=== PATIENT | male | born 1960 | race Caucasian/White ===

== ENCOUNTER 2023-01-20 08:29 | Outpatient (OUT) | payer OTHER, SELFPAY ==
--- NOTE | 2023-01-20 12:07 | XR_ITS ---
The [address] [address] Patient Name: JACOB SYED MRN: [id number] date: 1960 Sex: M Assigned Patient Location: RAD Current Patient Location: [facility] Accession/Order Number: [id number] Exam Date: 01/20/2023 12:18 Report Date: 01/20/2023 20:28 At the request of: ASMITA ALEJO Procedure: XR knee MAXIMUS 3V EXAMINATION: XR knee MAXIMUS 3V HISTORY: Knee osteoarthritis M17.9 COMPARISON: No relevant comparison available. FINDINGS: RIGHT FINDINGS: BONES: No acute fracture or dislocation. Mild to moderate tricompartmental osteoarthropathy with joint space narrowing marginal osteophyte formation SOFT TISSUES: Negative. No visible soft tissue swelling. OTHER: Small moderate suprapatellar joint effusion LEFT FINDINGS: BONES: No acute fracture or dislocation. Mild to moderate tricompartmental osteoarthropathy SOFT TISSUES: Negative. No visible soft tissue swelling. OTHER: Large suprapatellar joint effusion XR/XR knee MAXIMUS 3V IMPRESSION: RIGHT CONCLUSION: Osteoarthritis with joint effusion LEFT CONCLUSION: Osteoarthritis with joint effusion Electronically authenticated by: NIKOLE PEREZ Date: 01/20/2023 20:28
== END 2023-01-20 08:30 ==
LOC: RAD 01-24 08:29
PROVIDERS: PCP Family Medicine; Visit Provider Family Medicine
DX: M17.0 Bilateral primary osteoarthritis of knee (principal)
CPT/HCPCS: 73562

== ENCOUNTER 2023-04-28 08:51 | Outpatient (OUT) | payer OTHER, SELFPAY ==
--- NOTE | 2023-04-28 09:02 | XR_ITS ---
[place] [id number] Patient Name: JACOB SYED MRN: [id number] date: 1960 Sex: M Assigned Patient Location: [facility] Current Patient Location: [facility] Accession/Order Number: [id number] Exam Date: 04/28/2023 09:10 Report Date: 04/28/2023 13:04 At the request of: ADRI SANDOVAL Procedure: XR knee MAXIMUS 4V EXAMINATION: XR knee MAXIMUS 4V HISTORY: Pain In Bilateral Knees , chronic COMPARISON: XR knee bilateral 01/20/2023 FINDINGS: RIGHT FINDINGS: BONES: Marked narrowing of the lateral joint space. Prominent osteophyte projecting from lateral articular surface of the femoral condyle appears to have eroded into the articular surface of the tibial plateau. Degenerative osteophytes along the articular margins of the anterior and lateral compartments. No fracture or dislocation. SOFT TISSUES: No visible soft tissue swelling. OTHER: Moderate size joint effusion. LEFT FINDINGS: BONES: Marked narrowing of the lateral joint space with [id number] articulation; moderate narrowing of the medial compartment. Partial lateral subluxation of the patella running relation to the femoral intercondylar notch. SOFT TISSUES: No visible soft tissue swelling. OTHER: Moderate-large joint effusion. XR/XR knee MAXIMUS 4V IMPRESSION: RIGHT CONCLUSION: Marked degenerative changes; significantly progressed since 3 months ago. LEFT CONCLUSION: Marked degenerative changes; significantly progressed since 3 months ago. Electronically authenticated by: ADRI ALMAZAN Date: 04/28/2023 13:04
== END 2023-04-28 08:52 | disposition home or self-care (01) ==
LOC: RAD 08:51
PROVIDERS: PCP Family Medicine; Visit Provider Orthopaedic Surgery
DX: M25.561 Pain in right knee (principal); M25.562 Pain in left knee
CPT/HCPCS: 73564

== ENCOUNTER 2023-05-18 09:39 | Emergency (ER) | payer OTHER, SELFPAY ==
[2023-05-18 09:43] VITALS: BP 130/101; PULSE 98; RESP 18; O2SAT 96; BMI 34.4
--- NOTE | 2023-05-18 09:50 | XR_ITS ---
The [address] [address] Patient Name: JACOB SYED MRN: [id number] date: 1960 Sex: M Assigned Patient Location: ER Current Patient Location: Accession/Order Number: [id number] Exam Date: 05/18/2023 10:00 Report Date: 05/18/2023 10:55 At the request of: ARNAV STOUT Procedure: XR humerus LT HISTORY: Pain in the mid upper arm of the left arm after a fall yesterday. XR humerus LT: 05/18/2023 10:00 AM EST COMPARISON: None. FINDINGS: 2 views of the left humerus were obtained. No fracture is seen. There is no significant soft tissue swelling. XR/XR humerus LT IMPRESSION: No fracture of the humerus is seen. Electronically authenticated by: ASMITA LAW Date: 05/18/2023 10:55
--- NOTE | 2023-05-18 09:51 | ED.UPPEXIN1 ---
HPI - Extremity Injury (Upper) General Chief Complaint: Extremity Injury, Upper Stated Complaint: UPPER EXTREMITY INJURY LEFT SHOULDER Time Seen by Provider: 05/18/23 09:47 Source: patient Mode of arrival: walk-in Limitations: no limitations History of Present Illness HPI narrative: last night the patient tripped and fell to the left, landing onto the left side with the left arm adducted against his body. He said that a lot of his weight landed onto the upper arm as it struck the ground. This morning the pain is markedly increased and he has difficulty flexing and abducting the left arm due to the pain, which is localized to the left upper arm/humerus. He took tylenol this morning for pain. no injury to the head, neck, back. He denies any shoulder pain. No loss consciousness. No other extremity or torso injuries. Related Data Allergies Allergy/AdvReac Type Severity Reaction Status Date / Time cephalexin [From Keflex] Allergy Intermediate Verified 05/18/23 09:46 Penicillins Allergy Intermediate Verified 05/18/23 09:46 [facility] Social History Smoking status: Never smoker Exam Narrative Exam Narrative: Nurses note and vital signs reviewed and patient is not hypoxic. afebrile General: The patient appears well and in no apparent distress. Patient is resting comfortably on cart. GCS = 15. Skin: Warm, dry, no pallor noted. Head: Normocephalic, atraumatic Neck: Supple, trachea mid-line. Full ROM and no cervical spinal tenderness. Eyes: PERRLA, EOMI Cardiovascular: normal peripheral perfusion Respiratory: Patient is in no distress, no accessory muscle use Back: No thoracic or left scapular tenderness to palpation. Negative straight leg raise bilaterally. Musculoskeletal: Left humerus tenderness, no left UE swelling - normal left shoulder exam and normal exam distal to the shaft of the left humerus - moves left elbow, wrist, forearm and fingers without difficulty or pain. Pulses at femoral, DP, PT, and popliteal were 2+ bilaterally. Moves all four extremities in all modalities with 5/5 strength. 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 Psychiatric: Cooperative Constitutional Vital Signs, click to edit/add: Last Vital Signs Pulse 98 H 05/18/23 09:43 Resp 18 05/18/23 09:43 BP 130/101 H 05/18/23 09:43 Pulse Ox 96 05/18/23 09:43 O2 Del Method Room Air 05/18/23 09:43 Course Vital Signs Vital signs: Vital Signs Pulse Rate 98 H 05/18/23 09:43 Respiratory Rate 18 05/18/23 09:43 Blood Pressure 130/101 H 05/18/23 09:43 Pulse Oximetry 96 05/18/23 09:43 Oxygen Delivery Method Room Air 05/18/23 09:43 Pulse Rate 98 H 05/18/23 09:43 Respiratory Rate 18 05/18/23 09:43 Blood Pressure 130/101 H 05/18/23 09:43 Pulse Oximetry 96 05/18/23 09:43 Oxygen Delivery Method Room Air 05/18/23 09:43 MDM - Extremity Injury (Upper) MDM Narrative Medical decision making narrative: the patient was sent for x-rays of the left humerus - I do not identify any fracture of the humerus, abnormality of the left shoulder or dislocation of the shoulder or elbow. ED nurse placed a sling on the patient's left UE - he was neurovascularly intact distally. patient discharged home with recommendation to take tylenol and motrin for pain. PCP follow up as needed. Imaging Data xr humerus: My impression: no acute fracture or dislocation. Discharge Plan Discharge Chief Complaint: Extremity Injury, Upper Clinical Impression: Contusion of arm, left Patient Disposition: Home, Self-Care Time of Disposition Decision: 10:35 Instructions: Contusion in Adults (ED) Stand Alone Forms: Portal Instructions Referrals: Kain Casillas MD [Primary Care Provider] - 1 week
[2023-05-18 10:44] VITALS: BP 158/98; PULSE 102; RESP 20; O2SAT 97
== END 2023-05-18 10:48 | disposition home or self-care (01) ==
PROVIDERS: Emergency Provider Emergency Medicine; PCP Family Medicine
DX: S40.022A Contusion of left upper arm, initial encounter (principal); W01.10XA Fall on same level from slipping, tripping and stumbling with subsequent striking against unspecified object, initial encounter
CPT/HCPCS: 73060; 99283

== ENCOUNTER 2023-10-29 08:46 | Outpatient (OUT) | payer OTHER, SELFPAY ==
--- NOTE | 2023-10-29 08:54 | ECG_ITS ---
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
--- NOTE | 2023-10-29 09:05 | XR_ITS ---
The [address] [address] Patient Name: JACOB SYED MRN: [id number] date: 1960 Sex: M Assigned Patient Location: [facility] Current Patient Location: [facility] Accession/Order Number: [id number] Exam Date: 10/29/2023 09:42 Report Date: 10/29/2023 10:09 At the request of: ELVER ASHTON Procedure: XR chest 2V EXAM: XR chest 2V HISTORY: Preop exam COMPARISON: None. TECHNIQUE: PA and lateral views of the chest. FINDINGS: The cardiomediastinal silhouette is normal. No focal consolidation is identified. There is no pneumothorax. No pleural effusion is noted. The osseous structures are intact. XR/XR chest 2V IMPRESSION: No acute cardiopulmonary process. Electronically authenticated by: UDAY COVARRUBIAS Date: 10/29/2023 10:09
--- OUTSIDE RECORDS SUMMARY | 2023-10-29 09:08 | XMS_ITS | CCD ---
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 Care Anesthesiology Faculty Name Role Phone NO FAMILY, PHYSICIAN Primary Care Provider Unava MD Ankush Lynn II Attending Provider [phone] Ankush Chacko II Attending UnavailAnkush Hernandez II Admitting Unavailjet gutierrez NO FAMILY, PHYSICIAN Primary Care Unavailable Ankush Chacko II Unavailable ANKUSH CHACKO Admitting Unavailable ANKUSH CHACKO Attending Unavailable YOMI VALDEZ Primary Care Unavailable RUDDY HECTOR Admitting Unavailable RUDDY HECTOR Attending Unavailable YOMI VALDEZ Primary Care Unavailable LA MARTINEZ Consulting Unavailable RUDDY HECTOR Consulting Unavailable Allergies Allergy Classification Reported Allergen(s) Allergy Type Date of Onset Reaction(s) Facility (2 sources) Cephalexin; Translations: [Keflex] Drug Allergy 06-07-20 13 rash [facility] Repository (1 source) Penicillin V Drug Allergy rash [employer] Other (1 source) Dextroamphetamine Drug Allergy 08-21-19 17 [facility] Repository (1 source) Penicillins Drug allergy (disorder) 06-07-20 13 [facility] Medications Current Medications Medication Drug Class(es) Dates Sig (Normalized) Sig (Original) acetaminophen 325 mg / HYDROcodone bitartrate 5 mg oral tablet (1 source) Opioid Agonist HYDROcodone-Acet aminophen 5-325 MG Oral for 3 Days Active atenolol 50 mg oral tablet (1 source) beta-Adrenergic Nita take 1 tablet by mouth once daily Atenolol 50 MG TAKE 1 TABLET BY MOUTH ONCE DAILY AT NIGHT Oral for 90 Days Active ezetimibe 10 mg oral tablet (1 source) Dietary Cholesterol Absorption Inhibitor take 1 tablet by mouth every twenty-four hours Ezetimibe 10 MG 1 tablet Orally Once a day Active lisinopril 20 mg oral tablet (1 source) Angiotensin Converting Enzyme Inhibitor take 1 tablet by mouth once daily in the morning Lisinopril 20 MG TAKE 1 TABLET BY MOUTH ONCE DAILY IN THE MORNING Oral for 90 Days Active meloxicam 15 mg oral tablet (2 sources) Nonsteroidal Anti-inflammatory Drug Start: 03-27-2022 take 1 tablet by mouth every twenty-four hours Meloxicam 15 MG 1 tablet Orally Once a day for 30 day(s) Mar, Active traZODone hydrochloride 100 mg oral tablet (1 source) Serotonin Reuptake Inhibitor take 1 tablet by mouth once daily traZODone HCl 100 MG TAKE 1 TABLET BY MOUTH ONCE DAILY AT NIGHT Oral for 90 Days Active Problems Problem Classification Problem Date Documented Date Episodic/Chronic E Codes: Fall (1 source) Fall on and from ladder, initial encounter; Translations: [FALL ON AND FROM LADDER INITIAL ENC] Onset: 03-25-2022 Episodic Joint disorders and dislocations; trauma-related (1 source) Unspecified dislocation of left patella, initial encounter; Translations: [UNS DISLOCATION LT PATELLA INITIAL] Onset: 03-25-2022 Episodic Malaise and fatigue (1 source) Weakness; Translations: [WEAKNESS] Onset: 04-17-2022 Episodic Other aftercare (1 source) Other skilled nursing (current) drug therapy; Translations: [OTH USP CURRENT DRUG THERAPY] Onset: 03-25-2022 Episodic Other nervous system disorders (1 source) Other abnormalities of gait and mobility; Translations: [OTHER ABNORMALITIES GAIT AND MOBILITY] Onset: 04-17-2022 Episodic Other non-traumatic joint disorders (5 sources) Other instability, left knee; Translations: [OTHER INSTABILITY LEFT KNEE] Onset: 03-29-2022 Episodic Other non-traumatic joint disorders (4 sources) Pain in left knee; Translations: [PAIN IN LEFT KNEE] Onset: 03-23-2022 Episodic Other non-traumatic joint disorders (1 source) Effusion, left knee; Translations: [EFFUSION LEFT KNEE] Onset: 04-17-2022 Episodic Other non-traumatic joint disorders (1 source) Stiffness of left knee, not elsewhere classified; Translations: [STIFFNESS LEFT KNEE NEC] Onset: 04-17-2022 Episodic Sprains and strains (1 source) Sprain of unspecified site of left knee, initial encounter; Translations: [SPRAIN UNS SITE LT KNEE INITIAL] Onset: 03-25-2022 Episodic Unclassified (1 source) Pain in left knee; Translations: [Pain in left knee] Onset: 03-27-2022 Results Test Name Value Interpretation Reference Range Facil ity XR pelvis 1-2Von 03-27-2022 XR pelvis 1-2V [facility] Main [place] [address] [place] [id number] XRay Report Signed Patient: Jacob Syed MR#: [id number] : 1960 Acct:[id number] Age/Sex: 62 / M ADM Date: 03/27/22 Loc: [facility] Room: Type: [facility] Attending Dr: Ankush Chacko II, MD Copies to: Ankush Chacko MD Ordering Provider: Ankush Chacko MD Date of Service: 03/27/22 XR/XR knee LT 4V*: Acute pain of left knee ([id number]) XR/XR pelvis 1-2V: PAIN LEFT KNEE - 4 views, one view pelvis CLINICAL HISTORY: Fell off ladder twisting while following. Swelling with generalized pain. COMPARISON: None FINDINGS: Knee: Prepatellar soft tissue swelling is noted. There is cortical irregularity noted along the lateral aspect of the lateral condyle. Mild degenerative changes. Small knee joint effusion. Pelvis: No acute bony process or significant degenerative change. XR/XR knee LT 4V* IMPRESSION: SOFT TISSUE SWELLING IS NOTED WITH CORTICAL IRREGULARITY ALONG THE LATERAL ASPECT OF THE LATERAL CONDYLE. IF INTERNAL DERANGEMENT OR ACUTE BONY PROCESS IS OF CLINICAL CONCERN, FURTHER EVALUATION WITH MRI SUGGESTED. Impression dictated by: Fransico Cordova Jr., D.OMirtha03/27/2022 4:07 PM Dictation Location: [place] [address] Transcribed By: [facility] 03/27/22 1604 Dictated By: Fransico Cordova Jr, DO 03/27/22 1605 Signed By: 03/27/22 [address] [facility] XR KNEE LT 4V or >on 022 XR KNEE LT 4V or > IMAGES REVIEWED: XR KNEE LT 4V or > COMPARISON: None available. CLINICAL INDICATION: Pain FINDINGS/IMPRESSION: 1. No definite evidence of acute osseous abnormality of the left knee. Only well seen on one of the oblique views, the third image of the series, there are some indeterminant small densities adjacent to the lateral femoral condyle-patella. 2. Apparent moderate anterior knee soft tissue swelling. 3. No lipohemarthrosis to suggest occult intra-articular fracture. 4. If there is concern for transient lateral patellar dislocation or chronic patellar maltracking, consider further evaluation with nonemergent MRI. Electronically authenticated by: LA MARTINEZ Date: 2022-03-23 19:23 Normal [facility] Vital Signs Date Time Vital Sign Value Performing Clinician Gabby whitley 04-24-2022 09:45-0400 Body height 177.8 cm Ankush Chacko II Other [employer] Other 04-24-2022 09:45-0400 Body mass index (BMI) [Ratio] 34.15 kg/m2 Ankush Patelle II Other [employer] [facility] [employer] Other 04-24-2022 09:45-0400 Body weight 107.96 kg Ankush Chacko II Other [employer] [facility] [employer] Other Encounters Encounter Date Encounter Type Care Provider Facility Start: 04-24-2022 End: 04-24-2022 ambulatory Ankush Chacko II Other [employer] [facility] [employer] Other Start: 04-24-2022 Office outpatient visit 15 minutes Ankush Chacko II [facility] Start: 03-29-2022 End: 04-23-2022 ambulatory ANKUSH CHACKO Facility:[facility] Start: 03-27-2022 End: 03-27-2022 ambulatory Ankush Chacko II Facility:[facility] Start: 03-27-2022 End: 03-27-2022 Patient encounter procedure PHYSICIAN NO FAMILY [facility] Start: 03-23-2022 End: 03-23-2022 ambulatory RUDDY HECTOR Facility:[facility] Procedures Date Procedure Procedure Detail Performing Clinician Start: 03-27-2022 Radiologic examinati on of knee PHYSICIAN NO FAMILY Start: 03-27-2022 Pelvis X-ray PHYSICIAN NO FAMILY Payers Date Payer Category Payer Self-pay [id number] 1960 Unknown [id number] 1960 Unknown [id number] 1958 Private Health Insurance [id number] Unknown [id number] Worker'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 [employer] [facility] [id number] Social History Date Type Detail Facility Tobacco smoking status NHIS Unknown if ever smoked [facility] Work Phone: Start: 1960 Sex Assigned At Male F [facility] Sex Assigned At Sex Assigned At Bir th [employer] Other Evaluation note 04-24-2022 Note Date & Type Note Facility 04-24-2022 Evaluation note Encounter Date Diagnosis Assessment Notes Apr, Patellar instability of left knee (ICD-10 - M25.362) Apr, Other At this point patient is doing very well with therapy and not having any pain. I think that he can get back to doing all activities he would like to including getting back to work full-time. If he has any issues in the future he can certainly see us in follow-up. I think he can continue working with therapy as an outpatient and eventually begin doing his own therapy at home. [facility] [employer] Other Evaluation note Note Date & Type Note Facility Evaluation note No assessment information availa ble [facility] Work Phone: History general Narrative - Reported Note Date & Type Note Facility History general Narrative - Reported Type Medical History hypertension Surgical History vasectomy [employer] Other Advance Directives No Advanced Directives Records Found Advance Directive Response Recorded Date/ Time Advance Directives No [place] 7th, 2 019 1:39pm Summary Purpose Family History No Family History Records FoundNo Family History Records Found Additional Source Comments Care Teams (unrecognized sec tion and content) Team Status: Inactive Member Role Status Dates PHYSICIAN NO FAMILY Primary Care Provider Active Ankush Chacko II, MD Attending Provider Active Team Status: Active Member Role Status Dates PHYSICIAN NO FAMILY Primary Care Provider Active Goals (unrecognized section and content) Goals may be documented in a n alternate sectionNo Information (unrecognized sect ion and content) No Status Records FoundNo Status Records Found INFORMATION SOURCE (unrecogn ized section and content) DATE CREATED AUTHOR 04/07/2022 [facility] DATE CREATED AUTHOR AUTHOR'S ORGANIZ ATION 05/11/2022 [facility] REASON FOR VISIT (unrecogniz ed section and content) 4 WEEK RECHECK FOR RECORDS PERTAINING TO PATIENTS WHO ARE OR HAVE BEEN ENROLLED IN A CHEMICAL DEPENDENCY/SUBSTANCEABUSE PROGRAM, SOME INFORMATION MAY BE OMITTED. This clinical summary was aggregated from multiple sources. Caution should be exercised in using it in the provision of clinical care. This summary normalizes information from multiple sources, and as a consequence, information in this document may materially change the coding, format and clinical context of patient data. In addition, data may be omitted in some cases. CLINICAL DECISIONS SHOULD BE BASED ON THE PRIMARY CLINICAL RECORDS. [facility] [employer] provides no warranty or guarantee of the accuracy or completeness of information in this document.
--- NOTE | 2023-10-29 09:37 | P.GSHP_ITS ---
History of Present Illness History of Present Illness Chief complaint: Primary OA Right Knee Narrative: Patient presents for preadmission testing. The patient reports a long history of bilateral knee pain, right worse than left. He states he's had cortisone injections and physical therapy he is currently taking meloxicam and tramadol to help with his discomfort. He states he's frustrated because he cannot do his normal activities. The patient denies numbness, tingling, weakness, or any other complaints. Review of Systems ROS Narrative REVIEW OF SYSTEMS: Negative except as stated in HPI, ten or more systems reviewed. Constitutional: No fever , chills, weakness ENT: No sore throat or epistaxis Cardiovascular: No edema, chest pain, palpitations, or activity intolerance Respiratory: No shortness of breath, cough, or wheezing Gastrointestinal: No abdominal pain, constipation, diarrhea, or vomiting Genitourinary: No dysuria or hematuria Neurological: No numbness, tingling, weakness, or headache Psychiatric: No mood changes PFSH PFSH Medical History (Updated 10/29/23 @ 09:18 by Linda Yoder NP) Osteoarthritis of right knee ?M17.11 - Unilateral primary osteoarthritis, right knee (ICD-10) Patellar dislocation ?S83.006A - Unspecified dislocation of unspecified patella, initial encounter (ICD-10) Knee pain ?M25.569 - Pain in unspecified knee (ICD-10) Arthritis ?M19.90 - Unspecified osteoarthritis, unspecified site (ICD-10) Osteoarthritis ?M19.90 - Unspecified osteoarthritis, unspecified site (ICD-10) COVID-19 ?U07.1 - COVID-19 (ICD-10) High cholesterol ?E78.00 - Pure hypercholesterolemia, unspecified (ICD-10) Hypertension ?I10 - Essential (primary) hypertension (ICD-10) Surgical History (Updated 10/29/23 @ 09:18 by Linda Yoder NP) History of colonoscopy ?Z98.890 - Other specified postprocedural states (ICD-10) History of vasectomy ?Z98.52 - Vasectomy status (ICD-10) Family History (Updated 10/29/23 @ 09:18 by Linda Yoder NP) Other Family history of hypertension Social History (Updated 10/29/23 @ 09:13 by Linda Yoder, [employer]) Within the past year, how often did you have a drink containing alcohol: 4 or more times a week Within the past year, how many standard drinks containing alcohol did you have on a typical day: 1 or 2 Total score: 0 Score interpretation: A score less than 4 is consistent with normal alcohol consumption. Smoking status: Never smoker Non-prescribed substance use: denies use Previous occupational history: Retired Highest level of school completed/degree received: high school graduate Meds Home Medications and Allergies Home Medications ?Medication ?Instructions ?Recorded ?Confirmed ?Type atenolol 50 mg tablet 50 mg PO Q24H 10/29/23 10/29/23 History ezetimibe 10 mg tablet 10 mg PO DAILY 10/29/23 10/29/23 History lisinopril 20 mg tablet 20 mg PO DAILY 10/29/23 10/29/23 History meloxicam 15 mg tablet 15 mg PO DAILY 10/29/23 10/29/23 History multivitamin (Daily Multi-Vitamin 1 tab PO DAILY 10/29/23 10/29/23 History tablet) tramadol 50 mg tablet 50 mg PO Q8H PRN pain 10/29/23 10/29/23 History trazodone 100 mg tablet 100 mg PO DAILY 10/29/23 10/29/23 History Allergies Allergy/AdvReac Type Severity Reaction Status Date / Time cephalexin [From Keflex] Allergy Intermediate itching Verified 10/29/23 09:09 Penicillins Allergy Intermediate unkown Verified 10/29/23 09:09 Exam Narrative Exam Narrative: Constitutional: Awake, alert, comfortable, well-appearing, nontoxic, interactive, vital signs as charted Head: Normocephalic, atraumatic Neck: Supple, normal appearance, normal range of motion, no meningeal signs, no lymphadenopathy Respiratory: No respiratory distress, breath sounds clear Cardiovascular: Regular rate and rhythm, strong and regular heart tones Musculoskeletal: Ambulates with an antalgic gait, right knee range of motion limited due to pain, diffuse tenderness with palpation of right knee joint Skin: No rashes or induration, no lesions, only visible skin inspected Neuro: No neurological deficits, normal sensation Psychiatric: Oriented ?3, normal affect Assessment and Plan Assessment and Plan (1) Osteoarthritis of right knee: (2) Knee pain: Plan Right total knee replacement scheduled with Dr. Canela 11/17/2023.
[2023-10-29 09:52] LABS: Basophils Absolute Auto 0.1 10^3/uL (0.0-0.1); Basophils Percent Auto 0.7 % (0.2-2.0); Eosinophils Absolute Auto 0.1 10^3/uL (0.0-0.7); Eosinophils Percent Auto 1.5 % (0.9-7.0); Hematocrit 45.8 % (42.0-54.0); Hemoglobin 15.5 g/dL (14.0-18.0); Immature Granulocytes Abs Auto 0.06 10^3/uL (0.00-0.03); Immature Granulocytes Pct Auto 0.8 % (0.0-0.5); Lymphocytes Absolute Auto 1.4 10^3/uL (1.2-3.8); Lymphocytes Percent Auto 18.9 % (20.5-60.0); Mean Corpuscular HGB Conc 33.8 g/dL (29.9-35.2); Mean Corpuscular Hemoglobin 29.5 pg (25.9-34.0); Mean Corpuscular Volume 87.1 fL (80.0-94.0); Mean Platelet Volume 8.5 fL (9.5-13.5); Monocytes Absolute Auto 0.8 10^3/uL (0.3-0.8); Monocytes Percent Auto 10.6 % (1.7-12.0); Neutrophils Percent Auto 67.5 % (43.0-75.0); Platelet Count 254 10^3/uL (150-450); Red Blood Count 5.26 10^6/uL (4.70-6.10); White Blood Count 7.4 10^3/uL (4.0-11.0)
[2023-10-29 10:05] LABS: Alanine Aminotransferase 35 U/L (16-63); Albumin Globulin Ratio 1.2; Albumin Level 3.7 g/dL (3.4-5.0); Alkaline Phosphatase 58 U/L (46-116); Aspartate Amino Transferase 18 U/L (15-37); BUN Creatinine Ratio 18.2; Bilirubin Direct 0.2 mg/dL (0.0-0.2); Bilirubin Total 0.9 mg/dL (0.2-1.0); Calcium 9.6 mg/dL (8.5-10.1); Carbon Dioxide 24.4 mmol/L (21.0-32.0); Chloride 104 mmol/L (98-107); Estimated GFR (African America >60 (>=60); Estimated GFR (Non-African Ame 55 (>=60); Globulin 3.1 g/dL; Glucose 106 mg/dL (74-106); Potassium 4.4 mmol/L (3.5-5.1); Sodium 140 mmol/L (136-145); Total Protein 6.8 g/dL (6.4-8.2)
[2023-10-29 11:34] LABS: INR 0.98; Partial Thromboplastin Time 28.1 sec (22.3-36.2); Prothrombin Time 10.4 sec (9.0-11.6)
== END 2023-10-29 08:47 | disposition home or self-care (01) ==
LOC: PST 08:46
PROVIDERS: PCP Family Medicine; Visit Provider Student in an Organized Health Care Education/Training Program
DX: Z01.810 Encounter for preprocedural cardiovascular examination (principal); Z01.812 Encounter for preprocedural laboratory examination; Z01.818 Encounter for other preprocedural examination; M17.11 Unilateral primary osteoarthritis, right knee
CPT/HCPCS: 71046; 80048; 80076; 85025; 85610; 85730; 87081; 93005; G0463

== ENCOUNTER 2023-11-14 12:15 | Outpatient (OUT) | payer OTHER, SELFPAY ==
--- OUTSIDE RECORDS SUMMARY | 2023-11-14 12:19 | XMS_ITS | CCD ---
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 Name Role Phone NO FAMILY, PHYSICIAN Primary Care Provider Unava MD Ankush Lynn II Attending Provider [phone] Ankush Chacko II Attending UnavailAnkush Hernandez II [...] [Keflex] Drug Allergy 06-07-20 13 rash [facility] (1 source) Penicillin V Drug Allergy rash [facility] Other (1 source) Dextroamphetamine Drug Allergy 08-21-19 17 [facility] (1 source) Penicillins Drug allergy (disorder) 06-07-20 13 [facility] Medications Current Medications Medication Drug [...] 04-17-2022 Episodic Other aftercare (1 source) 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; Translations: [OTH SIGN FABRICATOR CURRENT DRUG THERAPY] Onset: 03-25-2022 Episodic Other [...] XR pelvis 1-2Von 03-27-2022 XR pelvis 1-2V [facility] Main [place] [address] [place] [id number] XRay Report Signed Patient: Jacob Syed MR#: [id number] : 1960 Acct:[id number] Age/Sex: 62 / M ADM Date: 03/27/22 Loc: [facility] [place] Room: Type: [facility] Attending Dr: Ankush Chacko II, MD Copies to: Ankush Chacko MD Ordering Provider: Ankush Chacko MD Date of Service: 03/27/22 XR/XR knee LT 4V*: Acute pain of left knee ([id number]) XR/XR pelvis 1-2V: PAIN LEFT KNEE - [...] Cordova Jr., D.OMirtha03/27/2022 4:07 PM Dictation Location: [place] [address] Transcribed By: [facility] 03/27/22 160 Dictated By: Fransico Cordova Jr, DO 03/27/22 1606 Signed By: 03/27/22 1601 Normal [facility] XR KNEE LT 4V or >on 022 [...] by: LA MARTINEZ Date: 2022-03-23 19:23 Normal [facility] Vital Signs Date Time Vital Sign Value Performing Clinician Gabby whitley 04-24-2022 09:45-0400 Body height 177.8 cm Ankush Chacko II Other [facility] Other 04-24-2022 09:45-0400 Body mass index (BMI) [Ratio] 34.15 kg/m2 Ankush Patelle II Other [facility] Other 04-24-2022 09:45-0400 Body weight 107.96 kg Ankush Chacko II Other [facility] Other Encounters Encounter Date Encounter Type Care Provider Facility Start: 04-24-2022 End: 04-24-2022 ambulatory Ankush Chacko II Other [facility] Other Start: 04-24-2022 Office outpatient visit 15 minutes Ankush Chacko II [facility] Start: 03-29-2022 End: 04-23-2022 ambulatory ANKUSH CHACKO Facility:[facility] Start: 03-27-2022 End: 03-27-2022 ambulatory Ankush Chacko II Facility:[facility] Start: 03-27-2022 End: 03-27-2022 Patient encounter procedure PHYSICIAN NO FAMILY [facility] Start: 03-23-2022 End: 03-23-2022 ambulatory RUDDY HECTOR Facility:[facility] Procedures Date Procedure Procedure Detail Performing Clinician Start: 03-27-2022 Radiologic examinati on of knee PHYSICIAN NO FAMILY Start: 03-27-2022 Pelvis X-ray PHYSICIAN NO FAMILY Payers Date Payer Category Payer Self-pay [id number] 1960 Unknown [id number] 1960 Unknown [id number] 1958 Private Health Insurance [id number] Unknown [id number] Worker'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 [employer] [facility] [id number] Social History Date Type Detail Facility Tobacco smoking status NHIS Unknown if ever smoked [facility] Work Phone: Start: 1960 Sex Assigned At Male F [facility] Sex Assigned At Sex Assigned At Bir th [facility]Info Other Evaluation note 04-24-2022 Note Date & [...] begin doing his own therapy at home. [facility] Other Evaluation note Note Date & Type Note Facility Evaluation note No assessment information availa ble [facility] Work Phone: History general Narrative - Reported Note Date & Type Note Facility History general Narrative - Reported Type Medical History hypertension Surgical History vasectomy [facility] Other Advance Directives No Advanced Directives Records Found Advance Directive Response Recorded Date/ Time Advance Directives No [place] [address], 2 019 1:39pm Summary Purpose Family [...] section and content) DATE CREATED AUTHOR 04/07/2022 [facility] DATE CREATED AUTHOR AUTHOR'S ORGANIZ ATION [...] BE BASED ON THE PRIMARY CLINICAL RECORDS. [facility] [employer] provides no warranty or guarantee of the accuracy or completeness of information in this document.
== END 2023-11-14 12:16 | disposition home or self-care (01) ==
LOC: LAB 12:15
PROVIDERS: PCP Family Medicine; Visit Provider Student in an Organized Health Care Education/Training Program
DX: Z01.812 Encounter for preprocedural laboratory examination (principal); M17.11 Unilateral primary osteoarthritis, right knee
CPT/HCPCS: 36415; 86850; 86900; 86901

== ENCOUNTER 2023-11-17 08:18 | Day surgery (SDC) | payer OTHER, SELFPAY ==
[2023-10-29 09:35] VITALS: BP 125/84; PULSE 79; TEMP 36.2; O2SAT 95; BMI 35.5
[2023-11-17] VITALS (21 sets, daily range): BP systolic 103–160; BP diastolic 63–99; PULSE 78–102; TEMP 36.2–36.8; O2SAT 79–98; BMI 34.4; BMI 36.4
[2023-11-17 08:26] LABS: Basophils Absolute Auto 0.1 10^3/uL (0.0-0.1); Basophils Percent Auto 0.7 % (0.2-2.0); Eosinophils Absolute Auto 0.1 10^3/uL (0.0-0.7); Eosinophils Percent Auto 1.3 % (0.9-7.0); Hematocrit 46.1 % (42.0-54.0); Hemoglobin 15.9 g/dL (14.0-18.0); Immature Granulocytes Abs Auto 0.06 10^3/uL (0.00-0.03); Immature Granulocytes Pct Auto 0.8 % (0.0-0.5); Lymphocytes Absolute Auto 1.7 10^3/uL (1.2-3.8); Lymphocytes Percent Auto 22.4 % (20.5-60.0); Mean Corpuscular HGB Conc 34.5 g/dL (29.9-35.2); Mean Corpuscular Hemoglobin 29.9 pg (25.9-34.0); Mean Corpuscular Volume 86.7 fL (80.0-94.0); Mean Platelet Volume 8.1 fL (9.5-13.5); Monocytes Absolute Auto 0.9 10^3/uL (0.3-0.8); Monocytes Percent Auto 11.7 % (1.7-12.0); Neutrophils Absolute Auto 4.8 10^3/uL (1.4-6.5); Neutrophils Percent Auto 63.1 % (43.0-75.0); Platelet Count 281 10^3/uL (150-450); Red Blood Count 5.32 10^6/uL (4.70-6.10); Red Cell Distribution Width 13.2 % (11.0-15.0); White Blood Count 7.6 10^3/uL (4.0-11.0)
--- NOTE | 2023-11-17 08:41 | P.ORHP_ITS ---
History of Present Illness History of Present Illness Chief complaint: Primary OA Right Knee Narrative: Pt is a 63 yo male presenting for elective R TKA. Has severe R knee OA. He has trialed non-op management with PT, injections, NSAIDs. He has now elected for R TKA. Risks and benefits of procedure discussed. Informed consent obtained. Review of Systems ROS Status of ROS 10 or more systems reviewed and unremark able except as noted in history and below [facility] Medical History (Updated 10/29/23 @ 09:18 by Linda Yoder NP) Osteoarthritis of right knee ?M17.11 - Unilateral primary osteoarthritis, right knee (ICD-10) Patellar dislocation ?S83.006A - Unspecified dislocation of unspecified patella, initial encounter (ICD-10) Knee pain ?M25.569 - Pain in unspecified knee (ICD-10) Arthritis ?M19.90 - Unspecified osteoarthritis, unspecified site (ICD-10) Osteoarthritis ?M19.90 - Unspecified osteoarthritis, unspecified site (ICD-10) COVID-19 ?U07.1 - COVID-19 (ICD-10) High cholesterol ?E78.00 - Pure hypercholesterolemia, unspecified (ICD-10) Hypertension ?I10 - Essential (primary) hypertension (ICD-10) Surgical History (Updated 10/29/23 @ 09:18 by Linda Yoder NP) History of colonoscopy ?Z98.890 - Other specified postprocedural states (ICD-10) History of vasectomy ?Z98.52 - Vasectomy status (ICD-10) Family History (Updated 10/29/23 @ 09:45 by Linda Yoder NP) Other Family history of cancer Family history of hypertension Social History (Updated 10/29/23 @ 09:13 by Linda Yoder NP) Within the past year, how often did you have a drink containing alcohol: 4 or more times a week Within the past year, how many standard drinks containing alcohol did you have on a typical day: 1 or 2 Total score: 0 Score interpretation: A score less than 4 is consistent with normal alcohol consumption. Smoking status: Never smoker Non-prescribed substance use: denies use Previous occupational history: Retired Highest level of school completed/degree received: high school graduate Meds Home Medications and Allergies Home Medications ?Medication ?Instructions ?Recorded ?Confirmed ?Type atenolol 50 mg tablet 50 mg PO Q24H 10/29/23 11/17/23 History ezetimibe 10 mg tablet 10 mg PO DAILY 10/29/23 11/17/23 History lisinopril 20 mg tablet 20 mg PO DAILY 10/29/23 11/17/23 History meloxicam 15 mg tablet 15 mg PO DAILY 10/29/23 11/17/23 History multivitamin (Daily Multi-Vitamin 1 tab PO DAILY 10/29/23 10/29/23 History tablet) tramadol 50 mg tablet 50 mg PO Q8H PRN pain 10/29/23 11/17/23 History trazodone 100 mg tablet 100 mg PO DAILY 10/29/23 11/17/23 History Allergies Allergy/AdvReac Type Severity Reaction Status Date / Time cephalexin [From Keflex] Allergy Intermediate itching Verified 10/29/23 09:09 Penicillins Allergy Intermediate Rash Verified 11/17/23 08:32 Exam Constitutional Vital Signs, click to edit/add: Last Vital Signs Temp 97.1 F L 10/29/23 09:35 Pulse 79 10/29/23 09:35 Resp 18 10/29/23 09:35 BP 125/84 10/29/23 09:35 Pulse Ox 95 10/29/23 09:35 O2 Del Method Room Air 10/29/23 09:35 Common normals: no apparent distress General appearance: cooperative and comfortable Chest Common normals: inspection of chest normal Respiratory Common normals: normal respiratory effort and no retractions Cardio Common normals: regular rate and regular rhythm Extremity Right lower extremity: knee joint Other: RLE: Skin intact. No effusion. Correctable valgus deformity. motor and sensory exam intact. EHL/FHL/GS/TA motor intact. 2+DP pulse Results Labs Labs: Abnormal lab results 11/17/23 Range/Units 08:23 MPV 8.1 L (9.5-13.5) fL [place] # (Auto) 0.9 H (0.3-0.8) 10^3/uL Abs Immat Gran (auto) 0.06 H (0.00-0.03) 10^3/uL Imm/Tot Granulo (auto) 0.8 H (0.0-0.5) % H & H 11/17/23 Range/Units 08:23 Hgb 15.9 (14.0-18.0) g/dL Hct 46.1 (42.0-54.0) % All other labs normal. Assessment and Plan Assessment and Plan (1) Osteoarthritis of right knee: Plan 63 yo male presenting for R TKA -NPO since AK -[facility] -Chemical AC held -Informed consent obtained. Surgical site marked.
[2023-11-17] MEDS: DEXAMETHASONE SOD PHOS (PF) 10 MG/ML VIAL IV (08:56)
[2023-11-17] MEDS: LACTATED RINGER'S SOLUTION 1,000 ML 50 ML IV ×2 (08:58→10:50)
[2023-11-17] MEDS: CELECOXIB 200 MG CAPSULE PO (08:58)
[2023-11-17] MEDS: CEFAZOLIN SODIUM/DEXTROSE,ISO 2 GM/50 ML PIGGYBACK IV (09:30)
[2023-11-17] MEDS: TRANEXAMIC ACID 1,000 MG in 0.9 % SODIUM CHLORIDE 100 ML 440 MG IV ×2 (09:33→12:43)
--- NOTE | 2023-11-17 09:38 | PC.NURSE ---
914 TIME OUT PERFORMED 914 2 MG VERSED AND ZOFRAN WAS GIVEN [address] FORDE LOOKING WITH ULTRASOUND FOR LOCATION TO BLOCK, PICTURE WAS TAKEN 923 INJECTED AREA WITH ROPIVOCAINE SAPH BLOCK 926 COMPLETED BLOCK
[2023-11-17] MEDS: VANCOMYCIN HCL 1,000 MG VIAL 1000 MG TOPICAL (12:40)
[2023-11-17] MEDS: CEFAZOLIN SODIUM 2,000 MG in 0.9 % SODIUM CHLORIDE 100 ML 200 MG IV (13:20)
--- NOTE | 2023-11-17 13:42 | XR_ITS ---
The [address] [address] Patient Name: JACOB SYED MRN: [id number] date: 1960 Sex: M Assigned Patient Location: [facility] Current Patient Location: [place] Accession/Order Number: [id number] Exam Date: 11/17/2023 14:05 Report Date: 11/17/2023 14:33 At the request of: ELVER ASHTON Procedure: XR knee RT 2V EXAM: XR knee RT 2V HISTORY: post op COMPARISON: Bilateral hip study dated 04/28/2023 TECHNIQUE: AP and lateral views of the right knee were obtained. FINDINGS: There are prosthetic devices about the distal femur and proximal tibia in satisfactory position and alignment. Postoperative change at the posterior patellar level. Soft tissue swelling and air noted primarily anteriorly compatible with recent surgery. No definite acute fracture or dislocation. XR/XR knee RT 2V IMPRESSION: Right knee study demonstrates grossly unremarkable post arthroplasty changes as described. Follow-up as needed. Electronically authenticated by: KAYLEEN HODGSON Date: 11/17/2023 14:33
[2023-11-17] MEDS: HYDROMORPHONE HCL 0.5 MG/0.5 ML SYRINGE IV (13:51)
--- NOTE | 2023-11-17 13:53 | PM.ORONB ---
Brief Operative Note Date of procedure: 11/17/23 Pre-op diagnosis general: R Knee OA Post-op diagnosis: same as pre-op Procedure: R TKA Implants: Marcel 10 femur Marcel G tibia Size 10 poly Anesthesia: local Surgeon: Yony Canela Estimated blood loss (mL): 100 Tourniquet time (min): 122 IV fluids (mL): 1,000 Urine output (mL): 275 Pathology: none sent Condition: stable Disposition: floor
--- NOTE | 2023-11-17 13:55 | PM.ORPRC ---
Procedure Note Date of procedure: 11/17/23 Pre-op diagnosis: Right knee osteoarthritis Post-op diagnosis: same as pre-op Procedure: Patient is a 63 you male with severe right knee OA. He has tried injections, PT, NSAIDs with no relief. He has elected for R TKA. We discussed risks and benefits of surgery in detail with patient. Informed consent was obtained. No guarantees were made. Pt was taken to operative suite and transferred to hospital bed. He underwent anesthesia induction and intubation. The RLE was prepped and draped in usual fashion.A time out was had and the patient, procedure, operative side was confirmed. Pt was given abx and txa. Knee had quite a bit of laxity on exam. The MCL was intact but lax. We started standard midline approach. Performed medial arthrotomy. Performed limited medial peel. The infrapatellar fat pat and synovium was removed. Removed ACL/PCL. Flexed knee. there was severe bone loss to the lateral distal femur. We inserted the femur IM guide. Cut distal femur in 6 degrees of valgus. We then exposed tibia. We then cut tibia with 2mm off of the lateral side. Checked extension block which was quite tight. We then cut +2 off distal femur. Extension gap improved but still tight laterally to be expected. We then used a valgus cut guide to cut a bit more lateral tibia than medial. This improved gap tremendously. We then placed femur sizer. looked at size 10 and 11 and chose size then. Impacted block taking care to watch our rotation in relation to TEA and whitesides. We then turned to tibia. Removed meniscus and osteophytes. Selected size G tibia. We placed tibial blair in line with medial third of tubercle. We then trialed knee. It was quite stable with excellent ROM. We did note some space on the laterl side of femur between bone an implant were distal femur had eroded. We felt we could fill this gap with cement. We then irrigated knee with NS and irriscept. We then cut and measured a size 35 patella. Final implants were opened and cemented into place. Once cement hardened we were quite happy with stability of 10 poly. Knee was irrigated. Vanco placed into knee. arthrotomy was closed. subq and subcuticular closure performed. softer sterile dressings applied. Pt awoken and taken to pacu in stable condition. Post op plan: WBAT. Post op XRs. Start DVT ppx POD1. DC to home tomorrow. FOllow up in 1 week. Anesthesia: General-ET Surgeon: Yony Canela Estimated blood loss (mL): 50 IV fluids (mL): 1,000 Urine output (mL): 275 Pathology: none sent Condition: stable Disposition: floor
[2023-11-17] MEDS: 0.9 % SODIUM CHLORIDE 1,000 ML 100 ML IV (16:36)
[2023-11-17] MEDS: HYDROCODONE/ACET 5-325 MG TABLET 1 TAB PO ×2 (16:39→23:25)
--- NOTE | 2023-11-17 18:09 | P.PN_ITS ---
Progress Note: Subjective Subjective Interval history: Consultation for postoperative medical management. When I saw him up on the medical surgical floor, patient states pain fairly well-controlled. Outpatient issue is hypertension and insomnia, so far blood pressure well-maintained Exam Constitutional Vital Signs, click to edit/add: Last Vital Signs Temp 98.1 F 11/17/23 16:32 Pulse 95 H 11/17/23 16:32 Resp 18 11/17/23 16:32 BP 107/67 11/17/23 16:32 Pulse Ox 93 L 11/17/23 16:32 O2 Del Method Room Air 11/17/23 16:32 Documenting provider has reviewed patient's vital signs: yes Common normals: no apparent distress (Resting comfortably in chair) Chest Common normals: inspection of chest normal Respiratory Common normals: normal respiratory effort, no retractions and clear to auscultation bilaterally Cardio Common normals: regular rate, regular rhythm and no murmurs Extremity Common normals: no calf tenderness and no pedal edema Progress Note: Objective Labs Labs: Short CBC 11/17/23 Range/Units 08:23 WBC 7.6 (4.0-11.0) 10^3/uL Hgb 15.9 (14.0-18.0) g/dL Hct 46.1 (42.0-54.0) % Plt Count 281 (150-450) 10^3/uL Progress Note: A&P Assessment and Plan (1) Osteoarthritis of right knee: Assessment and Plan: Right knee arthroplasty-plan per orthopedics (2) Hypertension: (3) High cholesterol: (4) Insomnia: Plan Osteoarthritis right knee-status post knee replacement-plan per orthopedics Hypertension-monitor closely, postoperative blood pressure going up or down, so far blood pressure well-maintained. Continue with home medical management Hypercholesterolemia-continue with home medications Insomnia-continue with home medications CKD 2-continue to monitor as an outpatient Admission status: Surgical outpatient currently, assuming no complications overnight will be discharged home 11/18/23 Urinary Catheter Management Urinary Catheter Management Urethral: Cath placed during this visit: no
[2023-11-17] MEDS: ASPIRIN 81 MG TABLET.DR PO (21:15)
[2023-11-17] MEDS: OXYCODONE HCL/ACETAMINOPHEN 5MG/325MG 1 TAB PO (21:15)
[2023-11-17] MEDS: TRAZODONE HCL 50 MG TABLET 100 MG PO (21:15)
[2023-11-18] MEDS: 0.9 % SODIUM CHLORIDE 1,000 ML 100 ML IV (02:36)
[2023-11-18 04:33] VITALS: BP 121/77; PULSE 88; TEMP 36.7; O2SAT 92
[2023-11-18] MEDS: IBUPROFEN 400 MG TABLET 800 MG PO (04:37)
[2023-11-18 04:51] LABS: Basophils Percent Auto 0.3 % (0.2-2.0); Eosinophils Percent Auto 0.1 % (0.9-7.0); Hemoglobin 13.2 g/dL (14.0-18.0); Immature Granulocytes Abs Auto 0.07 10^3/uL (0.00-0.03); Immature Granulocytes Pct Auto 0.6 % (0.0-0.5); Lymphocytes Absolute Auto 1.7 10^3/uL (1.2-3.8); Lymphocytes Percent Auto 15.6 % (20.5-60.0); Mean Corpuscular HGB Conc 33.8 g/dL (29.9-35.2); Mean Corpuscular Hemoglobin 29.6 pg (25.9-34.0); Mean Corpuscular Volume 87.4 fL (80.0-94.0); Mean Platelet Volume 8.2 fL (9.5-13.5); Monocytes Absolute Auto 1.3 10^3/uL (0.3-0.8); Neutrophils Absolute Auto 7.8 10^3/uL (1.4-6.5); Neutrophils Percent Auto 71.4 % (43.0-75.0); Platelet Count 266 10^3/uL (150-450); Red Blood Count 4.46 10^6/uL (4.70-6.10); Red Cell Distribution Width 13.1 % (11.0-15.0)
[2023-11-18 07:49] VITALS: BP 126/78; PULSE 88; TEMP 36.7; O2SAT 95
--- NOTE | 2023-11-18 07:49 | P.PN_ITS ---
Progress Note: Subjective Subjective Interval history: Patient evaluated at the bedside, pain fairly well-controlled with 6-7 range. Not unexpected for postsurgical pain. Denies any other complaints. No chest pain or shortness of breath. Exam Constitutional Vital Signs, click to edit/add: Last Vital Signs Temp 98.0 F 11/18/23 04:33 Pulse 88 11/18/23 04:33 Resp 16 11/18/23 07:43 BP 121/77 11/18/23 04:33 Pulse Ox 92 L 11/18/23 04:33 O2 Del Method Room Air 11/18/23 04:33 Documenting provider has reviewed patient's vital signs: yes Common normals: no apparent distress (Resting comfortably in chair) Chest Common normals: inspection of chest normal Respiratory Common normals: normal respiratory effort, no retractions and clear to auscultation bilaterally Cardio Common normals: regular rate, regular rhythm and no murmurs Extremity Common normals: no calf tenderness and no pedal edema; abnormal to inspection (Bryan wrap applied to right knee) Progress Note: Objective Labs Labs: Short CBC 11/17/23 11/18/23 Range/Units 08:23 04:30 WBC 7.6 11.0 (4.0-11.0) 10^3/uL Hgb 15.9 13.2 L (14.0-18.0) g/dL Hct 46.1 39.0 L (42.0-54.0) % Plt Count 281 266 (150-450) 10^3/uL Progress Note: A&P Assessment and Plan (1) Osteoarthritis of right knee: (2) Hypertension: (3) High cholesterol: (4) Insomnia: Plan Osteoarthritis right knee-status post knee replacement-plan per orthopedics Acute blood loss anemia secondary to surgical intervention as outlined above-not unexpected for postsurgical blood loss. Patient denies melena, hematochezia, hematemesis. Hypertension-monitor closely, blood pressure well-controlled Hypercholesterolemia-continue with home medications Insomnia-continue with home medications CKD 2-continue to monitor as an outpatient Admission status: Surgical outpatient currently, likely discharged home later today, plan per orthopedics Urinary Catheter Management Urinary Catheter Management Urethral: Cath placed during this visit: no
[2023-11-18] MEDS: MULTIVITAMIN TABLET 1 TAB PO (08:21)
[2023-11-18] MEDS: LISINOPRIL 20 MG TABLET PO (08:21)
[2023-11-18] MEDS: ATENOLOL 50 MG TABLET PO (08:21)
[2023-11-18] MEDS: ASPIRIN 81 MG TABLET.DR PO (08:21)
[2023-11-18] MEDS: OXYCODONE HCL/ACETAMINOPHEN 5MG/325MG 1 TAB PO (08:21)
--- NOTE | 2023-11-18 09:43 | PT.DAILY ---
Physical Therapy Daily Note PT Daily Note/Assess Start: 11/18/23 09:32 Freq: Status: Active Protocol: Document 11/18/23 09:36 FLOR (Rec: 11/18/23 09:43 FLOR Desktop) Physical Therapy Daily Note/Assessment Time In/Time Out Time In 09:02 Time Out 09:30 Pain In Pain N/A Pain Out Pain N/A Subjective Subjective Pt sitting in BS chair upon arrival. Agrees to PT. Pt was medicated for pain 30 min prior to session. Pain was up to 8/10 this morning but currently 6/10. Therapeutic Exercise Time Therapeutic Exercise Minutes (minutes) 10 Therapeutic Exercise Units 1 Therapeutic Exercise Treatment Therapeutic Exercise Treatment Seated AP, LAQ, marches, add squeezes and abd step outs 10- 15x ea - increased time needed due to limited mobility. Min increased pain with LAQ. Therapeutic Activity Time Therapeutic Activity Minutes (minutes) 13 Therapeutic Activity Units 1 Therapeutic Activity Treatment Chair Transfer Ability Standby Assistance Therapeutic Activity Comments Sit>stand from BS chair to RW SBA with increased time. Pt amb 60' with RW, SBA with assist for IV pole. Increased time needed - step to gait pattern today. Seated rest break while being instructed on stair training. Brought portable 6 step to pts room for this. Pt able to perform 4x step up/down with proper technique while requiring heavy UE support on RW and increased time to complete. Pt feel confident he will be able to ascend into his house using method shown to him today. Pt returned to BS chair with ice pack for knee. Call light is within reach and needs met. Total Physical Therapy Time Total Therapy Minutes 23 Total Physical Therapy Units 2 Summary Daily Note Summary Goals met at this time. Steady with gait and stair training while using RW. Pain does increase with weight bearing. Edu to stay on top of this pain and to use call light when due for next dose. Pt to follow up with OP PT fran tomorrow afternoon. Planned dc home with his this afternoon.
--- NOTE | 2023-11-18 11:17 | SWNOTE1 ---
SW went to complete assessment with pt. Pt was discharged already. SW checked physical therapy note and pt went 60 feet with SBA with wheeled walk. Pt had voiced he felt comfortable going home with his and using the methods therapy showed him at hospital.
== END 2023-11-18 10:26 | disposition home or self-care (01) ==
LOC: SURGOUT 08:19 → MS 17:15
PROVIDERS: Anesthesiology; PCP Family Medicine; Visit Provider Student in an Organized Health Care Education/Training Program
PROC: (CPT 1402; principal; 2023-11-17 09:30)
DX: M17.11 Unilateral primary osteoarthritis, right knee (principal); Z86.16 Personal history of COVID-19; E78.00 Pure hypercholesterolemia, unspecified; Z98.52 Vasectomy status; Z79.899 Other long term (current) drug therapy; G47.00 Insomnia, unspecified; D62 Acute posthemorrhagic anemia; N18.2 Chronic kidney disease, stage 2 (mild); I12.9 Hypertensive chronic kidney disease with stage 1 through stage 4 chronic kidney disease, or unspecified chronic kidney disease
CPT/HCPCS: 27447; 36415; 64450; 73560; 76942; 85025; 97110; 97161; 97530; C1713; C1776; J1094; J1170; J2704; J3370

== ENCOUNTER 2023-11-19 12:36 | Outpatient (RCR) | payer OTHER, SELFPAY | END 2023-12-16 12:17 | disposition home or self-care (01) | LOC: PT 12:36 | PROVIDERS: PCP Family Medicine; Visit Provider Student in an Organized Health Care Education/Training Program | DX: Z96.651 Presence of right artificial knee joint (principal) | CPT/HCPCS: 97110; 97161; 97530 ==

== ENCOUNTER 2023-12-15 13:21 | Outpatient (OUT) | payer OTHER, SELFPAY ==
--- NOTE | 2023-12-15 | XR_ITS ---
[address] [address] Patient Name: JACOB SYED MRN: [id number] date: 1960 Sex: M Assigned Patient Location: Current Patient Location: Accession/Order Number: [id number] Exam Date: 12/15/2023 13:24 Report Date: 12/15/2023 15:53 At the request of: ELVER ASHTON Procedure: XR knee RT 2V PROCEDURE: XR knee RT 2V COMPARISON: 11/17/2023 HISTORY: RIGHT KNEE PAIN FINDINGS: BONES:Stable total knee arthroplasty with patellar resurfacing. No acute fracture, dislocation or mechanical failure SOFT TISSUES:Negative. No visible soft tissue swelling. EFFUSION:None visible. OTHER: Negative. XR/XR knee RT 2V IMPRESSION: Stable total knee arthroplasty Electronically authenticated by: NIKOLE PEREZ Date: 12/15/2023 15:53
== END 2023-12-15 13:22 | disposition home or self-care (01) ==
LOC: EC 13:22
PROVIDERS: PCP Family Medicine; Visit Provider Student in an Organized Health Care Education/Training Program
DX: M17.11 Unilateral primary osteoarthritis, right knee (principal); Z96.651 Presence of right artificial knee joint
CPT/HCPCS: 73560

== ENCOUNTER 2023-12-30 08:20 | Outpatient (OUT) | payer OTHER, SELFPAY ==
--- NOTE | 2023-12-30 08:23 | MR_ITS ---
[place] [id number] Patient Name: JACOB SYED MRN: [id number] date: 1960 Sex: M Assigned Patient Location: MRI Current Patient Location: MRI Accession/Order Number: [id number] Exam Date: 12/30/2023 08:41 Report Date: 12/30/2023 09:46 At the request of: ELVER ASHTON Procedure: MR knee RT wo con EXAMINATION: MR knee RT wo con HISTORY: Right artificial knee joint Z96.651 COMPARISON: 12/15/2023 TECHNIQUE: A complete multi-planar MRI was performed. FINDINGS: Very limited evaluation secondary to susceptibility artifact from total knee arthroplasty with patellar resurfacing. Marked protocol used to reduce artifact MEDIAL COMPARTMENT JOINT REPLACEMENT LATERAL COMPARTMENT JOINT REPLACEMENT ANTERIOR COMPARTMENT PATELLA: Patellar resurfacing CARTILAGE: No visible defect. TENDONS: Defect in the patellar ligament suggesting partial tear EFFUSION: Moderate to large joint effusion extending through the patella defect to the prepatellar space MR/MR knee RT wo con IMPRESSION: Defect/rupture in the distal medial quadriceps tendon Moderate knee joint effusion extending through the quadriceps tendon defect into the prepatellar space Electronically authenticated by: NIKOLE PEREZ Date: 12/30/2023 09:46
--- OUTSIDE RECORDS SUMMARY | 2023-12-30 08:24 | XMS_ITS ---
Patient Summarization (C-CDA 2.1 CCD) Created on: December 30, 2023 Mauricio Montano : 1960 Sex: Male Author Organization Sample organization Care Team Providers Care Warehouse Shipping Clerk Name Role Phone NO FAMILY, PHYSICIAN Primary Care Provider Unava ilable MD Ankush Chacko II Attending Provider Ankush Chacko II Unavailable ANKUSH CHACKO Admitting Unavailable ANKUSH CHACKO Attending Unavailable YOMI VALDEZ Primary Care Unavailable RUDDY HECTOR Admitting Unavailable RUDDY HECTOR Attending Unavailable YOMI VADLEZ Primary Care Unavailable LA MARTINEZ Consulting Unavailable RUDDY HECTOR Consulting Unavailable NON STAFF Attending Unavailable NON STAFF Admitting Unavailable Allergies Allergy Classification Reported Allergen(s) Allergy Type Date of Onset Reaction(s) Facility (2 sources) Cephalexin; Translations: [Keflex] Drug Allergy 06-07-20 13 rash [facility] Repository (1 source) Penicillin V Drug Allergy rash [facility] [employer] Other (1 source) Dextroamphetamine Drug Allergy 08-21-19 17 [facility] Repository (1 source) Penicillins Drug allergy (disorder) 06-07-20 13 [facility] Repository (1 source) Cephalexin Drug Allergy 04-24-20 22 [facility] Repository (1 source) Penicillins Drug allergy (disorder) 04-24-20 22 [facility] Repository Encounters Encounter Date Encounter Type Care Provider Facility Start: 11-17-2023 End: 11-17-2023 ambulatory NON STAFF Facility:[facility] Start: 04-24-2022 End: 04-24-2022 ambulatory Ankush Chacko II Other [email or web address] Other Start: 04-24-2022 Office outpatient visit 15 minutes Ankush Chacko II [facility] Start: 03-29-2022 End: 04-23-2022 ambulatory ANKUSH CHACKO Facility:[facility] Start: 03-27-2022 End: 03-27-2022 Patient encounter procedure PHYSICIAN OSMAR WALL [facility] Start: 03-23-2022 End: 03-23-2022 ambulatory RUDDY HECTOR Facility:[facility] Medications Current Medications Medication Drug Class(es) Dates [...] AT NIGHT Oral for 90 Days Active Payers Date Payer Category Payer Self-pay [id number] 1960 Unknown [id number] 1960 Unknown [id number] 1959 Unknown [id number] 2.16.8 [id number] Unknown [id number] Worker'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 Care Works [facility] [id number] Problems Problem Classification Problem Date Documented Date [...] 04-17-2022 Episodic Other aftercare (1 source) Other detention (current) drug therapy; Translations: [OTH INTERMEDIATE CURRENT DRUG THERAPY] Onset: 03-25-2022 Episodic Other [...] SITE LT KNEE INITIAL] Onset: 03-25-2022 Episodic Procedures Date Procedure Procedure Detail Performing Clinician Start: 03-27-2022 Radiologic examinati on of knee PHYSICIAN NO FAMILY Start: 03-27-2022 Pelvis X-ray PHYSICIAN NO FAMILY Results Test Name Value Interpretation Reference Range Facil ity [place] 11-17-2023 L Specimen: [id number] Received: 11/19/23 Status: SOUT Req Num: [id number] Spec Type: Surgical Subm Dr: ALVIN DEL CASTILLO Tissues: A Joint/Knee (RT KNEE BONE) Procedures: HE, Gross/Micro L4, Decalcification Age/ Patient Sex Location Account Attending Physician Mauricio Montano 63/M LABELL [id number] NON STAFF SPEC NUM: [id number] RECD: 11/19/23 STATUS: CASANDRA REQ NUM: [id number] MARIAN: 11/17/231252 SUBM DR: ALVIN STAFF ENTERED: 11/19/23 [facility] DR: Faviola,Lab SPEC TYPE: Surgical DEPT: LOLI BEAULIEU ORDERED: HE, Gross/Micro L4, Decalcification ORDERED: HE, Gross/Micro L4, Decalcification Pathological Diagnosis Bone and tissue, right knee, arthroplasty: Degenerative changes consistent with osteoarthritis. Gross Description The specimen is received in formalin, labeled with the patient's name and right knee bone , and consists of a 12.5 x 12.1 x 1.9 cm aggregate of multiple fragments of milner-white hemorrhagic bone. The largest fragment is consistent with tibial plateau, measuring 8.3 x 4.9 x 1.7 cm. There is a 2.7 x 2.4 cm focus of eburnation on the articular surface of the tibial plateau. There is mild osteophytic lipping over 10 to 20% of the specimen periphery. Serial sectioning shows yellow spongy bone matrix. Vehicle Operator Technician sections are submitted in A1. Clinical history: Primary OA right knee CPT Codes 61528 BONE AND TISSUE Specimen: [id number] Received: 11/19/23 Status: CASANDRA Zuleta Num: [id number] Spec Type: Surgical Subm Dr: ALVIN STAFF Tissues: A Joint/Knee (RT KNEE BONE) Procedures: HE, Gross/Micro L4, Decalcification Patient: Mauricio Montano Gosia [id number] (Continued) Signed (signature on file) Audrey Grubbs MD 11/20/23 1501 Normal The [facility] XR KNEE LT 4V or >on XR KNEE LT 4V or > IMAGES [...] by: LA MARTINEZ Date: 2022-03-23 19:23 Normal [facility] Social History Date Type Detail Facility Start: 1960 Sex Assigned At Male F [facility] Tobacco smoking status NHIS Unknown if ever smoked [facility] Work Phone: Sex Assigned At Sex Assigned At Bir th [email or web address] Other Vital Signs Date Time Vital Sign Value Performing Clinician Gabby whitley 04-24-2022 09:45-0400 Body height 177.8 cm CDB [employer] Other [email or web address] Other 04-24-2022 09:45-0400 Body mass index (BMI) [Ratio] 34.15 kg/m2 CDB [employer] Other [email or web address] Other 04-24-2022 09:45-0400 Body weight 107.96 kg CDB [employer] Other [email or web address] Other Evaluation note 04-24-2022 Note Date & [...] begin doing his own therapy at home. [email or web address] Other Evaluation note Note Date & Type Note Facility Evaluation note No assessment information availa ble [facility] Work Phone: History general Narrative - Reported Note Date & Type Note Facility History general Narrative - Reported Type Medical History hypertension Surgical History vasectomy [email or web address] Other Advance Directives No Advanced Directives Records Found Advance Directive Response Recorded Date/ Time Advance Directives No February 10 1:39pm Summary Purpose Family History No Family [...] documented in a n alternate sectionNo Information REASON FOR VISIT (unrecogniz ed section and content) 4 WEEK RECHECK (unrecognized sect ion and content) No Status Records FoundNo Status Records Found INFORMATION SOURCE (unrecogn ized section and content) DATE CREATED AUTHOR 05/11/2022 [facility] DATE CREATED AUTHOR AUTHOR'S ORGANIZ ATION 11/20/2023 The [facility] FOR RECORDS PERTAINING TO PATIENTS WHO ARE [...] BE BASED ON THE PRIMARY CLINICAL RECORDS. [facility]. provides no warranty or guarantee of the accuracy or completeness of information in this document.
== END 2023-12-30 08:21 | disposition home or self-care (01) ==
LOC: MRI 08:20
PROVIDERS: PCP Family Medicine; Visit Provider Student in an Organized Health Care Education/Training Program
DX: S76.111A Strain of right quadriceps muscle, fascia and tendon, initial encounter (principal); Z96.651 Presence of right artificial knee joint
CPT/HCPCS: 73721

== ENCOUNTER 2024-01-12 14:59 | Outpatient (OUT) | payer OTHER, SELFPAY ==
--- NOTE | 2024-01-12 | XR_ITS ---
[place] [id number] Patient Name: JACOB SYED MRN: [id number] date: 1960 Sex: M Assigned Patient Location: Current Patient Location: Accession/Order Number: [id number] Exam Date: 01/12/2024 15:05 Report Date: 01/13/2024 07:47 At the request of: ELVER ASHTON Procedure: XR knee RT 2V PROCEDURE: XR knee RT 2V COMPARISON: 12/15/2023 HISTORY: RIGHT KNEE PAIN FINDINGS: Single patellar view demonstrates lateral subluxation of the patella in relation to the femoral groove. XR/XR knee RT 2V IMPRESSION: Lateral subluxation/tracking of the patella Electronically authenticated by: NIKOLE PEREZ Date: 01/13/2024 07:47
== END 2024-01-12 15:00 | disposition home or self-care (01) ==
LOC: EC 15:01
PROVIDERS: PCP Family Medicine; Visit Provider Student in an Organized Health Care Education/Training Program
DX: Z47.1 Aftercare following joint replacement surgery (principal); S83.091A Other subluxation of right patella, initial encounter
CPT/HCPCS: 73560

== ENCOUNTER 2024-02-09 10:51 | Outpatient (RCR) | payer OTHER, SELFPAY | END 2024-04-02 11:12 | disposition home or self-care (01) | LOC: PT 10:51 | PROVIDERS: PCP Family Medicine; Visit Provider Student in an Organized Health Care Education/Training Program | DX: Z47.1 Aftercare following joint replacement surgery (principal); Z96.651 Presence of right artificial knee joint; S76.111D Strain of right quadriceps muscle, fascia and tendon, subsequent encounter; R26.9 Unspecified abnormalities of gait and mobility; R26.89 Other abnormalities of gait and mobility | CPT/HCPCS: 97110; 97161; 97530 ==

== ENCOUNTER 2024-03-05 12:24 | Outpatient (OUT) | payer OTHER, SELFPAY ==
--- OUTSIDE RECORDS SUMMARY | 2024-03-05 12:32 | XMS_ITS | CCD ---
Author Organization [facility] Inform ion Partnership [employer] [facility] Care Team Providers Care Panel Builder Name Role Phone NO FAMILY, PHYSICIAN Primary Care Provider Unava ilable MD Ankush Quintero II Attending Provider Ankush Quintero II Unavailable [phone] ANKUSH QUINTERO Admitting Unavailable ANKUSH QUINTERO Attending Unavailable YOMI VALDEZ Primary Care Unavailable RUDDY HECTOR Admitting Unavailable RUDDY HECTOR Attending Unavailable YOMI VALDEZ Primary Care Unavailable LA MARTINEZ Consulting Unavailable RUDDY HECTOR Consulting Unavailable NON STAFF Attending Unavailable NON STAFF Admitting Unavailable ELVER ASHTON Admitting Unavailable ELVER ASHTON Attending Unavailable ASMITA ALEJO Primary Care Unavailable Allergies Allergy Classification Reported Allergen(s) Allergy Type Date of Onset Reaction(s) Facility (2 sources) Cephalexin; Translations: [Keflex] Drug Allergy 06-07-20 13 rash [facility] Repository (1 source) Penicillin V Drug Allergy rash [email or web address] Other (1 source) Dextroamphetamine Drug Allergy 08-21-19 17 [facility] Repository (1 source) Penicillins Drug allergy (disorder) 06-07-20 13 [facility] Repository (1 source) Cephalexin Drug Allergy 04-24-20 22 [facility] Repository (1 source) Penicillins Drug allergy (disorder) 04-24-20 22 [facility] Repository Medications Current Medications Medication Drug Class(es) [...] 04-17-2022 Episodic Other aftercare (1 source) Other [facility] (current) drug therapy; Translations: [OTH CUSTODIAL CURRENT DRUG THERAPY] Onset: 03-25-2022 Episodic Other nervous system disorders (1 source) Other abnormalities of gait and mobility; Translations: [OTHER ABNORMALITIES GAIT AND MOBILITY] Onset: 04-17-2022 Episodic Other nervous system disorders (1 source) Other acute postprocedural pain; Translations: [Other acute postprocedural pain] Onset: 01-19-2024 Episodic Other non-traumatic joint disorders (5 sources) Other instability, left knee; Translations: [OTHER INSTABILITY LEFT KNEE] Onset: 03-29-2022 Episodic Other non-traumatic joint disorders (4 sources) Pain in left knee; Translations: [PAIN IN LEFT KNEE] Onset: 09-17-2022 Episodic Other non-traumatic joint disorders (1 source) Effusion, left knee; Translations: [EFFUSION LEFT KNEE] Onset: 04-17-2022 Episodic Other non-traumatic joint disorders (1 source) Stiffness of left knee, not elsewhere classified; Translations: [STIFFNESS LEFT KNEE NEC] Onset: 04-17-2022 Episodic Sprains and strains (1 source) Sprain of unspecified site of left knee, initial encounter; Translations: [SPRAIN UNS SITE LT KNEE INITIAL] Onset: 03-25-2022 Episodic Results Test Name Value Interpretation Reference Range Facil ity [place] 11-17-2023 L Specimen: [id number] Received: 11/19/23 Status: CASANDRA Zuleta Num: [id number] Spec Type: Surgical Subm Dr: NON STAFF Tissues: A Joint/Knee (RT KNEE BONE) Procedures: HE, Gross/Micro L4, Decalcification Age/ Patient Sex Location Account Attending Physician Mauricio Montano 63/M LABELL [id number] NON STAFF SPEC NUM: [id number] RECD: 11/19/23 STATUS: CASANDRA ZULETA NUM: [id number] MARIAN: 11/17/[address]: ALVIN STAFF ENTERED: 11/19/[address] [facility] [address]: Faviola,Lab SPEC TYPE: Surgical DEPT: LOLI [...] Serial sectioning shows yellow spongy bone matrix. Counter Pocket Trimmer sections are submitted in A1. Clinical history: Primary OA right knee CPT Codes 09484 BONE AND TISSUE Specimen: [id number] Received: 11/19/23 Status: CASANDRA Zuleta Num: [id number] Spec Type: Surgical Subm Dr: ALVIN STAFF Tissues: A Joint/Knee (RT KNEE BONE) Procedures: NITISH, Gross/Micro L4, Decalcification Patient: Mauricio Montano [id number] (Continued) Signed (signature on file) Audrey Grubbs MD 11/20/23 1501 Normal [facility] XR KNEE LT 4V or [...] by: LA MARTINEZ Date: 2022-03-23 19:23 Normal [facility] Vital Signs Date Time Vital Sign Value Performing Clinician Gabby whitley 04-24-2022 09:45-0400 Body height 177.8 cm Ankush Quintero II Other [email or web address] Other 04-24-2022 09:45-0400 Body mass index (BMI) [Ratio] 34.15 kg/m2 Ankush Quintero II Other [email or web address] Other 04-24-2022 09:45-0400 Body weight 107.96 kg Ankush Quintero II Other [email or web address] Other Encounters Encounter Date Encounter Type Care Provider Facility Start: 01-19-2024 End: 01-19-2024 [facility] Start: 11-17-2023 End: 11-17-2023 ambulatory NON STAFF Facility:[facility] Start: 04-24-2022 End: 04-24-2022 ambulatory Ankush Quintero II Other [email or web address] Other Start: 04-24-2022 Office outpatient visit 15 minutes [facility] Start: 03-29-2022 End: 04-23-2022 ambulatory ANKUSH QUINTERO Facility: Start: 03-27-2022 End: 03-27-2022 Patient encounter procedure PHYSICIAN NO [facility] Start: 03-23-2022 End: 03-23-2022 ambulatory RUDDY HECTOR Facility:[facility] Procedures Date Procedure Procedure Detail Performing Clinician Start: 03-27-2022 Radiologic examinati on of knee PHYSICIAN NO FAMILY Start: 03-27-2022 Pelvis X-ray PHYSICIAN NO FAMILY Payers Date Payer Category Payer Self-pay [id number] 2023 Unknown [id number] 1960 Unknown [id number] 1960 Unknown [id number] 1960 Unknown [id number] 1958 Unknown [id number] 2.16.8 [id number] Unknown [id number] Worker'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 Care Works of [facility] [phone] [id number] Social History Date Type Detail Facility Tobacco smoking status [facility] Unknown if ever smoked [facility] Work Phone: Start: 1960 Sex Assigned At Male F [facility] Sex Assigned At Sex Assigned At Bir th [facility] [email or web address] Other Evaluation note 04-24-2022 Note Date & [...] begin doing his own therapy at home. [facility] [email or web address] Other Evaluation note Note Date & Type Note Facility Evaluation note No assessment information availa forrest [facility] Work Phone: History general Narrative - Reported Note Date & Type Note Facility History general Narrative - Reported Type Medical History hypertension Surgical History vasectomy [facility] [email or web address] Other Advance Directives No Advanced Directives Records Found Advance Directive Response Recorded Date/ Time Advance Directives No February 10, 019 1:39pm Summary Purpose Family History No Family History Records FoundNo Family History Records FoundNo Family History Records Found Additional Source Comments Care Teams (unrecognized sec tion and content) Team Status: Inactive Member Role Status Dates PHYSICIAN NO FAMILY Primary Care Provider Active Ankush Quintero II, MD Attending Provider Active Team Status: Active Member Role Status Dates PHYSICIAN NO FAMILY Primary Care Provider Active Goals (unrecognized section and content) Goals may be documented in a n alternate sectionNo Information REASON FOR VISIT (unrecogniz ed section and content) 4 WEEK RECHECK (unrecognized sect ion and content) No Status Records FoundNo Status Records FoundNo Status Records Found INFORMATION SOURCE (unrecogn ized section and content) DATE CREATED AUTHOR 05/11/2022 [facility] DATE CREATED AUTHOR AUTHOR'S ORGANIZ ATION 11/20/2023 [facility] DATE CREATED AUTHOR AUTHOR'S ORGANIZ ATION 01/21/2024 Viktorcitlaly BranchSan Marcosamisha mar FOR RECORDS PERTAINING TO PATIENTS WHO ARE [...] BE BASED ON THE PRIMARY CLINICAL RECORDS. [employer] provides no warranty or guarantee of the accuracy or completeness of information in this document.
[2024-03-05 12:54] LABS: Basophils Percent Auto 0.4 % (0.2-2.0); Eosinophils Absolute Auto 0.1 10^3/uL (0.0-0.7); Eosinophils Percent Auto 1.7 % (0.9-7.0); Hemoglobin 14.2 g/dL (14.0-18.0); Immature Granulocytes Abs Auto 0.06 10^3/uL (0.00-0.03); Immature Granulocytes Pct Auto 0.8 % (0.0-0.5); Lymphocytes Absolute Auto 1.7 10^3/uL (1.2-3.8); Lymphocytes Percent Auto 22.5 % (20.5-60.0); Mean Corpuscular HGB Conc 34.6 g/dL (29.9-35.2); Mean Corpuscular Hemoglobin 29.8 pg (25.9-34.0); Mean Platelet Volume 7.9 fL (9.5-13.5); Monocytes Percent Auto 13.3 % (1.7-12.0); Neutrophils Absolute Auto 4.8 10^3/uL (1.4-6.5); Neutrophils Percent Auto 61.3 % (43.0-75.0); Platelet Count 391 10^3/uL (150-450); Red Blood Count 4.77 10^6/uL (4.70-6.10); Red Cell Distribution Width 13.1 % (11.0-15.0); White Blood Count 7.7 10^3/uL (4.0-11.0)
--- NOTE | 2024-03-05 13:01 | CT_ITS ---
[address] [address] Patient Name: JACOB SYED MRN: [id number] date: 1960 Sex: M Assigned Patient Location: CT Current Patient Location: Accession/Order Number: [id number] Exam Date: 03/05/2024 12:58 Report Date: 03/09/2024 06:34 At the request of: ELVER ASHTON Procedure: CT knee RT wo con EXAMINATION: CT knee RT wo con HISTORY: Presence Of Right Artificial Knee Joint, Knee Effusion ; right knee pain and redness at incision site COMPARISON: XR knee right 01/12/2024, 12/15/2023 TECHNIQUE: Multi-planar CT images were created without and/or with IV contrast according to examination type. Dose reduction techniques were achieved by using automated exposure control and/or adjustment of mA and/or kV according to patient size and/or use of iterative reconstruction technique. FINDINGS: BONES: Total knee replacement without evidence of hardware fracture or loosening. No bone fracture dislocation. Resurfacing of the patella. SOFT TISSUES: Negative. No visible soft tissue swelling. EFFUSION: Moderate size joint effusion. OTHER: Negative. CT/CT knee RT wo con IMPRESSION: 1. Moderate size joint effusion. 2. Total knee replacement without evidence of hardware failure. Electronically authenticated by: ADRI ALMAZAN Date: 03/09/2024 06:34
[2024-03-05 13:22] LABS: C Reactive Protein 1.91 mg/dL (<=0.50)
[2024-03-05 13:59] LABS: Erythrocyte Sedimentation Rate 39 mm/hr (<=20)
== END 2024-03-05 12:25 | disposition home or self-care (01) ==
LOC: CT 12:26
PROVIDERS: PCP Family Medicine; Visit Provider Student in an Organized Health Care Education/Training Program
DX: M25.461 Effusion, right knee (principal); Z96.651 Presence of right artificial knee joint; Z47.1 Aftercare following joint replacement surgery
CPT/HCPCS: 36415; 73700; 85025; 85652; 86140

== ENCOUNTER 2024-03-19 12:49 | Outpatient (OUT) | payer OTHER, SELFPAY ==
[2024-03-19 14:10] LABS: Basophils Percent Auto 0.6 % (0.2-2.0); Eosinophils Absolute Auto 0.2 10^3/uL (0.0-0.7); Eosinophils Percent Auto 2.6 % (0.9-7.0); Hematocrit 41.5 % (42.0-54.0); Hemoglobin 13.9 g/dL (14.0-18.0); Immature Granulocytes Abs Auto 0.05 10^3/uL (0.00-0.03); Immature Granulocytes Pct Auto 0.8 % (0.0-0.5); Lymphocytes Absolute Auto 1.9 10^3/uL (1.2-3.8); Lymphocytes Percent Auto 28.9 % (20.5-60.0); Mean Corpuscular HGB Conc 33.5 g/dL (29.9-35.2); Mean Corpuscular Hemoglobin 29.1 pg (25.9-34.0); Mean Platelet Volume 8.6 fL (9.5-13.5); Monocytes Absolute Auto 0.8 10^3/uL (0.3-0.8); Neutrophils Absolute Auto 3.5 10^3/uL (1.4-6.5); Neutrophils Percent Auto 54.1 % (43.0-75.0); Platelet Count 331 10^3/uL (150-450); Red Blood Count 4.77 10^6/uL (4.70-6.10); Red Cell Distribution Width 13.3 % (11.0-15.0); White Blood Count 6.5 10^3/uL (4.0-11.0)
[2024-03-19 14:12] LABS: C Reactive Protein 1.63 mg/dL (<=0.50)
[2024-03-19 14:25] LABS: Erythrocyte Sedimentation Rate 34 mm/hr (<=20)
== END 2024-03-19 12:50 | disposition home or self-care (01) ==
LOC: LAB 12:52
PROVIDERS: PCP Family Medicine; Visit Provider Student in an Organized Health Care Education/Training Program
DX: Z47.1 Aftercare following joint replacement surgery (principal); Z96.651 Presence of right artificial knee joint
CPT/HCPCS: 36415; 85025; 85652; 86140

== ENCOUNTER 2024-03-26 12:09 | Outpatient (OUT) | payer OTHER, SELFPAY ==
--- OUTSIDE RECORDS SUMMARY | 2024-03-26 12:25 | XMS_ITS | CCD ---
Author Organization [facility] Inform ion Partnership [employer] [facility] Care Team Providers Care Maintenance Engineer Name Role Phone NO FAMILY, PHYSICIAN Primary Care Provider Unava ilable MD Ankush Quintero II Attending Provider [phone] Ankush Quintero II Unavailable [phone] ANKUSH QUINTERO Admitting Unavailable ANKUSH QUINTERO Attending [...] [Keflex] Drug Allergy 06-07-20 13 rash [facility] Repository (1 source) Penicillin V Drug Allergy rash [facility] Other (1 source) Dextroamphetamine Drug Allergy 08-21-19 17 [facility] Repository (1 source) Penicillins Drug allergy (disorder) 06-07-20 13 [facility] Repository (1 source) Cephalexin Drug Allergy 04-24-20 22 [facility] Repository (1 source) Penicillins Drug allergy (disorder) 04-24-20 22 [facility] Repository Medications Current Medications Medication Drug [...] 04-17-2022 Episodic Other aftercare (1 source) Other intermediate (current) drug therapy; Translations: [OTH JAIL CURRENT DRUG THERAPY] Onset: 03-25-2022 Episodic Other [...] Range Facil ity [place] 11-17-2023 L Specimen: [id number] Received: 11/19/23 Status: CASANDRA Zuleta Num: [id number] Spec Type: Surgical Subm Dr: NON STAFF Tissues: A Joint/Knee (RT KNEE BONE) Procedures: HE, Gross/Micro L4, Decalcification Age/ Patient Sex Location Account Attending Physician Mauricio Montano 63/M LABELL [id number] NON STAFF SPEC NUM: [id number] RECD: 11/19/23 STATUS: CASANDRA ZULETA NUM: [id number] MARIAN: 11/17/[address]: ALVIN STAFF ENTERED: 11/19/23 [facility] DR: Faviola,Lab SPEC TYPE: Surgical DEPT: [...] Serial sectioning shows yellow spongy bone matrix. Library Services Assistant sections are submitted in A1. Clinical history: Primary OA right knee CPT Codes 58138 BONE AND TISSUE Specimen: [id number] Received: 11/19/23 Status: CASANDRA Zuleta Num: [id number] Spec Type: Surgical Subm Dr: ALVIN STAFF Tissues: A Joint/Knee (RT KNEE BONE) Procedures: NITISH, Gross/Micro L4, Decalcification Patient: Mauricio Montano [id number] (Continued) Signed (signature on file) Audrey Grubbs MD 11/20/23 1501 Normal [facility] XR KNEE LT 4V [...] by: LA MARTINEZ Date: 2022-03-23 19:23 Normal [facility] Vital Signs Date Time Vital Sign Value Performing Clinician Gabby whitley 04-24-2022 09:45-0400 Body height 177.8 cm Ankush Quintero II Other [facility] Other 04-24-2022 09:45-0400 Body mass index (BMI) [Ratio] 34.15 kg/m2 Ankush Quintero II Other [facility] Other 04-24-2022 09:45-0400 Body weight 107.96 kg Ankush Quintero II Other [facility] Other Encounters Encounter Date Encounter Type Care Provider Facility Start: 01-19-2024 End: 01-19-2024 [facility] Start: 11-17-2023 End: 11-17-2023 ambulatory NON STAFF Facility:[facility] Start: 04-24-2022 End: 04-24-2022 ambulatory Ankush Quintero II Other [facility] Other Start: 04-24-2022 Office outpatient visit 15 minutes [facility] Start: 03-29-2022 End: 04-23-2022 ambulatory ANKUSH QUINTERO Facility: Start: 03-27-2022 End: 03-27-2022 Patient encounter procedure PHYSICIAN NO [facility] Start: 03-23-2022 End: 03-23-2022 ambulatory RUDDY HECTOR Facility:[facility] Procedures Date Procedure Procedure Detail Performing Clinician Start: 03-27-2022 Radiologic examinati on of knee PHYSICIAN NO FAMILY Start: 03-27-2022 Pelvis X-ray PHYSICIAN NO FAMILY Payers Date Payer Category Payer Self-pay [id number] 2023 Unknown [id number] 1960 Unknown [id number] 1960 Unknown [id number] 1960 Unknown [id number] 1959 Unknown [id number] 2.16.8 [id number] Unknown [id number] Worker'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 Care Works of [facility] [id number] Social History Date Type Detail Facility Tobacco smoking status [facility] Unknown if ever smoked [facility] Work Phone: Start: 1960 Sex Assigned At Male F [facility] Sex Assigned At Sex Assigned At Bir th [facility] [employer] Other Evaluation note 04-24-2022 Note Date & [...] begin doing his own therapy at home. [email or web address] [facility] [employer] Other Evaluation note Note Date & Type Note Facility Evaluation note No assessment information availa forrest [facility] Work Phone: History general Narrative - Reported Note Date & Type Note Facility History general Narrative - Reported Type Medical History hypertension Surgical History vasectomy [facility] [employer] Other Advance Directives No Advanced Directives Records [...] and content) DATE CREATED AUTHOR 05/11/2022 [facility] DATE CREATED AUTHOR AUTHOR'S ORGANIZ ATION 11/20/[address] [facility]ician [facility] DATE CREATED AUTHOR AUTHOR'S ORGANIZ ATION 01/21/2024 Viktorcitlaly BranchManfredamisha mar FOR RECORDS PERTAINING TO PATIENTS WHO [...] BE BASED ON THE PRIMARY CLINICAL RECORDS. [employer] provides no warranty or guarantee of the accuracy or completeness of information in this document.
[2024-03-26 13:08] LABS: C Reactive Protein 1.55 mg/dL (<=0.50)
== END 2024-03-26 12:10 | disposition home or self-care (01) ==
LOC: LAB 12:10
PROVIDERS: PCP Family Medicine; Visit Provider Student in an Organized Health Care Education/Training Program
DX: Z47.1 Aftercare following joint replacement surgery (principal); Z96.651 Presence of right artificial knee joint
CPT/HCPCS: 36415; 86140

== ENCOUNTER 2024-03-29 17:08 | Outpatient (REF) | payer OTHER, SELFPAY ==
--- OUTSIDE RECORDS SUMMARY | 2024-03-29 17:28 | XMS_ITS | CCD ---
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 Name Role Phone NO FAMILY, PHYSICIAN Primary Care Provider Unava ilable MD Ankush Quintero II Attending Provider Ankush Quintero II Unavailable [phone] ANKUSH QUINTERO Admitting Unavailable ANKUSH QUINTERO Attending [...] Allergy 06-07-20 13 rash [facility] Repository (1 source) Penicillin V Drug Allergy rash [employer] Other (1 source) Dextroamphetamine Drug Allergy 08-21-19 17 [facility] Repository (1 source) Penicillins Drug allergy (disorder) 06-07-20 13 [facility] Repository (1 source) Cephalexin Drug Allergy 04-24-20 22 [facility] Repository (1 source) Penicillins Drug allergy (disorder) 04-24-20 22 [facility] Repository Medications Current Medications Medication Drug Class(es) [...] 04-17-2022 Episodic Other aftercare (1 source) Other longterm (current) drug therapy; Translations: [OTH ALF CURRENT DRUG THERAPY] Onset: 03-25-2022 Episodic Other [...] Range Facil ity [place] 11-17-2023 L Specimen: [id number] Received: 11/19/23 Status: CASANDRA Zuleta Num: [id number] Spec Type: Surgical Subm Dr: NON STAFF Tissues: A Joint/Knee (RT KNEE BONE) Procedures: HE, Gross/Micro L4, Decalcification Age/ Patient Sex Location Account Attending Physician Mauricio Syed 63/M [place] [id number] NON STAFF SPEC NUM: [id number] RECD: 11/19/23 STATUS: CASANDRA ZULETA NUM: [id number] MARIAN: 11/17/[address]: ALVIN STAFF ENTERED: 11/19/[address] [facility] [address]: Faviola,Lab SPEC TYPE: Surgical DEPT: LOLI [...] Serial sectioning shows yellow spongy bone matrix. 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 Clinical history: Primary OA right knee CPT Codes 92179 BONE AND TISSUE Specimen: [id number] Received: 11/19/23 Status: CASANDRA Zuleta Num: [id number] Spec Type: Surgical Subm Dr: ALVIN STAFF Tissues: A Joint/Knee (RT KNEE BONE) Procedures: NITISH, Gross/Micro L4, Decalcification Patient: Mauricio Syed [id number] (Continued) Signed (signature on file) Audrey Grubbs MD 11/20/23 1501 Normal [facility] XR KNEE LT 4V or [...] LA MARTINEZ Date: 2022-03-23 19:23 Normal [facility] Vital Signs Date Time Vital Sign Value Performing Clinician Gabby whitley 04-24-2022 09:45-0400 Body height 177.8 cm Ankush Quintero II Other [employer] Other 04-24-2022 09:45-0400 Body mass index (BMI) [Ratio] 34.15 kg/m2 Ankush Quintero II Other [employer] Other 04-24-2022 09:45-0400 Body weight 107.96 kg Ankush Quintero II Other [employer] Other Encounters Encounter Date Encounter Type Care Provider Facility Start: 01-19-2024 End: [facility] Start: 11-17-2023 End: 11-17-2023 ambulatory NON STAFF Facility:[facility] Start: 04-24-2022 End: 04-24-2022 ambulatory Ankush Quintero II Other [employer] Other Start: 04-24-2022 Office outpatient visit 15 minutes [facility] Start: 03-29-2022 End: 04-23-2022 ambulatory ANKUSH QUINTERO Facility: Start: 03-27-2022 End: 03-27-2022 Patient encounter procedure PHYSICIAN NO [facility] Start: 03-23-2022 End: 03-23-2022 ambulatory RUDDY HECTOR Facility:[facility] Procedures Date Procedure Procedure Detail Performing Clinician Start: 03-27-2022 Radiologic examinati on of knee PHYSICIAN NO FAMILY Start: 03-27-2022 Pelvis X-ray PHYSICIAN NO FAMILY Payers Date Payer Category Payer Self-pay [id number] 2023 Unknown [id number] 1960 Unknown [id number] 1960 Unknown [id number] 1960 Unknown [id number] 1959 Unknown [id number] Unknown [id number] Worker'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 [employer] [facility] [id number] Social History Date Type Detail Facility Tobacco smoking status [facility] Unknown if ever smoked [facility] Work Phone: Start: 1960 Sex Assigned At Male F [facility] Sex Assigned At Sex Assigned At Bir th [facility] Other Evaluation note 04-24-2022 Note Date & [...] begin doing his own therapy at home. [facility] Other Evaluation note Note Date & Type Note Facility Evaluation note No assessment information availa forrest [facility] Work Phone: History general Narrative - Reported Note Date & Type Note Facility History general Narrative - Reported Type Medical History hypertension Surgical History vasectomy [facility] Other Advance Directives No Advanced Directives Records [...] and content) DATE CREATED AUTHOR 05/11/2022 [facility] DATE CREATED AUTHOR AUTHOR'S ORGANIZ ATION 11/20/2023 [facility] DATE CREATED AUTHOR AUTHOR'S ORGANIZ [...] BE BASED ON THE PRIMARY CLINICAL RECORDS. [employer] provides no warranty or guarantee of the accuracy or completeness of information in this document.
[2024-03-30 10:41] LABS: BOX Test Reference Lab FIRELANDS; BOX Test Sent Out BF CELL COUNT
[2024-03-30 10:42] LABS: BOX Test Sent Out BF CRYSTALS
[2024-03-30 10:43] LABS: BOX Test Reference Lab FIRELANDS; BOX Test Sent Out BF GRAM STAIN
[2024-04-06 13:09] LABS: BOX Test Reference Lab FIRELANDS; BOX Test Sent Out BODY FLUID RT. KNEE
== END 2024-03-29 17:09 | disposition home or self-care (01) ==
LOC: LAB 17:08
PROVIDERS: PCP Family Medicine; Visit Provider Student in an Organized Health Care Education/Training Program
DX: M25.461 Effusion, right knee (principal)
CPT/HCPCS: 36415; 87070; 87075; 87205; 89051; 89060

== ENCOUNTER 2024-05-31 13:51 | Outpatient (OUT) | payer OTHER, SELFPAY ==
--- NOTE | 2024-05-31 | XR_ITS ---
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 No hardware fracture or bone fracture. SOFT TISSUES:No visible soft tissue swelling. EFFUSION:None visible. OTHER: Negative. XR/XR knee RT 2V IMPRESSION: 1. Postoperative changes as detailed above; unchanged. Electronically authenticated by: ADRI ALMAZAN Date: 06/02/2024 15:28
== END 2024-05-31 13:52 | disposition home or self-care (01) ==
LOC: EC 13:53
PROVIDERS: PCP Family Medicine; Visit Provider Student in an Organized Health Care Education/Training Program
DX: Z98.890 Other specified postprocedural states (principal); Z96.651 Presence of right artificial knee joint
CPT/HCPCS: 73560

== ENCOUNTER 2024-06-10 10:04 | Outpatient (RCR) | payer OTHER, SELFPAY | END 2024-07-06 19:00 | disposition home or self-care (01) | LOC: PT 10:04 | PROVIDERS: PCP Family Medicine; Visit Provider Student in an Organized Health Care Education/Training Program | DX: R53.1 Weakness (principal); Z96.651 Presence of right artificial knee joint; T84.53XD Infection and inflammatory reaction due to internal right knee prosthesis, subsequent encounter; Z47.89 Encounter for other orthopedic aftercare; R26.89 Other abnormalities of gait and mobility | CPT/HCPCS: 97110; 97112; 97161; 97530 ==

== ENCOUNTER 2024-06-25 08:47 | Outpatient (OUT) | payer OTHER, SELFPAY ==
--- OUTSIDE RECORDS SUMMARY | 2024-06-25 08:53 | XMS_ITS | CCD ---
Author Organization [facility] Inform ion Partnership [facility] Care Team Providers Care Retail Sales Lead Name Role Phone NO FAMILY, PHYSICIAN Primary Care Provider Unava ilable MD Ankush Quintero II Attending Provider [phone] Ankush Quintero II Unavailable ANKUSH QUINTERO Admitting Unavailable ANKUSH QUINTERO Attending Unavailable YOMI VALDEZ Primary Care Unavailable RUDDY HECTOR Admitting Unavailable RUDDY HECTOR Attending Unavailable YOMI VALDEZ Primary Care Unavailable LA MARTINEZ Consulting Unavailable RUDDY HECTOR Consulting Unavailable DO Yony Ashton Attending Provider [phone] NON STAFF Admitting Unavailable NON STAFF Attending Unavailable Yony Ashton Attending Unavailable Yony Ashton Admitting Unavailable Unavailable Primary Care Provider Chary Casillas MD, Asmita [place] Primary Care Provider ASMITA CASILLAS Primary Care Unavailable YONY ASHTON Referring Unavailable ASMITA CASILLAS M Primary Care Unavailable YONY ASHTON Admitting Unavailable YONY ASHTON Attending Unavailable YONY ASHTON Referring Unavailable ASMITA CASILLAS M Primary Care Unavailable YONY ASHTON Referring Unavailable ASMITA CASILLAS M Primary Care Unavailable YONY ASHTON Referring Unavailable ASMITA CASILLAS M Primary Care Unavailable Yony Ashton DO Attending Chary Casillas MD, Asmita Blum Primary Care Unavaila Herbert Joyner Attending Unavailable Vinny LEE, Asmita Blum Primary Care Unavaila Yony Hernandez DO Attending Chary Casillas MD, Asmita Blum Primary Care Unavaila Yony Hernandez DO Consulting Unavailjet Sanders MD, Radha Solis Admitting Unavailab sendy Sanders MD, Radha Solis Attending Herbert Lester Consulting Asmita Romero MD [facility] MATTHEWS, Yodit Rollins Attending Asmita Ocampo MD [facility] MATTHEWS, Yodit Rollins Attending Asmita Ocampo MD [facility] Herbert Joyner Attending Asmita Romero MD [facility] Herbert Joyner Attending Herbert Awad Attending Asmita Romero MD [facility] Allergies Allergy Classification Reported Allergen(s) Allergy Type Date of Onset Reaction(s) Facility (3 sources) Cephalexin; Translations: [Keflex] Drug Allergy 06-07-20 13 [facility] Repository (1 source) Penicillin V Drug Allergy [email or web address] Other (1 source) Dextroamphetamine Drug Allergy 08-21-19 17 [facility] Repository (2 sources) Penicillins Drug allergy (disorder) 06-07-20 13 rash [facility] Repository (4 sources) Cephalexin; Translations: [cephalexin] Drug Allergy 04-24-20 22 [facility] (1 source) Penicillins Drug allergy (disorder) 04-24-20 22 [facility] Repository (2 sources) Penicillins Propensity to adverse reactions to drug 01-15-20 24 [facility] (1 source) Penicillin; Translations: [penicillin] Drug Allergy [facility] Repository Medications Current Medications Medication Drug Class(es) Dates Sig (Normalized) Sig (Original) acetaminophen 325 mg / HYDROcodone bitartrate 5 mg oral tablet (1 source) Opioid Agonist HYDROcodone-Acet am inophen 5-325 MG Oral for 3 Days Active atenolol 50 mg oral tablet (3 sources) beta-Adrenergic Nita take 1 tablet by mouth once daily atenolol (TENORMIN) 50 MG tablet Take 1 tablet by mouth daily Active docusate sodium 100 mg oral capsule (2 sources) Start: 01-19-2024 take 1 capsule by mouth twice daily as needed for constipation docusate sodium (COLACE) 100 MG capsule Take 1 capsule by mouth 2 times daily as needed for Constipation 60 capsule 01/19/2024 Active ezetimibe 10 mg oral tablet (3 sources) Dietary Cholesterol Absorption Inhibitor take 1 tablet by mouth once daily ezetimibe (ZETIA) 10 MG tablet Take 1 tablet by mouth daily Active lisinopril 20 mg oral tablet (3 sources) Angiotensin Converting Enzyme Inhibitor take 1 tablet by mouth once daily lisinopril (PRINIVIL;ZESTRIL) 20 MG tablet Take 1 tablet by mouth daily Active meloxicam 15 mg oral tablet (4 sources) Nonsteroidal Anti-inflammatory Drug Start: 03-27-2022 take 1 tablet by mouth every twenty-four hours Meloxicam 15 MG 1 tablet Orally Once a day for 30 day(s) Mar, Active Meloxicam 10 MG CAPS Take 15 mg by mouth Active traMADol hydrochloride 50 mg oral tablet (1 source) Opioid Agonist Start: 04-18-2024 End: 05-18-2024 take 1 tablet by mouth every six hours as needed for pain and pain and pain traMADol (Ultram) 50 MG tablet Indications: Pain Take 1 tablet (50 mg) by mouth every 6 (six) hours if needed for severe pain 90 tablet 04/18/2024 05/18/2024 Active traZODone hydrochloride 100 mg oral tablet (3 sources) Serotonin Reuptake Inhibitor take 1 tablet by mouth once daily traZODone (DESYREL) 100 MG tablet Take 1 tablet by mouth nightly Active Problems Active Problems Problem Classification Problem Date Documented Date Episodic/Chronic Complication of device; implant or graft (4 sources) Infection of total knee joint prosthesis; Translations: [Infection and inflammatory reaction due to internal right knee prosthesis, subsequent encounter] Onset: 05-10-2024 05-10-2024 Episodic E Codes: Fall (1 source) Fall on and from ladder, initial encounter; Translations: [FALL ON AND FROM LADDER INITIAL ENC] Onset: 03-25-2022 Episodic Joint disorders and dislocations; trauma-related (1 source) Unspecified dislocation of left patella, initial encounter; Translations: [UNS DISLOCATION LT PATELLA INITIAL] Onset: 03-25-2022 Episodic Malaise and fatigue (1 source) Weakness; Translations: [WEAKNESS] Onset: 04-17-2022 Episodic Other aftercare (1 source) Other superintendent terminal (current) drug therapy; Translations: [OTH [facility] CURRENT DRUG THERAPY] Onset: 03-25-2022 Episodic Other connective tissue disease (3 sources) Presence of right artificial knee joint; Translations: [Presence of right artificial knee joint] Onset: 04-26-2024 Chronic Other nervous system disorders (1 source) Other [...] [STIFFNESS LEFT KNEE NEC] Onset: 04-17-2022 Episodic Other non-traumatic joint disorders (1 source) Effusion, right knee; Translations: [Effusion, right knee] Onset: 03-29-2024 Episodic Residual codes; unclassified (2 sources) Pain; Translations: [Pain, unspecified] 04-18-2024 Episodic Sprains and strains (1 source) Sprain of unspecified site of left knee, initial encounter; Translations: [SPRAIN UNS SITE LT KNEE INITIAL] Onset: 03-25-2022 Episodic Past or Other Problems Problem Classification Problem Date Documented Date Episodic/Chronic Other nervous system disorders (1 source) Other acute postprocedural pain; Translations: [Other acute postprocedural pain] Onset: 01-19-2024 Episodic Results Test Name Value Interpretation Reference Range Facility .eGFRon 06-17-2024 GFR/1.73 sq M.predicted MDRD (S/P/Bld) [Vol rate/Area] mL/min/{1.73_m2} Normal >=60 [facility] Comment on above: Result Comment: [facility] Laboratories have implemented the eGFR calculation approach that does not have a coefficient for race and that conforms to the NKF-ASN Task Force Recommendations. Stages of Chronic Kidney Disease GFR Stage 3a Mild to moderate loss of kidney function 59 to 45 Stage 3b Moderate to severe loss of kidney function 44 to 33 Stage 4 Severe loss of kidney function 29 to 15 Stage 5 Kidney failure Less than 15 GFR calculated using the CKD-Epi Creatinine Equation (2020): eGFR = 142 X min(SCr/?, 1)? X max(SCr /?, 1)-1.200 X 0.9938Age X 1.012 [if female] Abbreviations/Units: eGFR (estimated glomerular filtration rate) = mL/min/1.73 m2 SCr (standardized serum creatinine) = mg/dL ? = 0.7 (females) or 0.9 (males) ? = -0.241 (females) or -0.302 (males) min = indicates the minimum of SCr/? or 1 max = indicates the maximum of SCr/? or 1 Age = years Performed By: #### . Automated Diff #### [address] [address] Basic Metabolic Profileon Anion gap [Moles/Vol] 7 mmol/L Normal 4-12 [facility] Comment on above: Performed By: #### E SR #### [address] [address] Calcium [Mass/Vol] 9.5 mg/dL Normal 8.5-10.3 [facility] Comment on above: Performed By: #### E SR #### [address] [address] Chloride [Moles/Vol] 106 mmol/L Normal 98-110 [facility] Comment on above: Performed By: #### E SR #### [address] [address] CO2 [Moles/Vol] 25 mmol/L Normal 22-32 [facility] Comment on above: Performed By: #### E SR #### [address] [address] Creatinine [Mass/Vol] 1.15 mg/dL Normal 0.61-1.24 [facility] Comment on above: Performed By: #### E SR #### [address] [place] [address] Glucose [Mass/Vol] 91 mg/dL Normal 70-99 [facility] Comment on above: Performed By: #### E SR #### [address] [address] Potassium [Moles/Vol] 4.2 mmol/L Normal 3.4-4.8 [facility] Comment on above: Performed By: #### E SR #### [address] [address] Sodium [Moles/Vol] 138 mmol/L Normal 133-142 [facility] Comment on above: Performed By: #### E SR #### [address] [address] Urea nitrogen [Mass/Vol] 22 mg/dL Normal 8-26 [facility] Comment on above: Performed By: #### E SR #### [address] [address] Urea nitrogen/Creatinine [Mass ratio] 19.1 mg/mg Normal 10.0-20.0 [facility] Comment on above: Performed By: #### E SR #### [address] [address] CBC w/ Diffon 06-17-2024 Erythrocyte distribution width (RBC) [Ratio] 16.5 % High 11.6-14.8 [facility] Comment on above: Performed By: #### . Automated Diff #### [address] [address] Hematocrit (Bld) [Volume fraction] 41.1 % Normal 41.0-53.0 [facility] Comment on above: Performed By: #### . Automated Diff #### [address] [address] Hemoglobin (Bld) [Mass/Vol] 13.3 g/dL Low 13.5-17.5 [facility] Comment on above: Performed By: #### . Automated Diff #### [address] [address] MCH (RBC) [Entitic mass] 26.2 pg Low 27.0-35.0 [facility] Comment on above: Performed By: #### . Automated Diff #### [place] [id number] MCHC 32.4 % Normal 31.0-37.0 [facility] Comment on above: Performed By: #### . Automated Diff #### [place] [id number] MCV (RBC) [Entitic vol] 80.8 fL Normal 80.0-100.0 [facility] Comment on above: Performed By: #### . Automated Diff #### [place] [address] Platelet 364 x10*3/mcL Normal 150-450 [facility] Comment on above: Performed By: #### . Automated Diff #### [place] [address] Platelet mean volume (Bld) [Entitic vol] 6.9 fL Normal 6.7-10.6 [facility] Comment on above: Performed By: #### . Automated Diff #### [place] [address] RBC 5.09 x10*6/mcL Normal 4.30-5.80 [facility] Comment on above: Performed By: #### . Automated Diff #### [place] [id number] WBC 7.9 x10*3/mcL Normal 4.5-11.0 [facility] Comment on above: Performed By: #### . Automated Diff #### [place] [id number] CRPon 06-17-2024 CRP 0.77 mg/dL High 0.00-0.75 [facility] Comment on above: Result Comment: CRP measurement is useful for assessment of non-specific INFLAMMATORY RESPONSE to infection or injury AND is a sensitive MARKER of ACUTE INFLAMMATION including CARDIAC RISK ASSESSMENT. CARDIAC patients with elevated CRP are POTENTIALLY at a HIGHER RISK OF FUTURE CARDIAC EVENTS. Performed By: #### E SR #### [address] [address] Diff Autoon 06-17-2024 Baso Absolute 0.1 x10*3/mcL Normal 0.0-0.2 [facility] Comment on above: Performed By: #### . Automated Diff #### [address] [address] Basophils/100 WBC (Bld) 0.9 % Normal 0.0-1.2 [facility] Comment on above: Performed By: #### . Automated Diff #### [address] [address] Eos Absolute 0.3 x10*3/mcL Normal 0.0-0.4 [facility] Comment on above: Performed By: #### . Automated Diff #### [address] [address] Eosinophils/100 WBC (Bld) 3.4 % Normal 0.0-6.1 [facility] Comment on above: Performed By: #### . Automated Diff #### [address] [address] Lymph Absolute 2.0 x10*3/mcL Normal 1.0-4.8 [facility] Comment on above: Performed By: #### . Automated Diff #### [address] [address] Lymphocytes/100 WBC (Bld) 25.8 % Low 27.2-40.8 [facility] Comment on above: Performed By: #### . Automated Diff #### [address] [address] [place] Absolute 0.8 x10*3/mcL Normal 0.3-1.1 [facility] Comment on above: Performed By: #### . Automated Diff #### [address] [address] Monocytes/100 WBC (Bld) 10.0 % Normal 4.7-13.9 [facility] Comment on above: Performed By: #### . Automated Diff #### [place] [address] [place] [address] Neutro Absolute 4.7 x10*3/mcL Normal 1.8-7.7 [facility] Comment on above: Performed By: #### . Automated Diff #### [address] [address] Neutro Auto 59.9 % Normal 47.2-70.8 [facility] Comment on above: Performed By: #### . Automated Diff #### [address] [address] ESRon 06-17-2024 Sed Rate 10 mm/hr Normal 0-23 [facility] Comment on above: Performed By: #### V ANCT #### [address] [address] Infectious Disease Office/Cl inic Noteon 06-17-2024 Infectious Disease Office/Clinic Note Assessment/Plan 1. Infection of prosthetic right knee joint Continue doxycycline. Check lab today. Recheck in about a month. Anticipate antibiotic treatment through October. Ordered: C-Reactive Protein Complete Blood Count w/ Differential Erythrocyte Sedimentation Rate 2. HTN (hypertension) (Complaint of) Check basic panel as creatinine mildly elevated. Ordered: Basic Metabolic Profile Chief Complaint 2-3 wk f/u Rt prosthetic knee infection History of Present Illness Admitted April 08 through April 15 with right prosthetic and knee joint infection with negative cultures. Underwent explantation with spacer placement. Discharged on daptomycin and Rocephin and then changed to Zyvox due to CPK elevation. He also was diagnosed with COVID around that time. Changed to Zyvox continue on ceftriaxone which completed May 23. [1] started doxycycline May 24. Overall doing okay. Tolerating doxycycline okay. Right knee continues healed. There is an eschar. He states that he lifted it and did look a little deep under there. No redness. No drainage from there. Left knee is also sore from arthritis. He needs surgery on that as well. No fever or chills. No diarrhea from antibiotic. He is ambulating better. Still using walker for stability. Review of Systems Other review of system negative. Physical Exam Vitals & Measurements T: 36.6 ?C (Temporal Artery) HR: 117 (Peripheral) BP: 138/74 SpO2: 94% HT: 178 cm WT: 100.3 kg WT: 100.3 kg (Dosing) BMI: 31.66 Mild tachycardia. Other vitals okay. Sclera Contegra normal. No respiratory distress. Right knee with approximately 2 cm eschar in the center portion of the wound. No surrounding redness swelling focalized to that area. Mild swelling of the knee in general. By surface infrared thermometer treated, vital 4 ?F difference between the right and left knee. Additional Vitals BP Position/Location: Sitting, Right arm Medical Decision Making Chronic conditions NOT treated during this visit that affected my overall medical decision making: [] Treatment plans discussed but not opted for at this time: [] Prescribed medication that requires intensive monitoring for toxicity: [] I have reviewed the patient?s medication list for medication interactions/contrai ndications and/or for upcoming procedures: [yes or no] Time Spent with the Patient I have personally spent [] minutes on this date, directly related to today's patient visit, including pre and post visit work, for this date of service. Time listed does not include time spent on separately billable services. Problem List/Past Medical History Ongoing Arthritis Frequency of urination HTN (hypertension) Hyperlipidemia Knee pain Obesity (BMI 30.0-34.9) Snores Historical No qualifying data Procedure/Surgical History Extraction of wisdom tooth (1985) H/O: vasectomy (1985) Attention to total knee replacement (11/15/2023) RT KNEE SURGERY (01/2024) Arthroplasty Knee Total Revision with Poly Tibial Spacer (Right) (04/08/2024) Medications aspirin 81 mg oral capsule, 81 mg= 1 caps, Oral, BID, Not taking atenolol 50 mg oral tablet, 50 mg= 1 tabs, Oral, qAM cyclobenzaprine 10 mg oral tablet, 10 mg= 1 tabs, Oral, TID, PRN docusate sodium 100 mg oral capsule, TAKE 1 CAPSULE BY MOUTH TWICE A DAY NEEDED FOR CONSTIPATION doxycycline hyclate 100 mg oral capsule, 100 mg= 1 caps, Oral, BID ezetimibe 10 mg oral tablet, 10 mg= 1 tabs, Oral, qAM hydrOXYzine hydrochloride 25 mg oral tablet, 25 mg= 1 tabs, Oral, QID lisinopril 20 mg oral tablet, 20 mg= 1 tabs, Oral, qAM traZODone 100 mg oral tablet, 100 mg= 1 tabs, Oral, HS (at bedtime) Wellbutrin XL 150 mg/24 hours oral tablet, extended release, 150 mg= 1 tabs, Oral, q24hr Allergies Keflex (Itching) penicillin (Rash) Social History Alcohol Current, Beer, 3-5 times per week Employment/School Retired Exercise Home/Environment Lives with Spouse, 1 DAUGHTER - 1 GRANDSON. Living situation: Home/Independent. Home equipment: Walker/Cane. Nutrition/Health Regular, Caffeine intake amount: DENIES. Sleeping concerns: Yes. Substance Abuse Denies All Tobacco Former smoker, quit more than 5 years ago Use:. Immunizations Vaccine Date Status influenza virus vaccine, inactivated 04/17/2023 Recorded zoster vaccine, inactivated 08/17/2021 Recorded zoster vaccine, inactivated 05/30/2021 Recorded SARS-CoV-2 (COVID-19) mRNA BNT-162b2 vax 05/23/2021 Recorded Comments : 2024-05-24: TPV60 SARS-CoV-2 (COVID-19) mRNA BNT-162b2 vax 10/12/2020 Recorded Comments : 2024-05-24: TPV50 SARS-CoV-2 (COVID-19) mRNA BNT-162b2 vax 09/20/2020 Recorded Comments : 2024-05-24: TPV50 influenza virus vaccine, inactivated 04/08/2020 Recorded Lab Results Sodium 140 Potassium 4.5 Creatinine 1.5 Calcium 9.1 Protein 8.0 Albumin 3.7 Alkaline phos 62 AST 15 ALT 22 WBC 3.8 Hgb 10.7 Platelets 187 CRP 16.7 with a range of less than 10.0 CPK 18 Sed rate (more content not included)... Normal [facility] Provider Letteron 06-17-2024 Provider Letter Asmita Casillas MD [address] [place] [address] Re: Mauricio Montano Date of Visit: 06/17/[address] Casillas, Thank you for your referral to my office. Attached you will find the most recent office visit note. Please call if you have any questions or concerns. Sincerely, Herbert Griffin MD [address] [facility], [address] [place] [address] The following document(s) were included in the letter: June 17, 2024 14:37:54 EST - (06/17/2024) Infectious Disease Office Visit Note Normal [facility] Infectious Disease Office/Cl inic Noteon 05-24-2024 Infectious Disease Office/Clinic Note Assessment/Plan 1. Infection of prosthetic right knee joint With PICC line removed and IV antibiotic complete, will ion exchange operator to doxycycline for a month or so. He will follow-up with Dr. Lawrence. At some point if aspiration of the knee as planned have asked him to have the metal antibiotic stopped for at least a week or so before any joint aspiration. I will see him back in about 2 or 3 weeks. Ordered: doxycycline, 1 caps, Oral, BID, X 28 days, # 56 caps, 0 Refill(s), 06/21/24 13:50:00 EST, Pharmacy: [id number] Chief Complaint 2 week follow-up right prosthetic knee infection History of Present Illness Admitted April 08 through April 15 with right prosthetic and knee joint infection with negative cultures. Underwent explantation with spacer placement. Discharged on daptomycin and Rocephin and then changed to Zyvox due to CPK elevation. He also was diagnosed with COVID around that time. Changed to Zyvox continue on ceftriaxone which completed May 23. Overall has been doing okay. Able to put more weight on the spacer. No fever or chills. He has not liked the food at the shelter and has been eating food from home. He is being discharged today back to home. Bowels are okay. Urine is okay. Minimal cough and sputum since the COVID diagnosis to 3 weeks ago. Review of Systems Other review of systems is negative. Physical Exam Vitals & Measurements T: 36.5 ?C (Temporal Artery) HR: 60 (Peripheral) BP: 90/56 SpO2: 95 HT: 178 cm WT: 98.42 kg WT: 98.42 kg (Dosing) BMI: 31.06 Vital signs show blood pressure in the 90s he states he has been running in the 90-1 10 range at the shelter. No acute distress. Skin color looks okay. Right arm PICC line site okay. PICC line pulled out intact at 48 cm and pressure dressing applied. Abdomen soft nontender. Right knee incision well-healed 2 areas of eschar which appear to be not showing any sign of inflammation around the edges. Minimal edema. No discomfort around the knee. He has numbness. Additional Vitals BP Position/Location: Sitting, Left arm Medical Decision Making Chronic conditions NOT treated during this visit that affected my overall medical decision making: [] Treatment plans discussed but not opted for at this time: [] Prescribed medication that requires intensive monitoring for toxicity: [] I have reviewed the patient?s medication list for medication interactions/contrai ndications and/or for upcoming procedures: [yes or no] Time Spent with the Patient I have personally spent [] minutes on this date, directly related to today's patient visit, including pre and post visit work, for this date of service. Time listed does not include time spent on separately billable services. Problem List/Past Medical History Ongoing Arthritis Frequency of urination HTN (hypertension) Hyperlipidemia Knee pain Obesity (BMI 30.0-34.9) Snores Historical No qualifying data Procedure/Surgical History Extraction of wisdom tooth (1985) H/O: vasectomy (1985) Attention to total knee replacement (11/15/2023) RT KNEE SURGERY (01/2024) Arthroplasty Knee Total Revision with Poly Tibial Spacer (Right) (04/08/2024) Medications aspirin 81 mg oral capsule, 81 mg= 1 caps, Oral, BID, Not taking atenolol 50 mg oral tablet, 50 mg= 1 tabs, Oral, qAM cyclobenzaprine 10 mg oral tablet, 10 mg= 1 tabs, Oral, TID, PRN docusate sodium 100 mg oral capsule, TAKE 1 CAPSULE BY MOUTH TWICE A DAY NEEDED FOR CONSTIPATION doxycycline hyclate 100 mg oral capsule, 100 mg= 1 caps, Oral, BID ezetimibe 10 mg oral tablet, 10 mg= 1 tabs, Oral, qAM hydrOXYzine hydrochloride 25 mg oral tablet, 25 mg= 1 tabs, Oral, QID lisinopril 20 mg oral tablet, 20 mg= 1 tabs, Oral, qAM Robitussin Cough + Chest Congestion DM, 10 mL, Oral, q4hr, PRN traMADol 50 mg oral tablet, 50 mg= 1 tabs, Oral, HS (at bedtime), Scheduled, Still taking, not as prescribed: 04/08: Originally prescribed 1 tablet every 8 hours as needed traMADol 50 mg oral tablet, 50 mg= 1 tabs, Oral, q6hr, PRN traZODone 100 mg oral tablet, 100 mg= 1 tabs, Oral, HS (at bedtime) Wellbutrin XL 150 mg/24 hours oral tablet, extended release, 150 mg= 1 tabs, Oral, q24hr Allergies Keflex (Itching) penicillin (Rash) Social History Alcohol Current, Beer, 3-5 times per week Employment/School Retired Exercise Home/Environment Lives with Spouse, 1 DAUGHTER - 1 GRANDSON. Living situation: Home/Independent. Home equipment: Walker/Cane. Nutrition/Health Regular, Caffeine intake amount: DENIES. Sleeping concerns: Yes. Substance Abuse Denies All Tobacco Former smoker, quit more than 5 years ago Use:. Immunizations Vaccine Date Status influenza virus vaccine, inactivated 04/17/2023 Recorded zoster vaccine, inactivated 08/17/2021 Recorded zoster vaccine, inactivated 05/30/2021 Recorded SARS-CoV-2 (COVID-19) mRNA BNT-162b2 vax 05/23/2021 Recorded Comments : 2024-05-24: TPV60 SARS-CoV-2 (COVID-19) mRNA BNT-162b2 vax (more content not included)... Normal [facility] Provider Letteron 05-24-2024 Provider Letter Asmita Casillas MD [facility] [place] [address] Re: Mauricio Montano Date of Visit: 05/24/[address] Casillas, Thank you for your referral to my office. Attached you will find the most recent office visit note. Please call if you have any questions or concerns. Sincerely, Herbert Griffin MD [address] [facility], [address] [place] [address] The following document(s) were included in the letter: May 24, 2024 13:53:00 EST - (05/24/2024) Infectious Disease Office Visit Note Normal [facility] Infectious Disease Office/Cl inic Noteon 05-17-2024 Infectious Disease Office/Clinic Note Assessment/Plan 1. Infection of prosthetic right knee joint Plan: Continue Zyvox and Rocephin. Will get labs from today. Will call results. Continue regimen through 05/23. Continue to follow orthopedic team. Return to clinic 1 week. Instructions to patient: If condition worsens in any way or you develop any signs or symptoms of infection please notify the office right away. Call for questions. Chief Complaint 2wk f/u R prosthetic knee infection History of Present Illness 64-year-old male being seen today 2-week follow-up for right prosthetic joint infection. During last visit we do not have patient's lab work available. Mildly did get lab work back on 05/04/2024. Sodium and electrolytes looked okay however his liver enzymes elevated. White blood cells look good platelets looked okay. His CPK was very elevated at 1233. Inflammation markers CRP slightly elevated decision was made to stop the daptomycin will proceed with oral Zyvox 600 mg twice daily. Lab work completed on 05/11. Sodium electrolytes look okay. Liver enzymes back to normal. CPK back to normal. White blood cells hemoglobin and platelets looked okay. His sed rate 22 however CRP still elevated at 16.5. Patient is doing well he is tolerating oral Zyvox and Rocephin. No complaints with PICC line seems to be functioning as usual. Will get lab work done tomorrow. No nausea, vomiting or diarrhea. No complaints of right knee pain. He is tolerating physical therapy twice a day. No drainage coming from knees some swelling however improved. No headaches to report. No chest pain or heart palpitations. No complaints on urination. Patient also reports he just got a quarantine for COVID about a week and a half ago occasional cough however does not feel short of breath. Patient went to the OR on 04/08/2024 for explantation of right total knee with insertion of antibiotic spacer. Cultures all remain negative. Patient was sent home on Rocephin 2 g and IV daptomycin through 05/23/2024. [1] Review of Systems All systems have been reviewed and are negative other than those listed in the HPI Physical Exam Vitals & Measurements T: 36.5 ?C (Temporal Artery) HR: 75 (Peripheral) BP: 128/60 SpO2: 97 HT: 178 cm WT: 98.5 kg WT: 98.5 kg (Dosing) BMI: 31.09 Vitals reviewed look okay. Patient in no apparent distress. Conjunctiva and sclera is normal. Trachea is midline. Respiratory effort is even unlabored. Abdomen is nondistended. Right knee incision site appears to be healing there is a few small eschar areas seen at incision however significantly improved from previous much smaller. Bilateral lower extremities without edema. Arrives in office in wheelchair. Answers questions appropriately. Right upper arm PICC line site looks okay no redness or swelling noted. Continue Zyvox and Rocephin. Will get labs from today. Will call results. Continue regimen through 05/23. Continue to follow orthopedic team. Return to clinic 1 week. Additional Vitals BP Position/Location: Sitting, Left arm Medical Decision Making Chronic conditions NOT treated during this visit that affected my overall medical decision making: [] Treatment plans discussed but not opted for at this time: [] Prescribed medication that requires intensive monitoring for toxicity: [] I have reviewed the patient?s medication list for medication interactions/contrai ndications and/or for upcoming procedures: [yes or no] Time Spent with the Patient I have personally spent [] minutes on this date, directly related to today's patient visit, including pre and post visit work, for this date of service. Time listed does not include time spent on separately billable services. Problem List/Past Medical History Ongoing Arthritis Frequency of urination HTN (hypertension) Hyperlipidemia Knee pain Obesity (BMI 30.0-34.9) Snores Historical No qualifying data Procedure/Surgical History Extraction of wisdom tooth (1985) H/O: vasectomy (1985) Attention to total knee replacement (11/15/2023) RT KNEE SURGERY (01/2024) Arthroplasty Knee Total Revision with Poly Tibial Spacer (Right) (04/08/2024) Medications aspirin 81 mg oral capsule, 81 mg= 1 caps, Oral, BID atenolol 50 mg oral tablet, 50 mg= 1 tabs, Oral, qAM cyclobenzaprine 10 mg oral tablet, 10 mg= 1 tabs, Oral, TID, PRN ezetimibe 10 mg oral tablet, 10 mg= 1 tabs, Oral, qAM hydrOXYzine hydrochloride 25 mg oral tablet, 25 mg= 1 tabs, Oral, QID lisinopril 20 mg oral tablet, 20 mg= 1 tabs, Oral, qAM Rocephin, 2 g, IM, Daily traMADol 50 mg oral tablet, 50 mg= 1 tabs, Oral, HS (at bedtime), Scheduled, Still taking, not as prescribed: 04/08: Originally prescribed 1 tablet every 8 hours as needed traZODone 100 mg oral tablet, 100 mg= 1 tabs, Oral, HS (at bedtime) Zyvox 600 mg oral tablet, 600 mg= 1 tabs, Oral, q12hr Allergies Keflex (Itching) penicillin (Rash) Social History Alcohol Current, Beer, 3-5 times per week Employment/School Retired Exercise Home/Env (more content not included)... Normal [facility] XR KNEE RIGHT (1-2 VIEWS)on 05-10-2024 XR KNEE RIGHT (1-2 VIEWS) EXAM: XR KNEE RIGHT (1-2 VIEWS). HISTORY: Infection of total right knee replacement, subsequent encounter. COMPARISON: 04/26/2024 IMPRESSION: FINDINGS/IMPRESSION: 1. Tibial spacer in anatomic alignment. 2. Femoral component unchanged. 3. No acute change. Interpreted by: Miguel Angel Iqbal Jr., MD Signed by: Miguel Angel Iqbal Jr., MD 05/10/24 Final result [facility] XR Knee - right 1 or 2 Views on 05-10-2024 FINDINGS/IMPRESSION: 1. Tibial spacer in anatomic alignment. 2. Femoral component unchanged. 3. No acute change. [facility] EXAM: XR KNEE RIGHT (1-2 VIEWS). HISTORY: Infection of total right knee replacement, subsequent encounter. COMPARISON: 04/26/2024 [facility] Miguel Angel Iqbal Jr., MD - 05/10/2024 EXAM: XR KNEE RIGHT (1-2 VIEWS). HISTORY: Infection of total right knee replacement, subsequent encounter. COMPARISON: 04/26/2024 IMPRESSION: FINDINGS/IMPRESSION: 1. Tibial spacer in anatomic alignment. 2. Femoral component unchanged. 3. No acute change. [facility] Radiology Study observation (narrative) [facility] XR Knee - right 1 or 2 Views Ordered By: Miguel Angel Iqbal on 05-10-2024 Reji Ellis [facility] [employer] Work Phone: C Fungalon 05-06-2024 C Fungal ------- Final No growth at 4 weeks. Normal [facility] Comment on above: Performed By: #### C BC #### [place] [address] Performed By: #### . Automated Diff #### [place] [id number] Infectious Disease Office/Cl inic Noteon 05-03-2024 Infectious Disease Office/Clinic Note Assessment/Plan 1. Infection of prosthetic right knee joint Plan: Continue with daptomycin and Rocephin. Unfortunately we do not have labs while in office today. Will call and make sure this is set up community referral form was set up with weekly labs however the last set of lab work I have is from 04/21. Will fax labs over. Return to clinic 2 weeks. Instructions to patient: If condition worsens in any way or you develop any signs or symptoms of infection please notify the office right away. Call for questions. Chief Complaint Right prosthetic knee infection History of Present Illness 64-year-old male being seen today hospital follow-up for right prosthetic knee infection. Patient went to the OR on 04/08/2024 for explantation of right total knee with insertion of antibiotic spacer. Cultures all remain negative. Patient was sent home on Rocephin 2 g and IV daptomycin through 05/23/2024. Unfortunately I do not have any lab work from last week. They are going to send it over. Had his sutures removed last week. Doing okay. No redness or swelling. There is some scabbed over areas on incision line but overall improved. He denies any nausea, vomiting or diarrhea. No complaints of shortness of breath or cough. No complaints with his PICC line. No rashes. Appetite has been okay. Tolerating physical therapy. Will see Dr. Lawrence next week. Review of Systems All systems have been reviewed and are negative other than those listed in the HPI Physical Exam Vitals & Measurements T: 36.2 ?C (Temporal Artery) HR: 80 (Peripheral) BP: 130/80 SpO2: 92 HT: 178 cm WT: 99.8 kg WT: 99.8 kg (Dosing) BMI: 31.5 Vitals reviewed. Look okay. Patient in no apparent distress. Conjunctiva and sclera is normal. Respiratory effort is even unlabored. Abdomen is nondistended. Right knee incision appears to be healing. Does have few scabbed over areas however no drainage seen. PICC line right upper arm site looks okay no redness or swelling. Answers questions appropriately. Additional Vitals BP Position/Location: Sitting, Left arm Medical Decision Making Chronic conditions NOT treated during this visit that affected my overall medical decision making: [] Treatment plans discussed but not opted for at this time: [] Prescribed medication that requires intensive monitoring for toxicity: [Daptomycin and Rocephin] I have reviewed the patient?s medication list for medication interactions/contrai ndications and/or for upcoming procedures: [Yes Time Spent with the Patient I have personally spent [30] minutes on this date, directly related to today's patient visit, including pre and post visit work, for this date of service. Time listed does not include time spent on separately billable services. Problem List/Past Medical History Ongoing Arthritis Frequency of urination HTN (hypertension) Hyperlipidemia Knee pain Obesity (BMI 30.0-34.9) Snores Historical No qualifying data Procedure/Surgical History Extraction of wisdom tooth (1985) H/O: vasectomy (1985) Attention to total knee replacement (11/15/2023) RT KNEE SURGERY (01/2024) Arthroplasty Knee Total Revision with Poly Tibial Spacer (Right) (04/08/2024) Medications aspirin 81 mg oral capsule, 81 mg= 1 caps, Oral, BID atenolol 50 mg oral tablet, 50 mg= 1 tabs, Oral, qAM cyclobenzaprine 10 mg oral tablet, 10 mg= 1 tabs, Oral, TID, PRN ezetimibe 10 mg oral tablet, 10 mg= 1 tabs, Oral, qAM hydrOXYzine hydrochloride 25 mg oral tablet, 25 mg= 1 tabs, Oral, QID lisinopril 20 mg oral tablet, 20 mg= 1 tabs, Oral, qAM traMADol 50 mg oral tablet, 50 mg= 1 tabs, Oral, HS (at bedtime), Scheduled, Still taking, not as prescribed: 04/08: Originally prescribed 1 tablet every 8 hours as needed traZODone 100 mg oral tablet, 100 mg= 1 tabs, Oral, HS (at bedtime) Allergies Keflex (Itching) penicillin (Rash) Social History Alcohol Current, Beer, 3-5 times per week Employment/School Retired Exercise Home/Environment Lives with Spouse, 1 DAUGHTER - 1 GRANDSON. Living situation: Home/Independent. Home equipment: Walker/Cane. Nutrition/Health Regular, Caffeine intake amount: DENIES. Sleeping concerns: Yes. Substance Abuse Denies All Tobacco Former smoker, quit more than 5 years ago Use:. Outside labs reviewed from 04/20/2024: Glucose 81 Sodium 137 Potassium 4.5 BUN 18 Creatinine 1.3 GFR 56 BUN 3.4 Alkaline phos 50 ALT 22 AST 21 CPK 214 WBC 7.4 Hgb 10.3 Platelets 456 Sed rate 17 CRP 24.4 with a range of less than 10.0. [1] [1] Labs reviewed. Please call pt.; Yodit Mancia 04/21/2024 10:42 EDT Electronically signed by Yodit Mancia 05/03/24 16:03 EDT Normal [facility] XR KNEE RIGHT (1-2 VIEWS)on 04-26-2024 XR KNEE RIGHT (1-2 VIEWS) EXAM: XR KNEE RIGHT (1-2 VIEWS) HISTORY: Presence of right artificial knee joint COMPARISON: Right knee 04/08/2024. IMPRESSION: FINDINGS/IMPRESSION: 1. Right tibial space are unchanged. 2. Femoral component in anatomic alignment. 3. Mild soft tissue swelling without overt joint effusion. 4. No osteomyelitis. Interpreted by: Miguel Angel Iqbal Jr., MD Signed by: Miguel Angel Iqbal Jr., MD 04/26/24 Final result Normal [facility] 04-24-2024 Jontahon RAMIREZ ------- Final No anaerobic organisms isolated at 2 weeks Normal [facility] Comment on above: Performed By: ###Megan ORTIZ #### [address] [place] [address] C JAMES ------- Final No anaerobic organisms isolated at 2 weeks Normal [facility] Comment on above: Performed By: #### . Rhona Diff #### [address] [address] Jonathon RAMIREZ ------- Final No anaerobic organisms isolated at 2 weeks Normal [facility] Comment on above: Performed By: ###Megan ORTIZ #### [facility] [address] [place] [id number] Jonathon RAMIREZ ------- Final No anaerobic organisms isolated at 2 weeks Normal [facility] Comment on above: Performed By: #Megan#Megan ORTIZ #### [facility] [address] [place] [address] Jonathon Haines 04-23-2024 Jonathon RAMIREZ ------- Final No anaerobic organisms isolated at 2 weeks Normal [facility] Comment on above: Performed By: #### C BC #### [facility] [address] [place] [address] C JAMES ------- Final No anaerobic organisms isolated at 2 weeks Normal [facility] Comment on above: Performed By: #### . Automated Diff #### [facility] [address] [place] [address] C Sterile BSon 04-23-2024 C Sterile BS ------- Final No growth at 2 weeks. Normal [facility] Comment on above: Performed By: #### S BS ####[facility] [place] [address] C Sterile BS ------- Final No growth at 2 weeks. Normal [facility] Comment on above: Performed By: #### . Automated Diff #### [facility] [address] [place] [address] C Sterile BS ------- Final No growth at 2 weeks. Normal [facility] Comment on above: Performed By: #### C BC #### [place] [address] C Sterile BS ------- Final No growth at 2 weeks. Normal [facility] Comment on above: Performed By: #### . Automated Diff #### [place] [id number] C Sterile BS ------- Final No growth at 2 weeks. Normal [facility] Comment on above: Performed By: #### . Automated Diff #### [address] [address] CRPon 04-15-2024 CRP 11.42 mg/dL High 0.00-0.75 [facility] Comment on above: Result Comment: CRP measurement is useful for assessment of non-specific INFLAMMATORY RESPONSE to infection or injury AND is a sensitive MARKER of ACUTE INFLAMMATION including CARDIAC RISK ASSESSMENT. CARDIAC patients with elevated CRP are POTENTIALLY at a HIGHER RISK OF FUTURE CARDIAC EVENTS. Performed By: #### C RP ####[address] [address] Inpatient Clinical Summaryon 04-15-2024 Inpatient Clinical Summary [address] [address] [place] [address] Clinical Summary Person Information Name: Mauricio Montano Age: 64 Years : 1960 Sex: Male PCP: Asmita Casillas MD Marital Status: Phone: PCP: Race: White Ethnicity: Not or Language: Welsh Visit Id: Visit Reason: Knee pain-swelling; R Knee Pain Speciality: Acuity: Enc Type: Inpatient Med Service: Emergency Medicine Arrival: 04/08/2024 10:28:57 Discharge: Dispo Type: Address: [address] [place] [id number] Diagnosis: 1:Infection of prosthetic right knee joint; 2:Knee pain, concern for infection Discharged To: Home Treatments: Devices/Equipment: Professional Skilled Services: Special Services and Community Resources: Mode of Discharge Transportation: Discharge Orders Diet Instruction Follow up 04/15/24 13:07:00 EDT, Provider: Herbert Griffin MD, 1 week Allergies penicillin (Rash) Keflex (Itching) Functional Status: Sensory Deficits: History of Falls: Within last one year Mobility Assistance Prior to Admission: ADLs: Minimal assistance Gait: Slow, Unsteady Ambulation Assist: Assistive Device: None Special Orthopedic Devices: Current Level of Assistance for Self-Care/Mobility: Cognitive Status: Orientation: Orientation Assessment Oriented x 4 Level of Consciousness: Alert Characteristics of Speech: Clear Aspiration Risk: None Affect/Behavior: Appropriate, Calm, Cooperative Laboratory or Other Results This Visit (last charted value for your 04/08/2024 visit) Hematology 04/14/2024 5:51 PM WBC: 7.8 x10 RBC: 3.39 x10 Neutro Auto: 67.7 % -- Normal range between ( 47.2 and 70.8 ) Lymph Auto: 17.5 % -- Normal range between ( 27.2 and 40.8 ) [place] Auto: 12.6 % -- Normal range between ( 4.7 and 13.9 ) Eos Auto: 2.1 % -- Normal range between ( 0.0 and 6.1 ) Basophil Auto: 0.1 % -- Normal range between ( 0.0 and 1.2 ) Baso Absolute: 0.0 x10 MCV: 85.5 fL -- Normal range between ( 80.0 and 100.0 ) MCHC: 33.5 % -- Normal range between ( 31.0 and 37.0 ) Lymph Absolute: 1.4 x10 Hct: 29.0 % -- Normal range between ( 41.0 and 53.0 ) [place] Absolute: 1.0 x10 MCH: 28.7 pg -- Normal range between ( 27.0 and 35.0 ) Neutro Absolute: 5.3 x10 Hgb: 9.7 g/dL -- Normal range between ( 13.5 and 17.5 ) Mean Platelet Volume: 6.2 fL -- Normal range between ( 6.7 and 10.6 ) Platelet: 361 x10 Eos Absolute: 0.2 x10 RDW: 14.1 % -- Normal range between ( 11.6 and 14.8 ) 04/08/2024 11:13 AM Sed Rate: 17 mm/hr -- Normal range between ( 0 and 23 ) Coagulation 04/08/2024 11:36 AM PT: 10.7 seconds -- Normal range between ( 9.2 and 12.0 ) INR: 1.0 ratio PTT: 18.7 seconds -- Normal range between ( 19.5 and 28.2 ) Chemistry 04/14/2024 5:51 PM Creatinine Lvl: 1.21 mg/dL -- Normal range between ( 0.61 and 1.24 ) BUN: 18 mg/dL -- Normal range between ( 8 and 26 ) Glucose Lvl: 99 mg/dL -- Normal range between ( 70 and 99 ) Potassium Lvl: 4.2 mmol/L -- Normal range between ( 3.4 and 4.8 ) Sodium Lvl: 135 mmol/L -- Normal range between ( 133 and 142 ) Calcium Lvl: 8.7 mg/dL -- Normal range between ( 8.5 and 10.3 ) Chloride: 103 mmol/L -- Normal range between ( 98 and 110 ) CO2: 23 mmol/L -- Normal range between ( 22 and 32 ) Anion Gap: 9 -- Normal range between ( 4 and 12 ) Estimated GFR: >60 mL/min/1.73m? BUN Crea Ratio: 14.9 -- Normal range between ( 10.0 and 20.0 ) 04/14/2024 4:28 AM CRP: 8.75 mg/dL -- Normal range between ( 0.00 and 0.75 ) Magnesium Lvl: 2.0 mg/dL -- Normal range between ( 1.7 and 2.4 ) 04/08/2024 11:36 AM AST: 21 IU/L -- Normal range between ( 15 and 41 ) ALT: 24 IU/L -- Normal range between ( 17 and 63 ) Albumin Lvl: 4.3 g/dL -- Normal range between ( 3.2 and 4.9 ) Total Protein: 7.9 g/dL -- Normal range between ( 6.5 and 8.1 ) Bili Total: 1.4 mg/dL -- Normal range between ( 0.3 and 1.2 ) Alk Phos: 60 IU/L -- Normal range between ( 32 and 91 ) AG Ratio: 1.2 -- Normal range between ( 1.1 and 2.2 ) Therapeutic Drug Monitoring 04/12/2024 11:29 AM Vanco Trough: 11.4 mcg/mL -- Normal range between ( 10.0 and 15.0 ) Body Fluids/Other Sources 04/08/2024 4:54 PM Fluid RBC Count: 670385 /mcL Body Fluid Cell Cnt Type: Synovial Fluid WBC Count: 53721 /mcL -- Normal range between ( 0 and 150 ) Fluid Polynuclear Cells: 90 % -- Normal range between ( 0 and 25 ) Fluid Mononuclear Cells: 8 % -- Normal range between ( 0 and 78 ) Fluid Other Cells: 2 % -- Normal range between ( 0 and 10 ) Microbiology 04/08/2024 6:56 PM Gram Stain: Gram Stain Molecular 04/08/2024 10:34 PM Methicillin Resistant Staph aurus(MRSA): Not Detected Diagnostic Radiology 04/12/2024 11:08 AM XR PICC Floor Insert: XR PICC Floor Insert 04/08/2024 8:22 PM XR Knee 1 or 2 Views Right (more content not included)... Normal [facility] Orthopedic Progress Noteon 1 Orthopedic Progress Note Subjective Patient seen evaluated. Overall doing well today. Placement obtained for [facility] facility. Review of Systems Denies fever, chills, swelling Objective Vitals & Measurements T: 36.5 ?C (Oral) HR: 82 (Peripheral) RR: 16 BP: 110/72 SpO2: 94% HT: 178 cm WT: 117.2 kg BMI: 38.79 Additional Vitals No qualifying data available. Lab Results Microbiology - Current Encounter No qualifying data available. Physical Exam Right lower extremity: Skin is intact. Surgical dressing clean and dry. EHL/FHL/GS/TA motor complex intact without deficit. 2+ DP pulse Medications Inpatient acetaminophen, 650 mg, Oral, q6hr, PRN acetaminophen, 650 mg, Oral, q6hr, PRN atenolol, 50 mg, Oral, qAM DAPTOmycin + Sodium Chloride 0.9% intravenous solution 50 mL DEPO-Medrol, 80 mg= 1 mL, IM, Once enoxaparin, 40 mg= 0.4 mL, Subcutaneous, Daily ezetimibe, 10 mg, Oral, qAM lisinopril, 20 mg, Oral, qAM Marcaine HCl 0.25% preservative-free injectable solution, 75 mg= 30 mL, Injection, Once MiraLax, 17 g= 1 EA, Oral, BID, PRN morphine, 2 mg= 1 mL, IV Push, q4hr, PRN naloxone, 0.4 mg= 1 mL, IV Push, q2min, PRN [place] 5 mg-325 mg oral tablet, 1 tabs, Oral, q6hr, PRN Normal Saline Flush 0.9% injectable solution, 10 mL, IV Push, As Indicated, PRN Normal Saline Flush 0.9% injectable solution, 10 mL, IV Push, BID ondansetron, 4 mg= 2 mL, IV Push, q4hr, PRN Rocephin, 2 g= 50 mL, IV Piggyback, q24hr senna, 8.6 mg, Oral, BID, PRN Skelaxin, 800 mg, Oral, TID, PRN traMADol, 50 mg, Oral, HS (at bedtime) traZODone, 100 mg, Oral, HS (at bedtime) Valium, 2 mg= 0.4 mL, IV Push, Once, PRN Voltaren 1% topical gel, 2 g, Topical, QID, PRN Assessment/Plan Patient is a 64-year-old male status post right knee explant and antibiotic spacer. -Nonweightbearing to right lower extremity -Maintain surgical dressings until follow-up. -IV antibiotics per ID discretion -Follow-up in office in 2 weeks -Left knee injected to help with left knee osteoarthritis pain. Procedure note: Under sterile conditions left knee was prepped with alcohol and Betadine. The left knee joint was decussation of 2 cc 0.25% Marcaine plain a milligrams Depo-Medrol. Electronically signed by Hilton ORTIZ Yony Hayes 04/15/24 13:29 EDT Normal [facility] .eGFRon 04-14-2024 GFR/1.73 sq M.predicted MDRD (S/P/Bld) [Vol rate/Area] mL/min/{1.73_m2} Normal >=60 [facility] Comment on above: Result Comment: [facility] Laboratories have implemented the eGFR calculation approach that does not have a coefficient for race and that conforms to the NKF-ASN Task Force Recommendations. Stages of Chronic Kidney Disease GFR Stage 3a Mild to moderate loss of kidney function 59 to 45 Stage 3b Moderate to severe loss of kidney function 44 to 33 Stage 4 Severe loss of kidney function 29 to 15 Stage 5 Kidney failure Less than 15 GFR calculated using the CKD-Epi Creatinine Equation (2020): eGFR = 142 X min(SCr/?, 1)? X max(SCr /?, 1)-1.200 X 0.9938Age X 1.012 [if female] Abbreviations/Units: eGFR (estimated glomerular filtration rate) = mL/min/1.73 m2 SCr (standardized serum creatinine) = mg/dL ? = 0.7 (females) or 0.9 (males) ? = -0.241 (females) or -0.302 (males) min = indicates the minimum of SCr/? or 1 max = indicates the maximum of SCr/? or 1 Age = years Performed By: #### V ANCT #### [facility] [address] [place] [id number] GFR/1.73 sq M.predicted MDRD (S/P/Bld) [Vol rate/Area] mL/min/{1.73_m2} Normal >=60 [facility] Comment on above: Result Comment: [facility] Laboratories have implemented the eGFR calculation approach that does not have a coefficient for race and that conforms to the NKF-ASN Task Force Recommendations. Stages of Chronic Kidney Disease GFR Stage 3a Mild to moderate loss of kidney function 59 to 45 Stage 3b Moderate to severe loss of kidney function 44 to 33 Stage 4 Severe loss of kidney function 29 to 15 Stage 5 Kidney failure Less than 15 GFR calculated using the CKD-Epi Creatinine Equation (2020): eGFR = 142 X min(SCr/?, 1)? X max(SCr /?, 1)-1.200 X 0.9938Age X 1.012 [if female] Abbreviations/Units: eGFR (estimated glomerular filtration rate) = mL/min/1.73 m2 SCr (standardized serum creatinine) = mg/dL ? = 0.7 (females) or 0.9 (males) ? = -0.241 (females) or -0.302 (males) min = indicates the minimum of SCr/? or 1 max = indicates the maximum of SCr/? or 1 Age = years Performed By: #### P TT #### [address] [address] Basic Metabolic Profileon Anion gap [Moles/Vol] 9 mmol/L Normal 4-12 [facility] Comment on above: Performed By: #### . Body Fluid Differential #### [address] [address] Calcium [Mass/Vol] 8.7 mg/dL Normal 8.5-10.3 [facility] Comment on above: Performed By: #### . Body Fluid Differential #### [address] [address] Chloride [Moles/Vol] 103 mmol/L Normal 98-110 [facility] Comment on above: Performed By: #### . Body Fluid Differential #### [address] [address] CO2 [Moles/Vol] 23 mmol/L Normal 22-32 [facility] Comment on above: Performed By: #### . Body Fluid Differential #### [address] [address] Creatinine [Mass/Vol] 1.21 mg/dL Normal 0.61-1.24 [facility] Comment on above: Performed By: #### . Body Fluid Differential #### [address] [address] Glucose [Mass/Vol] 99 mg/dL Normal 70-99 [facility] Comment on above: Performed By: #### . Body Fluid Differential #### [address] [address] Potassium [Moles/Vol] 4.2 mmol/L Normal 3.4-4.8 [facility] Comment on above: Performed By: #### . Body Fluid Differential #### [address] [address] Sodium [Moles/Vol] 135 mmol/L Normal 133-142 [facility] Comment on above: Performed By: #### . Body Fluid Differential #### [address] [address] Urea nitrogen [Mass/Vol] 18 mg/dL Normal 8-26 [facility] Comment on above: Performed By: #### . Body Fluid Differential #### [address] [address] Urea nitrogen/Creatinine [Mass ratio] 14.9 mg/mg Normal 10.0-20.0 [facility] Comment on above: Performed By: #### . Body Fluid Differential #### [address] [address] Anion gap [Moles/Vol] 9 mmol/L Normal 4-12 [facility] Comment on above: Performed By: #### C [id number] ####[address] [address] Calcium [Mass/Vol] 8.4 mg/dL Low 8.5-10.3 [facility] Comment on above: Performed By: #### C [id number] ####[address] [address] Chloride [Moles/Vol] 102 mmol/L Normal 98-110 [facility] Comment on above: Performed By: #### C [id number] ####[address] [address] CO2 [Moles/Vol] 24 mmol/L Normal 22-32 [facility] Comment on above: Performed By: #### C [id number] ####[address] [address] Creatinine [Mass/Vol] 1.24 mg/dL Normal 0.61-1.24 [facility] Comment on above: Performed By: #### C [id number] ####[address] [address] Glucose [Mass/Vol] 100 mg/dL High 70-99 [facility] Comment on above: Performed By: #### C [id number] ####[address] [address] Potassium [Moles/Vol] 3.5 mmol/L Normal 3.4-4.8 [facility] Comment on above: Performed By: #### C [id number] ####[address] [address] Sodium [Moles/Vol] 135 mmol/L Normal 133-142 [facility] Comment on above: Performed By: #### C [id number] ####[address] [address] Urea nitrogen [Mass/Vol] 18 mg/dL Normal 8-26 [facility] Comment on above: Performed By: #### C [id number] ####[address] [address] Urea nitrogen/Creatinine [Mass ratio] 14.5 mg/mg Normal 10.0-20.0 [facility] Comment on above: Performed By: #### C [id number] ####[address] [address] CBC w/ Diffon 04-14-2024 Erythrocyte distribution width (RBC) [Ratio] 14.1 % Normal 11.6-14.8 [facility] Comment on above: Order Comment: Nurse draw per [facility] 04/14/2024 14:20 ALSNotified Donna that we still haven't rec'd blood on this patient. She will let the nurse know. 04/14/2024 17:24 ALS Performed By: #### C BC ####[address] [address] Hematocrit (Bld) [Volume fraction] 29.0 % Low 41.0-53.0 [facility] Comment on above: Order Comment: Nurse draw per [facility] 04/14/2024 14:20 ALSNotified Donna that we still haven't rec'd blood on this patient. She will let the nurse know. 04/14/2024 17:24 ALS Performed By: #### C BC ####[address] [address] Hemoglobin (Bld) [Mass/Vol] 9.7 g/dL Low 13.5-17.5 [facility] Comment on above: Order Comment: Nurse draw per [facility] 04/14/2024 14:20 ALSNotified Donna that we still haven't rec'd blood on this patient. She will let the nurse know. 04/14/2024 17:24 ALS Performed By: #### C BC ####[address] [address] MCH (RBC) [Entitic mass] 28.7 pg Normal 27.0-35.0 [facility] Comment on above: Order Comment: Nurse draw per [facility] 04/14/2024 14:20 ALSNotified Donna that we still haven't rec'd blood on this patient. She will let the nurse know. 04/14/2024 17:24 ALS Performed By: #### C BC ####[address] [address] MCHC 33.5 % Normal 31.0-37.0 [facility] Comment on above: Order Comment: Nurse draw per [facility] 04/14/2024 14:20 ALSNotified Donna that we still haven't rec'd blood on this patient. She will let the nurse know. 04/14/2024 17:24 ALS Performed By: #### C BC ####[address] [address] MCV (RBC) [Entitic vol] 85.5 fL Normal 80.0-100.0 [facility] Comment on above: Order Comment: Nurse draw per [facility] 04/14/2024 14:20 ALSNotified Donna that we still haven't rec'd blood on this patient. She will let the nurse know. 04/14/2024 17:24 ALS Performed By: #### C BC ####[address] [address] Platelet 361 x10*3/mcL Normal 150-450 [facility] Comment on above: Order Comment: Nurse draw per [facility] 04/14/2024 14:20 ALSNotified Donna that we still haven't rec'd blood on this patient. She will let the nurse know. 04/14/2024 17:24 ALS Performed By: #### C BC ####[address] [address] Platelet mean volume (Bld) [Entitic vol] 6.2 fL Low 6.7-10.6 [facility] Comment on above: Order Comment: Nurse draw per [facility] 04/14/2024 14:20 ALSNotified Donna that we still haven't rec'd blood on this patient. She will let the nurse know. 04/14/2024 17:24 ALS Performed By: #### C BC ####[address] [address] RBC 3.39 x10*6/mcL Low 4.30-5.80 [facility] Comment on above: Order Comment: Nurse draw per [facility] 04/14/2024 14:20 ALSNotified Donna that we still haven't rec'd blood on this patient. She will let the nurse know. 04/14/2024 17:24 ALS Performed By: #### C BC ####[address] [place] [address] WBC 7.8 x10*3/mcL Normal 4.5-11.0 [facility] Comment on above: Order Comment: Nurse draw per [facility] 04/14/2024 14:20 ALSNotified Donna that we still haven't rec'd blood on this patient. She will let the nurse know. 04/14/2024 17:24 ALS Performed By: #### C BC ####[address] [address] Erythrocyte distribution width (RBC) [Ratio] 14.0 % Normal 11.6-14.8 [facility] Comment on above: Performed By: #### C BC #### [address] [address] Hematocrit (Bld) [Volume fraction] 27.3 % Low 41.0-53.0 [facility] Comment on above: Performed By: #### C BC #### [address] [address] Hemoglobin (Bld) [Mass/Vol] 9.2 g/dL Low 13.5-17.5 [facility] Comment on above: Performed By: #### C BC #### [address] [address] MCH (RBC) [Entitic mass] 28.8 pg Normal 27.0-35.0 [facility] Comment on above: Performed By: #### C BC #### [address] [address] MCHC 33.5 % Normal 31.0-37.0 [facility] Comment on above: Performed By: #### C BC #### [address] [address] MCV (RBC) [Entitic vol] 85.9 fL Normal 80.0-100.0 [facility] Comment on above: Performed By: #### C BC #### [address] [address] Platelet 283 x10*3/mcL Normal 150-450 [facility] Comment on above: Performed By: #### C BC #### [address] [address] Platelet mean volume (Bld) [Entitic vol] 6.2 fL Low 6.7-10.6 [facility] Comment on above: Performed By: #### C BC #### [address] [address] RBC 3.18 x10*6/mcL Low 4.30-5.80 [facility] Comment on above: Performed By: #### C BC #### [address] [address] WBC 5.5 x10*3/mcL Normal 4.5-11.0 [facility] Comment on above: Performed By: #### C BC #### [address] [address] CRPon 04-14-2024 CRP 8.75 mg/dL High 0.00-0.75 [facility] Comment on above: Result Comment: CRP measurement is useful for assessment of non-specific INFLAMMATORY RESPONSE to infection or injury AND is a sensitive MARKER of ACUTE INFLAMMATION including CARDIAC RISK ASSESSMENT. CARDIAC patients with elevated CRP are POTENTIALLY at a HIGHER RISK OF FUTURE CARDIAC EVENTS. Performed By: #### C RP ####[address] [address] Diff Autoon 04-14-2024 Baso Absolute 0.0 x10*3/mcL Normal 0.0-0.2 [facility] Comment on above: Performed By: #### P TT #### [address] [address] Basophils/100 WBC (Bld) 0.1 % Normal 0.0-1.2 [facility] Comment on above: Performed By: #### P TT #### [address] [address] Eos Absolute 0.2 x10*3/mcL Normal 0.0-0.4 [facility] Comment on above: Performed By: #### P TT #### [address] [address] Eosinophils/100 WBC (Bld) 2.1 % Normal 0.0-6.1 [facility] Comment on above: Performed By: #### P TT #### [address] [address] Lymph Absolute 1.4 x10*3/mcL Normal 1.0-4.8 [facility] Comment on above: Performed By: #### P TT #### [address] [address] Lymphocytes/100 WBC (Bld) 17.5 % Low 27.2-40.8 [facility] Comment on above: Performed By: #### P TT #### [address] [address] [place] Absolute 1.0 x10*3/mcL Normal 0.3-1.1 [facility] Comment on above: Performed By: #### P TT #### [address] [address] Monocytes/100 WBC (Bld) 12.6 % Normal 4.7-13.9 [facility] Comment on above: Performed By: #### P TT #### [address] [address] Neutro Absolute 5.3 x10*3/mcL Normal 1.8-7.7 [facility] Comment on above: Performed By: #### P TT #### [address] [address] Neutro Auto 67.7 % Normal 47.2-70.8 [facility] Comment on above: Performed By: #### P TT #### [address] [address] Baso Absolute 0.1 x10*3/mcL Normal 0.0-0.2 [facility] Comment on above: Performed By: #### P TT #### [address] [place] [address] Basophils/100 WBC (Bld) 1.1 % Normal 0.0-1.2 [facility] Comment on above: Performed By: #### P TT #### [address] [place] [address] Eos Absolute 0.2 x10*3/mcL Normal 0.0-0.4 [facility] Comment on above: Performed By: #### P TT #### [address] [address] Eosinophils/100 WBC (Bld) 3.5 % Normal 0.0-6.1 [facility] Comment on above: Performed By: #### P TT #### [address] [address] Lymph Absolute 1.5 x10*3/mcL Normal 1.0-4.8 [facility] Comment on above: Performed By: #### P TT #### [address] [place] [address] Lymphocytes/100 WBC (Bld) 26.7 % Low 27.2-40.8 [facility] Comment on above: Performed By: #### P TT #### [address] [address] [place] Absolute 0.8 x10*3/mcL Normal 0.3-1.1 [facility] Comment on above: Performed By: #### P TT #### [address] [address] Monocytes/100 WBC (Bld) 15.4 % High 4.7-13.9 [facility] Comment on above: Performed By: #### P TT #### [address] [place] [address] Neutro Absolute 2.9 x10*3/mcL Normal 1.8-7.7 [facility] Comment on above: Performed By: #### P TT #### [address] [place] [address] Neutro Auto 53.3 % Normal 47.2-70.8 [facility] Comment on above: Performed By: #### P TT #### [facility] [address] [place] [address] Magnesiumon 04-14-2024 Magnesium [Mass/Vol] 2.0 mg/dL Normal 1.7-2.4 [facility] Comment on above: Performed By: #### E SR #### [facility] [address] [place] [address] Orthopedic Progress Noteon 1 Orthopedic Progress Note Subjective Patient seen evaluated bedside. Overall doing well. Is having difficulty with mobilizing due to pain in the other knee. No fevers or chills. +BM today Review of Systems Denies fever, chills, numbness tingling Objective Vitals & Measurements T: 37 ?C (Oral) HR: 101 (Peripheral) RR: 20 BP: 131/77 SpO2: 94% HT: 178 cm WT: 123.9 kg BMI: 38.79 Additional Vitals No qualifying data available. Lab Results Microbiology - Current Encounter No qualifying data available. Physical Exam Right lower extremity: Skin is intact. JACOB drain removed with minimal output. Soft dressing applied. Range of motion is 0-60 with some pain. EHL/FHL/GS/TA motor complex intact no deficits. 2+ DP pulse Assessment/Plan Patient is a 64-year-old male being seen for right prosthetic knee joint infection postop day 5 from explant with antibiotic spacer placement. -Patient is to be nonweightbearing to the right lower extremity. Up with PT today. -Continue Vanco Zosyn per ID discretion. Will follow-up cultures. Negative for growth to this point. -Lovenox DVT prophylaxis -Drain pulled today. -PICC line placed. Await final infectious disease recs -Pt will need SNF placement. DC once obtained. Electronically signed by Yony Ashton DO 04/14/24 19:14 EDT Normal [facility] .eGFRon 04-13-2024 GFR/1.73 sq M.predicted MDRD (S/P/Bld) [Vol rate/Area] mL/min/{1.73_m2} Normal >=60 [facility] Comment on above: Result Comment: [facility] Laboratories have implemented the eGFR calculation approach that does not have a coefficient for race and that conforms to the NKF-ASN Task Force Recommendations. Stages of Chronic Kidney Disease GFR Stage 3a Mild to moderate loss of kidney function 59 to 45 Stage 3b Moderate to severe loss of kidney function 44 to 33 Stage 4 Severe loss of kidney function 29 to 15 Stage 5 Kidney failure Less than 15 GFR calculated using the CKD-Epi Creatinine Equation (2020): eGFR = 142 X min(SCr/?, 1)? X max(SCr /?, 1)-1.200 X 0.9938Age X 1.012 [if female] Abbreviations/Units: eGFR (estimated glomerular filtration rate) = mL/min/1.73 m2 SCr (standardized serum creatinine) = mg/dL ? = 0.7 (females) or 0.9 (males) ? = -0.241 (females) or -0.302 (males) min = indicates the minimum of SCr/? or 1 max = indicates the maximum of SCr/? or 1 Age = years Performed By: #### V ANCT #### [facility] [address] [place] [address] Basic Metabolic Profileon Anion gap [Moles/Vol] 10 mmol/L Normal 4-12 [facility] Comment on above: Performed By: #### P TT #### [facility] [address] [place] [address] Calcium [Mass/Vol] 8.5 mg/dL Normal 8.5-10.3 [facility] Comment on above: Performed By: #### P TT #### [facility] [address] [place] [address] Chloride [Moles/Vol] 102 mmol/L Normal 98-110 [facility] Comment on above: Performed By: #### P TT #### [facility] [address] [place] [address] CO2 [Moles/Vol] 25 mmol/L Normal 22-32 [facility] Comment on above: Performed By: #### P TT #### [address] [address] Creatinine [Mass/Vol] 1.32 mg/dL High 0.61-1.24 [facility] Comment on above: Performed By: #### P TT #### [address] [address] Glucose [Mass/Vol] 99 mg/dL Normal 70-99 [facility] Comment on above: Performed By: #### P TT #### [address] [address] Potassium [Moles/Vol] 3.9 mmol/L Normal 3.4-4.8 [facility] Comment on above: Performed By: #### P TT #### [address] [address] Sodium [Moles/Vol] 137 mmol/L Normal 133-142 [facility] Comment on above: Performed By: #### P TT #### [address] [address] Urea nitrogen [Mass/Vol] 13 mg/dL Normal 8-26 [facility] Comment on above: Performed By: #### P TT #### [address] [address] Urea nitrogen/Creatinine [Mass ratio] 9.8 mg/mg Low 10.0-20.0 [facility] Comment on above: Performed By: #### P TT #### [address] [address] CBC w/ Diffon 04-13-2024 Erythrocyte distribution width (RBC) [Ratio] 13.8 % Normal 11.6-14.8 [facility] Comment on above: Performed By: #### P TT #### [address] [address] Hematocrit (Bld) [Volume fraction] 26.4 % Low 41.0-53.0 [facility] Comment on above: Performed By: #### P TT #### [address] [address] Hemoglobin (Bld) [Mass/Vol] 9.0 g/dL Low 13.5-17.5 [facility] Comment on above: Performed By: #### P TT #### [address] [address] MCH (RBC) [Entitic mass] 29.5 pg Normal 27.0-35.0 [facility] Comment on above: Performed By: #### P TT #### [address] [address] MCHC 34.2 % Normal 31.0-37.0 [facility] Comment on above: Performed By: #### P TT #### [address] [address] MCV (RBC) [Entitic vol] 86.3 fL Normal 80.0-100.0 [facility] Comment on above: Performed By: #### P TT #### [address] [address] Platelet 248 x10*3/mcL Normal 150-450 [facility] Comment on above: Performed By: #### P TT #### [address] [address] Platelet mean volume (Bld) [Entitic vol] 6.1 fL Low 6.7-10.6 [facility] Comment on above: Performed By: #### P TT #### [address] [address] RBC 3.07 x10*6/mcL Low 4.30-5.80 [facility] Comment on above: Performed By: #### P TT #### [address] [address] WBC 6.2 x10*3/mcL Normal 4.5-11.0 [facility] Comment on above: Performed By: #### P TT #### [address] [address] Dietary Consultationon 04-13 Dietary Consultation Patient admitted 04/08 with planned surgical care to infection R knee. Had knee replacement and ligament repair 2 months prior. PMH of HTN, HLD, obesity. PICC line inserted for antibiotic treatment. Plan for SNF at discharge. Pertinent medications: PRN miralax and senna. Labs reviewed: Cr 1.32 (H). Current weight 120.7 kg, stable. Patient taking 75-100% of small meals while on Regular diet. Averaging 800 kcals the last few days. Visited patient's room to discuss. He reports he typically eats 3 small meals daily. No changes to his baseline appetite he reports. Encouraged adequate protein at all meals. Discussed Regular diet is ordered so also encouraged to bring in food he may desire. Electronically signed by Funmi Torres RD 04/13/24 14:26 EDT Normal [facility] Diff Autoon 04-13-2024 Baso Absolute 0.0 x10*3/mcL Normal 0.0-0.2 [facility] Comment on above: Performed By: #### . Automated Diff ####[address] [address] Basophils/100 WBC (Bld) 0.3 % Normal 0.0-1.2 [facility] Comment on above: Performed By: #### . Automated Diff ####[address] [address] Eos Absolute 0.2 x10*3/mcL Normal 0.0-0.4 [facility] Comment on above: Performed By: #### . Automated Diff ####[address] [address] Eosinophils/100 WBC (Bld) 3.0 % Normal 0.0-6.1 [facility] Comment on above: Performed By: #### . Automated Diff ####[address] [address] Lymph Absolute 1.2 x10*3/mcL Normal 1.0-4.8 [facility] Comment on above: Performed By: #### . Automated Diff ####[address] [address] Lymphocytes/100 WBC (Bld) 19.2 % Low 27.2-40.8 [facility] Comment on above: Performed By: #### . Automated Diff ####[address] [address] [place] Absolute 0.9 x10*3/mcL Normal 0.3-1.1 [facility] Comment on above: Performed By: #### . Automated Diff ####[address] [address] Monocytes/100 WBC (Bld) 14.1 % High 4.7-13.9 [facility] Comment on above: Performed By: #### . Automated Diff ####[address] [address] Neutro Absolute 3.9 x10*3/mcL Normal 1.8-7.7 [facility] Comment on above: Performed By: #### . Automated Diff ####[address] [address] Neutro Auto 63.4 % Normal 47.2-70.8 [facility] Comment on above: Performed By: #### . Automated Diff ####[address] [address] Orthopedic Progress Noteon 1 Orthopedic Progress Note Subjective Patient seen evaluated bedside. Overall doing well. Is having difficulty with mobilizing due to pain in the other knee. No fevers or chills. +BM today Review of Systems Denies fever, chills, numbness tingling Objective Vitals & Measurements T: 37 ?C (Oral) HR: 101 (Peripheral) RR: 20 BP: 131/77 SpO2: 94% HT: 178 cm WT: 123.9 kg BMI: 38.79 Additional Vitals No qualifying data available. Lab Results Microbiology - Current Encounter No qualifying data available. Physical Exam Right lower extremity: Skin is intact. JACOB drain removed with minimal output. Soft dressing applied. Range of motion is 0-60 with some pain. EHL/FHL/GS/TA motor complex intact no deficits. 2+ DP pulse Assessment/Plan Patient is a 64-year-old male being seen for right prosthetic knee joint infection postop day 4 from explant with antibiotic spacer placement. -Patient is to be nonweightbearing to the right lower extremity. Up with PT today. -Continue Vanco Zosyn per ID discretion. Will follow-up cultures. Negative for growth to this point. -Lovenox DVT prophylaxis -Drain pulled today. -PICC line placed. Await final infectious disease recs -Pt will need SNF placement. DC once obtained. Electronically signed by Yony Ashton DO 04/13/24 18:25 EDT Normal [facility] .eGFRon 04-12-2024 GFR/1.73 sq M.predicted MDRD (S/P/Bld) [Vol rate/Area] mL/min/{1.73_m2} Normal >=60 [facility] Comment on above: Result Comment: [facility] Laboratories have implemented the eGFR calculation approach that does not have a coefficient for race and that conforms to the NKF-ASN Task Force Recommendations. Stages of Chronic Kidney Disease GFR Stage 3a Mild to moderate loss of kidney function 59 to 45 Stage 3b Moderate to severe loss of kidney function 44 to 33 Stage 4 Severe loss of kidney function 29 to 15 Stage 5 Kidney failure Less than 15 GFR calculated using the CKD-Epi Creatinine Equation (2020): eGFR = 142 X min(SCr/?, 1)? X max(SCr /?, 1)-1.200 X 0.9938Age X 1.012 [if female] Abbreviations/Units: eGFR (estimated glomerular filtration rate) = mL/min/1.73 m2 SCr (standardized serum creatinine) = mg/dL ? = 0.7 (females) or 0.9 (males) ? = -0.241 (females) or -0.302 (males) min = indicates the minimum of SCr/? or 1 max = indicates the maximum of SCr/? or 1 Age = years Performed By: #### E GFR ####[address] [address] Basic Metabolic Profileon Creatinine [Mass/Vol] 1.19 mg/dL Normal 0.61-1.24 [facility] Comment on above: Performed By: #### C [id number] ####[address] [address] Urea nitrogen [Mass/Vol] 12 mg/dL Normal 8-26 [facility] Comment on above: Performed By: #### C [id number] ####[address] [address] Urea nitrogen/Creatinine [Mass ratio] 10.1 mg/mg Normal 10.0-20.0 [facility] Comment on above: Performed By: #### C [id number] ####[address] [address] Anion gap [Moles/Vol] 7 mmol/L Normal 4-12 [facility] Comment on above: Performed By: #### C [id number] ####[address] [address] Calcium [Mass/Vol] 8.4 mg/dL Low 8.5-10.3 [facility] Comment on above: Performed By: #### C [id number] ####[address] [address] Chloride [Moles/Vol] 105 mmol/L Normal 98-110 [facility] Comment on above: Performed By: #### C [id number] ####[address] [address] CO2 [Moles/Vol] 23 mmol/L Normal 22-32 [facility] Comment on above: Performed By: #### C [id number] ####[address] [address] Glucose [Mass/Vol] 91 mg/dL Normal 70-99 [facility] Comment on above: Performed By: #### C [id number] ####[address] [address] Potassium [Moles/Vol] 3.8 mmol/L Normal 3.4-4.8 [facility] Comment on above: Performed By: #### C [id number] ####[address] [address] Sodium [Moles/Vol] 135 mmol/L Normal 133-142 [facility] Comment on above: Performed By: #### C [id number] ####[address] [address] CBC w/ Diffon 04-12-2024 Erythrocyte distribution width (RBC) [Ratio] 14.2 % Normal 11.6-14.8 [facility] Comment on above: Performed By: #### . Body Fluid Differential #### [address] [address] Hematocrit (Bld) [Volume fraction] 25.3 % Low 41.0-53.0 [facility] Comment on above: Performed By: #### . Body Fluid Differential #### [address] [address] Hemoglobin (Bld) [Mass/Vol] 8.9 g/dL Low 13.5-17.5 [facility] Comment on above: Performed By: #### . Body Fluid Differential #### [address] [address] MCH (RBC) [Entitic mass] 30.2 pg Normal 27.0-35.0 [facility] Comment on above: Performed By: #### . Body Fluid Differential #### [address] [address] MCHC 35.0 % Normal 31.0-37.0 [facility] Comment on above: Performed By: #### . Body Fluid Differential #### [address] [address] MCV (RBC) [Entitic vol] 86.2 fL Normal 80.0-100.0 [facility] Comment on above: Performed By: #### . Body Fluid Differential #### [address] [address] Platelet 226 x10*3/mcL Normal 150-450 [facility] Comment on above: Performed By: #### . Body Fluid Differential #### [address] [address] Platelet mean volume (Bld) [Entitic vol] 6.3 fL Low 6.7-10.6 [facility] Comment on above: Performed By: #### . Body Fluid Differential #### [address] [address] RBC 2.94 x10*6/mcL Low 4.30-5.80 [facility] Comment on above: Performed By: #### . Body Fluid Differential #### [address] [address] WBC 4.9 x10*3/mcL Normal 4.5-11.0 [facility] Comment on above: Performed By: #### . Body Fluid Differential #### [address] [address] Diff Autoon 04-12-2024 Baso Absolute 0.0 x10*3/mcL Normal 0.0-0.2 [facility] Comment on above: Performed By: #### E SR #### [address] [address] Basophils/100 WBC (Bld) 0.9 % Normal 0.0-1.2 [facility] Comment on above: Performed By: #### E SR #### [address] [address] Eos Absolute 0.2 x10*3/mcL Normal 0.0-0.4 [facility] Comment on above: Performed By: #### E SR #### [address] [address] Eosinophils/100 WBC (Bld) 4.2 % Normal 0.0-6.1 [facility] Comment on above: Performed By: #### E SR #### [address] [address] Lymph Absolute 1.2 x10*3/mcL Normal 1.0-4.8 [facility] Comment on above: Performed By: #### E SR #### [address] [address] Lymphocytes/100 WBC (Bld) 24.8 % Low 27.2-40.8 [facility] Comment on above: Performed By: #### E SR #### [address] [address] [place] Absolute 0.7 x10*3/mcL Normal 0.3-1.1 [facility] Comment on above: Performed By: #### E SR #### [address] [address] Monocytes/100 WBC (Bld) 15.1 % High 4.7-13.9 [facility] Comment on above: Performed By: #### E SR #### [address] [address] Neutro Absolute 2.7 x10*3/mcL Normal 1.8-7.7 [facility] Comment on above: Performed By: #### E SR #### [address] [address] Neutro Auto 55.0 % Normal 47.2-70.8 [facility] Comment on above: Performed By: #### E SR #### [address] [address] Infectious Disease Progress Noteon 04-12-2024 Infectious Disease Progress Note Subjective Patient assessed at bedside. Overall is doing okay. Had PICC line placed no complaints. Still has yet to have a bowel movement since admission. Was given something to help him produce 1. No fevers or chills overnight. No nausea, vomiting. Passing gas okay. No shortness of breath or cough. No complaints on urination. Review of Systems All systems have been reviewed and are negative other than those listed in the HPI Objective Vitals & Measurements T: 36.9 ?C (Oral) HR: 85 (Peripheral) RR: 20 BP: 106/68 SpO2: 95% HT: 178 cm WT: 123.9 kg BMI: 38.79 Additional Vitals No qualifying data available. Lab Results Test Name Test Result Date/Time WBC 4.9 x10 Hgb 8.9 g/dL (Low) 04/12/2024 05:05 EDT Platelet 226 x10 Sed Rate 17 mm/hr 04/08/2024 11:13 EDT PT 10.7 seconds 04/08/2024 11:36 EDT INR 1.0 ratio 04/08/2024 11:36 EDT Sodium Lvl 135 mmol/L 04/12/2024 05:05 EDT Potassium Lvl 3.8 mmol/L 04/12/2024 05:05 EDT Creatinine Lvl 1.19 mg/dL 04/12/2024 05:05 EDT Estimated GFR >60 mL/min/1.73m? 04/12/2024 05:05 EDT Bili Total 1.4 mg/dL (High) 04/08/2024 11:36 EDT Alk Phos 60 IU/L 04/08/2024 11:36 EDT AST 21 IU/L 04/08/2024 11:36 EDT ALT 24 IU/L 04/08/2024 11:36 EDT Total Protein 7.9 g/dL 04/08/2024 11:36 EDT Albumin Lvl 4.3 g/dL 04/08/2024 11:36 EDT CRP 0.54 mg/dL 04/08/2024 11:13 EDT Fluid WBC Count 06829 /mcL (High) 04/08/2024 16:54 EDT Fluid Polynuclear Cells 90 % (High) 04/08/2024 16:54 EDT Methicillin Resistant Staph aurus(MRSA) NOT DETECTED 04/08/2024 22:34 EDT Microbiology - Current Encounter No qualifying data available. Diagnostic Results Diagnostic Radiology XR PICC Floor Insert 04/12/24 13:14:29 IMPRESSION: 1. New right upper extremity PICC in adequate position. 2. No acute chest abnormality. Signed By: Antwan Alvarado MD Physical Exam Vitals reviewed. Tmax 37. Upon entering room patient noted to be sitting in recliner. In no apparent distress. Respiratory effort is even unlabored. Abdomen is nondistended. Right knee covered with dressing. Answers questions appropriately. Right upper arm PICC line in place no redness or swelling noted at site. Assessment/Plan 1. Infection of prosthetic right knee joint Labs reviewed. Cultures remain negative. PICC line placed. Vancomycin stopped and proceeded with daptomycin. Continue with Rocephin. Anticipated stop May 20. CRF filled out. Once patient is ready for discharge she can return to ID clinic 2 weeks. 2. Knee pain, concern for infection Orders: Nurse PICC Insertion Electronically signed by Yodit Mancia 04/12/24 17:28 EDT Normal [facility] Orthopedic Progress Noteon 1 Orthopedic Progress Note Subjective Patient seen evaluated bedside. Overall doing well. Is having difficulty with mobilizing due to pain in the other knee. No fevers or chills. Review of Systems Denies fever, chills, numbness tingling Objective Vitals & Measurements T: 37 ?C (Oral) HR: 101 (Peripheral) RR: 20 BP: 131/77 SpO2: 94% HT: 178 cm WT: 123.9 kg BMI: 38.79 Additional Vitals No qualifying data available. Lab Results Microbiology - Current Encounter No qualifying data available. Physical Exam Right lower extremity: Skin is intact. JACOB drain removed with minimal output. Soft dressing applied. Range of motion is 0-45 with some pain. EHL/FHL/GS/TA motor complex intact no deficits. 2+ DP pulse Assessment/Plan Patient is a 64-year-old male being seen for right prosthetic knee joint infection postop day 4 from explant with antibiotic spacer placement. -Patient is to be nonweightbearing to the right lower extremity. Up with PT today. -Continue Vanco Zosyn per ID discretion. Will follow-up cultures. Negative for growth to this point. -Lovenox DVT prophylaxis -Drain pulled today. -PICC line placed today. Await final infectious disease recs -Mobilize with PT today. Patient struggling to ambulate and patient's is concerned about being able to care for him at home. May need SNF placement. They prefer [facility] in [place]. Electronically signed by Yony Ashton DO 04/12/24 11:11 EDT Normal [facility] Progress Note-Nurseon 2023 Progress Note-Nurse 4F Single Lumen Power PICC Solo inserted under seldinger method in the Right Basilic on 04.12.24. Sterile field maintained. No complications noted. Pt tolerated well. Arm. Circ. 33cm. Cut Length 48cm. External Length 0cm. XR tip confirmation in Distal SVC. Tip location confirmed per Dr. Alvarado. LOT# [id number] Electronically signed by Luke Flavia 04/12/24 11:19 EDT Normal [facility] Vanco Troughon 04-12-2024 Vanco Trough 11.4 mcg/mL Normal 10.0-15.0 [facility] Comment on above: Performed By: #### V ANCT #### [place] [address] .eGFRon 04-11-2024 GFR/1.73 sq M.predicted MDRD (S/P/Bld) [Vol rate/Area] mL/min/{1.73_m2} Normal >=60 [facility] Comment on above: Result Comment: [facility] Laboratories have implemented the eGFR calculation approach that does not have a coefficient for race and that conforms to the NKF-ASN Task Force Recommendations. Stages of Chronic Kidney Disease GFR Stage 3a Mild to moderate loss of kidney function 59 to 45 Stage 3b Moderate to severe loss of kidney function 44 to 33 Stage 4 Severe loss of kidney function 29 to 15 Stage 5 Kidney failure Less than 15 GFR calculated using the CKD-Epi Creatinine Equation (2020): eGFR = 142 X min(SCr/?, 1)? X max(SCr /?, 1)-1.200 X 0.9938Age X 1.012 [if female] Abbreviations/Units: eGFR (estimated glomerular filtration rate) = mL/min/1.73 m2 SCr (standardized serum creatinine) = mg/dL ? = 0.7 (females) or 0.9 (males) ? = -0.241 (females) or -0.302 (males) min = indicates the minimum of SCr/? or 1 max = indicates the maximum of SCr/? or 1 Age = years Performed By: #### V ANCT #### [address] [address] Basic Metabolic Profileon Anion gap [Moles/Vol] 8 mmol/L Normal 4-12 [facility] Comment on above: Performed By: #### V ANCT #### [address] [address] Calcium [Mass/Vol] 8.4 mg/dL Low 8.5-10.3 [facility] Comment on above: Performed By: #### V ANCT #### [address] [address] Chloride [Moles/Vol] 105 mmol/L Normal 98-110 [facility] Comment on above: Performed By: #### V ANCT #### [address] [address] CO2 [Moles/Vol] 23 mmol/L Normal 22-32 [facility] Comment on above: Performed By: #### V ANCT #### [address] [address] Creatinine [Mass/Vol] 1.21 mg/dL Normal 0.61-1.24 [facility] Comment on above: Performed By: #### V ANCT #### [address] [address] Glucose [Mass/Vol] 95 mg/dL Normal 70-99 [facility] Comment on above: Performed By: #### V ANCT #### [address] [address] Potassium [Moles/Vol] 4.0 mmol/L Normal 3.4-4.8 [facility] Comment on above: Performed By: #### V ANCT #### [address] [address] Sodium [Moles/Vol] 136 mmol/L Normal 133-142 [facility] Comment on above: Performed By: #### V ANCT #### [address] [address] Urea nitrogen [Mass/Vol] 12 mg/dL Normal 8-26 [facility] Comment on above: Performed By: #### V ANCT #### [address] [address] Urea nitrogen/Creatinine [Mass ratio] 9.9 mg/mg Low 10.0-20.0 [facility] Comment on above: Performed By: #### V ANCT #### [address] [address] CBC w/ Diffon 04-11-2024 Erythrocyte distribution width (RBC) [Ratio] 14.4 % Normal 11.6-14.8 [facility] Comment on above: Performed By: #### . Body Fluid Differential #### [address] [address] Hematocrit (Bld) [Volume fraction] 27.7 % Low 41.0-53.0 [facility] Comment on above: Performed By: #### . Body Fluid Differential #### [address] [address] Hemoglobin (Bld) [Mass/Vol] 9.5 g/dL Low 13.5-17.5 [facility] Comment on above: Performed By: #### . Body Fluid Differential #### [address] [address] MCH (RBC) [Entitic mass] 30.0 pg Normal 27.0-35.0 [facility] Comment on above: Performed By: #### . Body Fluid Differential #### [address] [address] MCHC 34.2 % Normal 31.0-37.0 [facility] Comment on above: Performed By: #### . Body Fluid Differential #### [address] [address] MCV (RBC) [Entitic vol] 87.6 fL Normal 80.0-100.0 [facility] Comment on above: Performed By: #### . Body Fluid Differential #### [address] [address] Platelet 213 x10*3/mcL Normal 150-450 [facility] Comment on above: Performed By: #### . Body Fluid Differential #### [address] [address] Platelet mean volume (Bld) [Entitic vol] 6.4 fL Low 6.7-10.6 [facility] Comment on above: Performed By: #### . Body Fluid Differential #### [address] [address] RBC 3.16 x10*6/mcL Low 4.30-5.80 [facility] Comment on above: Performed By: #### . Body Fluid Differential #### [address] [address] WBC 5.3 x10*3/mcL Normal 4.5-11.0 [facility] Comment on above: Performed By: #### . Body Fluid Differential #### [address] [address] Diff Autoon 04-11-2024 Baso Absolute 0.0 x10*3/mcL Normal 0.0-0.2 [facility] Comment on above: Performed By: #### V ANCT #### [address] [address] Basophils/100 WBC (Bld) 0.6 % Normal 0.0-1.2 [facility] Comment on above: Performed By: #### V ANCT #### [address] [address] Eos Absolute 0.2 x10*3/mcL Normal 0.0-0.4 [facility] Comment on above: Performed By: #### V ANCT #### [address] [address] Eosinophils/100 WBC (Bld) 3.5 % Normal 0.0-6.1 [facility] Comment on above: Performed By: #### V ANCT #### [address] [address] Lymph Absolute 1.2 x10*3/mcL Normal 1.0-4.8 [facility] Comment on above: Performed By: #### V ANCT #### [address] [address] Lymphocytes/100 WBC (Bld) 22.8 % Low 27.2-40.8 [facility] Comment on above: Performed By: #### V ANCT #### [address] [address] [place] Absolute 0.9 x10*3/mcL Normal 0.3-1.1 [facility] Comment on above: Performed By: #### V ANCT #### [address] [address] Monocytes/100 WBC (Bld) 16.7 % High 4.7-13.9 [facility] Comment on above: Performed By: #### V ANCT #### [address] [address] Neutro Absolute 3.0 x10*3/mcL Normal 1.8-7.7 [facility] Comment on above: Performed By: #### V ANCT #### [address] [place] [address] Neutro Auto 56.4 % Normal 47.2-70.8 [facility] Comment on above: Performed By: #### V ANCT #### [address] [address] Orthopedic Progress Noteon 1 Orthopedic Progress Note Subjective Patient seen and evaluated. Spasms yesterday have improved today. Did stand with PT but limited mobility Review of Systems neg Objective Vitals & Measurements T: 36.7 ?C (Oral) HR: 91 (Peripheral) RR: 16 BP: 104/69 SpO2: 94% HT: 178 cm WT: 120.6 kg BMI: 38.79 Additional Vitals No qualifying data available. Lab Results Microbiology - Current Encounter No qualifying data available. Diagnostic Results Diagnostic Radiology XR Knee 1 or 2 Views Right 04/08/24 20:57:15 IMPRESSION: Patient is status post removal of tibial component of right TKA. Femoral component remains. A new spacer placed. Surgical drain within the distal femoral region along the lateral margin. Satisfactory alignment of joints only mild. Joint fluid. No fractures. No destructive bone changes. Patellar soft tissue edema. Satisfactory alignment of components and joints. Signed By: Tulio Mansfield DO Physical Exam RLE: Dressing c/d/i. minimal drain output. motor and sensory intact. Assessment/Plan Patient is a 64-year-old male being seen for right prosthetic knee joint infection postop day 3 from explant with antibiotic spacer placement. -Patient is to be nonweightbearing to the right lower extremity. Up with PT today. -Continue Vanco Zosyn per ID discretion. Will follow-up cultures. Negative for growth to this point. -Hemoglobin 9.5. Stable. -Monitor drain output. Minimal out. Will likely pull tomorrow. -Likely discharge on Friday. Pending PICC placement. And antibiotic selection Electronically signed by Yony Ashton DO 04/11/24 12:15 EDT Normal [facility] .eGFRon 04-10-2024 Estimated GFR 60 mL/min/1.73m? Normal >=60 [facility] Comment on above: Result Comment: [facility] Laboratories have implemented the eGFR calculation approach that does not have a coefficient for race and that conforms to the NKF-ASN Task Force Recommendations. Stages of Chronic Kidney Disease GFR Stage 3a Mild to moderate loss of kidney function 59 to 45 Stage 3b Moderate to severe loss of kidney function 44 to 33 Stage 4 Severe loss of kidney function 29 to 15 Stage 5 Kidney failure Less than 15 GFR calculated using the CKD-Epi Creatinine Equation (2020): eGFR = 142 X min(SCr/?, 1)? X max(SCr /?, 1)-1.200 X 0.9938Age X 1.012 [if female] Abbreviations/Units: eGFR (estimated glomerular filtration rate) = mL/min/1.73 m2 SCr (standardized serum creatinine) = mg/dL ? = 0.7 (females) or 0.9 (males) ? = -0.241 (females) or -0.302 (males) min = indicates the minimum of SCr/? or 1 max = indicates the maximum of SCr/? or 1 Age = years Performed By: #### . Body Fluid Differential #### [address] [address] Basic Metabolic Profileon Anion gap [Moles/Vol] 8 mmol/L Normal 4-12 [facility] Comment on above: Performed By: #### . Body Fluid Differential #### [address] [address] Calcium [Mass/Vol] 8.3 mg/dL Low 8.5-10.3 [facility] Comment on above: Performed By: #### . Body Fluid Differential #### [address] [address] Chloride [Moles/Vol] 103 mmol/L Normal 98-110 [facility] Comment on above: Performed By: #### . Body Fluid Differential #### [address] [address] CO2 [Moles/Vol] 23 mmol/L Normal 22-32 [facility] Comment on above: Performed By: #### . Body Fluid Differential #### [address] [address] Creatinine [Mass/Vol] 1.33 mg/dL High 0.61-1.24 [facility] Comment on above: Performed By: #### . Body Fluid Differential #### [address] [address] Glucose [Mass/Vol] 104 mg/dL High 70-99 [facility] Comment on above: Performed By: #### . Body Fluid Differential #### [address] [address] Potassium [Moles/Vol] 4.0 mmol/L Normal 3.4-4.8 [facility] Comment on above: Performed By: #### . Body Fluid Differential #### [address] [address] Sodium [Moles/Vol] 134 mmol/L Normal 133-142 [facility] Comment on above: Performed By: #### . Body Fluid Differential #### [address] [address] Urea nitrogen [Mass/Vol] 15 mg/dL Normal 8-26 [facility] Comment on above: Performed By: #### . Body Fluid Differential #### [address] [address] Urea nitrogen/Creatinine [Mass ratio] 11.3 mg/mg Normal 10.0-20.0 [facility] Comment on above: Performed By: #### . Body Fluid Differential #### [address] [address] CBC w/ Diffon 04-10-2024 Erythrocyte distribution width (RBC) [Ratio] 13.9 % Normal 11.6-14.8 [facility] Comment on above: Performed By: #### P TT #### [address] [address] Hematocrit (Bld) [Volume fraction] 28.8 % Low 41.0-53.0 [facility] Comment on above: Performed By: #### P TT #### [address] [address] Hemoglobin (Bld) [Mass/Vol] 9.5 g/dL Low 13.5-17.5 [facility] Comment on above: Performed By: #### P TT #### [address] [address] MCH (RBC) [Entitic mass] 29.1 pg Normal 27.0-35.0 [facility] Comment on above: Performed By: #### P TT #### [address] [address] MCHC 33.1 % Normal 31.0-37.0 [facility] Comment on above: Performed By: #### P TT #### [address] [address] MCV (RBC) [Entitic vol] 87.8 fL Normal 80.0-100.0 [facility] Comment on above: Performed By: #### P TT #### [address] [address] Platelet 207 x10*3/mcL Normal 150-450 [facility] Comment on above: Performed By: #### P TT #### [address] [address] Platelet mean volume (Bld) [Entitic vol] 6.5 fL Low 6.7-10.6 [facility] Comment on above: Performed By: #### P TT #### [address] [address] RBC 3.28 x10*6/mcL Low 4.30-5.80 [facility] Comment on above: Performed By: #### P TT #### [address] [address] WBC 5.3 x10*3/mcL Normal 4.5-11.0 [facility] Comment on above: Performed By: #### P TT #### [address] [address] Diff Autoon 10-05-2024 Baso Absolute 0.0 x10*3/mcL Normal 0.0-0.2 [facility] Comment on above: Performed By: #### V ANCT #### [address] [address] Basophils/100 WBC (Bld) 0.8 % Normal 0.0-1.2 [facility] Comment on above: Performed By: #### V ANCT #### [address] [address] Eos Absolute 0.1 x10*3/mcL Normal 0.0-0.4 [facility] Comment on above: Performed By: #### V ANCT #### [address] [address] Eosinophils/100 WBC (Bld) 2.2 % Normal 0.0-6.1 [facility] Comment on above: Performed By: #### V ANCT #### [address] [address] Lymph Absolute 1.0 x10*3/mcL Normal 1.0-4.8 [facility] Comment on above: Performed By: #### V ANCT #### [address] [address] Lymphocytes/100 WBC (Bld) 18.1 % Low 27.2-40.8 [facility] Comment on above: Performed By: #### V ANCT #### [address] [address] [place] Absolute 0.8 x10*3/mcL Normal 0.3-1.1 [facility] Comment on above: Performed By: #### V ANCT #### [address] [address] Monocytes/100 WBC (Bld) 15.4 % High 4.7-13.9 [facility] Comment on above: Performed By: #### V ANCT #### [address] [address] Neutro Absolute 3.4 x10*3/mcL Normal 1.8-7.7 [facility] Comment on above: Performed By: #### V ANCT #### [place] [address] [place] [address] Neutro Auto 63.5 % Normal 47.2-70.8 [facility] Comment on above: Performed By: #### V ANCT #### [facility] [address] [place] [address] Infectious Disease Progress Noteon 04-10-2024 Infectious Disease Progress Note Patient seen briefly. Chart reviewed. Fever staying down. Labs okay. Cultures remain no growth. Continue Vanco Rocephin. I will not be rounding tomorrow. Please call if any concern. Electronically signed by Gaby LEE, Herbert Llamas 04/10/24 20:38 EDT Normal [facility] Orthopedic Progress Noteon 1 Orthopedic Progress Note Subjective Patient seen evaluated bedside. Reports he had a rough night pain soriano but overall doing better this morning. Voiding appropriately. Tolerating p.o. Has not been up yet. Denies any numbness or tingling Review of Systems Denies fever, chills, numbness feeling Objective Vitals & Measurements T: 36.9 ?C (Oral) HR: 97 (Peripheral) RR: 16 BP: 114/71 SpO2: 96% HT: 178 cm WT: 125.6 kg BMI: 38.79 Additional Vitals No qualifying data available. Lab Results Microbiology - Current Encounter No qualifying data available. Physical Exam Right lower extremity: Surgical dressings are clean, dry, intact. Hemovac dressing with 35 cc out this morning. EHL/FHL/GS/TA motor complex intact without deficit. 2+ DP pulse Assessment/Plan Patient is a 64-year-old male being seen for right prosthetic knee joint infection postop day 2 from explant with antibiotic spacer placement. -Patient is to be nonweightbearing to the right lower extremity. Up with PT today. -Continue Vanco Zosyn per ID discretion. Will follow-up cultures. Negative for growth to this point. -Anticipate PICC line placement Friday. -Hemoglobin 9.5. Will continue to monitor. -Monitor drain output. Will pull when drain output less than 30 cc per shift -Likely discharge on Friday. Pending PICC placement. And antibiotic selection Electronically signed by Yony Ashton DO 04/10/24 09:30 EDT Normal [facility] Vanco Troughon 04-10-2024 Vanco Trough 7.2 mcg/mL Low 10.0-15.0 [facility] Comment on above: Performed By: #### . Automated Diff #### [address] [address] .eGFRon 04-09-2024 Estimated GFR 41 mL/min/1.73m? Low >=60 [facility] Comment on above: Result Comment: [facility] Laboratories have implemented the eGFR calculation approach that does not have a coefficient for race and that conforms to the NKF-ASN Task Force Recommendations. Stages of Chronic Kidney Disease GFR Stage 3a Mild to moderate loss of kidney function 59 to 45 Stage 3b Moderate to severe loss of kidney function 44 to 33 Stage 4 Severe loss of kidney function 29 to 15 Stage 5 Kidney failure Less than 15 GFR calculated using the CKD-Epi Creatinine Equation (2020): eGFR = 142 X min(SCr/?, 1)? X max(SCr /?, 1)-1.200 X 0.9938Age X 1.012 [if female] Abbreviations/Units: eGFR (estimated glomerular filtration rate) = mL/min/1.73 m2 SCr (standardized serum creatinine) = mg/dL ? = 0.7 (females) or 0.9 (males) ? = -0.241 (females) or -0.302 (males) min = indicates the minimum of SCr/? or 1 max = indicates the maximum of SCr/? or 1 Age = years Performed By: #### P TT #### [address] [place] [address] Basic Metabolic Profileon Anion gap [Moles/Vol] 7 mmol/L Normal 4-12 [facility] Comment on above: Performed By: #### V ANCT #### [address] [address] Calcium [Mass/Vol] 8.1 mg/dL Low 8.5-10.3 [facility] Comment on above: Performed By: #### V ANCT #### [address] [address] Chloride [Moles/Vol] 98 mmol/L Normal 98-110 [facility] Comment on above: Performed By: #### V ANCT #### [address] [address] CO2 [Moles/Vol] 23 mmol/L Normal 22-32 [facility] Comment on above: Performed By: #### V ANCT #### [address] [address] Creatinine [Mass/Vol] 1.84 mg/dL High 0.61-1.24 [facility] Comment on above: Performed By: #### V ANCT #### [address] [address] Glucose [Mass/Vol] 130 mg/dL High 70-99 [facility] Comment on above: Performed By: #### V ANCT #### [address] [address] Potassium [Moles/Vol] 3.5 mmol/L Normal 3.4-4.8 [facility] Comment on above: Performed By: #### V ANCT #### [address] [address] Sodium [Moles/Vol] 128 mmol/L Low 133-142 [facility] Comment on above: Performed By: #### V ANCT #### [address] [address] Urea nitrogen [Mass/Vol] 26 mg/dL Normal 8-26 [facility] Comment on above: Performed By: #### V ANCT #### [place] [id number] Urea nitrogen/Creatinine [Mass ratio] 14.1 mg/mg Normal 10.0-20.0 [facility] Comment on above: Performed By: #### V ANCT #### [place] [id number] CBC w/ Diffon 04-09-2024 Erythrocyte distribution width (RBC) [Ratio] 14.1 % Normal 11.6-14.8 [facility] Comment on above: Performed By: #### . Body Fluid Differential #### [place] [id number] Hematocrit (Bld) [Volume fraction] 33.9 % Low 41.0-53.0 [facility] Comment on above: Performed By: #### . Body Fluid Differential #### [place] [id number] Hemoglobin (Bld) [Mass/Vol] 11.2 g/dL Low 13.5-17.5 [facility] Comment on above: Result Comment: Hgb delta: MCV seems ok, Chemistry results seem ok. Performed By: #### . Body Fluid Differential #### [address] [address] MCH (RBC) [Entitic mass] 29.1 pg Normal 27.0-35.0 [facility] Comment on above: Performed By: #### . Body Fluid Differential #### [place] [id number] MCHC 33.1 % Normal 31.0-37.0 [facility] Comment on above: Performed By: #### . Body Fluid Differential #### [address] [address] MCV (RBC) [Entitic vol] 88.1 fL Normal 80.0-100.0 [facility] Comment on above: Performed By: #### . Body Fluid Differential #### [address] [address] Platelet 292 x10*3/mcL Normal 150-450 [facility] Comment on above: Performed By: #### . Body Fluid Differential #### [address] [address] Platelet mean volume (Bld) [Entitic vol] 6.6 fL Low 6.7-10.6 [facility] [facility] Comment on above: Performed By: #### . Body Fluid Differential #### [address] [address] RBC 3.85 x10*6/mcL Low 4.30-5.80 [facility] Comment on above: Performed By: #### . Body Fluid Differential #### [address] [address] WBC 8.6 x10*3/mcL Normal 4.5-11.0 [facility] Comment on above: Performed By: #### . Body Fluid Differential #### [address] [address] Diff Autoon 04-09-2024 Baso Absolute 0.0 x10*3/mcL Normal 0.0-0.2 [facility] Comment on above: Performed By: #### . Automated Diff ####[address] [address] Basophils/100 WBC (Bld) 0.4 % Normal 0.0-1.2 [facility] Comment on above: Performed By: #### . Automated Diff ####[address] [address] Eos Absolute 0.0 x10*3/mcL Normal 0.0-0.4 [facility] Comment on above: Performed By: #### . Automated Diff ####[address] [address] Eosinophils/100 WBC (Bld) 0.3 % Normal 0.0-6.1 [facility] Comment on above: Performed By: #### . Automated Diff ####[address] [address] Lymph Absolute 1.4 x10*3/mcL Normal 1.0-4.8 [facility] Comment on above: Performed By: #### . Automated Diff ####[address] [address] Lymphocytes/100 WBC (Bld) 15.9 % Low 27.2-40.8 [facility] Comment on above: Performed By: #### . Automated Diff ####[address] [address] [place] Absolute 1.0 x10*3/mcL Normal 0.3-1.1 [facility] Comment on above: Performed By: #### . Automated Diff ####[address] [address] Monocytes/100 WBC (Bld) 11.9 % Normal 4.7-13.9 [facility] Comment on above: Performed By: #### . Automated Diff ####[address] [address] Neutro Absolute 6.1 x10*3/mcL Normal 1.8-7.7 [facility] Comment on above: Performed By: #### . Automated Diff ####[address] [address] Neutro Auto 71.5 % High 47.2-70.8 [facility] Comment on above: Performed By: #### . Automated Diff ####[address] [address] Infectious Disease Consultat john 04-09-2024 Infectious Disease Consultation Chief Complaint patient had knee replacement and ligament repair earlier in the year but it is infected, surgery with Dr Lawrence today at 1600 Reason for Consultation Right prosthetic knee joint infection History of Present Illness 64-year-old male admitted on 04/08 status post explantation of right total knee with insertion of antibiotic spacer. Patient has a medical history of arthritis, hypertension, hyperlipidemia and obesity. Patient had knee replaced right 11/19/2023. Postoperative is actually doing okay however he went to get in his truck and felt something pull. Went back to the OR on 01/19/2024 for partial arthrotomy rupture repair. Patient reports postoperatively was doing okay however started experiencing some swelling. Patient reports he was given antibiotics a few rounds seem to help minimally. Patient did have arthrocentesis end of March that revealed WBCs 22,000 with a negative Gram stain and culture. Upon external pharmacy review looks like patient was prescribed doxycycline on 01/18, cefdinir on 02/23, and Bactrim DS on 03/22. Decision was made to send patient to ER on 04/08 where he was admitted and went to the OR on 04/08 for explantation of right total knee with insertion of antibiotic spacer. Also had JACOB drain placed. Postoperatively he is doing okay he still continues to have a lot of pain in his right knee. Managed by pain medications. He has these episodes of surge type pain and then goes away. No fevers or chills overnight. He wishes he could get up and go to the bathroom on his own. He has not been out of bed yet. He is urinating in a urinal. He has not had a bowel movement. Is passing some gas. No headaches today. No visual changes. No chest pain or heart palpitations. Does not feel lightheaded or dizzy. No shortness of breath or cough. No abdominal pain, nausea, vomiting or diarrhea. No complaints on urination. Review of Systems All systems have been reviewed and are negative other than those listed in the HPI Physical Exam Vitals & Measurements T: 36.6 ?C (Oral) TMIN: 36.6 ?C (Oral) TMAX: 37.0 ?C (Oral) HR: 101 (Monitored) RR: 18 BP: 119/62 SpO2: 94% WT: 124.5 kg Vitals reviewed. Tmax 36.6. I&O reviewed 225 mL output of JACOB drain. Upon entering room patient no apparent distress. Conjunctiva and sclera is normal. Trach is midline. Respiratory effort is even unlabored breath sounds are clear in the anterior lobes. Heart tones are regular no murmurs auscultated. Abdomen is not distended, nontender, bowel sounds heard. Right knee covered with dressing. Hemovac drain in place. Bilateral lower extremities without edema. +1 dorsalis pedis pulse bilateral. Answers questions appropriately. Additional Vitals No qualifying data available. Assessment/Plan 1. Infection of prosthetic right knee joint Labs reviewed. Cultures reviewed. MRSA PCR negative. For now continue IV vancomycin and Rocephin. Did discuss risk and benefits of PICC line. Consent signed. Most likely this be placed on Friday. Will narrow down antibiotics once they are resulted. Thank you for consult will follow with you. 2. Knee pain, concern for infection Orders: IR PICC Placement Problem List/Past Medical History Ongoing Arthritis Frequency of urination HTN (hypertension) Hyperlipidemia Knee pain Obesity (BMI 30.0-34.9) Snores Historical No qualifying data Procedure/Surgical History Extraction of wisdom tooth (1985) H/O: vasectomy (1985) Attention to total knee replacement (11/15/2023) RT KNEE SURGERY (01/2024) Arthroplasty Knee Total Revision with Poly Tibial Spacer (Right) (04/08/2024) Medications Inpatient acetaminophen, 650 mg, Oral, q6hr, PRN acetaminophen, 650 mg, Oral, q6hr, PRN atenolol, 50 mg, Oral, qAM enoxaparin, 40 mg= 0.4 mL, Subcutaneous, Daily ezetimibe, 10 mg, Oral, qAM lisinopril, 20 mg, Oral, qAM morphine, 2 mg= 1 mL, IV Push, q4hr, PRN naloxone, 0.4 mg= 1 mL, IV Push, q2min, PRN [place] 5 mg-325 mg oral tablet, 1 tabs, Oral, q6hr, PRN Normal Saline Flush 0.9% injectable solution, 10 mL, IV Push, As Indicated, PRN Normal Saline Flush 0.9% injectable solution, 10 mL, IV Push, BID ondansetron, 4 mg= 2 mL, IV Push, q4hr, PRN Rocephin, 2 g= 100 mL, IV Piggyback, q24hr Sodium Chloride 0.9% intravenous solution 1,000 mL, 1000 mL, IV traMADol, 50 mg, Oral, HS (at bedtime) traZODone, 100 mg, Oral, HS (at bedtime) vancomycin Home atenolol 50 mg oral tablet, 50 mg= 1 tabs, Oral, qAM ezetimibe 10 mg oral tablet, 10 mg= 1 tabs, Oral, qAM lisinopril 20 mg oral tablet, 20 mg= 1 tabs, Oral, qAM meloxicam 15 mg oral tablet, 15 mg= 1 tabs, Oral, qAM traMADol 50 mg oral tablet, 50 mg= 1 tabs, Oral, HS (at bedtime), Scheduled, Still taking, not as prescribed: 04/08: Originally prescribed 1 tablet every 8 hours as needed traZODone 100 mg oral tablet, 100 mg= 1 tabs, Oral, HS (at bedtime) Allergies Keflex (Itching) penicillin (Rash) Social History Alcohol Current, Beer, 3-5 times per week Emp (more content not included)... Normal [facility] MRSA, PCRon 04-09-2024 LAB ONLY Result Called? No Normal [facility] Comment on above: Performed By: #### V ANCT #### [address] [address] Methicillin Resistant Staph aurus(MRSA) Not detected Normal Not Detected [facility] Comment on above: Result Comment: Mut ations or polymorphisms in primer or probe binding regions may affect detection of new or unknown MRSA variants resulting in a false negative. The [employer] Xpert MRSA Assay is a qualitative in vitro diagnostic test designed for rapid detection of Methicillin-Resistant Staphylococcus aureus (MRSA) from nasal swabs in patients at risk for nasal colonization.The test utilizes automated real-time polymerase chain reaction (PCR) to detect MRSA DNA,because the detection of MRSA is dependent on the number of organisms present. A positive test result does not necessarily indicate the presence of viable organism. It is however,presumptive for the presence of MRSA.Test results might be affected by concurrent antibiotic therapy. Therefore, therapeutic success or failure cannot be assessed using this test because DNA might persist following antimicrobial therapy. Mutations or polymorphisms in primer or probe binding regions may affect detection of new or unknown MRSA variants resulting in a false negative result. Results from the Xpert MRSA Assay should be interpreted in conjunction with other laboratory and clinical data available to the clinician. Performed By: #### V ANCT #### [address] [address] Magnesiumon 04-09-2024 Magnesium [Mass/Vol] 1.6 mg/dL Low 1.7-2.4 [facility] Comment on above: Performed By: #### P TT #### [facility] [address] [place] [address] Orthopedic Progress Noteon 1 Orthopedic Progress Note Subjective Patient seen evaluated bedside. Patient reporting pain improving compared to overnight. Tolerating p.o. Voiding appropriately. No numbness or tingling Review of Systems Denies fever, chills, was feeling Objective Vitals & Measurements T: 36.6 ?C (Oral) HR: 101 (Monitored) RR: 18 BP: 119/62 SpO2: 94% HT: 178 cm WT: 124.5 kg BMI: 38.79 Additional Vitals No qualifying data available. Lab Results Microbiology - Current Encounter No qualifying data available. Diagnostic Results Diagnostic Radiology XR Knee 1 or 2 Views Right 04/08/24 20:57:15 IMPRESSION: Patient is status post removal of tibial component of right TKA. Femoral component remains. A new spacer placed. Surgical drain within the distal femoral region along the lateral margin. Satisfactory alignment of joints only mild. Joint fluid. No fractures. No destructive bone changes. Patellar soft tissue edema. Satisfactory alignment of components and joints. Signed By: Tulio Mansfield DO Physical Exam Right lower extremity: Skin intact. JACOB drain with 30 cc of bloody output present. EHL/FHL/GS/TA motor complex intact no deficits. 2+ DP pulse Assessment/Plan Patient is a 64-year-old male being seen for right prosthetic knee joint infection postop day 1 from explant with antibiotic spacer placement. -Patient is to be nonweightbearing to the right lower extremity. -Continue Vanco Zosyn per ID discretion. Will follow-up cultures. -Trend CRP. -PT/OT eval. nonweightbearing. Okay to work on gentle range of motion -Anticipate PICC line placement Friday. -Hemoglobin stable at 11. -Monitor drain output. Will pull when drain output less than 30 cc per shift -Likely discharge on Friday. Electronically signed by Yony Ashton DO 04/09/24 16:22 EDT Normal [facility] Progress Note-Nurseon 2023 Progress Note-Nurse PT has not urinated since he got back from surgery 04/08/2024 at 22:00. PT declined straight cath and bladder scanner all night into the morning at first assessment. PT agreed to bladder scanning at 0930 04/09/2014. bladder scanner showed 354 in bladder, PT refuses straight cath. notified, awaiting orders. Electronically signed by Aga Rollins 04/09/24 09:37 EDT Normal [facility] Progress Note-Nurse upon giving pt 0900 medication, RN checked blood pressure. BP was 88/53 with a manually, 83/52 L arm and 85/50 R arm. notified. PT is not symptomatic at this time. Electronically signed by Aga Rollins 04/09/24 09:31 EDT Normal [facility] .BF Cell Cnt RBC Aon Fluid RBC Count [id number] /mcL Normal [facility] Comment on above: Result Comment: Ther e are no established Reference Ranges for bronchoalveolar lavage (BAL), synovial, miscellaneous body, or dialysate fluids. Performed By: #### P TT #### [place] [address] .BF Cell Cnt WBC Aon 024 Fluid WBC Count 68299 /mcL High 0-150 [facility] Comment on above: Result Comment: Ther e are no established Reference Ranges for bronchoalveolar lavage (BAL), miscellaneous body, or dialysate fluids. Performed By: #### . Body Fluid Differential #### [place] [address] .BF Diffon 04-08-2024 Fluid Mononuclear Cells 8 % Normal 0-78 [facility] Comment on above: Result Comment: Ther e are no established Reference Ranges for bronchoalveolar lavage (BAL), miscellaneous body, or dialysate fluids. Performed By: #### . Body Fluid Differential #### [address] [address] Fluid Other Cells 2 % Normal 0-10 [facility] Comment on above: Result Comment: Ther e are no established Reference Ranges for bronchoalveolar lavage (BAL), miscellaneous body, or dialysate fluids. Performed By: #### . Body Fluid Differential #### [place] [id number] Fluid Polynuclear Cells 90 % High 0-25 [facility] Comment on above: Result Comment: Ther e are no established Reference Ranges for bronchoalveolar lavage (BAL), miscellaneous body, or dialysate fluids. Performed By: #### . Body Fluid Differential #### [address] [address] .eGFRon 04-08-2024 Estimated GFR 58 mL/min/1.73m? Low >=60 [facility] Comment on above: Result Comment: [facility] Laboratories have implemented the eGFR calculation approach that does not have a coefficient for race and that conforms to the NKF-ASN Task Force Recommendations. Stages of Chronic Kidney Disease GFR Stage 3a Mild to moderate loss of kidney function 59 to 45 Stage 3b Moderate to severe loss of kidney function 44 to 33 Stage 4 Severe loss of kidney function 29 to 15 Stage 5 Kidney failure Less than 15 GFR calculated using the CKD-Epi Creatinine Equation (2020): eGFR = 142 X min(SCr/?, 1)? X max(SCr /?, 1)-1.200 X 0.9938Age X 1.012 [if female] Abbreviations/Units: eGFR (estimated glomerular filtration rate) = mL/min/1.73 m2 SCr (standardized serum creatinine) = mg/dL ? = 0.7 (females) or 0.9 (males) ? = -0.241 (females) or -0.302 (males) min = indicates the minimum of SCr/? or 1 max = indicates the maximum of SCr/? or 1 Age = years Performed By: #### E GFR ####[place] [address] [place] [address] BF Cell Counton 04-08-2024 Body Fluid Cell Cnt Type Synovial Normal [facility] Comment on above: Performed By: #### . Body Fluid Differential #### [place] [id number] C Sterile BFon 04-08-2024 C Sterile BF ------- Final No growth at 2 weeks. ------- Gram Stain Many White Blood Cells No organisms seen. Normal [facility] Comment on above: Performed By: #### C BC #### [place] [id number] CBC w/ Diffon 04-08-2024 Erythrocyte distribution width (RBC) [Ratio] 13.9 % Normal 11.6-14.8 [facility] Comment on above: Performed By: #### C BC ####[place] [id number] Hematocrit (Bld) [Volume fraction] 42.1 % Normal 41.0-53.0 [facility] Comment on above: Performed By: #### C BC ####[address] [address] Hemoglobin (Bld) [Mass/Vol] 14.2 g/dL Normal 13.5-17.5 [facility] Comment on above: Performed By: #### C BC ####[address] [address] MCH (RBC) [Entitic mass] 29.4 pg Normal 27.0-35.0 [facility] Comment on above: Performed By: #### C BC ####[address] [address] MCHC 33.8 % Normal 31.0-37.0 [facility] Comment on above: Performed By: #### C BC ####[address] [address] MCV (RBC) [Entitic vol] 87.1 fL Normal 80.0-100.0 [facility] Comment on above: Performed By: #### C BC ####[address] [address] Platelet 329 x10*3/mcL Normal 150-450 [facility] Comment on above: Performed By: #### C BC ####[address] [address] Platelet mean volume (Bld) [Entitic vol] 6.5 fL Low 6.7-10.6 [facility] Comment on above: Performed By: #### C BC ####[address] [address] RBC 4.83 x10*6/mcL Normal 4.30-5.80 [facility] Comment on above: Performed By: #### C BC ####[address] [address] WBC 6.7 x10*3/mcL Normal 4.5-11.0 [facility] Comment on above: Performed By: #### C BC ####[address] [address] CMPon 04-08-2024 Albumin [Mass/Vol] 4.3 g/dL Normal 3.2-4.9 [facility] Comment on above: Performed By: #### . Body Fluid Differential #### [address] [address] Albumin/Globulin [Mass ratio] 1.2 {ratio} Normal 1.1-2.2 [facility] Comment on above: Performed By: #### . Body Fluid Differential #### [address] [address] Alk Phos 60 IU/L Normal 32-91 [facility] Comment on above: Performed By: #### . Body Fluid Differential #### [address] [address] ALT [Catalytic activity/Vol] 24 U/L Normal 17-63 [facility] Comment on above: Performed By: #### . Body Fluid Differential #### [address] [address] AST [Catalytic activity/Vol] 21 U/L Normal 15-41 [facility] Comment on above: Performed By: #### . Body Fluid Differential #### [address] [address] Bili Total 1.4 mg/dL High 0.3-1.2 [facility] Comment on above: Performed By: #### . Body Fluid Differential #### [address] [address] Creatinine [Mass/Vol] 1.37 mg/dL High 0.61-1.24 [facility] Comment on above: Performed By: #### . Body Fluid Differential #### [address] [address] Protein [Mass/Vol] 7.9 g/dL Normal 6.5-8.1 [facility] Comment on above: Performed By: #### . Body Fluid Differential #### [address] [address] Urea nitrogen [Mass/Vol] 24 mg/dL Normal 8-26 [facility] Comment on above: Performed By: #### . Body Fluid Differential #### [address] [address] Urea nitrogen/Creatinine [Mass ratio] 17.5 mg/mg Normal 10.0-20.0 [facility] Comment on above: Performed By: #### . Body Fluid Differential #### [address] [address] Anion gap [Moles/Vol] 11 mmol/L Normal 4-12 [facility] Comment on above: Performed By: #### . Body Fluid Differential #### [address] [address] Calcium [Mass/Vol] 9.4 mg/dL Normal 8.5-10.3 [facility] Comment on above: Performed By: #### . Body Fluid Differential #### [address] [address] Chloride [Moles/Vol] 101 mmol/L Normal 98-110 [facility] Comment on above: Performed By: #### . Body Fluid Differential #### [address] [address] CO2 [Moles/Vol] 23 mmol/L Normal 22-32 [facility] Comment on above: Performed By: #### . Body Fluid Differential #### [address] [address] Glucose [Mass/Vol] 102 mg/dL High 70-99 [facility] Comment on above: Performed By: #### . Body Fluid Differential #### [address] [address] Potassium [Moles/Vol] 4.4 mmol/L Normal 3.4-4.8 [facility] Comment on above: Performed By: #### . Body Fluid Differential #### [address] [address] Sodium [Moles/Vol] 135 mmol/L Normal 133-142 [facility] Comment on above: Performed By: #### . Body Fluid Differential #### [address] [address] CRPon 04-08-2024 CRP 0.54 mg/dL Normal 0.00-0.75 [facility] Comment on above: Result Comment: CRP measurement is useful for assessment of non-specific INFLAMMATORY RESPONSE to infection or injury AND is a sensitive MARKER of ACUTE INFLAMMATION including CARDIAC RISK ASSESSMENT. CARDIAC patients with elevated CRP are POTENTIALLY at a HIGHER RISK OF FUTURE CARDIAC EVENTS. Performed By: #### . Body Fluid Differential #### [address] [address] Diff Autoon 04-08-2024 Baso Absolute 0.1 x10*3/mcL Normal 0.0-0.2 [facility] Comment on above: Performed By: #### V ANCT #### [address] [address] Basophils/100 WBC (Bld) 1.0 % Normal 0.0-1.2 [facility] Comment on above: Performed By: #### V ANCT #### [address] [address] Eos Absolute 0.1 x10*3/mcL Normal 0.0-0.4 [facility] Comment on above: Performed By: #### V ANCT #### [address] [address] Eosinophils/100 WBC (Bld) 1.5 % Normal 0.0-6.1 [facility] Comment on above: Performed By: #### V ANCT #### [address] [address] Lymph Absolute 1.6 x10*3/mcL Normal 1.0-4.8 [facility] Comment on above: Performed By: #### V ANCT #### [address] [address] Lymphocytes/100 WBC (Bld) 23.6 % Low 27.2-40.8 [facility] Comment on above: Performed By: #### V ANCT #### [address] [address] [place] Absolute 0.8 x10*3/mcL Normal 0.3-1.1 [facility] Comment on above: Performed By: #### V ANCT #### [address] [address] Monocytes/100 WBC (Bld) 11.3 % Normal 4.7-13.9 [facility] Comment on above: Performed By: #### V ANCT #### [address] [place] [address] Neutro Absolute 4.2 x10*3/mcL Normal 1.8-7.7 [facility] Comment on above: Performed By: #### V ANCT #### [address] [address] Neutro Auto 62.6 % Normal 47.2-70.8 [facility] Comment on above: Performed By: #### V ANCT #### [address] [address] ED Clinical Summaryon 2023 ED Clinical Summary [address] [address] ED Clinical Summary Person [facility] Age[facility] 64 Years : 1960 Sex: Male PCP: Asmita Casillas MD Marital Status: Phone: Race: White Ethnicity: Not or Language: Welsh Visit Reason: Knee pain-swelling; R Knee Pain Acuity: 3 Enc Type: Observation Med Service: Emergency Medicine Arrival: 04/08/2024 10:28:57 Discharge: LOS: 000 05:38 Checkin: 04/08/2024 10:28:57 Checkout: 04/08/2024 16:06:50 Dispo Type: Address: [address] [place] [id number] Provider Notes: History of Present Illness Patient is a 63 years old male who presented emergency with right knee pain with plan to admission and have a knee replacement. ?Patient had earlier this year he replacement ligament repair. ?Reports some redness and?possible infection. ?Seen his doctor?at?[facility] Dr. Lawrence who recommended that the patient?come into the ER gets admitted. ?He will operate on him at 4 PM. Review of Systems As reviewed in the HPI. All other systems reviewed are negative or normal. Physical Exam CONSTITUTIONAL: [no apparent distress, well appearing] SKIN: [warm, dry, no jaundice, hives or petechiae] EYES: [pupils are equally round, extraocular movements intact without nystagmus, clear conjunctiva, non-icteric sclera] HENT: [normocephalic, atraumatic, moist mucus membranes, oropharynx clear without exudates] NECK: [Nontender and supple with no nuchal rigidity, no lymphadenopathy, full range of motion] PULMONARY: [clear to auscultation without wheezes, rhonchi, or rales, normal excursion, no accessory muscle use and no stridor] CARDIOVASCULAR: [regular rate, rhythm, normal S1 and S2. No appreciated murmurs. Strong radial pulses with intact distal perfusion] GASTROINTESTINAL: [soft, non-tender, non-distended, no palpable masses, no rebound or guarding] GENITOURINARY: [No costovertebral angle tenderness to palpation] LYMPHATICS: [no edema in lower extremities, no lymphadenopathy] MUSCULOSKELETAL: Patient?has redness warmth in the right knee. ?Has a small?elevation there with no open wound.? Intact pulses sensation.? Minimal discomfort. NEUROLOGIC: [alert and oriented x 3, GCS 15, normal mentation and speech. Moves all extremities x 4 without motor or sensory deficit, gait is stable without ataxia] PSYCHIATRIC: [normal mood and affect, thought process is clear and linear] Diagnosis: 1:Knee pain, concern for infection Problems No Problems Documented Smoking Status: Smoking Status Former smoker, quit more than 5 years ago Functional Status: Sensory Deficits: History of Falls: Mobility Assistance Prior to Admission: ADLs: Current Level of Assistance for Self-Care/Mobility: Cognitive Status: Allergies penicillin (Rash) Keflex (Itching) Laboratory or Other Results This Visit (last charted value for your 04/08/2024 visit) Hematology 04/08/2024 11:13 AM WBC: 6.7 x10 RBC: 4.83 x10 Neutro Auto: 62.6 % -- Normal range between ( 47.2 and 70.8 ) Lymph Auto: 23.6 % -- Normal range between ( 27.2 and 40.8 ) [place] Auto: 11.3 % -- Normal range between ( 4.7 and 13.9 ) Eos Auto: 1.5 % -- Normal range between ( 0.0 and 6.1 ) Basophil Auto: 1.0 % -- Normal range between ( 0.0 and 1.2 ) Baso Absolute: 0.1 x10 MCV: 87.1 fL -- Normal range between ( 80.0 and 100.0 ) MCHC: 33.8 % -- Normal range between ( 31.0 and 37.0 ) Lymph Absolute: 1.6 x10 Hct: 42.1 % -- Normal range between ( 41.0 and 53.0 ) [place] Absolute: 0.8 x10 MCH: 29.4 pg -- Normal range between ( 27.0 and 35.0 ) Neutro Absolute: 4.2 x10 Hgb: 14.2 g/dL -- Normal range between ( 13.5 and 17.5 ) Mean Platelet Volume: 6.5 fL -- Normal range between ( 6.7 and 10.6 ) Platelet: 329 x10 Eos Absolute: 0.1 x10 RDW: 13.9 % -- Normal range between ( 11.6 and 14.8 ) Sed Rate: 17 mm/hr -- Normal range between ( 0 and 23 ) Coagulation 04/08/2024 11:36 AM PT: 10.7 seconds -- Normal range between ( 9.2 and 12.0 ) INR: 1.0 ratio PTT: 18.7 seconds -- Normal range between ( 19.5 and 28.2 ) Chemistry 04/08/2024 11:36 AM Creatinine Lvl: 1.37 mg/dL -- Normal range between ( 0.61 and 1.24 ) BUN: 24 mg/dL -- Normal range between ( 8 and 26 ) AST: 21 IU/L -- Normal range between ( 15 and 41 ) ALT: 24 IU/L -- Normal range between ( 17 and 63 ) Albumin Lvl: 4.3 g/dL -- Normal range between ( 3.2 and 4.9 ) Total Protein: 7.9 g/dL -- Normal range between ( 6.5 and 8.1 ) Bili Total: 1.4 mg/dL -- Normal range between ( 0.3 and 1.2 ) Alk Phos: 60 IU/L -- Normal range between ( 32 and 91 ) Estimated GFR: 58 mL/min/1.73m? BUN Crea Ratio: 17.5 -- Normal range between ( 10.0 and 20.0 ) AG Ratio: 1.2 -- Normal range between ( 1.1 and 2.2 ) 04/08/2024 11:13 AM Glucose Lvl: 102 mg/dL -- Normal range between ( (more content not included)... Normal [facility] ED Note-Nursingon 04-08-2024 ED Note-Nursing per pt and family, pt was sent to the ED for his infected right knee and planned surgery today with dr lawrence from [facility]. Electronically signed by Quang Vargas 04/08/24 10:39 EDT Normal [facility] ED Note-Physicianon 04-08-20 ED Note-Physician Chief Complaint patient had knee replacement and ligament repair earlier in the year but it is infected, surgery with Dr Lawrence today at 1600 History of Present Illness Patient is a 63 years old male who presented emergency with right knee pain with plan to admission and have a knee replacement. Patient had earlier this year he replacement ligament repair. Reports some redness and possible infection. Seen his doctor at [facility] Dr. Lawrence who recommended that the patient come into the ER gets admitted. He will operate on him at 4 PM. Review of Systems As reviewed in the HPI. All other systems reviewed are negative or normal. Physical Exam CONSTITUTIONAL: [no apparent distress, well appearing] SKIN: [warm, dry, no jaundice, hives or petechiae] EYES: [pupils are equally round, extraocular movements intact without nystagmus, clear conjunctiva, non-icteric sclera] HENT: [normocephalic, atraumatic, moist mucus membranes, oropharynx clear without exudates] NECK: [Nontender and supple with no nuchal rigidity, no lymphadenopathy, full range of motion] PULMONARY: [clear to auscultation without wheezes, rhonchi, or rales, normal excursion, no accessory muscle use and no stridor] CARDIOVASCULAR: [regular rate, rhythm, normal S1 and S2. No appreciated murmurs. Strong radial pulses with intact distal perfusion] GASTROINTESTINAL: [soft, non-tender, non-distended, no palpable masses, no rebound or guarding] GENITOURINARY: [No costovertebral angle tenderness to palpation] LYMPHATICS: [no edema in lower extremities, no lymphadenopathy] MUSCULOSKELETAL: Patient has redness warmth in the right knee. Has a small elevation there with no open wound. Intact pulses sensation. Minimal discomfort. NEUROLOGIC: [alert and oriented x 3, GCS 15, normal mentation and speech. Moves all extremities x 4 without motor or sensory deficit, gait is stable without ataxia] PSYCHIATRIC: [normal mood and affect, thought process is clear and linear] Vitals & Measurements T: 36.7 ?C (Oral) T: 36.7 ?C (Oral) HR: 73 (Monitored) RR: 15 RR: 15 BP: 109/69 SpO2: 98% HT: 177.8 cm WT: 109.4 kg (Dosing) Additional Vitals No qualifying data available. Procedure No qualifying data available. ASA Documentation Medical Decision Making MEDICAL DECISION MAKING Number and Complexity of Problems Differential Diagnosis: _But not limited to knee infection MDM Data External documents reviewed: _ My EKG interpretation: _ My CT interpretation: _ My X-ray interpretation: _ My Ultrasound interpretation: _ Decision rules/scores evaluated: _ Discussed with: _ Decision rules/scores evaluated: _ ? HEART Score: Not Completed ? PERC Rule: _ ? NEXUS C-spine Criteria: _ ? [place] Ankle Rule: _ ? [place] Knee Rule: _ ? Wells Criteria for DVT: _ ? Wells Criteria for PE: _ Discussed with: _ Treatment and Disposition ED Course: Patient is a 64 years old male who presented emergency with the symptoms above. Exam as mentioned above. I did do lab work for the patient. Did discuss case also with Dr. Lawrence over [facility] to recommend no antibiotics for now. Admit to the hospitalist service. Patient was discussed with Dr. Sanders stated the patient for admission. NPO. Plan to go to the OR at 4 PM. Assessment/Plan 1. Knee pain, concern for infection Orders: Sodium Chloride 0.9% intravenous solution 1,000 mL, 1,000 mL, Soln-IV, IV, 100 mL/hr, Start Date: 04/08/24 11:24:00 EDT, Dispense From Location: [facility], 2.26, m2, 04/08/24 11:24:00 EDT Consult to Orthopedics PTINR PTT Request for Admit Refresh vitals and sections below: Problem List/Past Medical History Ongoing Arthritis Frequency of urination HTN (hypertension) Hyperlipidemia Knee pain Obesity (BMI 30.0-34.9) Snores Historical No qualifying data Procedure/Surgical History Extraction of wisdom tooth (1985) H/O: vasectomy (1985) Attention to total knee replacement (11/15/2023) RT KNEE SURGERY (01/2024) Medications Inpatient acetaminophen, 1000 mg= 100 mL, IV Piggyback, Store Coordinator acetaminophen, 650 mg, Oral, q6hr, PRN acetaminophen, 650 mg, Oral, q6hr, PRN Lactated Ringers Injection intravenous solution 1,000 mL, 1000 mL, IV LR 1,000 mL, 1000 mL, IV [place] 5 mg-325 mg oral tablet, 1 tabs, Oral, q4hr, PRN Normal Saline Flush 0.9% injectable solution, 10 mL, IV Push, As Indicated, PRN Normal Saline Flush 0.9% injectable solution, 10 mL, IV Push, BID oxyCODONE, 5 mg, Oral, q6hr, PRN Pepcid, 20 mg= 2 mL, IV Push, Store Coordinator Sodium Chloride 0.9% intravenous solution 1,000 mL, 1000 mL, IV Zofran, 4 mg= 2 mL, IV Push, Store Coordinator Home atenolol 50 mg oral tablet, 50 mg= 1 tabs, Oral, qAM ezetimibe 10 mg oral tablet, 10 mg= 1 tabs, Oral, qAM lisinopril 20 mg oral tablet, 20 mg= 1 tabs, Oral, qAM meloxicam 15 mg oral tablet, 15 mg= 1 tabs, Oral, qAM traMADol 50 mg oral tablet, 50 mg= 1 tabs, Oral, HS (at bedtime), Scheduled, Still taking (more content not included)... 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 Has an aspiration with 22,000 white cells and redness to the anterior knee with pain and swelling. We have discussed explant of implants with insertion of antibiotic spacer. Patient understands the procedure as well as indications. Informed consent obtained. No guarantees made Preoperative Diagnosis Right prosthetic joint infection Postoperative Diagnosis Right prosthetic joint infection Operation 1. Explantation of right total knee 2. Insertion of antibiotic eluding spacer right knee Surgeon(s) Yony Ashton DO (Surgeon - Primary) Evan Mathew MD Appliance Worker Evan Mathew MD Anesthesia General Ambar Pope MD, Braeden Sanchez (Roll Scale Worker) Kelsea Jose (Provider) [place] (Provider) Estimated Blood Loss 500.0 mL Urine Output 800.0 mL Findings Right prosthetic knee joint infection with white cell count 22,000 with 87% PMNs. Defect and arthrotomy into subcutaneous tissue Specimen(s) Sterile Body Sites Culture (superficial right knee fluid,Tissue,Knee R) Anaerobic Culture (right knee superficial fluid,Wound,Knee R) Anaerobic Culture (synovium #1,Tissue,Knee R) Sterile Body Sites Culture (synovium #1,Tissue,Knee R) Sterile Body Sites Culture (synovium #2,Tissue,Knee R) Anaerobic Culture (femur bone,Bone,Knee R) Sterile Body Sites Culture (femur bone,Bone,Knee R) Anaerobic Culture (synovium #2,Tissue,Knee R) Culture Fungal (tibia bone,Bone,Knee R) Sterile Body Sites Culture (tibia bone,Bone,Knee R) Anaerobic Culture (tibia bone,Bone,Knee R) Complications None Technique Patient was taken back to the operative suite. He was transferred to the operative table. He then underwent anesthesia induction and patient without any complications. We then proceeded to isolate and prepped out the right lower extremity. We had a timeout the patient, procedure and operative side were confirmed. We then proceeded with a knee aspiration. The aspiration was sent for stat analysis. There was no gross purulence from the aspirate and it appeared bloody. We then proceeded with gravity exsanguination. We then opened up the incision on the anterior knee. There was an area of erythema and swelling at the midportion of the incision. We open the subcutaneous tissue and there was a rent in the capsule with direct access to this subcutaneous redness. We did take a superficial culture. There was no edilia purulence. We then proceeded to elevate full flaps medially and laterally. By this time we had gotten her aspiration results with demonstrated 22,000 white cells which was an indication for explantation. We then proceeded to hernan the patella. We mobilized the patella so it could be appropriately everted. We then did a complete synovectomy utilizing rongeur and Bovie cautery. Once her synovectomy was complete we flexed up the knee to 90 degrees. We used a microsagittal saw and osteotomes to loosen the femur at the interface between the cement and implant. Once the femur was loose we were able to impacted off. There was some contained bone loss distally on the medial femoral condyles however anterior and posteriorly minimally bone loss. We then placed a PCL retractor. We debrided the posterior capsule. We then proceeded to utilize a microsagittal saw with flexible osteotomes to dislodge the tibial component. There was minimal bone loss with the tibial component removal. We then proceeded to use a rongeur to remove any remaining cement. We used curettes to debride the femoral and tibial canals. We then proceeded to use a Salter remove the patella button and removed the small pegs. We then trialed it with our components. We utilized a size 7 femur and G tibia with a 12 poly. This gave us a stable construct with full extension and varus valgus stability. Bone cultures and soft tissue cultures were sent. We then proceeded to copiously irrigate the knee with 9 L normal saline followed by bactisure followed by normal saline. We then proceeded to mixed our cement on the back table. Cement was impregnated with 3 g vancomycin and 2 g tobramycin. The tibial component was then cemented into place. All excess cement was removed. We then cemented our size [address] and excess cement was removed. We waited for the cement polymerized. We then removed any excess cement with a osteotome. The knee was trialed and stable with range of motion. We then copiously irrigated the wound with normal saline followed by Irrisept solution. A JACOB drain was placed. The arthrotomy was closed with 1 PDS in running strata fix. 3-0 Monocryl was utilized for the subcutaneous layer followed by 3-0 nylon for the skin. Soft sterile dressing was applied. Patient was awoken from anesthesia and taken to PACU in stable condition. Patient will be nonweightbearing to the right lower extremity. May work with physical therapy on gentle range of mo (more content not included)... Normal [facility] PTon 04-08-2024 INR Coag (PPP) [Relative time] 1.0 {INR} Normal <=3.5 [facility] Comment on above: Result Comment: INR has no normal range. INR Therapeutic range is: 2.0-3.0 (AF, CVA, TIAs, DVT prophylaxis, acute DVT) 2.5-3.5 ([facility] heart valves, recurrent thrombosis/emboli) Performed By: #### P TT #### [address] [address] PT Coag (PPP) [Time] 10.7 s Normal 9.2-12.0 [facility] Comment on above: Performed By: #### P TT #### [address] [address] PTTon 04-08-2024 aPTT Coag (Bld) [Time] 18.7 s Low 19.5-28.2 [facility] Comment on above: Performed By: #### P TT #### [address] [address] XR Knee 1 or 2 Views Righton 04-08-2024 XR Knee 1 or 2 Views Right EXAM: XR Knee 1 or 2 Views Right HISTORY: Other (please specify), post-op COMPARISON: CT right knee 03/05/2024 TECHNIQUE: Frontal and lateral right knee radiographs. FINDINGS/IMPRESSION: Patient is status post removal of tibial component of right TKA. Femoral component remains. A new spacer placed. Surgical drain within the distal femoral region along the lateral margin. Satisfactory alignment of joints only mild. Joint fluid. No fractures. No destructive bone changes. Patellar soft tissue edema. Satisfactory alignment of components and joints. Final Dictated by: Tulio Mansfield DO Dictated DT/TM: 04/08/2024 8:55 pm Signed by: Tulio Mansfield DO Signed (Electronic Signature): 04/08/2024 8:57 pm (If Report Is Signed, Electronically Signed in Other Vendor System) Normal [facility] Aerobic Cultureon 03-29-2024 Aerobic Culture Right Knee Effusion No Growth 2 Days Right Knee Effusion No Anaerobes Isolated 3 Days Right Knee Effusion For Gram Stain results, please refer to specimen Requisition [id number]. PERFORMED BY: [place] [address] PATHOLOGIST CHILD PROTECTION SPECIALIST KIMI TAYLOR M.D. Normal [facility] Comment on above: Performed By: #### A ERC, FL [place], GS, FLCCDIFF #### [address] Body fluid crystal identific ation by light microscopyOrdered By: Yony Ashton on 03-29-2024 Crystals LM Nom (Body fld) None seen [facility] Body fluid differential cell countOrdered By: Yony Ashton on 03-29-2024 Differential panel (Body fld) 6 % [facility] Comment on above: The reference interv al and other method performance specifications have not been established for this body fluid. The test result must be integrated into the clinical context for interpretation. Cell Count/Diff, Fluidon Appearance, Fluid Turbid Normal [facility] Comment on above: Order Comment: EFFUS ION, RIGHT KNEE Body Fluid Source: Other (Name in the Site) Body Fluid Site: R. KNEE Result Comment: The reference interval and other method performance specifications have not been established for this body fluid. The test result must be integrated into the clinical context for interpretation. Performed By: #### A ERC, [place], GS, FLCCDIFF #### [place] [address] [place] Color, Fluid [place] Normal [facility] Comment on above: Order Comment: EFFUS ION, RIGHT KNEE Body Fluid Source: Other (Name in the Site) Body Fluid Site: R. KNEE Result Comment: The reference interval and other method performance specifications have not been established for this body fluid. The test result must be integrated into the clinical context for interpretation. Performed By: #### A ERC, [place], GS, FLCCDIFF #### [place] [address] [place] Color, Fluid Supernatant [place] Normal [facility] Comment on above: Order Comment: EFFUS ION, RIGHT KNEE Body Fluid Source: Other (Name in the Site) Body Fluid Site: R. KNEE Result Comment: The reference interval and other method performance specifications have not been established for this body fluid. The test result must be integrated into the clinical context for interpretation. Performed By: #### A ERC, [place], GS, FLCCDIFF #### [facility] [address] Eosinophils, Fluid 0 /100{WBC} Normal 0-3 [facility] Comment on above: Order Comment: EFFUS ION, RIGHT KNEE Body Fluid Source: Other (Name in the Site) Body Fluid Site: R. KNEE Result Comment: PERF ORMED BY: [place] [address] PATHOLOGIST CHILD PROTECTION SPECIALIST KIMI TAYLOR M.D. Performed By: #### A ERC, [place], GS, FLCCDIFF #### [address] Lymphocytes, Fluid 4 % Normal [facility] Comment on above: Order Comment: EFFUS ION, RIGHT KNEE Body Fluid Source: Other (Name in the Site) Body Fluid Site: R. KNEE Result Comment: The reference interval and other method performance specifications have not been established for this body fluid. The test result must be integrated into the clinical context for interpretation. Performed By: #### A ERC, [place], GS, FLCCDIFF #### [address] Monocytes/Macrophages , Fluid 6 % Normal [facility] Comment on above: Order Comment: EFFUS ION, RIGHT KNEE Body Fluid Source: Other (Name in the Site) Body Fluid Site: R. KNEE Result Comment: The reference interval and other method performance specifications have not been established for this body fluid. The test result must be integrated into the clinical context for interpretation. Performed By: #### A ERC, [place], GS, FLCCDIFF #### [facility] [address] [place] [address] Neutrophil, Fluid 90 % Normal [facility] Comment on above: Order Comment: EFFUS ION, RIGHT KNEE Body Fluid Source: Other (Name in the Site) Body Fluid Site: R. KNEE Result Comment: The reference interval and other method performance specifications have not been established for this body fluid. The test result must be integrated into the clinical context for interpretation. Performed By: #### A ERC, [place], GS, FLCCDIFF #### [facility] [address] RBC, Fluid [address] Normal [facility] Comment on above: Order Comment: EFFUS ION, RIGHT KNEE Body Fluid Source: Other (Name in the Site) Body Fluid Site: R. KNEE Result Comment: The reference interval and other method performance specifications have not been established for this body fluid. The test result must be integrated into the clinical context for interpretation. Performed By: #### A ERC, FL [place], GS, FLCCDIFF #### [facility] [address] [place] [id number] [facility] TNC, Body Fluid [address] Normal The [facility] Comment on above: Order Comment: EFFUS ION, RIGHT KNEE Body Fluid Source: Other (Name in the Site) Body Fluid Site: R. KNEE Result Comment: The reference interval and other method performance specifications have not been established for this body fluid. The test result must be integrated into the clinical context for interpretation. Performed By: #### A ERC, FL [place], GS, FLCCDIFF #### [facility] [address] [place] [address] [facility] Cells Counted Total [#] in B fritz fluidOrdered By: Yony Ashton on 03-29-2024 Cells Counted Total (Body fld) [#] [address] mm^3 [facility] Comment on above: The reference interv al and other method performance specifications have not been established for this body fluid. The test result must be integrated into the clinical context for interpretation. Color of Spun Body fluidOrde red By: Yony Ashton on 03-29-2024 Color (Spun body fld) [facility] Comment on above: The reference interv al and other method performance specifications have not been established for this body fluid. The test result must be integrated into the clinical context for interpretation. Crystals, Fluidon 03-29-2024 Crystals, Fluid None Seen Normal [facility] Comment on above: Order Comment: Body Fluid Source: Other (Name in the Site) Body Fluid Site: R. KNEE Result Comment: PERF ORMED BY: [place] [address] PATHOLOGIST CHILD PROTECTION SPECIALIST KIMI TAYLOR M.D. Performed By: #### A ERC, FL [place], GS, FLCCDIFF #### [facility] [address] [place], [place] [id number] [facility] Determination of appearance of body fluidOrdered By: Yony Ashton on 03-29-2024 Appearance (Body fld) Turbid Fir [facility] Comment on above: The reference interv al and other method performance specifications have not been established for this body fluid. The test result must be integrated into the clinical context for interpretation. Erythrocytes [#/volume] in B fritz fluid by Automated countOrdered By: Yony Ashton on 03-29-2024 RBC Auto (Body fld) [#/Vol] 297[address] mm^3 [facility] Comment on above: The reference interv al and other method performance specifications have not been established for this body fluid. The test result must be integrated into the clinical context for interpretation. Evaluation of color of body fluidOrdered By: Yony Ashton on 03-29-2024 Color (Body fld) [place] [facility] Comment on above: The reference interv al and other method performance specifications have not been established for this body fluid. The test result must be integrated into the clinical context for interpretation. Gram Stainon 03-29-2024 Microscopic observation Gram stain Nom (Unsp spec) Gram Stain Result No Bacteria Seen PERFORMED BY: [place] [address] PATHOLOGIST CHILD PROTECTION SPECIALIST KIMI TAYLOR M.D. Normal [facility] Comment on above: Performed By: #### A ERC, [place], GS, FLCCDIFF #### [facility] [address] [place] [id number] [facility] Gram stain for investigation of transfusion reactionOrdered By: Yony Ashton on 03-29-2024 Microscopic observation Gram stain Nom (Unsp spec) [facility] Manual body fluid eosinophil s/100 leukocytesOrdered By: Yony Ashton on 03-29-2024 Eosinophils/100 WBC Manual cnt (Body fld) 0 /100{WBC} 0-3 [facility] Manual body fluid lymphocyte s/100 leukocytesOrdered By: Yony Ashton on 03-29-2024 Lymphocytes/100 WBC Manual cnt (Body fld) 4 % [facility] Comment on above: The reference interv al and other method performance specifications have not been established for this body fluid. The test result must be integrated into the clinical context for interpretation. Neutrophils/100 WBC Manual c nt (Body fld)Ordered By: Yony Ashton on 03-29-2024 Neutrophils/100 WBC (Body fld) 90 % [facility] Comment on above: The reference interv al and other method performance specifications have not been established for this body fluid. The test result must be integrated into the clinical context for interpretation. Sidney 11-17-2023 L Specimen: [id number] Received: 11/19/23 Status: CASANDRA Zuleta Num: [id number] Spec Type: Surgical Subm Dr: ALVIN STAFF Tissues: A Joint/Knee (RT KNEE BONE) Procedures: HE, Gross/Micro L4, Decalcification Age/ Patient Sex Location Account Attending Physician Mauricio Montano 63/M [place] [id number] NON STAFF SPEC NUM: [id number] RECD: 11/19/23 STATUS: CASANDRA ZULETA NUM: [id number] MARIAN: 11/17/[address]: ALVIN STAFF ENTERED: 11/19/23 LAFAYETTE [...] Serial sectioning shows yellow spongy bone matrix. Supervisor Process Testing sections are submitted in A1. Clinical history: Primary OA right knee CPT Codes 12814 BONE AND TISSUE Specimen: [id number] Received: 11/19/23 Status: CASANDRA Zuleta Num: [id number] Spec Type: Surgical Subm Dr: NON STAFF Tissues: A Joint/Knee (RT KNEE BONE) Procedures: NITISH, Gross/Micro L4, Decalcification Patient: Mauricio Montano [id number] (Continued) Signed (signature on file) Audrey Grubbs MD 11/20/23 6104 Normal [facility] XR KNEE LT 4V or >on 022 [...] by: LA MARTINEZ Date: 2022-03-23 19:23 Normal [facility] Vital Signs Date Time Vital Sign Value Performing Clinician Gabby whitley 04-24-2022 09:45-0400 Body height 177.8 cm [facility] Other [facility] Other 04-24-2022 09:45-0400 Body mass index (BMI) [Ratio] 34.15 kg/m2 [facility] Other [facility] Other 04-24-2022 09:45-0400 Body weight 107.96 kg [facility] Other [facility] Other Encounters Encounter Date Encounter Type Care Provider Facility Start: 06-17-2024 End: 06-17-2024 ambulatory Asmita Casillas MD Facility:[facility] Start: 05-24-2024 End: 05-24-2024 ambulatory Asmita Casillas MD Facility:[facility] Start: 05-17-2024 End: 05-17-2024 ambulatory Asmita Casillas MD Facility:[facility] Start: 05-10-2024 End: 05-12-2024 ambulatory YONY ASHTON [facility] Start: 05-10-2024 End: 05-12-2024 Subsequent hospital visit by physician [facility] Additional Xray At [facility] Comment on above: 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, subsequent encounter Start: 05-03-2024 End: 05-03-2024 ambulatory Asmita Casillas MD Facility:[facility] Start: 04-26-2024 End: 04-28-2024 ambulatory [facility] Start: 04-18-2024 End: 04-18-2024 Telephone encounter Rosa Vaughan BUSINESS PARTNER Work Phone: [facility] Start: 04-08-2024 ambulatory Asmita Casillas MD Facility:[facility] Start: 04-08-2024 End: 04-15-2024 Evaluation and management of inpatient Asmita Casillas MD Facility:[facility] Start: 04-06-2024 ambulatory Yony Ashton DO Fa cility:[facility] Start: 03-29-2024 End: 03-29-2024 ambulatory Yony Ashton [facility] Work Phone: Start: 03-29-2024 End: 03-29-2024 Departed Referred DO Yony Ashton Work Phone: [facility] [place] Work Phone: Start: 01-19-2024 End: 01-19-2024 ambulatory [facility] Start: 11-17-2023 End: 11-17-2023 ambulatory NON STAFF Facility:[facility] Start: 04-24-2022 End: 04-24-2022 ambulatory Ankush Quintero II Other [facility] Other Start: 04-24-2022 Office outpatient visit 15 minutes Ankush Quintero II [facility] Start: 03-29-2022 End: 04-23-2022 ambulatory ANKUSH QUINTERO Facility:[facility] Start: 03-27-2022 End: 03-27-2022 Patient encounter procedure PHYSICIAN OSMAR WALL [facility] Start: 03-23-2022 End: 03-23-2022 ambulatory RUDDY HECTOR Facility:[facility] Procedures Date Procedure Procedure Detail Performing Clinician Start: 05-10-2024 Radiologic examinati on knee 1/2 views Yony Ashton DO Work Phone: Start: 03-29-2024 Investigation of transfusion reaction DO Yony Ashton Work Phone: Start: 03-27-2022 Radiologic examinati on of knee PHYSICIAN NO FAMILY Start: 03-27-2022 Pelvis X-ray PHYSICIAN NO FAMILY Plan of Treatment Date Care Activity Detail Author Start: 07-22-2024 ambulatory Ambulatory Facility:[facility] Start: 03-29-2024 Microbial culture, b fritz fluid [facility] Start: 03-29-2024 Microscopic observat ion [Identifier] in Unspecified specimen by Gram stain [facility] Start: 03-07-2024 COVID-19 Vaccine ( season) COVID-19 Vaccine ( season) [facility] Start: 02-05-2024 Influenza vaccination Flu vaccine (# 1) [facility] Start: 2021 Respiratory Syncytia l Virus (RSV) or age 60 yrs+ (1 - 1-dose 60+ series) Respiratory Syncytial Virus (RSV) or age 60 yrs+ (1 - 1-dose 60+ series) [facility] Start: 2006 Screening for malign ant neoplasm of colon [facility] Start: 2001 Lipid panel Lipids [facility] Start: 01-14-1996 Diabetes screen Diabetes screen [facility] Start: 01-14-1980 DTaP/Tdap/Td vaccine (1 - Tdap) DTaP/Tdap/Td vaccine (1 - Tdap) [facility] Start: 1979 Hepatitis C screening Hepatitis C sc reen [facility] Start: 01-14-1976 HIV screening HIV screen [facility] Start: 1973 Depression Screen Depression Screen [facility] Bacteria identified in Unspecified specimen by Aerobe culture [facility] Bacteria identified in Unspecified specimen by Anaerobe culture [facility] Payers Date Payer Category Payer Unknown 2023 Self-pay [id number] 2023 Unknown [id number] 1960 Unknown [id number] 1960 Unknown [id number] [id number]3 1960 Unknown [id number] [id number]4 1960 Unknown [id number] 2.16.840.1.869594.3.579.2.174 1960 Unknown [id number] 2.16.840.1.154388.3.579.2.174 1961 Unknown [id number] 2.16.840.1.216387.3.579.2.174 1961 Unknown [id number] 2.16.840.1.507772.3.579.2.174 1961 Unknown [id number] 2.16.840.1.719435.3.579.2.196 1960 Unknown [id number] 2.16.840.1.043819.3.579.2.196 1961 Unknown [id number] 2.16.840.1.071164.3.579.2.196 1961 Unknown [id number] 2.16.840.1.001888.3.579.2.196 1961 Unknown [id number] 2.16.840.1.185543.3.579.2.196 1961 Unknown [id number] 2.16.840.1.025650.3.579.2.196 1961 Unknown [id number] 2.16.840.1.354492.3.579.2.196 1961 Unknown [id number] 2.16.840.1.854469.3.579.2.196 1959 Unknown [id number] 2.16.8 [id number] Unknown [id number] 2.16.840.1.041748.3.579.2.531 Unknown [id number] 2.16.840.1.829064.3.579.2.531 Worker'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 Care Works [facility] [id number] Social History Date Type Detail Facility Tobacco smoking status NHIS Unknown if ever smoked [facility] Work Phone: Start: 1960 Sex Assigned At Male [facility] Start: 01-19-2024 Sex Assigned At [facility] [employer] Other Tobacco smoking status NHIS Tobacco smoking consumption unknown [facility] Start: 1960 Sex assigned at Not on file [facility] Start: 01-15-2024 Tobacco smoking status NHIS Never smoked tobacco [facility] Start: 01-15-2024 Tobacco use and exposure Smokeless tobacco non-user [facility] Start: 01-20-2024 Alcoholic beverage intake Current drinker of alcohol (finding) [facility] Start: 01-19-2024 End: 01-20-2024 Alcoholic beverage intake [facility] Physical abuse Denies Purple Blue [facility] NEGATED: Highlighted rowStart: NINF History of tobacco use Passive smoker [facility] Telephone encounter Note 04-18-2024 Telephone Encounter - Rosa Vaughan NP - 04/18/2024 8:33 AM EDT Note Date & Type Note Facility 04-18-2024 Telephone encount er Note Rx for tramadol is sent for this [facility] patient today, #90 [facility] Note 04-18-2024 Telephone Encounter - Rosa Vaughan NP - 04/18/2024 8:33 AM EDT Note Date & Type Note Facility 04-18-2024 Miscellaneous Notes Formattin g of this note might be different from the original. Rx for tramadol is sent for this [facility] patient today, #90 documented in this encounter [facility] Healthcare Discharge summary note 04-15-2024 Note Date & Type Note Facility 04-15-2024 Note Admission Informatio n Patient: Mauricio Montano : 1960 Date of Admission: 04/08/2024 10:28:57 Date of Discharge: 04/15/2024 14:29:00 PCP: Vinny LEE, Asmita Blum Consult: Hilton ORTIZ, Yony Hayes; Gaby LEE, Herbert Llamas Brief Hospital Course Summary: Mauricio Montano, a 64-year-old male with past medical history of hypertension, hyperlipidemia who presented to the emergency room complaining of right knee redness with associated swelling which has been progressively getting worse. Patient had a right knee surgery done several months ago, then sustained a ruptured tendon and required repeat surgery about 2 months ago. He was seen at [facility], he started having persistent knee redness and swelling, was diagnosed with a knee infection and has been on antibiotics twice outpatient but had no relief. Patient is admitted for right knee infection. Underwent exploration of right total knee with insertion of antibiotic spacer on 04/08/2024. He was evaluated by infectious disease antibiotics are finalized and he was given a PICC line. He was discharged in stable condition to SNF and will follow-up with Ortho and infectious disease Assessment and Plan: _ #Right knee infectious arthritis , ID following --S/p right knee surgery 2 months ago. Recently managed for right knee infection outpatient and was on antibiotics. --Continue pain control as needed --ABx finalized by ID and picc in place #Essential hypertension--continue antihypertensive medication #Hyperlipidemia--continue ezetimibe # Acute blood loss anemia, stable # Acute kidney injury due to dehydration, improved Discharge Time Spent with Patient: 35 minutes Medications New Medications Printed Prescriptions aspirin (aspirin 81 mg oral capsule) 1 Capsules Oral (given by mouth) 2 times a day. Refills: 0. Last Dose: oxyCODONE-acetaminophen (Percocet 5/325 oral tablet) 1 Tabs Oral (given by mouth) every 6 hours as needed as needed for pain for 7 Days. Refills: 0. Last Dose: Medications That Have Not Changed Other Medications atenolol (atenolol 50 mg oral tablet) 1 Tabs Oral (given by mouth) once a day (in the morning). Last Dose: ezetimibe (ezetimibe 10 mg oral tablet) 1 Tabs Oral (given by mouth) once a day (in the morning). Last Dose: lisinopril (lisinopril 20 mg oral tablet) 1 Tabs Oral (given by mouth) once a day (in the morning). Last Dose: traMADol (traMADol 50 mg oral tablet) 1 Tabs Oral (given by mouth) once a day (at bedtime). Scheduled. Last Dose: traZODone (traZODone 100 mg oral tablet) 1 Tabs Oral (given by mouth) once a day (at bedtime). Last Dose: These Medications Were Removed and Should No Longer Be Taken meloxicam (meloxicam 15 mg oral tablet) 1 Tabs Oral (given by mouth) once a day (in the morning). Stop Taking Reason: Physician Request Patient Discharge Condition Stable Discharge Disposition SNF Objective Physical Exam: General: Pleasant and cooperative. No apparent distress. HEENT: Normocephalic, atraumatic, mucus membranes moist. Neck: Trachea midline. Chest: Clear to auscultation bilaterally. No wheezes, rales, or rhonchi. CV: Regular rate and rhythm. No murmur, no gallops, no rubs Abdomen: Abdomen is soft, non-tender, non-distended, no rebound or guarding. Extremities: No lower extremity edema or cyanosis, peripheral pulses intact. R knee dressing CDI Neurological: AAOx3. No focal deficits. Skin: Warm and dry. Vitals & Measurements T: 36.6 ?C (Oral) HR: 80 (Peripheral) RR: 16 BP: 115/70 SpO2: 94% HT: 178 cm WT: 117.2 kg BMI: 38.79 Additional Vitals No qualifying data available. Lab Results Labs (Last four charted values) WBC 7.8 (APR 14) 5.5 (APR 14) 6.2 (APR 13) 4.9 (APR 12) Hgb L 9.7 (APR 14) L 9.2 (APR 14) L 9.0 (APR 13) L 8.9 (APR 12) Hct L 29.0 (APR 14) L 27.3 (APR 14) L 26.4 (APR 13) L 25.3 (APR 12) Plt 361 (APR 14) 283 (APR 14) 248 (APR 13) 226 (APR 12) Na 135 (APR 14) 135 (APR 14) 137 (APR 13) 135 (APR 12) K 4.2 (APR 14) 3.5 (APR 14) 3.9 (APR 13) 3.8 (APR 12) CO2 23 (APR 14) 24 (APR 14) 25 (APR 13) 23 (APR 12) Cl 103 (APR 14) 102 (APR 14) 102 (APR 13) 105 (APR 12) Cr 1.21 (APR 14) 1.24 (APR 14) H 1.32 (APR 13) 1.19 (APR 12) BUN 18 (APR 14) 18 (APR 14) 13 (APR 13) 12 (APR 12) Mg 2.0 (APR 14) L 1.6 (APR 09) PT 10.7 (APR 08) INR 1.0 (APR 08) PTT L 18.7 (APR 08) Microbiology - Current Encounter No qualifying data available. Diagnoses: 1. Infection of prosthetic right knee joint 2. Knee pain, concern for infection Degree of Malnutrition: No qualifying data available. Procedure/Surgical History Extraction of wisdom tooth (1985) H/O: vasectomy (1985) Attention to total knee replacement (11/15/2023) RT KNEE SURGERY (01/2024) Arthroplasty Knee Total Revision with Poly Tibial Spacer (Right) (04/08/2024) Electroni (more content not included)... [facility] Clinical Note 10-07-2024 Note Date & Type Note Facility 04-12-2024 Note Procedure: Portable AP chest radiograph following peripherally inserted central catheter (PICC) insertion. Inserted by: Flavia Butler RN. PICC type: 4 [place]occan single lumen Power PICC Solo. Puncture site: Right basilic vein. Arm circumference: 33 cm. Length: 48 cm. Amount left out: 0 cm. Tip placement: Superior cavoatrial junction (CAJ). Clinical History: 64-year-old male with right knee joint infection and long-term antibiotics. Comparison: Chest radiographs 10/29/2023. Findings: Lines/tubes/devices: New right upper extremity PICC in adequate position terminating in the superior cavoatrial junction (CAJ). Lungs/pleura: Grossly clear lungs. No pneumothorax or evidence for pleural effusion. Heart/mediastinum: Unremarkable silhouette. Bones/soft tissues: No gross acute or aggressive abnormality. IMPRESSION: 1. New right upper extremity PICC in adequate position. 2. No acute chest abnormality. Final Dictated by: Antwan Alvarado MD Dictated DT/TM: 04/12/2024 1:10 pm Signed by: Antwan Alvarado MD Signed (Electronic Signature): 04/12/2024 1:14 pm (If Report Is Signed, Electronically Signed in Other Vendor System) [facility] History and physical note 04-08-2024 Note Date & Type Note Facility 04-08-2024 Note Chief Complaint patient had knee replacement and ligament repair earlier in the year but it is infected, surgery with Dr Lawrence today at 1600 Assessment/Plan Brief Hospital Course Summary: Mauricio Montano, a 64-year-old male with past medical history of hypertension, hyperlipidemia who presented to the emergency room complaining of right knee redness with associated swelling which has been progressively getting worse. Patient had a right knee surgery done several months ago, then sustained a ruptured tendon and required repeat surgery about 2 months ago. He was seen at [facility], he started having persistent knee redness and swelling, was diagnosed with a knee infection and has been on antibiotics twice outpatient but had no relief. Patient is admitted for right knee infection. Ortho consulted, Dr. Lawrence notified. Assessment and Plan: _ #Right knee infection --S/p right knee surgery 2 months ago. Recently managed for right knee infection outpatient and was on antibiotics. --Per ER provider, Dr. Lawrence wants to hold off antibiotics for now --Patient is scheduled for surgery today. --Continue pain control as needed -- Ortho on consult #Essential hypertension--continue antihypertensive medication #Hyperlipidemia--continue ezetimibe Discussion: I discussed with the patient, family, patient's nurse, and care transition about the patient's plan of care. I reviewed other provider notes. Anticipated Discharge Location: Home Follow up plan after Discharge: Needs outpatient follow up for routine follow up with the Primary Care and or Consulting provider within one to two weeks. I _ prior medical records to review for comparison. Medical necessity for ongoing hospitalization: ongoing workup for active diagnosis History of Present Illness It is my privilege to provide care for Mauricio Montano, a 64-year-old male with past medical history of hypertension, hyperlipidemia who presented to the emergency room complaining of right knee redness with associated swelling which has been progressively getting worse. Patient had a right knee surgery done several months ago, then sustained a ruptured tendon and required repeat surgery about 2 months ago. He was seen at [facility], he started having persistent knee redness and swelling, was diagnosed with a knee infection and has been on antibiotics twice but had no relief. He presented to the ER today due to persistent knee swelling and redness. He denied any fever/chills, nausea/vomiting, chest pain, shortness of breath, headaches or dizziness. At the emergency room, vital signs are stable, no significant abnormality noted on labs, Ortho was notified and patient is scheduled to have her surgery done this evening. Vital signs reviewed and are currently stable. Review of Systems All 10 point review of system discussed and pertinent listed on HPI. Rest is negative. Objective Physical Exam General: Alert oriented x3, patient appears in no acute cardiorespiratory distress. Eye: normal conjunctiva HENT: Normocephalic, moist oral mucosa, no scleral icterus. Neck: Supple, non-tender, no lymphadenopathy. Lungs: Clear to auscultation, no crepitations or wheeze. Heart: S1-S2 is normal. No rubs or gallops. Abdomen: Soft, non-tender, non-distended, normal bowel sounds, no masses Extremities: Right knee redness/swelling/warmth/tenderness noted on exam Skin: no open sores or wounds Neurologic: Awake, alert, and oriented X3, patient does not have any focal deficits. Psychiatric: Calm and cooperative Vitals & Measurements T: 36.7 ?C (Oral) T: 36.7 ?C (Oral) HR: 71 (Monitored) RR: 15 RR: 15 BP: 112/80 SpO2: 99% HT: 177.8 cm WT: 109.4 kg (Dosing) Additional Vitals No qualifying data available. Problem List/Past Medical History Ongoing Arthritis Frequency of urination HTN (hypertension) Hyperlipidemia Knee pain Obesity (BMI 30.0-34.9) Snores Historical No qualifying data Degree of Malnutrition: No qualifying data available. Procedure/Surgical History Extraction of wisdom tooth (1985) H/O: vasectomy (1985) Attention to total knee replacement (11/15/2023) RT KNEE SURGERY (01/2024) Medications Inpatient acetaminophen, 1000 mg= 100 mL, IV Piggyback, Store Coordinator acetaminophen, 650 mg, Oral, q6hr, PRN acetaminophen, 650 mg, Oral, q6hr, PRN acetaminophen, 650 mg, Oral, q6hr, PRN acetaminophen, 650 mg, Oral, q6hr, PRN atenolol, 50 mg, Oral, qAM enoxaparin, 40 mg= 0.4 mL, Subcutaneous, Daily ezetimibe, 10 mg, Oral, qAM Lactated Ringers Injection intravenous solution 1,000 mL, 1000 mL, IV lisinopril, 20 mg, Oral, qAM LR 1,000 mL, 1000 mL, IV naloxone, 0.4 mg= 1 mL, IV Push, q2min, PRN [place] 5 mg-325 mg oral tablet, 1 tabs, Oral, q4hr, PRN [place] 5 mg-325 mg oral tablet, 1 tabs, Oral, q6hr, PRN Normal Saline Flush 0.9% injectable solution, 10 mL, IV Push, As Indicated, PRN Normal Saline Flush 0.9% injectable solution, 10 mL, IV Push, BID Normal Saline Flush 0.9% injectab (more content not included)... [facility] Evaluation note 04-24-2022 Note Date & Type Note Facility 04-24-2022 Evaluation note Encounter Date Diagnosis Assessment Notes 19 Oct, 2022 Patellar instability of left knee (ICD-10 - [...] begin doing his own therapy at home. [facility] Other Evaluation note Note Date & Type Note Facility Evaluation note No assessment information availa [facility] Work Phone: Evaluation note Note Date & Type Note Facility Evaluation note Diagnosis Pain- Primary Generalized pain documented in this encounter [facility] Evaluation note Note Date & Type Note Facility Evaluation note Diagnosis Infection of total right knee replacement, subsequent encounter documented in this encounter [facility] History general Narrative - Reported Note Date & Type Note Facility History general Narrative - Reported Type Medical History hypertension Surgical History vasectomy [facility] Other Advance Directives No Advanced Directives Records Found Advance Directive Response Recorded Date/ Time Advance Directives No February 10 1:39pm Date Activated Date Inactivated Comments 01/19/2024 7:07 AM 01/19/2024 1:01 PM Summary Purpose Family History No Family History Records Found Relationship Condition Age at Onset Recorded Date/T irvin father Unknown mother Hypertension Unknown Additional Source Comments Care Teams (unrecognized sec tion and content) Team Status: Inactive Member Role Status Dates PHYSICIAN NO FAMILY Primary Care Provider Active Ankush Quintero II, MD Attending Provider Active Team Status: Active Member Role Status Dates PHYSICIAN NO FAMILY Primary Care Provider Active Team Status: Inactive Member Role Status Dates Yony Ashton DO Attending Provider Active S tart: March 29, 2024 End: March 29, 2024 Retail Sales Lead Relationship Specialty Start Date End Date Asmita Casillas MD [address] [place] [id number] PCP - General Family Medicine 01/19/24 Retail Sales Lead Relationship Specialty Start Date End Date Asmita Casillas MD [address] [place] [id number] PCP - General Family Medicine 01/19/24 Goals (unrecognized section and content) Goals may be documented in a n alternate sectionNo InformationGoals may be documented in an alternate section REASON FOR VISIT (unrecogniz ed section and content) 4 WEEK RECHECK (unrecognized sect ion and content) No Status Records FoundNo Status Records FoundNo Status Records FoundNo Status Records Found INFORMATION SOURCE (unrecogn ized section and content) DATE CREATED AUTHOR 05/11/2022 [facility] DATE CREATED AUTHOR AUTHOR'S ORGANIZ ATION 04/06/2024 [facility] DATE CREATED AUTHOR AUTHOR'S ORGANIZ ATION 05/14/2024 Maryann Shearer Kevin mar DATE CREATED AUTHOR AUTHOR'S ORGANIZ ATION 06/19/2024 [facility] FOR RECORDS PERTAINING TO PATIENTS WHO ARE [...] BE BASED ON THE PRIMARY CLINICAL RECORDS. [facility] provides no warranty or guarantee of the accuracy or completeness of information in this document.
[2024-06-25 09:09] LABS: Basophils Absolute Auto 0.1 10^3/uL (0.0-0.1); Basophils Percent Auto 0.9 % (0.2-2.0); Eosinophils Absolute Auto 0.4 10^3/uL (0.0-0.7); Eosinophils Percent Auto 5.4 % (0.9-7.0); Hematocrit 41.3 % (42.0-54.0); Hemoglobin 13.3 g/dL (14.0-18.0); Immature Granulocytes Abs Auto 0.02 10^3/uL (0.00-0.03); Immature Granulocytes Pct Auto 0.3 % (0.0-0.5); Lymphocytes Absolute Auto 2.1 10^3/uL (1.2-3.8); Lymphocytes Percent Auto 30.5 % (20.5-60.0); Mean Corpuscular HGB Conc 32.2 g/dL (29.9-35.2); Mean Corpuscular Hemoglobin 26.6 pg (25.9-34.0); Mean Corpuscular Volume 82.6 fL (80.0-94.0); Mean Platelet Volume 8.4 fL (9.5-13.5); Monocytes Absolute Auto 0.6 10^3/uL (0.3-0.8); Monocytes Percent Auto 8.3 % (1.7-12.0); Neutrophils Absolute Auto 3.7 10^3/uL (1.4-6.5); Neutrophils Percent Auto 54.6 % (43.0-75.0); Platelet Count 351 10^3/uL (150-450); White Blood Count 6.8 10^3/uL (4.0-11.0)
[2024-06-25 10:01] LABS: Alanine Aminotransferase 20 U/L (16-63); Albumin Globulin Ratio 1.2; Albumin Level 3.7 g/dL (3.4-5.0); Alkaline Phosphatase 73 U/L (46-116); Anion Gap 11.2; Aspartate Amino Transferase 14 U/L (15-37); BUN Creatinine Ratio 11.4; Calcium 9.2 mg/dL (8.5-10.1); Carbon Dioxide 28.9 mmol/L (21.0-32.0); Chloride 107 mmol/L (98-107); Cholesterol 175 mg/dL (<=200); Estimated GFR (African America >60 (>=60 mL/min/1.73m^2); Estimated GFR (Non-African Ame 59 (>=60 mL/min/1.73m^2); Free T3 2.93 pg/mL (2.18-3.98); Glucose 96 mg/dL (74-106); HDL Cholesterol 44 mg/dL (40-60); LDL Cholesterol Calculated 113.4 mg/dL; Potassium 4.1 mmol/L (3.5-5.1); Sodium 143 mmol/L (136-145); Thyroid Stimulating Hormone 2.316 uIU/mL (0.358-3.740); Total Protein 6.7 g/dL (6.4-8.2); Triglycerides 88 mg/dL (<=150); VLDL CHOLESTEROL 17.6 mg/dL
[2024-06-25 10:06] LABS: Estimated Average Glucose 97 mg/dL
[2024-06-25 11:08] LABS: Prostate Specific Antigen Scrn 64.08 ng/mL (<=4.00)
== END 2024-06-25 08:48 | disposition home or self-care (01) ==
LOC: LAB 08:48
PROVIDERS: PCP Family Medicine; Visit Provider Family Medicine
DX: Z00.00 Encounter for general adult medical examination without abnormal findings (principal)
CPT/HCPCS: 36415; 80053; 80061; 83036; 84436; 84443; 84481; 85025; G0103

== ENCOUNTER 2024-06-28 12:58 | Outpatient (OUT) | payer OTHER, SELFPAY ==
[2024-06-29 04:07] LABS: PSA, Free 8.33 ng/mL; Prostate Specific Ag 61.1 ng/mL (0.0-4.0)
== END 2024-06-28 12:59 | disposition home or self-care (01) ==
LOC: LAB 13:04
PROVIDERS: PCP Family Medicine; Visit Provider Family Medicine
DX: R97.20 Elevated prostate specific antigen [PSA] (principal)
CPT/HCPCS: 36415; 84153; 84154

== ENCOUNTER 2024-07-07 10:49 | Outpatient (RCR) | payer OTHER, SELFPAY | END 2024-07-31 08:15 | disposition home or self-care (01) | LOC: PT 10:49 | PROVIDERS: PCP Family Medicine; Visit Provider Student in an Organized Health Care Education/Training Program | DX: R26.89 Other abnormalities of gait and mobility (principal); Z96.651 Presence of right artificial knee joint; T84.53XD Infection and inflammatory reaction due to internal right knee prosthesis, subsequent encounter; Z47.89 Encounter for other orthopedic aftercare; R53.1 Weakness | CPT/HCPCS: 97110; 97112; 97530 ==

== ENCOUNTER 2024-08-17 08:22 | Outpatient (OUT) | payer OTHER, SELFPAY ==
--- OUTSIDE RECORDS SUMMARY | 2024-08-11 10:14 | XMS_ITS | CCD ---
Author Organization [facility] Inform ion Partnership [facility] Care Team Providers Care Superintendent Service Name Role Phone NO FAMILY, PHYSICIAN Primary Care Provider Unava ilable MD Ankush Quintero II Attending Provider Ankush Quintero II Unavailable ANKUSH QUINTERO Admitting Unavailable ANKUSH QUINTERO Attending Unavailable YOMI VALDEZ Primary Care Unavailable RUDDY HECTOR Admitting Unavailable RUDDY HECTOR Attending Unavailable YOMI VALDEZ Primary Care Unavailable LA MARTINEZ Consulting Unavailable RUDDY HECTOR Consulting Unavailable DO Yony Ashton Attending Provider NON STAFF Admitting Unavailable NON STAFF Attending Unavailable Yony Ashton Attending Unavailable Yony Ashton Admitting Unavailable Unavailable Primary Care Provider Unavailjet Casillas MD, Asmita [place] Primary Care Provider ASMITA CASILLAS Primary Care Unavailable YONY ASHTON Referring Unavailable ASMITA CASILLAS Primary Care Unavailable YONY ASHTON Admitting Unavailable YONY ASHTON Attending Unavailable YONY ASHTON Referring Unavailable ASMITA CASILLAS Primary Care Unavailable YONY ASHTON Referring Unavailable ASMITA CASILLAS Primary Care Unavailable YONY ASHTON Referring Unavailable ASMITA CASILLAS Primary Care Unavailable Asmita Casillas Primary Care Physician Oneil ALEXIS Attending Unavailable Asmita Casillas Referring Unavailable Asmita Casillas MD Primary Care Unavailjudit Sanders MD, Radha Solis Admitting Unavailab sendy Sanders MD, Radha Solis Attending Unavailab Yony Joseph DO Consulting Unavailjet Griffin MD, Herbert Llamas Consulting Unavailable Hoy MD, [facility] UnavailHerbert Goodman MD Attending Harsh Casillas MD, [facility] Unavailjudit Griffin MD, Herbert Llamas Attending Harsh Griffin MD, Herbert Llamas Attending [facility]arsh [facility], [facility] Unavaila forrest Tovar APRN-PRODUCTION INTERN, Yodit Rollins Attending Mariah [facility]illas MD, [facility] Unavailjudit Griffin MD, Herbert Llamas Attending Harsh Casillas MD, [facility] Unavaila forrest Tovar APRN-PRODUCTION INTERN, Yodit Rollins Attending U chiquita Casillas MD, [facility] Unavaila Yony Hernandez DO Attending Chary Casillas MD, [facility] Unavaila forrest Griffin MD, Herbert Llamas Attending Harsh Griffin MD, Herbert Llamas Attending Harsh Casillas MD, [facility]availjudit [facility], [facility] Y[facility] Hernandez DO Attending Oneil Strickland MD Attending Provider [phone] Asmita Casillas MD Primary Care Provider [phone] Allergies Allergy Classification Reported Allergen(s) Allergy Type Date of Onset Reaction(s) Facility (4 sources) Cephalexin; Translations: [Keflex] Drug Allergy 06-07-20 13 rash, Unknown (qualifier value) [facility] Repository (1 source) Penicillin V Drug Allergy rash [facility] Other (1 source) Dextroamphetamine Drug Allergy 08-21-19 17 [facility] Repository (3 sources) Penicillins Drug allergy (disorder) 06-07-20 13 rash [facility] Repository (5 sources) Cephalexin; Translations: [cephalexin] Drug Allergy 04-24-[address] [facility] (1 source) Penicillins Drug allergy (disorder) 04-24-[address] [facility] Repository (2 sources) Penicillins Propensity to adverse reactions to drug 01-15-20 24 [facility] (2 sources) Penicillin; Translations: [penicillin] Drug Allergy Unknown (qualifier value) [facility] Medications Current Medications Medication Drug Class(es) Dates Sig (Normalized) Sig (Original) acetaminophen 325 mg / HYDROcodone bitartrate 5 mg oral tablet (1 source) Opioid Agonist HYDROcodone-Acet am inophen 5-325 MG Oral for 3 Days Active atenolol 50 mg oral tablet (3 sources) beta-Adrenergic Nita take 1 tablet by mouth once daily atenolol (TENORMIN) 50 MG tablet Take 1 tablet by mouth daily Active ciprofloxacin 500 mg oral tablet (1 source) Quinolone Antimicrobial Start: 07-12-2024 End: 07-19-2024 Cipro 500 mg Tab 500 mg = 1 tab(s), Oral, BID, Start 3 days prior to procedure., X 7 day(s), # 14 tab(s), Refills(s) 0, Pharmacy: [id number], 179, cm, 07/12/24 9:03:00 EST, Height/Length Dosing, 107, kg, 07/12/24 9:03:00 EST, Weight Dosing Start Date: 07/12/24 Stop Date: 07/19/24 Status: Ordered docusate sodium 100 mg oral capsule (2 sources) Start: 01-19-2024 take 1 capsule by mouth twice daily as needed for constipation docusate sodium (COLACE) 100 MG capsule Take 1 capsule by mouth 2 times daily as needed for Constipation 60 capsule 01/19/2024 Active doxycycline hyclate 100 mg oral tablet (1 source) Tetracycline-class Drug Start: 07-12-2024 doxycycline hyclate 100 mg Tab Refills(s) 0 Start Date: 07/12/24 Status: Ordered ezetimibe 10 mg oral tablet (3 sources) [...] daily Active meloxicam 15 mg oral tablet (5 sources) Nonsteroidal Anti-inflammatory Drug Start: 07-12-2024 take 15 mg by mouth once daily meloxicam 15 mg, Oral, Daily, Refills(s) 0 Start Date: 07/12/24 Status: Ordered Start: 03-27-2022 take 1 tablet by dalton th every twenty-four hours Meloxicam 15 MG 1 tablet Orally Once a day for 30 day(s) Mar, Active Meloxicam 10 MG CAPS Take 15 mg by mouth Active traMADol hydrochloride 50 mg oral tablet (2 sources) Opioid Agonist Start: 07-12-2024 take 50 mg by mouth once daily tramadol 50 mg, Oral, Daily, Refills(s) 0 Start Date: 07/12/24 Status: Ordered Start: 04-18-2024 End: 05-18-2024 take 1 tablet by mouth every six hours as needed for pain and pain and pain traMADol (Ultram) 50 MG tablet Indications: Pain Take 1 tablet (50 mg) by mouth every 6 (six) hours if needed for severe pain 90 tablet 04/18/2024 05/18/2024 Active traZODone hydrochloride 150 mg oral tablet (4 sources) Serotonin Reuptake Inhibitor Start: 07-12-2024 traZODONE 150 mg Tab Refills(s) 0 Start Date: 07/12/24 Status: Ordered take 1 tablet by mouth once jitendra y traZODone (DESYREL) 100 MG tablet Take 1 [...] FROM LADDER INITIAL ENC] Onset: 03-25-2022 Episodic Hyperplasia of prostate (2 sources) Benign prostatic hypertrophy without outflow obstruction; Translations: [Benign prostatic hyperplasia without lower urinary tract symptoms] Onset: 07-12-2024 Chronic Joint disorders and dislocations; trauma-related (1 source) Unspecified dislocation of left patella, initial encounter; Translations: [UNS DISLOCATION LT PATELLA INITIAL] Onset: 03-25-2022 Episodic Malaise and fatigue (1 source) Weakness; Translations: [WEAKNESS] Onset: 04-17-2022 Episodic Other aftercare (1 source) Other 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 therapy; Translations: [OTH CLAIMS AGENT RIGHT OF WAY CURRENT DRUG THERAPY] Onset: 03-25-2022 Episodic Other [...] Translations: [Effusion, right knee] Onset: 03-29-2024 Episodic Other screening for suspected conditions (not mental disorders or infectious disease) (2 sources) Raised prostate specific antigen; Translations: [Elevated prostate specific antigen [PSA]] Onset: 07-09-2024 Episodic Residual codes; unclassified (2 sources) Pain; [...] Test Name Value Interpretation Reference Range Facility CBC w/ Diffon 07-22-2024 Erythrocyte distribution width (RBC) [Ratio] 16.1 % High 11.6-14.8 [facility] Comment on above: Performed By: #### P TT #### [address] [address] Hematocrit (Bld) [Volume fraction] 43.8 % Normal 41.0-53.0 [facility] Comment on above: Performed By: #### P TT #### [address] [address] Hemoglobin (Bld) [Mass/Vol] 14.4 g/dL Normal 13.5-17.5 [facility] Comment on above: Performed By: #### P TT #### [address] [address] MCH (RBC) [Entitic mass] 26.1 pg Low 27.0-35.0 [facility] Comment on above: Performed By: #### P TT #### [address] [address] MCHC 32.9 % Normal 31.0-37.0 [facility] Comment on above: Performed By: #### P TT #### [address] [address] MCV (RBC) [Entitic vol] 79.2 fL Low 80.0-100.0 [facility] Comment on above: Performed By: #### P TT #### [address] [address] Platelet 351 x10*3/mcL Normal 150-450 [facility] Comment on above: Performed By: #### P TT #### [address] [address] Platelet mean volume (Bld) [Entitic vol] 7.1 fL Normal 6.7-10.6 [facility] Comment on above: Performed By: #### P TT #### [address] [address] RBC 5.53 x10*6/mcL Normal 4.30-5.80 [facility] Comment on above: Performed By: #### P TT #### [address] [address] WBC 6.2 x10*3/mcL Normal 4.5-11.0 [facility] Comment on above: Performed By: #### P TT #### [address] [address] CRPon 07-22-2024 CRP 0.41 mg/dL Normal 0.00-0.75 [facility] Comment on above: Result Comment: CRP measurement is useful for assessment of non-specific INFLAMMATORY RESPONSE to infection or injury AND is a sensitive MARKER of ACUTE INFLAMMATION including CARDIAC RISK ASSESSMENT. CARDIAC patients with elevated CRP are POTENTIALLY at a HIGHER RISK OF FUTURE CARDIAC EVENTS. Performed By: #### C RP ####[address] [address] Diff Autoon 07-22-2024 Baso Absolute 0.1 x10*3/mcL Normal 0.0-0.2 [facility] Comment on above: Performed By: #### V ANCT #### [address] [address] Basophils/100 WBC (Bld) 1.0 % Normal 0.0-1.2 [facility] Comment on above: Performed By: #### V ANCT #### [address] [address] Eos Absolute 0.1 x10*3/mcL Normal 0.0-0.4 [facility] Comment on above: Performed By: #### V ANCT #### [address] [address] Eosinophils/100 WBC (Bld) 2.2 % Normal 0.0-6.1 [facility] Comment on above: Performed By: #### V ANCT #### [address] [address] Lymph Absolute 1.6 x10*3/mcL Normal 1.0-4.8 [facility] Comment on above: Performed By: #### V ANCT #### [address] [address] Lymphocytes/100 WBC (Bld) 25.4 % Low 27.2-40.8 [facility] Comment on above: Performed By: #### V ANCT #### [address] [address] Jerauld Absolute 0.7 x10*3/mcL Normal 0.3-1.1 [facility] Comment on above: Performed By: #### V ANCT #### [address] [address] Monocytes/100 WBC (Bld) 10.6 % Normal 4.7-13.9 [facility] Comment on above: Performed By: #### V ANCT #### [address] [address] Neutro Absolute 3.7 x10*3/mcL Normal 1.8-7.7 [facility] Comment on above: Performed By: #### V ANCT #### [address] [address] Neutro Auto 60.8 % Normal 47.2-70.8 [facility] Comment on above: Performed By: #### V ANCT #### [address] [address] ESRon 07-22-2024 Sed Rate 3 mm/hr Normal 0-23 [facility] Comment on above: Performed By: #### . Body Fluid Differential #### [address] [address] Infectious Disease Office/Cl inic Noteon 07-22-2024 Infectious Disease Office/Clinic Note Assessment/Plan 1. Infection of prosthetic right knee joint Continue on doxycycline until he finishes pretty soon. He will be seeing Dr. Lawrence again. Most likely will get some kind of aspiration and then make decision on reimplantation scheduled. He would like to get this done so he can have the left knee done at some point as well. Tentatively plan on seeing him back in a month unless he is going for reimplantation before that. Chief Complaint 1m f/u Infection of prosthetic Rt knee joint History of Present Illness Admitted April 08 through April 15 with right prosthetic and knee joint infection with negative cultures. Underwent explantation with spacer placement. Discharged on daptomycin and Rocephin and then changed to Zyvox due to CPK elevation. He also was diagnosed with COVID around that time. Changed to Zyvox continue on ceftriaxone which completed May 23. [1] started doxycycline May 24. [1] Overall feels okay. The eschar came off the right knee incision area and the incision remains intact. Still uses walker for stability. Left knee still sore and needs to have surgery at some point. Right knee already painful. He has some numbness sensation at the top of the foot to the side as well as the leg. No fever. Appetites been okay. Energy is improving. Review of Systems Other review of system negative. Physical Exam Vitals & Measurements T: 36.5 ?C (Temporal Artery) HR: 104 (Peripheral) BP: 138/84 SpO2: 95% HT: 178 cm WT: 104.59 kg (Dosing) WT: 104.59 kg BMI: 33.01 Vital signs are okay. Right knee incision intact. Area her eschar came off still has some hypertrophic scar. Mild swelling and warmth. No significant erythema. Moves the knee okay. No distal edema. Additional Vitals BP Position/Location: Sitting, Right arm [...] mg= 1 caps, Oral, BID, Not taking docusate sodium 100 mg oral capsule, TAKE 1 CAPSULE BY MOUTH TWICE A DAY NEEDED FOR CONSTIPATION doxycycline hyclate 100 mg oral capsule, 100 mg= 1 caps, Oral, BID, 3 refills meloxicam 15 mg oral tablet, 90 tabs, 0 Refill(s) traMADol 50 mg oral tablet, 30 EA, 0 Refill(s), TAKE 1 TABLET BY MOUTH ONCE DAILY NEEDED AT BEDTIME traZODone 150 mg oral tablet, 90 tabs, 0 Refill(s) Allergies Keflex (Itching) penicillin (Rash) Social History [...] virus vaccine, inactivated 04/08/2020 Recorded Lab Results Test Name Test Result Date/Time WBC 7.9 x10 Hgb 13.3 g/dL (Low) 06/17/2024 15:00 EST Platelet 364 x10 Sed Rate 10 mm/hr 06/17/2024 15:00 EST Creatinine Lvl 1.15 mg/dL 06/17/2024 15:00 EST CRP 0.77 mg/dL (High) 06/17/2024 15:00 EST CRP 11.42 mg/dL (High) 04/15/2024 13:06 EDT [1] Infectious Disease Office Visit Note; Gaby LEE, Herbert Llamas 06/17/2024 14:37 EST Electronically signed by Gaby LEE, Herbert Llamas 07/22/24 13:43 EST Recheck labs today. Electronically signed by (more content not included)... Normal [facility] Provider Letteron 07-22-2024 Provider Letter Asmita Casillas MD [address] [place] [address] Re: Mauricio Syed Date of Visit: 07/22/[address] Casillas, Thank you for your referral to my office. Attached you will find the most recent office visit note. Please call if you have any questions or concerns. Sincerely, Herbert Griffin MD [address], [address] [place] [address] The following document(s) were included in the letter: July 22, 2024 13:42:19 EST - (07/22/2024) Infectious Disease Office Visit Note Normal [facility] Ambulatory Visit Summaryon 0 07-12-2024 Ambulatory Visit Summary Ambulatory Visit Summary MAURICIO SYED :1960 Visit Date:07/12/2024 Ambulatory Visit Instructions Your Diagnosis Elevated PSA BPH (benign prostatic hyperplasia) Tests Performed MRI Pelvis (Soft Tissue) w/ + w/o contrast -- Results Pending -- Please visit your patient portal for your results or contact your primary care physician. Your Care Team Attending Physician - SUMI LEE, Oneil Ruiz Primary Care Physician - Vinny LEE, Asmita Referring Physician - Asmita Casillas MD This Is Your Medications List ciprofloxacin (Cipro 500 mg Tab) Contact prescribing physician if questions or concerns doxycycline (doxycycline hyclate 100 mg Tab) meloxicam tramadol trazodone (traZODONE 150 mg Tab) Procedures Performed Total replacement of right knee joint. Discharge Vitals Temperature (Oral) 37 ???C Heart Rate (Peripheral) 100 Respiratory Rate 18 Blood Pressure 139/86 Height 179 cm Height 70 in Weight 107 kg Weight 235.894 lb BMI 33.39 What to do next You Need to Schedule the Following Appointments Follow Up with SUMI LEE, BETO Adams When: Where: [facility] [address] , [place] [address]- Medications What How Much When Instructions New ciprofloxacin (Cipro 500 mg Tab) 1 Tablets By Mouth 2 times a day Duration: 7 Days Start 3 days prior to procedure. Pickup at [id number] Unchanged doxycycline (doxycycline hyclate 100 mg Tab) Contact prescribing physician if questions or concerns Unchanged meloxicam 15 Milligram By Mouth Every day Contact prescribing physician if questions or concerns Unchanged tramadol 50 Milligram By Mouth Every day Contact prescribing physician if questions or concerns Unchanged trazodone (traZODONE 150 mg Tab) Contact prescribing physician if questions or concerns Pharmacy Information [id number]: [address] [place], [place] [id number] [phone] Allergies Keflex (Unknown) penicillin (Unknown) Problems Ongoing - Any problem that you are currently receiving treatment for. BPH (benign prostatic hyperplasia) Elevated PSA Patient Survey You may receive a survey via text or e-mail asking about your office visit. Please share your experience with us by completing your survey. We appreciate your feedback and thank you for choosing us for your care. Education Materials Transrectal Ultrasound-Guided Prostate Biopsy, Care After The following information offers guidance on how to care for yourself after your procedure. Your health care provider may also give you more specific instructions. If you have problems or questions, contact your health care provider. What can I expect after the procedure? After the procedure, it is common to have: ??? Pain and discomfort near your rectum, especially while sitting. ??? [place]-colored urine due to small amounts of blood in your urine. ??? A burning feeling while urinating. ??? Blood in your stool (feces) or bleeding from your rectum. ??? Blood in your semen. Follow these instructions at home: Medicines ??? Take hrfz-wug-obkagkd and prescription medicines only as told by your health care provider. ??? If you were given a sedative during your procedure, it can affect you for several hours. Do not drive or operate machinery until your health care provider says that it is safe. ??? If you were prescribed an antibiotic medicine, take it as told by your health care provider. Do not stop using the antibiotic even if you start to feel better. Activity ??? Return to your normal activities as told by your health care provider. Ask your health care provider what activities are safe for you. ??? Ask your health care provider when it is okay for you to resume sexual activity. ??? You may have to avoid lifting. Ask your health care provider how much you can safely lift. General instructions ??? Drink enough fluid to keep your urine pale yellow. ??? Watch your urine, stool, and semen for new or increased bleeding. ??? Keep all follow-up visits. This is important. Contact a health care provider if: ??? You have any of the following: ? Blood clots in your urine or stool. ? Blood in your urine more than 2 weeks after the procedure. ? Blood in your semen more than 2 months after the procedure. ? New or increased bleeding in your urine, stool, or semen. ? Severe pain in your abdomen. ??? Your urine smells bad or unusual. ??? You have trouble urinating. ??? Your lower abdomen feels firm. ??? You have problems getting an erection. ??? You have nausea or you vomit. Get help right away if: ??? You have a fever or chills. This could be a sign of infection. ??? You have bright red urine. ??? You have severe pain that does not get better with medicine. ??? You cannot urinate. Summary ??? Afte (more content not included)... Normal [facility] .eGFRon 06-17-2024 GFR/1.73 sq M.predicted MDRD (S/P/Bld) [Vol rate/Area] mL/min/{1.73_m2} Normal >=60 [facility] Comment on above: Result Comment: [facility] have implemented the eGFR calculation approach [...] 1 Age = years Performed By: #### C BC #### [address] [address] Basic Metabolic Profileon Anion gap [Moles/Vol] 7 mmol/L Normal 4-12 [facility] Comment on above: Performed By: #### P TT #### [address] [address] Calcium [Mass/Vol] 9.5 mg/dL Normal 8.5-10.3 [facility] Comment on above: Performed By: #### P TT #### [address] [address] Chloride [Moles/Vol] 106 mmol/L Normal 98-110 [facility] Comment on above: Performed By: #### P TT #### [address] [address] CO2 [Moles/Vol] 25 mmol/L Normal 22-32 [facility] Comment on above: Performed By: #### P TT #### [address] [address] Creatinine [Mass/Vol] 1.15 mg/dL Normal 0.61-1.24 [facility] Comment on above: Performed By: #### P TT #### [address] [address] Glucose [Mass/Vol] 91 mg/dL Normal 70-99 [facility] Comment on above: Performed By: #### P TT #### [address] [address] Potassium [Moles/Vol] 4.2 mmol/L Normal 3.4-4.8 [facility] Comment on above: Performed By: #### P TT #### [address] [address] Sodium [Moles/Vol] 138 mmol/L Normal 133-142 [facility] Comment on above: Performed By: #### P TT #### [address] [address] Urea nitrogen [Mass/Vol] 22 mg/dL Normal 8-26 [facility] Comment on above: Performed By: #### P TT #### [address] [address] Urea nitrogen/Creatinine [Mass ratio] 19.1 mg/mg Normal 10.0-20.0 [facility] Comment on above: Performed By: #### P TT #### [address] [address] CBC w/ Diffon 06-17-2024 Erythrocyte distribution width (RBC) [Ratio] 16.5 % High 11.6-14.8 [facility] Comment on above: Performed By: #### C BC #### [address] [address] Hematocrit (Bld) [Volume fraction] 41.1 % Normal 41.0-53.0 [facility] Comment on above: Performed By: #### C BC #### [address] [address] Hemoglobin (Bld) [Mass/Vol] 13.3 g/dL Low 13.5-17.5 [facility] Comment on above: Performed By: #### C BC #### [address] [address] MCH (RBC) [Entitic mass] 26.2 pg Low 27.0-35.0 [facility] Comment on above: Performed By: #### C BC #### [address] [address] MCHC 32.4 % Normal 31.0-37.0 [facility] Comment on above: Performed By: #### C BC #### [address] [address] MCV (RBC) [Entitic vol] 80.8 fL Normal 80.0-100.0 [facility] Comment on above: Performed By: #### C BC #### [address] [address] Platelet 364 x10*3/mcL Normal 150-450 [facility] Comment on above: Performed By: #### C BC #### [address] [address] Platelet mean volume (Bld) [Entitic vol] 6.9 fL Normal 6.7-10.6 [facility] Comment on above: Performed By: #### C BC #### [address] [address] RBC 5.09 x10*6/mcL Normal 4.30-5.80 [facility] Comment on above: Performed By: #### C BC #### [address] [address] WBC 7.9 x10*3/mcL Normal 4.5-11.0 [facility] Comment on above: Performed By: #### C BC #### [address] [address] CRPon 06-17-2024 CRP 0.77 mg/dL High 0.00-0.75 [facility] Comment on above: Result Comment: CRP measurement is useful for assessment of non-specific INFLAMMATORY RESPONSE to infection or injury AND is a sensitive MARKER of ACUTE INFLAMMATION including CARDIAC RISK ASSESSMENT. CARDIAC patients with elevated CRP are POTENTIALLY at a HIGHER RISK OF FUTURE CARDIAC EVENTS. Performed By: #### C BC #### [address] [address] Diff Autoon 06-17-2024 Baso Absolute 0.1 x10*3/mcL Normal 0.0-0.2 [facility] Comment on above: Performed By: #### V ANCT #### [address] [address] Basophils/100 WBC (Bld) 0.9 % Normal 0.0-1.2 [facility] Comment on above: Performed By: #### V ANCT #### [address] [address] Eos Absolute 0.3 x10*3/mcL Normal 0.0-0.4 [facility] Comment on above: Performed By: #### V ANCT #### [address] [address] Eosinophils/100 WBC (Bld) 3.4 % Normal 0.0-6.1 [facility] Comment on above: Performed By: #### V ANCT #### [address] [address] Lymph Absolute 2.0 x10*3/mcL Normal 1.0-4.8 [facility] Comment on above: Performed By: #### V ANCT #### [address] [address] Lymphocytes/100 WBC (Bld) 25.8 % Low 27.2-40.8 [facility] Comment on above: Performed By: #### V ANCT #### [address] [address] [address] Jerauld Absolute 0.8 x10*3/mcL Normal 0.3-1.1 [facility] Comment on above: Performed By: #### V ANCT #### [address] [address] Monocytes/100 WBC (Bld) 10.0 % Normal 4.7-13.9 [facility] Comment on above: Performed By: #### V ANCT #### [facility] [address] [place] [address] Neutro Absolute 4.7 x10*3/mcL Normal 1.8-7.7 [facility] Comment on above: Performed By: #### V ANCT #### [address] [address] [place] [address] Neutro Auto 59.9 % Normal 47.2-70.8 [facility] Comment on above: Performed By: #### V ANCT #### [address] [place] [address] ESRon 06-17-2024 Sed Rate 10 mm/hr Normal 0-23 [facility] Comment on above: Performed By: #### . Body Fluid Differential #### [address] [address] Infectious Disease Office/Cl inic Noteon 06-17-2024 Infectious [...] rate (more content not included)... Normal [facility] Provider Letteron 06-17-2024 Provider Letter Asmita Casillas MD [address] [place] [address] Re: Mauricio Charmaine Date of Visit: 06/17/[address] Casillas, Thank you for your referral to my office. Attached you will find the most recent office visit note. Please call if you have any questions or concerns. Sincerely, Herbert Griffin MD [address] [facility], [address] [place] [address] The following document(s) were included in the letter: June 17, 2024 14:37:54 EST - (06/17/2024) Infectious Disease Office Visit Note Normal [facility] Infectious Disease Office/Cl inic Noteon 05-24-2024 Infectious Disease Office/Clinic Note Assessment/Plan 1. Infection of prosthetic right knee joint With PICC line removed and IV antibiotic complete, will warp changer to doxycycline for a month or so. [...] caps, 0 Refill(s), 06/21/24 13:50:00 EST, Pharmacy: [facility]/pharmacy #[id number] Chief Complaint 2 week follow-up right [...] has not liked the food at the [facility] and has been eating food from home. [...] in the 90-1 10 range at the [facility]. No acute distress. Skin color looks okay. [...] vax (more content not included)... Normal [facility] Provider Letteron 05-24-2024 Provider Letter Asmita Casillas MD [facility] [place] [address] Re: Mauricio Syed Date of Visit: 05/24/[address] Casillas, Thank you for your referral to my office. Attached you will find the most recent office visit note. Please call if you have any questions or concerns. Sincerely, Herbert Griffin MD [address] [facility], [address] [place] [address] The following document(s) were included in the letter: May 24, 2024 13:53:00 EST - (05/24/2024) Infectious Disease Office Visit Note Normal [facility] Infectious Disease Office/Cl inic Noteon 05-17-2024 Infectious [...] Home/Env (more content not included)... Normal [facility] XR KNEE RIGHT (1-2 VIEWS)on 05-10-2024 XR KNEE RIGHT (1-2 VIEWS) EXAM: XR KNEE RIGHT (1-2 VIEWS). HISTORY: Infection of total right knee replacement, subsequent encounter. COMPARISON: 04/26/2024 IMPRESSION: FINDINGS/IMPRESSION: 1. Tibial spacer in anatomic alignment. 2. Femoral component unchanged. 3. No acute change. Interpreted by: Miguel Angel Iqbal Jr., MD Signed by: Miguel Angel Iqbal Jr., MD 05/10/24 Final result [facility] XR Knee - right 1 or 2 Views on 05-10-2024 FINDINGS/IMPRESSION: 1. Tibial spacer in anatomic alignment. 2. Femoral component unchanged. 3. No acute change. [facility] EXAM: XR KNEE RIGHT (1-2 VIEWS). HISTORY: Infection of total right knee replacement, subsequent encounter. COMPARISON: 04/26/2024 [facility] RIS CONSOLIDATED Miguel Angel Iqbal Jr., MD - 05/10/2024 EXAM: XR KNEE RIGHT (1-2 VIEWS). HISTORY: Infection of total right knee replacement, subsequent encounter. COMPARISON: 04/26/2024 IMPRESSION: FINDINGS/IMPRESSION: 1. Tibial spacer in anatomic alignment. 2. Femoral component unchanged. 3. No acute change. [facility] Radiology Study observation (narrative) [facility] XR Knee - right 1 or 2 Views Ordered By: Miguel Angel Iqbal on 05-10-2024 [facility] Work Phone: C Fungalon 05-06-2024 C Fungal ------- Final No growth at 4 weeks. Normal [facility] Comment on above: Performed By: #### P TT #### [address] [address] Performed By: #### E SR #### [address] [address] Performed By: #### C BC #### [address] [address] Infectious Disease Office/Cl inic Noteon 05-03-2024 Infectious [...] Yodit Mancia 05/03/24 16:03 EDT Normal [facility] XR KNEE RIGHT (1-2 VIEWS)on 04-26-2024 XR [...] Angel Iqbal Jr., MD 04/26/24 Final result [facility] Jonathon Haines 04-24-2024 C JAMES ------- Final No anaerobic organisms isolated at 2 weeks Normal [facility] Comment on above: Performed By: #### E SR #### [facility] [address] [place] [address] C JAMES ------- Final No anaerobic organisms isolated at 2 weeks Normal [facility] Comment on above: Performed By: #### E SR #### [facility] [address] [place] [address] C JAMES ------- Final No anaerobic organisms isolated at 2 weeks Normal [facility] Comment on above: Performed By: #### A NAC ####[address] [address] C JAMES ------- Final No anaerobic organisms isolated at 2 weeks Normal [facility] Comment on above: Performed By: #### C BC #### [facility] [address] [place] [address] C Yancy 04-23-2024 C JAMES ------- Final No anaerobic organisms isolated at 2 weeks Normal [facility] Comment on above: Performed By: #### P TT #### [facility] [address] [place] [address] C JAMES ------- Final No anaerobic organisms isolated at 2 weeks [facility] Comment on above: Performed By: #### E SR #### [facility] [address] [place] [address] C Sterile BSon 04-23-2024 C Sterile BS ------- Final No growth at 2 weeks. [facility] Comment on above: Performed By: #### C BC #### [facility] [address] [place] [address] C Sterile BS ------- Final No growth at 2 weeks. [facility] Comment on above: Performed By: #### E SR #### [facility] [address] [place] [address] C Sterile BS ------- Final No growth at 2 weeks. [facility] Comment on above: Performed By: #### E SR #### [address] [address] C Sterile BS ------- Final No growth at 2 weeks. Normal [facility] Comment on above: Performed By: #### E SR #### [address] [address] C Sterile BS ------- Final No growth at 2 weeks. Normal [facility] Comment on above: Performed By: #### E SR #### [address] [address] CRPon 04-15-2024 CRP 11.42 mg/dL High 0.00-0.75 [facility] Comment on above: Result Comment: CRP measurement is useful for assessment of non-specific INFLAMMATORY RESPONSE to infection or injury AND is a sensitive MARKER of ACUTE INFLAMMATION including CARDIAC RISK ASSESSMENT. CARDIAC patients with elevated CRP are POTENTIALLY at a HIGHER RISK OF FUTURE CARDIAC EVENTS. Performed By: #### C RP ####[address] [address] Inpatient Clinical Summaryon 04-15-2024 Inpatient Clinical Summary [address] [address] [place] [address] Clinical Summary Person Information Name: Mauricio Syed Age: 64 Years : 1960 Sex: Male PCP: Asmita Casillas MD Marital Status: Phone: PCP: Race: White Ethnicity: Not or Language: New Zealander Visit Id: Visit Reason: Knee pain-swelling; R Knee Pain Speciality: Acuity: Enc Type: Inpatient Med Service: Emergency Medicine Arrival: 04/08/2024 10:28:57 Discharge: Dispo Type: [facility] [id number] Diagnosis: 1:Infection of prosthetic right knee joint; 2:Knee pain, concern for infection Discharged To: Home Treatments: Devices/Equipment: Professional Skilled Services: Special Services and Community Resources: Mode of Discharge Transportation: Discharge Orders Diet Instruction Follow up 04/15/24 13:07:00 EDT, Provider: Gaby LEE, Herbert Llamas, 1 week Allergies penicillin (Rash) Keflex (Itching) [...] range between ( 27.2 and 40.8 ) Jerauld Auto: 12.6 % -- Normal range between [...] range between ( 41.0 and 53.0 ) Jerauld Absolute: 1.0 x10 MCH: 28.7 pg -- [...] Sources 04/08/2024 4:54 PM Fluid RBC Count: 429075 /mcL Body Fluid Cell Cnt Type: Synovial Fluid WBC Count: 85388 /mcL -- Normal range between ( 0 [...] Right (more content not included)... Normal [facility] Orthopedic Progress Noteon 1 Orthopedic Progress Note Subjective Patient seen evaluated. Overall doing well today. Placement obtained for [facility] facility. Review of Systems Denies fever, chills, [...] mg= 1 mL, IV Push, q2min, PRN [place] 5 mg-325 mg oral tablet, 1 tabs, [...] plain a milligrams Depo-Medrol. Electronically signed by AshtonYony weston DO 04/15/24 13:29 EDT Normal [facility] .eGFRon 04-14-2024 GFR/1.73 sq M.predicted MDRD (S/P/Bld) [Vol rate/Area] mL/min/{1.73_m2} Normal >=60 [facility] Comment on above: Result Comment: [facility] have implemented the eGFR calculation approach [...] years Performed By: #### V ANCT #### [address] [address] GFR/1.73 sq M.predicted MDRD (S/P/Bld) [Vol rate/Area] mL/min/{1.73_m2} Normal >=60 [facility] Comment on above: Result Comment: [facility] have implemented the eGFR calculation approach [...] Performed By: #### . Automated Diff #### [address] [address] Basic Metabolic Profileon Anion gap [Moles/Vol] 9 mmol/L Normal 4-12 [facility] Comment on above: Performed By: #### . Body Fluid Differential #### [address] [address] Calcium [Mass/Vol] 8.7 mg/dL Normal 8.5-10.3 [facility] Comment on above: Performed By: #### . Body Fluid Differential #### [address] [address] Chloride [Moles/Vol] 103 mmol/L Normal 98-110 [facility] Comment on above: Performed By: #### . Body Fluid Differential #### [address] [address] CO2 [Moles/Vol] 23 mmol/L Normal 22-32 [facility] Comment on above: Performed By: #### . Body Fluid Differential #### [address] [address] Creatinine [Mass/Vol] 1.21 mg/dL Normal 0.61-1.24 [facility] Comment on above: Performed By: #### . Body Fluid Differential #### [address] [address] Glucose [Mass/Vol] 99 mg/dL Normal 70-99 [facility] Comment on above: Performed By: #### . Body Fluid Differential #### [address] [address] Potassium [Moles/Vol] 4.2 mmol/L Normal 3.4-4.8 [facility] Comment on above: Performed By: #### . Body Fluid Differential #### [address] [address] Sodium [Moles/Vol] 135 mmol/L Normal 133-142 [facility] Comment on above: Performed By: #### . Body Fluid Differential #### [address] [address] Urea nitrogen [Mass/Vol] 18 mg/dL Normal 8-26 [facility] Comment on above: Performed By: #### . Body Fluid Differential #### [address] [address] Urea nitrogen/Creatinine [Mass ratio] 14.9 mg/mg Normal 10.0-20.0 [facility] Comment on above: Performed By: #### . Body Fluid Differential #### [address] [address] Anion gap [Moles/Vol] 9 mmol/L Normal 4-12 [facility] Comment on above: Performed By: #### . Automated Diff #### [address] [address] Calcium [Mass/Vol] 8.4 mg/dL Low 8.5-10.3 [facility] Comment on above: Performed By: #### . Automated Diff #### [address] [address] Chloride [Moles/Vol] 102 mmol/L Normal 98-110 [facility] Comment on above: Performed By: #### . Automated Diff #### [address] [address] CO2 [Moles/Vol] 24 mmol/L Normal 22-32 [facility] Comment on above: Performed By: #### . Automated Diff #### [address] [address] Creatinine [Mass/Vol] 1.24 mg/dL Normal 0.61-1.24 [facility] Comment on above: Performed By: #### . Automated Diff #### [address] [address] Glucose [Mass/Vol] 100 mg/dL High 70-99 [facility] Comment on above: Performed By: #### . Automated Diff #### [address] [address] Potassium [Moles/Vol] 3.5 mmol/L Normal 3.4-4.8 [facility] Comment on above: Performed By: #### . Automated Diff #### [address] [address] Sodium [Moles/Vol] 135 mmol/L Normal 133-142 [facility] Comment on above: Performed By: #### . Automated Diff #### [address] [address] Urea nitrogen [Mass/Vol] 18 mg/dL Normal 8-26 [facility] Comment on above: Performed By: #### . Automated Diff #### [address] [address] Urea nitrogen/Creatinine [Mass ratio] 14.5 mg/mg Normal 10.0-20.0 [facility] Comment on above: Performed By: #### . Automated Diff #### [address] [address] CBC w/ Diffon 04-14-2024 Erythrocyte distribution width (RBC) [Ratio] 14.1 % Normal 11.6-14.8 [facility] Comment on above: Order Comment: Nurse draw per Maryam 04/14/2024 14:20 ALSNotified Donna that we still haven't rec'd blood on this patient. She will let the nurse know. 04/14/2024 17:24 ALS Performed By: #### C BC ####[address] [address] Hematocrit (Bld) [Volume fraction] 29.0 % Low 41.0-53.0 [facility] Comment on above: Order Comment: [facility] 04/14/2024 14:20 ALSNotified Donna that we still haven't rec'd blood on this patient. She will let the nurse know. 04/14/2024 17:24 ALS Performed By: #### C BC ####[address] [address] Hemoglobin (Bld) [Mass/Vol] 9.7 g/dL Low 13.5-17.5 [facility] Comment on above: Order Comment: [facility] 04/14/2024 14:20 ALSNotified Donna that we still haven't rec'd blood on this patient. She will let the nurse know. 04/14/2024 17:24 ALS Performed By: #### C BC ####[address] [address] MCH (RBC) [Entitic mass] 28.7 pg Normal 27.0-35.0 [facility] Comment on above: Order Comment: [facility] 04/14/2024 14:20 ALSNotified Donna that we still haven't rec'd blood on this patient. She will let the nurse know. 04/14/2024 17:24 ALS Performed By: #### C BC ####[address] [address] MCHC 33.5 % Normal 31.0-37.0 [facility] Comment on above: Order Comment: [facility] 04/14/2024 14:20 ALSNotified Donna that we still haven't rec'd blood on this patient. She will let the nurse know. 04/14/2024 17:24 ALS Performed By: #### C BC ####[address] [address] MCV (RBC) [Entitic vol] 85.5 fL Normal 80.0-100.0 [facility] Comment on above: Order Comment: [facility] 04/14/2024 14:20 ALSNotified Donna that we still haven't rec'd blood on this patient. She will let the nurse know. 04/14/2024 17:24 ALS Performed By: #### C BC ####[address] [address] Platelet 361 x10*3/mcL Normal 150-450 [facility] Comment on above: Order Comment: [facility] 04/14/2024 14:20 ALSNotified Donna that we still haven't rec'd blood on this patient. She will let the nurse know. 04/14/2024 17:24 ALS Performed By: #### C BC ####[address] [address] Platelet mean volume (Bld) [Entitic vol] 6.2 fL Low 6.7-10.6 [facility] Comment on above: Order Comment: [facility] 04/14/2024 14:20 ALSNotified Donna that we still haven't rec'd blood on this patient. She will let the nurse know. 04/14/2024 17:24 ALS Performed By: #### C BC ####[address] [address] RBC 3.39 x10*6/mcL Low 4.30-5.80 [facility] Comment on above: Order Comment: [facility] 04/14/2024 14:20 ALSNotified Donna that we still haven't rec'd blood on this patient. She will let the nurse know. 04/14/2024 17:24 ALS Performed By: #### C BC ####[address] [address] WBC 7.8 x10*3/mcL Normal 4.5-11.0 [facility] Comment on above: Order Comment: Nurse draw per Maryam 04/14/2024 14:20 ALSNotified Donna that we still haven't rec'd blood on this patient. She will let the nurse know. 04/14/2024 17:24 ALS Performed By: #### C BC ####[facility] [place] [address] Erythrocyte distribution width (RBC) [Ratio] 14.0 % Normal 11.6-14.8 [facility] Comment on above: Performed By: #### C BC #### [facility] [address] [place] [address] Hematocrit (Bld) [Volume fraction] 27.3 % Low 41.0-53.0 [facility] Comment on above: Performed By: #### C BC #### [address] [address] Hemoglobin (Bld) [Mass/Vol] 9.2 g/dL Low 13.5-17.5 [facility] Comment on above: Performed By: #### C BC #### [facility] [address] [place] [address] MCH (RBC) [Entitic mass] 28.8 pg Normal 27.0-35.0 [facility] Comment on above: Performed By: #### C BC #### [facility] [address] [place] [address] MCHC 33.5 % Normal 31.0-37.0 [facility] Comment on above: Performed By: #### C BC #### [address] [address] MCV (RBC) [Entitic vol] 85.9 fL Normal 80.0-100.0 [facility] Comment on above: Performed By: #### C BC #### [facility] [address] [place] [address] Platelet 283 x10*3/mcL Normal 150-450 [facility] Comment on above: Performed By: #### C BC #### [address] [address] Platelet mean volume (Bld) [Entitic vol] 6.2 fL Low 6.7-10.6 [facility] Comment on above: Performed By: #### C BC #### [address] [address] RBC 3.18 x10*6/mcL Low 4.30-5.80 [facility] Comment on above: Performed By: #### C BC #### [address] [address] WBC 5.5 x10*3/mcL Normal 4.5-11.0 [facility] Comment on above: Performed By: #### C BC #### [address] [address] CRPon 04-14-2024 CRP 8.75 mg/dL High 0.00-0.75 [facility] Comment on above: Result Comment: CRP measurement is useful for assessment of non-specific INFLAMMATORY RESPONSE to infection or injury AND is a sensitive MARKER of ACUTE INFLAMMATION including CARDIAC RISK ASSESSMENT. CARDIAC patients with elevated CRP are POTENTIALLY at a HIGHER RISK OF FUTURE CARDIAC EVENTS. Performed By: #### C RP ####[address] [address] Diff Autoon 04-14-2024 Baso Absolute 0.0 x10*3/mcL Normal 0.0-0.2 [facility] Comment on above: Performed By: #### . Automated Diff #### [address] [address] Basophils/100 WBC (Bld) 0.1 % Normal 0.0-1.2 [facility] Comment on above: Performed By: #### . Automated Diff #### [address] [address] Eos Absolute 0.2 x10*3/mcL Normal 0.0-0.4 [facility] Comment on above: Performed By: #### . Automated Diff #### [address] [address] Eosinophils/100 WBC (Bld) 2.1 % Normal 0.0-6.1 [facility] Comment on above: Performed By: #### . Automated Diff #### [address] [address] Lymph Absolute 1.4 x10*3/mcL Normal 1.0-4.8 [facility] Comment on above: Performed By: #### . Automated Diff #### [address] [address] Lymphocytes/100 WBC (Bld) 17.5 % Low 27.2-40.8 [facility] Comment on above: Performed By: #### . Automated Diff #### [address] [address] Jerauld Absolute 1.0 x10*3/mcL Normal 0.3-1.1 [facility] Comment on above: Performed By: #### . Automated Diff #### [address] [address] Monocytes/100 WBC (Bld) 12.6 % Normal 4.7-13.9 [facility] Comment on above: Performed By: #### . Automated Diff #### [address] [address] Neutro Absolute 5.3 x10*3/mcL Normal 1.8-7.7 [facility] Comment on above: Performed By: #### . Automated Diff #### [address] [address] Neutro Auto 67.7 % Normal 47.2-70.8 [facility] Comment on above: Performed By: #### . Automated Diff #### [address] [address] Baso Absolute 0.1 x10*3/mcL Normal 0.0-0.2 [facility] Comment on above: Performed By: #### . Automated Diff #### [address] [address] Basophils/100 WBC (Bld) 1.1 % Normal 0.0-1.2 [facility] Comment on above: Performed By: #### . Automated Diff #### [address] [address] Eos Absolute 0.2 x10*3/mcL Normal 0.0-0.4 [facility] Comment on above: Performed By: #### . Automated Diff #### [address] [address] Eosinophils/100 WBC (Bld) 3.5 % Normal 0.0-6.1 [facility] Comment on above: Performed By: #### . Automated Diff #### [address] [address] Lymph Absolute 1.5 x10*3/mcL Normal 1.0-4.8 [facility] Comment on above: Performed By: #### . Automated Diff #### [address] [address] Lymphocytes/100 WBC (Bld) 26.7 % Low 27.2-40.8 [facility] Comment on above: Performed By: #### . Automated Diff #### [address] [address] Jerauld Absolute 0.8 x10*3/mcL Normal 0.3-1.1 [facility] Comment on above: Performed By: #### . Automated Diff #### [address] [address] Monocytes/100 WBC (Bld) 15.4 % High 4.7-13.9 [facility] Comment on above: Performed By: #### . Automated Diff #### [address] [address] Neutro Absolute 2.9 x10*3/mcL Normal 1.8-7.7 [facility] Comment on above: Performed By: #### . Automated Diff #### [address] [address] Neutro Auto 53.3 % Normal 47.2-70.8 [facility] Comment on above: Performed By: #### . Automated Diff #### [address] [address] Magnesiumon 04-14-2024 Magnesium [Mass/Vol] 2.0 mg/dL Normal 1.7-2.4 [facility] Comment on above: Performed By: #### P TT #### [address] [address] Orthopedic Progress Noteon 1 Orthopedic Progress Note [...] Ashton DO 04/14/24 19:14 EDT Normal [facility] .eGFRon 04-13-2024 GFR/1.73 sq M.predicted MDRD (S/P/Bld) [Vol rate/Area] mL/min/{1.73_m2} Normal >=60 [facility] Comment on above: Result Comment: [facility] have implemented the eGFR calculation approach [...] years Performed By: #### V ANCT #### [address] [address] Basic Metabolic Profileon Anion gap [Moles/Vol] 10 mmol/L Normal 4-12 [facility] Comment on above: Performed By: #### . Automated Diff #### [address] [address] Calcium [Mass/Vol] 8.5 mg/dL Normal 8.5-10.3 [facility] Comment on above: Performed By: #### . Automated Diff #### [address] [address] Chloride [Moles/Vol] 102 mmol/L Normal 98-110 [facility] Comment on above: Performed By: #### . Automated Diff #### [address] [address] CO2 [Moles/Vol] 25 mmol/L Normal 22-32 [facility] Comment on above: Performed By: #### . Automated Diff #### [address] [address] Creatinine [Mass/Vol] 1.32 mg/dL High 0.61-1.24 [facility] Comment on above: Performed By: #### . Automated Diff #### [address] [address] Glucose [Mass/Vol] 99 mg/dL Normal 70-99 [facility] Comment on above: Performed By: #### . Automated Diff #### [address] [address] Potassium [Moles/Vol] 3.9 mmol/L Normal 3.4-4.8 [facility] Comment on above: Performed By: #### . Automated Diff #### [address] [address] Sodium [Moles/Vol] 137 mmol/L Normal 133-142 [facility] Comment on above: Performed By: #### . Automated Diff #### [address] [address] Urea nitrogen [Mass/Vol] 13 mg/dL Normal 8-26 [facility] Comment on above: Performed By: #### . Automated Diff #### [address] [address] Urea nitrogen/Creatinine [Mass ratio] 9.8 mg/mg Low 10.0-20.0 [facility] Comment on above: Performed By: #### . Automated Diff #### [address] [address] CBC w/ Diffon 04-13-2024 Erythrocyte distribution width (RBC) [Ratio] 13.8 % Normal 11.6-14.8 [facility] Comment on above: Performed By: #### . Automated Diff #### [address] [address] Hematocrit (Bld) [Volume fraction] 26.4 % Low 41.0-53.0 [facility] Comment on above: Performed By: #### . Automated Diff #### [address] [address] Hemoglobin (Bld) [Mass/Vol] 9.0 g/dL Low 13.5-17.5 [facility] Comment on above: Performed By: #### . Automated Diff #### [address] [address] MCH (RBC) [Entitic mass] 29.5 pg Normal 27.0-35.0 [facility] Comment on above: Performed By: #### . Automated Diff #### [address] [address] MCHC 34.2 % Normal 31.0-37.0 [facility] Comment on above: Performed By: #### . Automated Diff #### [address] [address] MCV (RBC) [Entitic vol] 86.3 fL Normal 80.0-100.0 [facility] Comment on above: Performed By: #### . Automated Diff #### [address] [address] Platelet 248 x10*3/mcL Normal 150-450 [facility] Comment on above: Performed By: #### . Automated Diff #### [address] [address] Platelet mean volume (Bld) [Entitic vol] 6.1 fL Low 6.7-10.6 [facility] Comment on above: Performed By: #### . Automated Diff #### [address] [address] RBC 3.07 x10*6/mcL Low 4.30-5.80 [facility] Comment on above: Performed By: #### . Automated Diff #### [address] [address] WBC 6.2 x10*3/mcL Normal 4.5-11.0 [facility] Comment on above: Performed By: #### . Automated Diff #### [address] [address] Dietary Consultationon 04-13 Dietary Consultation Patient admitted [...] Torres RD 04/13/24 14:26 EDT Normal [facility] Diff Autoon 04-13-2024 Baso Absolute 0.0 x10*3/mcL Normal 0.0-0.2 [facility] Comment on above: Performed By: #### . Automated Diff ####[address] [address] Basophils/100 WBC (Bld) 0.3 % Normal 0.0-1.2 [facility] Comment on above: Performed By: #### . Automated Diff ####[address] [address] Eos Absolute 0.2 x10*3/mcL Normal 0.0-0.4 [facility] Comment on above: Performed By: #### . Automated Diff ####[address] [address] Eosinophils/100 WBC (Bld) 3.0 % Normal 0.0-6.1 [facility] Comment on above: Performed By: #### . Automated Diff ####[address] [address] Lymph Absolute 1.2 x10*3/mcL Normal 1.0-4.8 [facility] Comment on above: Performed By: #### . Automated Diff ####[address] [address] Lymphocytes/100 WBC (Bld) 19.2 % Low 27.2-40.8 [facility] Comment on above: Performed By: #### . Automated Diff ####[address] [address] Jerauld Absolute 0.9 x10*3/mcL Normal 0.3-1.1 [facility] Comment on above: Performed By: #### . Automated Diff ####[address] [address] Monocytes/100 WBC (Bld) 14.1 % High 4.7-13.9 [facility] Comment on above: Performed By: #### . Automated Diff ####[address] [address] Neutro Absolute 3.9 x10*3/mcL Normal 1.8-7.7 [facility] Comment on above: Performed By: #### . Automated Diff ####[address] [address] Neutro Auto 63.4 % Normal 47.2-70.8 [facility] Comment on above: Performed By: #### . Automated Diff ####[address] [address] Orthopedic Progress Noteon 1 Orthopedic Progress Note [...] Ashton DO 04/13/24 18:25 EDT Normal [facility] .eGFRon 04-12-2024 GFR/1.73 sq M.predicted MDRD (S/P/Bld) [Vol rate/Area] mL/min/{1.73_m2} Normal >=60 [facility] Comment on above: Result Comment: [facility] have implemented the eGFR calculation approach [...] = years Performed By: #### E GFR ####[address] [address] Basic Metabolic Profileon Creatinine [Mass/Vol] 1.19 mg/dL Normal 0.61-1.24 [facility] Comment on above: Performed By: #### C [id number] ####[address] [address] Urea nitrogen [Mass/Vol] 12 mg/dL Normal 8-26 [facility] Comment on above: Performed By: #### C [id number] ####[address] [address] Urea nitrogen/Creatinine [Mass ratio] 10.1 mg/mg Normal 10.0-20.0 [facility] Comment on above: Performed By: #### C [id number] ####[address] [address] Anion gap [Moles/Vol] 7 mmol/L Normal 4-12 [facility] Comment on above: Performed By: #### C [id number] ####[address] [address] Calcium [Mass/Vol] 8.4 mg/dL Low 8.5-10.3 [facility] Comment on above: Performed By: #### C [id number] ####[address] [address] Chloride [Moles/Vol] 105 mmol/L Normal 98-110 [facility] Comment on above: Performed By: #### C [id number] ####[address] [address] CO2 [Moles/Vol] 23 mmol/L Normal 22-32 [facility] Comment on above: Performed By: #### C [id number] ####[address] [place] [address] Glucose [Mass/Vol] 91 mg/dL Normal 70-99 [facility] Comment on above: Performed By: #### C [id number] ####[address] [address] Potassium [Moles/Vol] 3.8 mmol/L Normal 3.4-4.8 [facility] Comment on above: Performed By: #### C [id number] ####[address] [address] Sodium [Moles/Vol] 135 mmol/L Normal 133-142 [facility] Comment on above: Performed By: #### C [id number] ####[address] [address] CBC w/ Diffon 04-12-2024 Erythrocyte distribution width (RBC) [Ratio] 14.2 % Normal 11.6-14.8 [facility] Comment on above: Performed By: #### C BC #### [address] [address] Hematocrit (Bld) [Volume fraction] 25.3 % Low 41.0-53.0 [facility] Comment on above: Performed By: #### C BC #### [address] [address] Hemoglobin (Bld) [Mass/Vol] 8.9 g/dL Low 13.5-17.5 [facility] Comment on above: Performed By: #### C BC #### [address] [address] MCH (RBC) [Entitic mass] 30.2 pg Normal 27.0-35.0 [facility] Comment on above: Performed By: #### C BC #### [address] [address] MCHC 35.0 % Normal 31.0-37.0 [facility] Comment on above: Performed By: #### C BC #### [address] [address] MCV (RBC) [Entitic vol] 86.2 fL Normal 80.0-100.0 [facility] Comment on above: Performed By: #### C BC #### [address] [address] Platelet 226 x10*3/mcL Normal 150-450 [facility] Comment on above: Performed By: #### C BC #### [address] [address] Platelet mean volume (Bld) [Entitic vol] 6.3 fL Low 6.7-10.6 [facility] Comment on above: Performed By: #### C BC #### [address] [address] RBC 2.94 x10*6/mcL Low 4.30-5.80 [facility] Comment on above: Performed By: #### C BC #### [address] [address] WBC 4.9 x10*3/mcL Normal 4.5-11.0 [facility] Comment on above: Performed By: #### C BC #### [address] [address] Diff Autoon 04-12-2024 Baso Absolute 0.0 x10*3/mcL Normal 0.0-0.2 [facility] Comment on above: Performed By: #### . Automated Diff #### [address] [address] Basophils/100 WBC (Bld) 0.9 % Normal 0.0-1.2 [facility] Comment on above: Performed By: #### . Automated Diff #### [address] [address] Eos Absolute 0.2 x10*3/mcL Normal 0.0-0.4 [facility] Comment on above: Performed By: #### . Automated Diff #### [address] [address] Eosinophils/100 WBC (Bld) 4.2 % Normal 0.0-6.1 [facility] Comment on above: Performed By: #### . Automated Diff #### [address] [address] Lymph Absolute 1.2 x10*3/mcL Normal 1.0-4.8 [facility] Comment on above: Performed By: #### . Automated Diff #### [address] [address] Lymphocytes/100 WBC (Bld) 24.8 % Low 27.2-40.8 [facility] Comment on above: Performed By: #### . Automated Diff #### [address] [address] Jerauld Absolute 0.7 x10*3/mcL Normal 0.3-1.1 [facility] Comment on above: Performed By: #### . Automated Diff #### [address] [address] Monocytes/100 WBC (Bld) 15.1 % High 4.7-13.9 [facility] Comment on above: Performed By: #### . Automated Diff #### [address] [address] Neutro Absolute 2.7 x10*3/mcL Normal 1.8-7.7 [facility] Comment on above: Performed By: #### . Automated Diff #### [address] [address] Neutro Auto 55.0 % Normal 47.2-70.8 [facility] Comment on above: Performed By: #### . Automated Diff #### [address] [address] Infectious Disease Progress Noteon 04-12-2024 Infectious Disease [...] mg/dL 04/08/2024 11:13 EDT Fluid WBC Count 71742 /mcL (High) 04/08/2024 16:54 EDT Fluid Polynuclear Cells 90 % (High) 04/08/2024 16:54 EDT Methicillin Resistant Staph aurus(MRSA) NOT DETECTED 04/08/2024 22:34 EDT Microbiology - Current Encounter No qualifying data available. Diagnostic Results Diagnostic Radiology XR PICC Floor Insert 10/07/24 13:14:29 IMPRESSION: 1. New right upper extremity [...] Yodit Mancia 04/12/24 17:28 EDT Normal [facility] Orthopedic Progress Noteon 1 Orthopedic Progress Note [...] home. May need SNF placement. They prefer [facility] in [place]. Electronically signed by Yony Ashton DO 04/12/24 11:11 EDT Normal [facility] Progress Note-Nurseon 2023 Progress Note-Nurse 4F Single Lumen Power PICC Solo inserted under seldinger method in the Right Basilic on 04.12.24. Sterile field maintained. No complications noted. Pt tolerated well. Arm. Circ. 33cm. Cut Length 48cm. External Length 0cm. XR tip confirmation in Distal SVC. Tip location confirmed per Dr. Alvarado. LOT# [id number] Electronically signed by Flavia Butler 04/12/24 11:19 EDT Normal [facility] Vanco Troughon 04-12-2024 Vanco Trough 11.4 mcg/mL Normal 10.0-15.0 [facility] Comment on above: Performed By: #### V ANCT #### [address] [address] .eGFRon 04-11-2024 GFR/1.73 sq M.predicted MDRD (S/P/Bld) [Vol rate/Area] mL/min/{1.73_m2} Normal >=60 [facility] Comment on above: Result Comment: [facility] have implemented the eGFR calculation approach [...] years Performed By: #### V ANCT #### [address] [address] Basic Metabolic Profileon Anion gap [Moles/Vol] 8 mmol/L Normal 4-12 [facility] Comment on above: Performed By: #### V ANCT #### [address] [address] Calcium [Mass/Vol] 8.4 mg/dL Low 8.5-10.3 [facility] Comment on above: Performed By: #### V ANCT #### [address] [address] Chloride [Moles/Vol] 105 mmol/L Normal 98-110 [facility] Comment on above: Performed By: #### V ANCT #### [address] [address] CO2 [Moles/Vol] 23 mmol/L Normal 22-32 [facility] Comment on above: Performed By: #### V ANCT #### [address] [address] Creatinine [Mass/Vol] 1.21 mg/dL Normal 0.61-1.24 [facility] Comment on above: Performed By: #### V ANCT #### [address] [address] Glucose [Mass/Vol] 95 mg/dL Normal 70-99 [facility] Comment on above: Performed By: #### V ANCT #### [address] [address] Potassium [Moles/Vol] 4.0 mmol/L Normal 3.4-4.8 [facility] Comment on above: Performed By: #### V ANCT #### [address] [address] Sodium [Moles/Vol] 136 mmol/L Normal 133-142 [facility] Comment on above: Performed By: #### V ANCT #### [address] [address] Urea nitrogen [Mass/Vol] 12 mg/dL Normal 8-26 [facility] Comment on above: Performed By: #### V ANCT #### [address] [address] Urea nitrogen/Creatinine [Mass ratio] 9.9 mg/mg Low 10.0-20.0 [facility] Comment on above: Performed By: #### V ANCT #### [address] [address] CBC w/ Diffon 04-11-2024 Erythrocyte distribution width (RBC) [Ratio] 14.4 % Normal 11.6-14.8 [facility] Comment on above: Performed By: #### . Body Fluid Differential #### [address] [address] Hematocrit (Bld) [Volume fraction] 27.7 % Low 41.0-53.0 [facility] Comment on above: Performed By: #### . Body Fluid Differential #### [address] [address] Hemoglobin (Bld) [Mass/Vol] 9.5 g/dL Low 13.5-17.5 [facility] Comment on above: Performed By: #### . Body Fluid Differential #### [address] [address] MCH (RBC) [Entitic mass] 30.0 pg Normal 27.0-35.0 [facility] Comment on above: Performed By: #### . Body Fluid Differential #### [address] [address] MCHC 34.2 % Normal 31.0-37.0 [facility] Comment on above: Performed By: #### . Body Fluid Differential #### [address] [address] MCV (RBC) [Entitic vol] 87.6 fL Normal 80.0-100.0 [facility] Comment on above: Performed By: #### . Body Fluid Differential #### [address] [address] Platelet 213 x10*3/mcL Normal 150-450 [facility] Comment on above: Performed By: #### . Body Fluid Differential #### [address] [address] Platelet mean volume (Bld) [Entitic vol] 6.4 fL Low 6.7-10.6 [facility] Comment on above: Performed By: #### . Body Fluid Differential #### [address] [address] RBC 3.16 x10*6/mcL Low 4.30-5.80 [facility] Comment on above: Performed By: #### . Body Fluid Differential #### [address] [address] WBC 5.3 x10*3/mcL Normal 4.5-11.0 [facility] Comment on above: Performed By: #### . Body Fluid Differential #### [address] [address] Diff Autoon 04-11-2024 Baso Absolute 0.0 x10*3/mcL Normal 0.0-0.2 [facility] Comment on above: Performed By: #### V ANCT #### [address] [address] Basophils/100 WBC (Bld) 0.6 % Normal 0.0-1.2 [facility] Comment on above: Performed By: #### V ANCT #### [address] [address] Eos Absolute 0.2 x10*3/mcL Normal 0.0-0.4 [facility] Comment on above: Performed By: #### V ANCT #### [address] [address] Eosinophils/100 WBC (Bld) 3.5 % Normal 0.0-6.1 [facility] Comment on above: Performed By: #### V ANCT #### [address] [address] Lymph Absolute 1.2 x10*3/mcL Normal 1.0-4.8 [facility] Comment on above: Performed By: #### V ANCT #### [address] [address] Lymphocytes/100 WBC (Bld) 22.8 % Low 27.2-40.8 [facility] Comment on above: Performed By: #### V ANCT #### [address] [address] Jerauld Absolute 0.9 x10*3/mcL Normal 0.3-1.1 [facility] Comment on above: Performed By: #### V ANCT #### [address] [address] Monocytes/100 WBC (Bld) 16.7 % High 4.7-13.9 [facility] Comment on above: Performed By: #### V ANCT #### [address] [address] Neutro Absolute 3.0 x10*3/mcL Normal 1.8-7.7 [facility] Comment on above: Performed By: #### V ANCT #### [address] [place] [address] Neutro Auto 56.4 % Normal 47.2-70.8 [facility] Comment on above: Performed By: #### V ANCT #### [place] [id number] Orthopedic Progress Noteon 1 Orthopedic Progress Note [...] Ashton DO 04/11/24 12:15 EDT Normal [facility] .eGFRon 04-10-2024 Estimated GFR 60 mL/min/1.73m? Normal >=60 [facility] Comment on above: Result Comment: [facility] have implemented the eGFR calculation approach [...] By: #### . Body Fluid Differential #### [address] [address] Basic Metabolic Profileon Anion gap [Moles/Vol] 8 mmol/L Normal 4-12 [facility] Comment on above: Performed By: #### . Body Fluid Differential #### [address] [address] Calcium [Mass/Vol] 8.3 mg/dL Low 8.5-10.3 [facility] Comment on above: Performed By: #### . Body Fluid Differential #### [address] [address] Chloride [Moles/Vol] 103 mmol/L Normal 98-110 [facility] Comment on above: Performed By: #### . Body Fluid Differential #### [address] [address] CO2 [Moles/Vol] 23 mmol/L Normal 22-32 [facility] Comment on above: Performed By: #### . Body Fluid Differential #### [address] [address] Creatinine [Mass/Vol] 1.33 mg/dL High 0.61-1.24 [facility] Comment on above: Performed By: #### . Body Fluid Differential #### [address] [address] Glucose [Mass/Vol] 104 mg/dL High 70-99 [facility] Comment on above: Performed By: #### . Body Fluid Differential #### [address] [address] Potassium [Moles/Vol] 4.0 mmol/L Normal 3.4-4.8 [facility] Comment on above: Performed By: #### . Body Fluid Differential #### [address] [address] Sodium [Moles/Vol] 134 mmol/L Normal 133-142 [facility] Comment on above: Performed By: #### . Body Fluid Differential #### [address] [address] Urea nitrogen [Mass/Vol] 15 mg/dL Normal 8-26 [facility] Comment on above: Performed By: #### . Body Fluid Differential #### [address] [address] Urea nitrogen/Creatinine [Mass ratio] 11.3 mg/mg Normal 10.0-20.0 [facility] Comment on above: Performed By: #### . Body Fluid Differential #### [address] [address] CBC w/ Diffon 04-10-2024 Erythrocyte distribution width (RBC) [Ratio] 13.9 % Normal 11.6-14.8 [facility] Comment on above: Performed By: #### . Automated Diff #### [address] [address] Hematocrit (Bld) [Volume fraction] 28.8 % Low 41.0-53.0 [facility] Comment on above: Performed By: #### . Automated Diff #### [address] [address] Hemoglobin (Bld) [Mass/Vol] 9.5 g/dL Low 13.5-17.5 [facility] Comment on above: Performed By: #### . Automated Diff #### [address] [address] MCH (RBC) [Entitic mass] 29.1 pg Normal 27.0-35.0 [facility] Comment on above: Performed By: #### . Automated Diff #### [address] [address] MCHC 33.1 % Normal 31.0-37.0 [facility] Comment on above: Performed By: #### . Automated Diff #### [address] [address] MCV (RBC) [Entitic vol] 87.8 fL Normal 80.0-100.0 [facility] Comment on above: Performed By: #### . Automated Diff #### [address] [address] Platelet 207 x10*3/mcL Normal 150-450 [facility] Comment on above: Performed By: #### . Automated Diff #### [address] [address] Platelet mean volume (Bld) [Entitic vol] 6.5 fL Low 6.7-10.6 [facility] Comment on above: Performed By: #### . Automated Diff #### [address] [address] RBC 3.28 x10*6/mcL Low 4.30-5.80 [facility] Comment on above: Performed By: #### . Automated Diff #### [address] [address] WBC 5.3 x10*3/mcL Normal 4.5-11.0 [facility] Comment on above: Performed By: #### . Automated Diff #### [address] [address] Diff Autoon 04-10-2024 Baso Absolute 0.0 x10*3/mcL Normal 0.0-0.2 [facility] Comment on above: Performed By: #### V ANCT #### [address] [address] Basophils/100 WBC (Bld) 0.8 % Normal 0.0-1.2 [facility] Comment on above: Performed By: #### V ANCT #### [address] [address] Eos Absolute 0.1 x10*3/mcL Normal 0.0-0.4 [facility] Comment on above: Performed By: #### V ANCT #### [address] [address] Eosinophils/100 WBC (Bld) 2.2 % Normal 0.0-6.1 [facility] Comment on above: Performed By: #### V ANCT #### [address] [address] Lymph Absolute 1.0 x10*3/mcL Normal 1.0-4.8 [facility] Comment on above: Performed By: #### V ANCT #### [address] [address] Lymphocytes/100 WBC (Bld) 18.1 % Low 27.2-40.8 [facility] Comment on above: Performed By: #### V ANCT #### [address] [address] Jerauld Absolute 0.8 x10*3/mcL Normal 0.3-1.1 [facility] Comment on above: Performed By: #### V ANCT #### [address] [address] Monocytes/100 WBC (Bld) 15.4 % High 4.7-13.9 [facility] Comment on above: Performed By: #### V ANCT #### [address] [address] Neutro Absolute 3.4 x10*3/mcL Normal 1.8-7.7 [facility] Comment on above: Performed By: #### V ANCT #### [facility] [address] [place] [address] Neutro Auto 63.5 % Normal 47.2-70.8 [facility] Comment on above: Performed By: #### V ANCT #### [facility] [address] [place] [address] Infectious Disease Progress Noteon 04-10-2024 Infectious Disease Progress Note Patient seen briefly. Chart reviewed. Fever staying down. Labs okay. Cultures remain no growth. Continue Vanco Rocephin. I will not be rounding tomorrow. Please call if any concern. Electronically signed by Gaby LEE, Herbert Llamas 04/10/24 20:38 EDT Normal [facility] Orthopedic Progress Noteon 1 Orthopedic Progress Note [...] placement. And antibiotic selection Electronically signed by Ashton DO Yony Hayes 04/10/24 09:30 EDT Normal [facility] Vanco Troughon 04-10-2024 Vanco Trough 7.2 mcg/mL Low 10.0-15.0 [facility] Comment on above: Performed By: #### C BC #### [facility] [address] [place] [address] .eGFRon 04-09-2024 Estimated GFR 41 mL/min/1.73m? Low >=60 [facility] Comment on above: Result Comment: [facility] have implemented the eGFR calculation approach [...] Performed By: #### . Automated Diff #### [address] [place] [address] Basic Metabolic Profileon Anion gap [Moles/Vol] 7 mmol/L Normal 4-12 [facility] Comment on above: Performed By: #### V ANCT #### [address] [address] Calcium [Mass/Vol] 8.1 mg/dL Low 8.5-10.3 [facility] Comment on above: Performed By: #### V ANCT #### [address] [address] Chloride [Moles/Vol] 98 mmol/L Normal 98-110 [facility] Comment on above: Performed By: #### V ANCT #### [address] [address] CO2 [Moles/Vol] 23 mmol/L Normal 22-32 [facility] Comment on above: Performed By: #### V ANCT #### [address] [address] Creatinine [Mass/Vol] 1.84 mg/dL High 0.61-1.24 [facility] Comment on above: Performed By: #### V ANCT #### [address] [address] Glucose [Mass/Vol] 130 mg/dL High 70-99 [facility] Comment on above: Performed By: #### V ANCT #### [address] [address] Potassium [Moles/Vol] 3.5 mmol/L Normal 3.4-4.8 [facility] Comment on above: Performed By: #### V ANCT #### [address] [address] Sodium [Moles/Vol] 128 mmol/L Low 133-142 [facility] Comment on above: Performed By: #### V ANCT #### [address] [address] Urea nitrogen [Mass/Vol] 26 mg/dL Normal 8-26 [facility] Comment on above: Performed By: #### V ANCT #### [address] [address] Urea nitrogen/Creatinine [Mass ratio] 14.1 mg/mg Normal 10.0-20.0 [facility] Comment on above: Performed By: #### V ANCT #### [address] [address] CBC w/ Diffon 04-09-2024 Erythrocyte distribution width (RBC) [Ratio] 14.1 % Normal 11.6-14.8 [facility] Comment on above: Performed By: #### . Body Fluid Differential #### [address] [address] Hematocrit (Bld) [Volume fraction] 33.9 % Low 41.0-53.0 [facility] Comment on above: Performed By: #### . Body Fluid Differential #### [address] [address] Hemoglobin (Bld) [Mass/Vol] 11.2 g/dL Low 13.5-17.5 [facility] Comment on above: Result Comment: Hgb delta: MCV seems ok, Chemistry results seem ok. Performed By: #### . Body Fluid Differential #### [address] [address] MCH (RBC) [Entitic mass] 29.1 pg Normal 27.0-35.0 [facility] Comment on above: Performed By: #### . Body Fluid Differential #### [address] [address] MCHC 33.1 % Normal 31.0-37.0 [facility] Comment on above: Performed By: #### . Body Fluid Differential #### [address] [address] MCV (RBC) [Entitic vol] 88.1 fL Normal 80.0-100.0 [facility] Comment on above: Performed By: #### . Body Fluid Differential #### [address] [address] Platelet 292 x10*3/mcL Normal 150-450 [facility] Comment on above: Performed By: #### . Body Fluid Differential #### [address] [address] Platelet mean volume (Bld) [Entitic vol] 6.6 fL Low 6.7-10.6 [facility] Comment on above: Performed By: #### . Body Fluid Differential #### [address] [address] RBC 3.85 x10*6/mcL Low 4.30-5.80 [facility] Comment on above: Performed By: #### . Body Fluid Differential #### [address] [address] WBC 8.6 x10*3/mcL Normal 4.5-11.0 [facility] Comment on above: Performed By: #### . Body Fluid Differential #### [address] [address] Diff Autoon 04-09-2024 Baso Absolute 0.0 x10*3/mcL Normal 0.0-0.2 [facility] Comment on above: Performed By: #### . Automated Diff ####[address] [address] Basophils/100 WBC (Bld) 0.4 % Normal 0.0-1.2 [facility] Comment on above: Performed By: #### . Automated Diff ####[address] [address] Eos Absolute 0.0 x10*3/mcL Normal 0.0-0.4 [facility] Comment on above: Performed By: #### . Automated Diff ####[address] [address] Eosinophils/100 WBC (Bld) 0.3 % Normal 0.0-6.1 [facility] Comment on above: Performed By: #### . Automated Diff ####[address] [address] Lymph Absolute 1.4 x10*3/mcL Normal 1.0-4.8 [facility] Comment on above: Performed By: #### . Automated Diff ####[address] [address] Lymphocytes/100 WBC (Bld) 15.9 % Low 27.2-40.8 [facility] Comment on above: Performed By: #### . Automated Diff ####[address] [address] Jerauld Absolute 1.0 x10*3/mcL Normal 0.3-1.1 [facility] Comment on above: Performed By: #### . Automated Diff ####[address] [address] Monocytes/100 WBC (Bld) 11.9 % Normal 4.7-13.9 [facility] Comment on above: Performed By: #### . Automated Diff ####[address] [address] Neutro Absolute 6.1 x10*3/mcL Normal 1.8-7.7 [facility] Comment on above: Performed By: #### . Automated Diff ####[address] [address] Neutro Auto 71.5 % High 47.2-70.8 [facility] Comment on above: Performed By: #### . Automated Diff ####[address] [address] Infectious Disease Consultat john 04-09-2024 Infectious Disease [...] mg= 1 mL, IV Push, q2min, PRN [place] 5 mg-325 mg oral tablet, 1 tabs, [...] Emp (more content not included)... Normal [facility] MRSA, PCRon 04-09-2024 LAB ONLY Result Called? No Normal [facility] Comment on above: Performed By: #### V ANCT #### [address] [address] Methicillin Resistant Staph aurus(MRSA) Not detected Normal Not Detected [facility] Comment on above: Result Comment: Mut ations or polymorphisms in primer or probe binding regions may affect detection of new or unknown MRSA variants resulting in a false negative. The [employer] Xpert MRSA Assay is a qualitative in [...] clinician. 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 PT declined straight cath and bladder scanner all night into the morning at first assessment. PT agreed to bladder scanning at 0930 04/09/2014. bladder scanner showed 354 in bladder, PT refuses straight cath. notified, awaiting orders. Electronically signed by AyogAa N 04/09/24 09:37 EDT Normal [facility] Progress Note-Nurse upon giving pt 0900 medication, RN checked blood pressure. BP was 88/53 with a manually, 83/52 L arm and 85/50 R arm. notified. PT is not symptomatic at this time. Electronically signed by AyoAga N 04/09/24 09:31 EDT Normal [facility] .BF Cell Cnt RBC Aon 024 Fluid RBC Count [id number] /mcL Normal [facility] Comment on above: Result Comment: Ther e are no established Reference Ranges for bronchoalveolar lavage (BAL), synovial, miscellaneous body, or dialysate fluids. Performed By: #### . Automated Diff #### [place] [address] .BF Cell Cnt WBC Aon 024 Fluid WBC Count 10229 /mcL High 0-150 [facility] Comment on above: Result Comment: Ther e are no established Reference Ranges for bronchoalveolar lavage (BAL), miscellaneous body, or dialysate fluids. Performed By: #### . Body Fluid Differential #### [place] [address] .BF Diffon 04-08-2024 Fluid Mononuclear Cells 8 % Normal 0-78 [facility] Comment on above: Result Comment: Ther e are no established Reference Ranges for bronchoalveolar lavage (BAL), miscellaneous body, or dialysate fluids. Performed By: #### . Body Fluid Differential #### [place] [id number] Fluid Other Cells 2 % Normal 0-10 [facility] Comment on above: Result Comment: Ther e are no established Reference Ranges for bronchoalveolar lavage (BAL), miscellaneous body, or dialysate fluids. Performed By: #### . Body Fluid Differential #### [place] [id number] Fluid Polynuclear Cells 90 % High 0-25 [facility] Comment on above: Result Comment: Ther e are no established Reference Ranges for bronchoalveolar lavage (BAL), miscellaneous body, or dialysate fluids. Performed By: #### . Body Fluid Differential #### [place] [address] .eGFRon 04-08-2024 Estimated GFR 58 mL/min/1.73m? Low >=60 [facility] Comment on above: Result Comment: [facility] have implemented the eGFR calculation approach [...] = years Performed By: #### E GFR ####[place] [id number] BF Cell Counton 04-08-2024 Body Fluid Cell Cnt Type Synovial Normal [facility] Comment on above: Performed By: #### C BC #### [address] [address] C Sterile BFon 04-08-2024 C Sterile BF ------- Final No growth at 2 weeks. ------- Gram Stain Many White Blood Cells No organisms seen. Normal [facility] Comment on above: Performed By: #### E SR #### [address] [address] CBC w/ Diffon 04-08-2024 Erythrocyte distribution width (RBC) [Ratio] 13.9 % Normal 11.6-14.8 [facility] Comment on above: Performed By: #### C BC ####[address] [address] Hematocrit (Bld) [Volume fraction] 42.1 % Normal 41.0-53.0 [facility] Comment on above: Performed By: #### C BC ####[address] [address] Hemoglobin (Bld) [Mass/Vol] 14.2 g/dL Normal 13.5-17.5 [facility] Comment on above: Performed By: #### C BC ####[address] [address] MCH (RBC) [Entitic mass] 29.4 pg Normal 27.0-35.0 [facility] Comment on above: Performed By: #### C BC ####[address] [address] MCHC 33.8 % Normal 31.0-37.0 [facility] Comment on above: Performed By: #### C BC ####[address] [address] MCV (RBC) [Entitic vol] 87.1 fL Normal 80.0-100.0 [facility] Comment on above: Performed By: #### C BC ####[address] [address] Platelet 329 x10*3/mcL Normal 150-450 [facility] Comment on above: Performed By: #### C BC ####[address] [address] Platelet mean volume (Bld) [Entitic vol] 6.5 fL Low 6.7-10.6 [facility] Comment on above: Performed By: #### C BC ####[address] [address] RBC 4.83 x10*6/mcL Normal 4.30-5.80 [facility] Comment on above: Performed By: #### C BC ####[address] [address] WBC 6.7 x10*3/mcL Normal 4.5-11.0 [facility] Comment on above: Performed By: #### C BC ####[address] [address] CMPon 04-08-2024 Albumin [Mass/Vol] 4.3 g/dL Normal 3.2-4.9 [facility] Comment on above: Performed By: #### . Body Fluid Differential #### [address] [address] Albumin/Globulin [Mass ratio] 1.2 {ratio} Normal 1.1-2.2 [facility] Comment on above: Performed By: #### . Body Fluid Differential #### [address] [place] [address] Alk Phos 60 IU/L Normal 32-91 [facility] Comment on above: Performed By: #### . Body Fluid Differential #### [address] [address] ALT [Catalytic activity/Vol] 24 U/L Normal 17-63 [facility] Comment on above: Performed By: #### . Body Fluid Differential #### [address] [address] AST [Catalytic activity/Vol] 21 U/L Normal 15-41 [facility] Comment on above: Performed By: #### . Body Fluid Differential #### [address] [address] Bili Total 1.4 mg/dL High 0.3-1.2 [facility] Comment on above: Performed By: #### . Body Fluid Differential #### [address] [address] Creatinine [Mass/Vol] 1.37 mg/dL High 0.61-1.24 [facility] Comment on above: Performed By: #### . Body Fluid Differential #### [address] [address] Protein [Mass/Vol] 7.9 g/dL Normal 6.5-8.1 [facility] Comment on above: Performed By: #### . Body Fluid Differential #### [address] [address] Urea nitrogen [Mass/Vol] 24 mg/dL Normal 8-26 [facility] Comment on above: Performed By: #### . Body Fluid Differential #### [address] [address] Urea nitrogen/Creatinine [Mass ratio] 17.5 mg/mg Normal 10.0-20.0 [facility] Comment on above: Performed By: #### . Body Fluid Differential #### [address] [address] Anion gap [Moles/Vol] 11 mmol/L Normal 4-12 [facility] Comment on above: Performed By: #### . Body Fluid Differential #### [address] [address] Calcium [Mass/Vol] 9.4 mg/dL Normal 8.5-10.3 [facility] Comment on above: Performed By: #### . Body Fluid Differential #### [address] [address] Chloride [Moles/Vol] 101 mmol/L Normal 98-110 [facility] Comment on above: Performed By: #### . Body Fluid Differential #### [address] [address] CO2 [Moles/Vol] 23 mmol/L Normal 22-32 [facility] Comment on above: Performed By: #### . Body Fluid Differential #### [address] [address] Glucose [Mass/Vol] 102 mg/dL High 70-99 [facility] Comment on above: Performed By: #### . Body Fluid Differential #### [address] [address] Potassium [Moles/Vol] 4.4 mmol/L Normal 3.4-4.8 [facility] Comment on above: Performed By: #### . Body Fluid Differential #### [address] [address] Sodium [Moles/Vol] 135 mmol/L Normal 133-142 [facility] Comment on above: Performed By: #### . Body Fluid Differential #### [address] [address] CRPon 04-08-2024 CRP 0.54 mg/dL Normal 0.00-0.75 [facility] Comment on above: Result Comment: CRP measurement is useful for assessment of non-specific INFLAMMATORY RESPONSE to infection or injury AND is a sensitive MARKER of ACUTE INFLAMMATION including CARDIAC RISK ASSESSMENT. CARDIAC patients with elevated CRP are POTENTIALLY at a HIGHER RISK OF FUTURE CARDIAC EVENTS. Performed By: #### C BC #### [address] [address] Diff Autoon 04-08-2024 Baso Absolute 0.1 x10*3/mcL Normal 0.0-0.2 [facility] Comment on above: Performed By: #### . Body Fluid Differential #### [address] [address] Basophils/100 WBC (Bld) 1.0 % Normal 0.0-1.2 [facility] Comment on above: Performed By: #### . Body Fluid Differential #### [address] [address] Eos Absolute 0.1 x10*3/mcL Normal 0.0-0.4 [facility] Comment on above: Performed By: #### . Body Fluid Differential #### [address] [address] Eosinophils/100 WBC (Bld) 1.5 % Normal 0.0-6.1 [facility] Comment on above: Performed By: #### . Body Fluid Differential #### [address] [address] Lymph Absolute 1.6 x10*3/mcL Normal 1.0-4.8 [facility] Comment on above: Performed By: #### . Body Fluid Differential #### [address] [address] Lymphocytes/100 WBC (Bld) 23.6 % Low 27.2-40.8 [facility] Comment on above: Performed By: #### . Body Fluid Differential #### [address] [address] Jerauld Absolute 0.8 x10*3/mcL Normal 0.3-1.1 [facility] Comment on above: Performed By: #### . Body Fluid Differential #### [address] [address] Monocytes/100 WBC (Bld) 11.3 % Normal 4.7-13.9 [facility] Comment on above: Performed By: #### . Body Fluid Differential #### [address] [address] Neutro Absolute 4.2 x10*3/mcL Normal 1.8-7.7 [facility] Comment on above: Performed By: #### . Body Fluid Differential #### [address] [address] Neutro Auto 62.6 % Normal 47.2-70.8 [facility] Comment on above: Performed By: #### . Body Fluid Differential #### [address] [address] ED Clinical Summaryon 2023 ED Clinical Summary [address] [id number] ED Clinical Summary Person Information [facility] Age[facility] 64 Years : 1960 Sex: Male PCP: Asmita Casillas MD Marital Status: Phone: Race: White Ethnicity: Not or Language: [place] Zealander Visit Reason: Knee pain-swelling; R Knee Pain Acuity: 3 Enc Type: Observation Med Service: Emergency Medicine Arrival: 04/08/2024 10:28:57 Discharge: LOS: 000 05:38 Checkin: 04/08/2024 10:28:57 Checkout: 04/08/2024 16:06:50 Dispo Type: Address: [address] [place] [id number] Provider Notes: History of Present Illness Patient is a 63 years old male who presented emergency with right knee pain with plan to admission and have a knee replacement. ?Patient had earlier this year he replacement ligament repair. ?Reports some redness and?possible infection. ?Seen his doctor?at?[facility] Dr. Lawrence who recommended that the patient?come [...] range between ( 27.2 and 40.8 ) Jerauld Auto: 11.3 % -- Normal range between [...] range between ( 41.0 and 53.0 ) Jerauld Absolute: 0.8 x10 MCH: 29.4 pg -- [...] ( (more content not included)... Normal [facility] ED Note-Nursingon 04-08-2024 ED Note-Nursing per pt and family, pt was sent to the ED for his infected right knee and planned surgery today with dr lawrence from [facility]. Electronically signed by Quang Vargas 04/08/24 10:39 EDT Normal [facility] ED Note-Physicianon 04-08-20 ED Note-Physician Chief Complaint [...] [facility] Dr. Lawrence who recommended that the patient [...] _ ? NEXUS C-spine Criteria: _ ? [place] Ankle Rule: _ ? [place] Knee Rule: _ ? [place] Criteria for DVT: _ ? [place] Criteria for PE: _ Discussed with: _ Treatment and Disposition ED Course: Patient is a 64 years old male who presented emergency with the symptoms above. Exam as mentioned above. I did do lab work for the patient. Did discuss case also with Dr. Lawrence over [facility] to recommend no antibiotics for now. Admit to the hospitalist service. Patient was discussed with Dr. Sanders stated the patient for admission. NPO. Plan to go to the OR at 4 PM. Assessment/Plan 1. Knee pain, concern for infection Orders: Sodium Chloride 0.9% intravenous solution 1,000 mL, 1,000 mL, Soln-IV, IV, 100 mL/hr, Start Date: 04/08/24 11:24:00 EDT, Dispense From Location: [facility], 2.26, m2, 04/08/24 11:24:00 EDT Consult to [...] acetaminophen, 1000 mg= 100 mL, IV Piggyback, Administrative Services Officer acetaminophen, 650 mg, Oral, q6hr, PRN acetaminophen, 650 mg, Oral, q6hr, PRN Lactated Ringers Injection intravenous solution 1,000 mL, 1000 mL, IV LR 1,000 mL, 1000 mL, IV [place] 5 mg-325 mg oral tablet, 1 tabs, Oral, q4hr, PRN Normal Saline Flush 0.9% injectable solution, 10 mL, IV Push, As Indicated, PRN Normal Saline Flush 0.9% injectable solution, 10 mL, IV Push, BID oxyCODONE, 5 mg, Oral, q6hr, PRN Pepcid, 20 mg= 2 mL, IV Push, Administrative Services Officer Sodium Chloride 0.9% intravenous solution 1,000 mL, 1000 mL, IV Zofran, 4 mg= 2 mL, IV Push, Administrative Services Officer Home atenolol 50 mg oral tablet, 50 [...] taking (more content not included)... Normal [facility] ESRon 04-08-2024 Sed Rate 17 mm/hr Normal 0-23 [facility] Comment on above: Performed By: #### E SR #### [address] [address] Operative Reporton Operative Report Indication for Surgery [...] DO (Surgeon - Primary) Evan Mathew MD Circulation Supervisor Evan Mathew MD Anesthesia General Ambar Pope MD, Braeden Sanchez (Telephone Order Clerk Room Service) Kelsea Jose (Provider) [place] (Provider) Estimated [...] of mo (more content not included)... Normal [facility] PTon 04-08-2024 INR Coag (PPP) [Relative time] 1.0 {INR} Normal <=3.5 [facility] Comment on above: Result Comment: INR has no normal range. INR Therapeutic range is: 2.0-3.0 (AF, CVA, TIAs, DVT prophylaxis, acute DVT) 2.5-3.5 ([facility] heart valves, recurrent thrombosis/emboli) Performed By: #### . Automated Diff #### [address] [address] PT Coag (PPP) [Time] 10.7 s Normal 9.2-12.0 [facility] Comment on above: Performed By: #### . Automated Diff #### [address] [address] PTTon 04-08-2024 aPTT Coag (Bld) [Time] 18.7 s Low 19.5-28.2 [facility] Comment on above: Performed By: #### P TT #### [address] [address] XR Knee 1 or 2 Views Righton [...] Signed in Other Vendor System) Normal [facility] Aerobic Cultureon 03-29-2024 Aerobic Culture Right Knee Effusion No Growth 2 Days Right Knee Effusion No Anaerobes Isolated 3 Days Right Knee Effusion For Gram Stain results, please refer to specimen Requisition [id number]. PERFORMED BY: [place] [address] PATHOLOGIST SWITCH ADJUSTER KIMI TAYLOR M.D. Normal [facility] Comment on above: Performed By: #### A ERC, FL CLAYTON, GS, FLCCDIFF #### [address] Body fluid crystal identific ation by light microscopyOrdered By: Yony Ashton on 03-29-2024 Crystals LM Nom (Body fld) None seen [facility] Body fluid differential cell countOrdered By: Yony Ashton on 03-29-2024 Differential panel (Body fld) 6 % [facility] Comment on above: The reference interv al and other method performance specifications have not been established for this body fluid. The test result must be integrated into the clinical context for interpretation. Cell Count/Diff, Fluidon Appearance, Fluid Turbid Normal [facility] Comment on above: Order Comment: [...] A ERC, FL CLAYTON, GS, FLCCDIFF #### [place] [address] [place] Color, Fluid [place] Normal [facility] Comment on above: Order [...] A ERC, FL CLAYTON, GS, FLCCDIFF #### [place] [address] [place] Color, Fluid Supernatant [place] Normal [facility] Comment on above: Order Comment: [...] A ERC, FL CLAYTON, GS, FLCCDIFF #### [facility] [address] Eosinophils, Fluid 0 /100{WBC} Normal 0-3 [facility] Comment on above: Order Comment: EFFUS ION, RIGHT KNEE Body Fluid Source: Other (Name in the Site) Body Fluid Site: R. KNEE Result Comment: PERF ORMED BY: [place] [address] PATHOLOGIST SWITCH ADJUSTER KIMI TAYLOR M.D. Performed By: #### A ERC, FL CLAYTON, GS, FLCCDIFF #### [address] Lymphocytes, Fluid 4 % Normal The [facility] Comment on above: [...] A ERC, FL CLAYTON, GS, FLCCDIFF #### [address] Monocytes/Macrophages , Fluid 6 % Normal [facility] Comment on above: Order Comment: [...] A ERC, FL CLAYTON, GS, FLCCDIFF #### [address] Neutrophil, Fluid 90 % Normal [facility] Comment on above: Order Comment: [...] A ERC, FL CLAYTON, GS, FLCCDIFF #### [facility] [address] RBC, Fluid [address] Normal [facility] Comment on above: Order Comment: [...] A ERC, FL CLAYTON, GS, FLCCDIFF #### [facility] [address] [place], Body Fluid [address] Normal [facility] Comment on above: Order [...] A ERC, FL CLAYTON, GS, FLCCDIFF #### [facility] [address] [place] [id number] [facility] Cells Counted Total [#] in B fritz fluidOrdered By: Yony Ashton on 03-29-2024 Cells Counted Total (Body fld) [#] [address] mm^[address] [facility] Comment on above: The reference interv al and other method performance specifications have not been established for this body fluid. The test result must be integrated into the clinical context for interpretation. Color of Spun Body fluidOrde red By: Yony Ashton on 03-29-2024 Color (Spun body fld) [facility] Comment on above: The reference interv al and other method performance specifications have not been established for this body fluid. The test result must be integrated into the clinical context for interpretation. Crystals, Fluidon 03-29-2024 Crystals, Fluid None Seen Normal [facility] Comment on above: Order Comment: Body Fluid Source: Other (Name in the Site) Body Fluid Site: R. KNEE Result Comment: PERF ORMED BY: [place] [address] PATHOLOGIST SWITCH ADJUSTER KIMI TAYLOR M.D. Performed By: #### A ERC, FL CLAYTON, GS, FLCCDIFF #### [facility] [address] [place] [address] [facility] Determination of appearance of body fluidOrdered By: Yony Ashton on 03-29-2024 Appearance (Body fld) Turbid Fir [facility] Comment on above: The reference interv al and other method performance specifications have not been established for this body fluid. The test result must be integrated into the clinical context for interpretation. Erythrocytes [#/volume] in B fritz fluid by Automated countOrdered By: Yony Ashton on 03-29-2024 RBC Auto (Body fld) [#/Vol] 22838 mm^[address] [facility] Comment on above: The reference interv al and other method performance specifications have not been established for this body fluid. The test result must be integrated into the clinical context for interpretation. Evaluation of color of body fluidOrdered By: Yony Ashton on 03-29-2024 Color (Body fld) [place] [facility] Comment on above: The reference interv al and other method performance specifications have not been established for this body fluid. The test result must be integrated into the clinical context for interpretation. Gram Stainon 03-29-2024 Microscopic observation Gram stain Nom (Unsp spec) Gram Stain Result No Bacteria Seen PERFORMED BY: [place] [address] PATHOLOGIST SWITCH ADJUSTER KIMI TAYLOR M.D. Normal [facility] [facility] Comment on above: Performed By: #### A ERC, FL CLAYTON, GS, FLCCDIFF #### [facility] [address] [place], [place] [id number] [facility] Gram stain for investigation of transfusion reactionOrdered By: Yony Ashton on 03-29-2024 Microscopic observation Gram stain Nom (Unsp spec) [facility] Manual body fluid eosinophil s/100 leukocytesOrdered By: Yony Ashton on 03-29-2024 Eosinophils/100 WBC Manual cnt (Body fld) 0 /100{WBC} 0-[address] [facility] Manual body fluid lymphocyte s/100 leukocytesOrdered By: Yony Ashton on 03-29-2024 Lymphocytes/100 WBC Manual cnt (Body fld) 4 % [facility] Comment on above: The reference interv al and other method performance specifications have not been established for this body fluid. The test result must be integrated into the clinical context for interpretation. Neutrophils/100 WBC Manual c nt (Body fld)Ordered By: Yony Ashton on 03-29-2024 Neutrophils/100 WBC (Body fld) 90 % [facility] Comment on above: The reference interv al and other method performance specifications have not been established for this body fluid. The test result must be integrated into the clinical context for interpretation. Sidney 11-17-2023 L Specimen: [id number] Received: 11/19/23 Status: CASANDRA Zuleta Num: [id number] Spec Type: Surgical Subm Dr: NON STAFF Tissues: A Joint/Knee (RT KNEE BONE) Procedures: HE, Gross/Micro L4, Decalcification Age/ Patient Sex Location Account Attending Physician Mauricio Syed 63/M LABELL [id number] NON STAFF SPEC NUM: [id number] RECD: 11/19/23 STATUS: CASANDRA ZULETA NUM: [id number] MARIAN: 11/17/[address]: NON STAFF ENTERED: 11/19/[address] [facility] DR: Faviola,Lab SPEC TYPE: Surgical DEPT: LOLI [...] Serial sectioning shows yellow spongy bone matrix. Ship Design Teacher sections are submitted in A1. Clinical history: Primary OA right knee CPT Codes 65241 BONE AND TISSUE Specimen: [id number] Received: 11/19/23 Status: CASANDRA Zuleta Num: [id number] Spec Type: Surgical Subm Dr: NON STAFF Tissues: A Joint/Knee (RT KNEE BONE) Procedures: NITISH, Gross/Micro L4, Decalcification Patient: Mauricio Syed [id number] (Continued) Signed (signature on file) Audrey Grubbs MD 11/20/23 1501 Normal [facility] XR KNEE LT 4V or [...] by: LA MARTINEZ Date: 2022-03-23 19:23 Normal [facility] Vital Signs Date Time Vital Sign Value Performing Clinician Facility 08-10-2024 08:38-0500 Body height 177.8 cm Asmita Casillas MD Work Phone: [facility] 08-10-2024 08:38-0500 Body weight 104.32 kg Asmita Casillas MD Work Phone: [facility] 07-12-2024 08:50-0500 Blood Pressure Location Oneil ALEXIS [facility] 07-12-2024 08:50-0500 Body temperature 98.6 [degF] Oneil ALEXIS [facility] 07-12-2024 08:50-0500 Diastolic blood pressure 86 mm[Hg] Oneil ALEXIS [facility] 07-12-2024 08:50-0500 Heart rate 100 /min Oneil ALEXIS [facility] 07-12-2024 08:50-0500 Respiratory rate 18 /min Oneil ALEXIS [facility] 07-12-2024 08:50-0500 Systolic blood pressure 139 mm[Hg] Oneil ALEXIS [facility] 04-24-2022 09:45-0400 Body height 177.8 cm Whisbi Other [employer] Other 04-24-2022 09:45-0400 Body mass index (BMI) [Ratio] 34.15 kg/m2 [employer]ush [employer] Other [employer] Other 04-24-2022 09:45-0400 Body weight 107.96 kg Ankush [employer] Other [employer] Other Encounters Encounter Date Encounter Type Care Provider Facility Start: 08-10-2024 End: 08-10-2024 ambulatory Asmita Casillas MD Work Phone: [facility] Work Phone: Start: 08-10-2024 End: 08-10-2024 Patient encounter procedure Asmita Casillas MD Work Phone: [facility] [place] Work Phone: Start: 07-22-2024 End: 07-22-2024 ambulatory Asmita Casillas MD Facility:[facility] Start: 07-12-2024 End: 07-12-2024 ambulatory Oneil ALEXIS Facility:[facility] Start: 07-12-2024 End: 07-12-2024 Patient encounter procedure Oneil ALEXIS [facility] Start: 07-05-2024 ambulatory Oneil ALEXIS Facility :[facility] Start: 06-17-2024 End: 06-17-2024 ambulatory Herbert Griffin MD Facility:[facility] Start: 05-24-2024 End: 05-24-2024 ambulatory Asmita Casillas MD Facility:[facility] Start: 05-17-2024 End: 05-17-2024 ambulatory Yodit Tovar [employer] Facility:[facility] Start: 05-10-2024 End: 05-12-2024 ambulatory [facility] ASHTON [facility] Start: 05-10-2024 End: 05-12-2024 Subsequent hospital visit by physician [facility] Additional Xray At [facility] Comment on above: 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, subsequent encounter Start: 05-03-2024 End: 05-03-2024 ambulatory Yodit Tovar [employer] Facility:[facility] Start: 04-26-2024 End: 04-28-2024 [facility] Start: 04-18-2024 End: 04-18-2024 Telephone encounter Rosa Vaughan WAXING 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 Work Phone: Start: 03-29-2024 End: 03-29-2024 Departed Referred DO Yony Ashton Work Phone: [facility] [place] Work Phone: Start: 01-19-2024 End: 01-19-2024 [facility]ulatory [facility] Start: 11-17-2023 End: 11-17-2023 ambulatory NON STAFF Facility:[facility] Start: 04-24-2022 End: 04-24-2022 ambulatory Ankush Quintero II Other [employer] Other Start: 04-24-2022 Office outpatient visit 15 minutes Ankush Quintero II [facility] Start: 03-29-2022 End: 04-23-2022 ambulatory ANKUSH QUINTERO Facility:[facility] Start: 03-27-2022 End: 03-27-2022 Patient encounter procedure PHYSICIAN NO FAMILY [facility] Start: 03-23-2022 End: 03-23-2022 ambulatory RUDDY HECTOR Facility:[facility] Procedures Date Procedure Procedure Detail Performing Clinician Start: 05-10-2024 Radiologic examinati on knee 1/2 views Yony Ashton DO Work Phone: Start: 03-29-2024 Investigation of transfusion reaction DO Yony Ashton Work Phone: Start: 03-27-2022 Radiologic examinati on of knee PHYSICIAN NO FAMILY Start: 03-27-2022 Pelvis X-ray PHYSICIAN NO FAMILY Total replacement of right knee joint Oneil ALEXIS Plan of Treatment Date Care Activity Detail Author Start: 08-10-2024 MR Prostate WO and W contrast IV [facility] Start: 08-10-2024 MR prostate wo/w con MR prostate wo/ w con [facility] Start: 03-29-2024 Microbial culture, b fritz fluid [facility] Start: 03-29-2024 Microscopic observat ion [Identifier] in Unspecified specimen by Gram stain [facility] Start: 03-07-2024 COVID-19 Vaccine ( season) [facility] Start: 02-05-2024 Influenza vaccination Flu [facility] (# 1) [facility] Start: 2021 Respiratory Syncytia l Virus (RSV) or age 60 yrs+ (1 - 1-dose 60+ series) Respiratory Syncytial Virus (RSV) or age 60 yrs+ (1 - 1-dose 60+ series) [facility] [employer] Start: 2006 Screening for malign ant neoplasm of colon [facility] [employer] Start: 2001 Lipid panel Lipids [employer] Start: 01-14-1996 Diabetes screen Diabetes screen [facility] Start: 01-14-1980 DTaP/Tdap/Td vaccine (1 - Tdap) DTaP/Tdap/Td vaccine (1 - Tdap) [facility] Start: 1979 Hepatitis C screening Hepatitis C sc reen [facility] Start: 01-14-1976 HIV screening HIV screen [facility] Start: 1973 Depression Screen Depression Screen [facility] Bacteria identified in Unspecified specimen by Aerobe culture [facility] Bacteria identified in Unspecified specimen by Anaerobe culture [facility] Immunizations Immunization Date Immunization Notes Care Provider Fa philip 04-17-2023 influenza virus vaccine, unspecified formulation Oneil ALEXIS [facility] 08-17-2021 zoster vaccine recombinant Oneil ALEXIS [facility] 05-30-2021 zoster vaccine recombinant Oneil ALEXIS [facility] 05-23-2021 SARS-CoV-2 (COVID-19 ) mRNA BNT-162b2 vax Oneil ALEXIS [facility] Comment on above: Result Comment: 2024: [id number] 05-07-2021 influenza, unspecifi ed formulation Oneil ALEXIS [facility] 10-12-2020 SARS-CoV-2 (COVID-19 ) mRNA BNT-162b2 vax Oneil ALEXIS [facility] Comment on above: Result Comment: 2024: TPV50 09-20-2020 SARS-CoV-2 (COVID-19 ) mRNA BNT-162b2 vax Oneil ALEXIS [facility] Comment on above: Result Comment: 2024: TPV50 04-08-2020 influenza virus vaccine, unspecified formulation Oneil ALEXIS [facility] 05-26-2019 influenza, unspecifi ed formulation Oneil ALEXIS [facility] Payers Date Payer Category Payer Unknown 2023 Self-pay [id number] 2023 Unknown [id number] 1960 Unknown [id number] [id number] 1961 Unknown [id number] 2.16.840.1.921159.3.579.2.593 1961 Unknown [id number] 2.16.840.1.882831.3.579.2.174 1961 Unknown [id number] 2.16.840.1.952507.3.579.2.174 1961 Unknown [id number] 2.16.840.1.400105.3.579.2.174 1961 Unknown [id number] 2.16.840.1.211186.3.579.2.174 1961 Unknown [id number] 2.16.840.1.797826.3.579.2.174 1961 Unknown [id number] 2.16.840.1.081428.3.579.2.727 1961 Unknown [id number] 2.16.840.1.402783.3.579.2.196 1961 Unknown [id number] 2.16.840.1.527725.3.579.2.196 1961 Unknown [id number] 2.16.840.1.398963.3.579.2.196 1961 Unknown [id number] 2.16.840.1.312400.3.579.2.196 1961 Unknown [id number] 2.16.840.1.978227.3.579.2.196 1961 Unknown [id number] 2.16.840.1.876250.3.579.2.196 1961 Unknown [id number] 2.16.840.1.144778.3.579.2.196 1961 Unknown [id number] 2.16.840.1.565732.3.579.2.196 1961 Unknown [id number] 2.16.840.1.638412.3.579.2.196 1961 Unknown [id number] 2.16.840.1.826367.3.579.2.196 1959 Unknown [id number] 2.16.8 40.1.917321.19 Unknown [id number] 2.16.840.1.151754.3.579.2.531 Unknown [id number] 2.16.840.1.236114.3.579.2.531 Unknown [id number] Worker'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 Care Works [facility] [id number] Social History Date Type Detail Facility Tobacco smoking status OHIS Unknown if ever smoked [facility] Work Phone: Start: 1960 Sex Assigned At Male [facility] Start: 01-19-2024 Sex Assigned At [employer] Other Tobacco smoking status OHIS Tobacco smoking consumption unknown [facility] Start: 1960 Sex assigned at Not on file [facility] Start: 01-15-2024 Tobacco smoking status NHIS Never smoked tobacco [facility] [employer] Start: 01-15-2024 Tobacco use and exposure Smokeless tobacco non-user [facility] [employer] Start: 01-20-2024 Alcoholic beverage intake Current drinker of alcohol (finding) Reij Wolf [facility] Start: 01-19-2024 End: 01-20-2024 Alcoholic beverage intake Reji Wolf [facility] Physical abuse Denies Reji kirkland [facility] Start: 07-12-2024 Tobacco smoking status Ex-smoker (finding) [facility] Start: 08-11-2024 Sex Patient sex un known (finding) [facility] NEGATED: Highlighted rowStart: QUANF History of tobacco use Passive smoker Reji Wolf [facility] Functional Status Date Assessment Result Facility 07-12-2024 Functional Status N/A [facility] Clinical Notes 04-24-2022 to 07-12-2024 Telephone Encounter - Rosa Vaughan NP - 04/18/2024 8:33 AM EDTTelephone Encounter - Rosa Vaughan NP - 04/18/2024 8:33 AM EDT Note Date & Type Note Facility 07-12-2024 Hospital Discharge instructions Patient Education 07/12/2024 09:28:13 Transrectal Ultrasound-Guided Prostate Biopsy, Care After Transrectal Ultrasound-Guided Prostate Biopsy, Care After The following information offers guidance on how to care for yourself after your procedure. Your health care provider may also give you more specific instructions. If you have problems or questions, contact your health care provider. What can I expect after the procedure? After the procedure, it is common to have: Pain and discomfort near your rectum, especially while sitting. [place]-colored urine due to small amounts of blood in your urine. A burning feeling while urinating. Blood in your stool (feces) or bleeding from your rectum. Blood in your semen. Follow these instructions at home: Medicines Take anxk-gme-tccpnps and prescription medicines only as told by your health care provider. If you were given a sedative during your procedure, it can affect you for several hours. Do not drive or operate machinery until your health care provider says that it is safe. If you were prescribed an antibiotic medicine, take it as told by your health care provider. Do not stop using the antibiotic even if you start to feel better. Activity Return to your normal activities as told by your health care provider. Ask your health care provider what activities are safe for you. Ask your health care provider when it is okay for you to resume sexual activity. You may have to avoid lifting. Ask your health care provider how much you can safely lift. General instructions Drink enough fluid to keep your urine pale yellow. Watch your urine, stool, and semen for new or increased bleeding. Keep all follow-up visits. This is important. Contact a health care provider if: You have any of the following: ?Blood clots in your urine or stool. ?Blood in your urine more than 2 weeks after the procedure. ?Blood in your semen more than 2 months after the procedure. ?New or increased bleeding in your urine, stool, or semen. ?Severe pain in your abdomen. Your urine smells bad or unusual. You have trouble urinating. Your lower abdomen feels firm. You have problems getting an erection. You have nausea or you vomit. Get help right away if: You have a fever or chills. This could be a sign of infection. You have bright red urine. You have severe pain that does not get better with medicine. You cannot urinate. Summary After this procedure, it is common to have pain and discomfort around your rectum, especially while sitting. You may have blood in your urine and stool after the procedure. It is common to have blood in your semen after this procedure. Get help right away if you have a fever or chills. This could be a sign of infection. This information is not intended to replace advice given to you by your health care provider. Make sure you discuss any questions you have with your health care provider. Document Revised: 12/17/2021 Document Reviewed: 12/17/2021 [employer] Patient Education 2023 [employer]. 07/12/2024 09:28:13 Transrectal Ultrasound-Guided Prostate Biopsy Transrectal Ultrasound-Guided Prostate Biopsy A transrectal ultrasound-guided prostate biopsy is a procedure to remove samples of prostate tissue for testing. The prostate is a walnut-sized gland that is located below the bladder and in front of the rectum. During this procedure, a small device (probe) is lubricated and put inside the rectum. The probe sends out sound waves that make a picture of the prostate and surrounding tissues (transrectal ultrasound). The images are used to help guide the process of removing the samples. The samples are taken to a lab to be checked for prostate cancer. This procedure is usually done to evaluate the prostate gland of men who have raised (elevated) levels of prostate-specific antigen (PSA), which can be a sign of prostate cancer or prostate enlargement related to aging (benign prostatic hyperplasia, or BPH). Tell a health care provider about: Any allergies you have. All medicines you are taking, including vitamins, herbs, eye drops, creams, and kcyj-obe-otzvdxp medicines. Any problems you or family members have had with anesthetic medicines. Any bleeding problems you have. Any surgeries you have had. Any medical conditions you have. Any prostate infections you have had. What are the risks? Generally, this is a safe procedure. However, problems may occur, including: Prostate infection. Bleeding from the rectum. Blood in the urine. Allergic reactions to medicines. Damage to surrounding structures such as blood vessels, organs, or muscles. Difficulty passing urine. Nerve damage. This is usually temporary. What happens before the procedure? Medicines Ask your health care provider about: Changing or stopping your regular medicines. This is especially important if you are taking diabetes medicines or blood thinners. Taking medicines such as aspirin and ibuprofen. These medicines can thin your blood. Do not take these medicines unless your health care provider tells you to take them. Taking fxoo-qht-dzgrpao medicines, vitamins, herbs, and supplements. General instructions Follow instructions from your health care provider about eating and drinking. In most instances, you will not need to stop eating and drinking completely before the procedure. You will be given an enema. During an enema, a liquid is injected into your rectum to clear out waste. You may have a blood or urine sample taken. Ask your health care provider what steps will be taken to help prevent infection. These steps may include: ?Washing skin with a germ-killing soap. ?Taking antibiotic medicine. If you will be going home right after the procedure, plan to have a responsible adult: ?Take you home from the hospital or clinic. You will not be allowed to drive. ?Care for you for the time you are told. What happens during the procedure? An IV will be inserted into one of your veins. You will be given one or both of the following: ?A medicine to help you relax (sedative). ?A medicine to numb the area (local anesthetic). You will be placed on your left side, and your knees will be bent toward your chest. A probe with lubricated gel will be placed into your rectum, and images will be taken of your prostate and surrounding structures. Numbing medicine will be injected into your prostate. A biopsy needle will be inserted through your rectum or perineum and guided to your prostate using the ultrasound images. Prostate tissue samples will be removed, and the needle and probe will then be removed. The biopsy samples will be sent to a lab to be tested. The procedure may vary among health care providers and hospitals. What happens after the procedure? Your blood pressure, heart rate, breathing rate, and blood oxygen level will be monitored until you leave the hospital or clinic. You may have some discomfort in the rectal area. You will be given pain medicine as needed. If you were given a sedative during the procedure, it can affect you for several hours. Do not drive or operate machinery until your health care provider says that it is safe. It is up to you to get the results of your procedure. Ask your health care provider, or the department that is doing the procedure, when your results will be ready. Keep all follow-up visits. This is important. Summary A transrectal ultrasound-guided biopsy removes samples of tissue from your prostate using ultrasound-guided sound waves to help guide the process. This procedure is usually done to evaluate the prostate gland of men who have raised (elevated) levels of prostate-specific antigen (PSA), which can be a sign of prostate cancer or prostate enlargement related to aging. After your procedure, you may feel some discomfort in the rectal area. Plan to have a responsible adult take you home from the hospital or clinic, and follow up with your health care provider for your results. This information is not intended to replace advice given to you by your health care provider. Make sure you discuss any questions you have with your health care provider. Document Revised: 12/17/2021 Document Reviewed: 12/17/2021 [employer] Patient Education 2023 [employer]. Follow Up Care 07/05/2024 15:21:45 With:SMUI LEE, Oneil Ruiz, URL Address: [facility] [address] , [place] [address]- When: Unknown [facility] 07-12-2024 Note Urology Office/Clini c Note Chief Complaint referral HPI Staff 64yr old male pt referred by Dr. Casillas for elevated PSA. Pt unable to give urine sample at this time. PSA: 06/25/24 - .08 06/28/24 - .1 Dysuria: denies Incomplete bladder emptying: denies Hematuria: denies Frequency: denies, can go a couple hours Urgency: denies Nocturia: 1x per night Stream: good stream Leaking: denies Post void dripping: denies Wearing pads/ Depends: denies Urge incontinence: denies Stress incontinence: denies Incontinence without Sensory Awareness: denies Abdominal pain: denies Flank pain: denies Sexual complaints: denies History of Present Illness Tests reviewed: referral records, PSAs I have reviewed the previous health record information and history for this patient from Dr. Casillas . I have reviewed and verified the staff HPI to be accurate for this encounter. Review of Systems PHQ Score Initial Depression Screen Score: 2 SCORE ROS - Provider Constitutional: denies weight loss, denies hot flashes. Eyes: denies eye problems. Gastrointestinal: denies nausea, denies vomiting. Cardiovascular: denies chest pain or angina. Integumentary: no dryness Musculoskeletal: denies musculoskeletal symptoms. ENMT: denies otolaryngeal symptoms. Respiratory: no shortness of breath. Heme/Lymph: denies easy bleeding tendency, denies easy bruising tendency. Psychiatric: no confusion, no anxiety. Genitourinary: See HPI. Physical Exam Vitals & Measurements T: 37 ???C(Oral) HR: 100(Peripheral) RR: 18 BP: 139/86 HT: 70 in HT: 179 cm WT: 107 kg WT: 235.894 lb BMI: 33.39 General Appearance: alert, no distress, well nourished, well developed male. HAM ~ 50+ g, no nodules. Assessment/Plan Mauricio is a 64 yo male new pt referred by Dr. Casillas due to elevated PSA. 1. Elevated PSA (R97.20: Elevated prostate specific antigen [PSA]) PSA: no prior PSAs on clinisync 06/25/24 - .08 06/28/24 - .1 & 13.6% Pt unable to provide urine sample today. Educated pt on PSA levels and typical range. Elevation can be caused from inflammation/infection and prostate cancer. However, PSA is extremely elevated, essentially diagnostic for prostate cancer. High probability that he has prostate ca. No hx of prostate infection. Explained prostate cancer workup including prostate MRI and bx. No fam hx of prostate ca. HAM ~ 50+ g, no nodules but unable to palpate the entire prostate. -Schedule prostate MRI. -Will schedule TRUS of Prostate with Biopsy (possible fusion pending MRI above). The procedural risks, benefits, details, and treatment alternatives have been discussed with the patient. These include minimal to severe bleeding, infection, blood in the semen, inability to urinate, and severe infection requiring hospitalization and IV antibiotics, among others. Full informed consent has been obtained. Will order Local anesthesia. -Recently had temporary knee placement due to infection. Once infection is cleared, will have permanent knee replacement. Follows with Dr. Lawrence. Will have to see if it is MRI compatible. 2. BPH (benign prostatic hyperplasia) (N40.0: Benign prostatic hyperplasia without lower urinary tract symptoms) See #1. Not taking any prostate or bladder meds. Good stream. Feels he empties completely. No urgency. Follow-up With When Contact Information SUMI LEE, Oneil Ruiz, URL [facility] [address], [place] [address]- Additional Instructions: Schedule prostate MRI and TRUS/bx (possible fusion) Patient Education Transrectal Ultrasound-Guided Prostate Biopsy, Care After Transrectal Ultrasound-Guided Prostate Biopsy ILaisha, personally scribed for Dr. Alexis on 07/12/2024 09:58:12. . Documentation recorded by the scribe, Laisha Gamze, accurately reflects the services(s) I performed and decisions made by me. Authenticated by Dr. Alexis on 07/12/2024 10:07:19. Problem List/Past Medical History Ongoing BPH (benign prostatic hyperplasia) Elevated PSA Historical No qualifying data Procedure/Surgical History Total replacement of right knee joint. Medications doxycycline hyclate 100 mg Tab meloxicam, 15 mg, Oral, Daily tramadol, 50 mg, Oral, Daily traZODONE 150 mg Tab Allergies Keflex (Unknown) penicillin (Unknown) Social History Alcohol Never., 07/12/2024 Substance Abuse Never., 07/12/2024 Tobacco Former smoker, quit more than 30 days ago Tobacco Use:. Never Smokeless Tobacco Use:. Cigarettes, 07/12/2024 Immunizations Vaccine Date Status Comments influenza virus vaccine, inactivated 04/17/2023 Recorded zoster vaccine, inactivated 08/17/2021 Recorded zoster vaccine, inactivated 05/30/2021 Recorded SARS-CoV-2 (COVID-19) mRNA BNT-162b2 vax 05/23/2021 Recorded 2024-07-12: [id number] influenza, unspecified formulation 05/07/2021 Recorded SARS-CoV-2 (COVID-19) mRNA BNT-162b2 vax 10/12/2020 (more content not included)... [facility] Comment on above: Result Comment: Elec tronically Signed By: Oneil ALEXIS MD\.br\Date and Time Signed: 07/12/24 10:07 EST\.br\Electronically Co-Signed By: Laisha Gamez\.br\Date and Time Co-Signed: 07/12/24 10:00 EST 07-12-2024 Note Patient Education Oncology Transrectal Ultrasound-Guided Prostate Biopsy, Care After The following information offers guidance on how to care for yourself after your procedure. Your health care provider may also give you more specific instructions. If you have problems or questions, contact your health care provider. What can I expect after the procedure? After the procedure, it is common to have: ??? Pain and discomfort near your rectum, especially while sitting. ??? [place]-colored urine due to small amounts of blood in your urine. ??? A burning feeling while urinating. ??? Blood in your stool (feces) or bleeding from your rectum. ??? Blood in your semen. Follow these instructions at home: Medicines ??? Take dyor-xfw-tszfmil and prescription medicines only as told by your health care provider. ??? If you were given a sedative during your procedure, it can affect you for several hours. Do not drive or operate machinery until your health care provider says that it is safe. ??? If you were prescribed an antibiotic medicine, take it as told by your health care provider. Do not stop using the antibiotic even if you start to feel better. Activity ??? Return to your normal activities as told by your health care provider. Ask your health care provider what activities are safe for you. ??? Ask your health care provider when it is okay for you to resume sexual activity. ??? You may have to avoid lifting. Ask your health care provider how much you can safely lift. General instructions ??? Drink enough fluid to keep your urine pale yellow. ??? Watch your urine, stool, and semen for new or increased bleeding. ??? Keep all follow-up visits. This is important. Contact a health care provider if: ??? You have any of the following: ? Blood clots in your urine or stool. ? Blood in your urine more than 2 weeks after the procedure. ? Blood in your semen more than 2 months after the procedure. ? New or increased bleeding in your urine, stool, or semen. ? Severe pain in your abdomen. ??? Your urine smells bad or unusual. ??? You have trouble urinating. ??? Your lower abdomen feels firm. ??? You have problems getting an erection. ??? You have nausea or you vomit. Get help right away if: ??? You have a fever or chills. This could be a sign of infection. ??? You have bright red urine. ??? You have severe pain that does not get better with medicine. ??? You cannot urinate. Summary ??? After this procedure, it is common to have pain and discomfort around your rectum, especially while sitting. ??? You may have blood in your urine and stool after the procedure. ??? It is common to have blood in your semen after this procedure. ??? Get help right away if you have a fever or chills. This could be a sign of infection. This information is not intended to replace advice given to you by your health care provider. Make sure you discuss any questions you have with your health care provider. Document Revised: 12/17/2021 Document Reviewed: 12/17/2021 [employer] Patient Education ? 2023 [employer]. Transrectal Ultrasound-Guided Prostate Biopsy A transrectal ultrasound-guided prostate biopsy is a procedure to remove samples of prostate tissue for testing. The prostate is a walnut-sized gland that is located below the bladder and in front of the rectum. During this procedure, a small device (probe) is lubricated and put inside the rectum. The probe sends out sound waves that make a picture of the prostate and surrounding tissues (transrectal ultrasound). The images are used to help guide the process of removing the samples. The samples are taken to a lab to be checked for prostate cancer. This procedure is usually done to evaluate the prostate gland of men who have raised (elevated) levels of prostate-specific antigen (PSA), which can be a sign of prostate cancer or prostate enlargement related to aging (benign prostatic hyperplasia, or BPH). Tell a health care provider about: ??? Any allergies you have. ??? All medicines you are taking, including vitamins, herbs, eye drops, creams, and supn-aff-oqdlwtu medicines. ??? Any problems you or family members have had with anesthetic medicines. ??? Any bleeding problems you have. ??? Any surgeries you have had. ??? Any medical conditions you have. ??? Any prostate infections you have had. What are the risks? Generally, this is a safe procedure. However, problems may occur, including: ??? Prostate infection. ??? Bleeding from the rectum. ??? Blood in the urine. ??? Allergic reactions to medicines. ??? Damage to surrounding structures such as blood vessels, organs, or muscles. ??? Difficulty passing urine. ??? Nerve damage. This is usually temporary. What happens before the procedure? Medicines Ask your health care provider about: ??? Changing or stopping your regular medicines. This is especial (more content not included)... [facility] 04-18-2024 Telephone encounter Note Rx for tramadol is sent for this [facility] patient today, #90 [facility] 04-18-2024 Miscellaneous Notes Rx for tramadol is sent for this [facility] patient today, #90 documented in this encounter [facility] 04-15-2024 Note Admission Informatio n Patient: Mauricio Syed : 1960 Date of Admission: 04/08/2024 10:28:57 Date of Discharge: 04/15/2024 14:29:00 PCP: Vinny LEE, Asmita Blum Consult: Yony Ashton DO; Gaby LEE, Herbert Llamas Brief Hospital Course Summary: Mauricio Syed, a 64-year-old male with past medical history [...] (APR 13) 226 (APR 12) Na 135 (OCT 09) 135 (OCT 09) 137 (OCT 08) 135 (APR 07) K 4.2 (APR 09) 3.5 (APR 14) 3.9 (APR 13) 3.8 [...] (04/08/2024) Electroni (more content not included)... [facility] 04-12-2024 Note Procedure: Portable AP chest radiograph following peripherally inserted central catheter (PICC) insertion. Inserted by: Flavia Butler RN. PICC type: 4 Chinese single lumen Power PICC Solo. Puncture site: [...] Electronically Signed in Other Vendor System) [facility] 04-08-2024 Note Chief Complaint patient had knee replacement and ligament repair earlier in the year but it is infected, surgery with Dr Lawrence today at 1600 Assessment/Plan Brief Hospital Course Summary: Mauricio Syed, a 64-year-old male with past medical history of hypertension, hyperlipidemia who presented to the emergency room complaining of right knee redness with associated swelling which has been progressively getting worse. Patient had a right knee surgery done several months ago, then sustained a ruptured tendon and required repeat surgery about 2 months ago. He was seen at [facility], he started having persistent knee redness [...] my privilege to provide care for Mauricio Syed, a 64-year-old male with past medical history [...] bowel sounds, no masses Extremities: Right knee redness/swelling/warmth/tenderne ss noted on exam Skin: no open sores [...] acetaminophen, 1000 mg= 100 mL, IV Piggyback, Administrative Services Officer acetaminophen, 650 mg, Oral, q6hr, PRN acetaminophen, [...] mg= 1 mL, IV Push, q2min, PRN [place] 5 mg-325 mg oral tablet, 1 tabs, Oral, q4hr, PRN [place] 5 mg-325 mg oral tablet, 1 tabs, Oral, q6hr, PRN Normal Saline Flush 0.9% injectable solution, 10 mL, IV Push, As Indicated, PRN Normal Saline Flush 0.9% injectable solution, 10 mL, IV Push, BID Normal Saline Flush 0.9% injectab (more content not included)... [facility] 04-24-2022 Evaluation note Encounter Date Diagnosis Assessment [...] begin doing his own therapy at home. [employer] Other Evaluation + Plan note No data available for this section [facility] evaluation noteNo assessment information available [facility] Work Phone: Evaluation note* Diagnosis Pain- Primary Generalized pain documented [facility] Diagnosis Infection of total right knee replacement, subsequent encounter documented in this encounter Reji Caleb Wolf [facility] general Narrative - Reported* Type Description Date Medical History hypertension Surgical History vasectomy [employer] Other Progress note No data available for this section [facility] Advance Directives Advance Directive Response Recorded Date/ Time Advance Directives No February 10, 019 1:39pm Date Activated Date Inactivated Comments 01/19/2024 7:07 AM 01/19/2024 1:01 PM Advance Directive Response Recorded Date/ Time Advance Directives No February 10, 019 12:39pm Summary Purpose Family History Relationship Condition Age at Onset Recorded Date/T irvin father Unknown mother Hypertension Unknown Chief Complaint and Reason for Visit Chief Complaint Admit Date R97.20 August 10, 2024 6 :59pm Additional Source Comments Care Teams (unrecognized sec [...] March 29, 2024 End: March 29, 2024 Superintendent Service Relationship Specialty Start Date End Date Asmita Casillas MD [address] [place], [place] [id number] PCP - General Family Medicine 01/19/24 Superintendent Service Relationship Specialty Start Date End Date Asmita Casillas MD [address] [place] [id number] PCP - General Family Medicine 01/19/24 Team Status: Active Member Role Status Dates Asmita Casillas MD Primary Care Provider Active Team Status: Inactive Member Role Status Dates Oneil Alexis MD Attending Provider Active St art: August 10, 2024 End: August 10, 2024 Asmita Casillas MD Primary Care Provider Active Start: August 10, 2024 End: August 10, 2024 Goals (unrecognized section and content) Goals may be documented in a n alternate sectionNo InformationGoals may be documented in an alternate section No data available for this sectionGoals may be documented in an alternate section REASON FOR VISIT (unrecogniz ed section and content) 4 WEEK RECHECK (unrecognized sect ion and content) No Status Records FoundNo Status Records FoundNo Status Records FoundNo Status Records FoundNo Status Records Found INFORMATION SOURCE (unrecogn ized section and content) DATE CREATED AUTHOR 05/11/2022 [facility] DATE CREATED AUTHOR AUTHOR'S ORGANIZ ATION 04/06/[address] [facility] DATE CREATED AUTHOR AUTHOR'S ORGANIZ ATION 05/14/2024 [facility] DATE CREATED AUTHOR AUTHOR'S ORGANIZ ATION 07/17/2024 [facility] DATE CREATED AUTHOR AUTHOR'S ORGANIZ ATION 07/25/2024 [facility] FOR RECORDS PERTAINING TO PATIENTS WHO ARE [...] BE BASED ON THE PRIMARY CLINICAL RECORDS. [facility] [employer] [facility]. provides no warranty or guarantee of the accuracy or completeness of information in this document.
[2024-08-12 13:47] LABS: Basophils Percent Auto 0.6 % (0.2-2.0); Eosinophils Absolute Auto 0.2 10^3/uL (0.0-0.7); Eosinophils Percent Auto 2.2 % (0.9-7.0); Hematocrit 45.4 % (42.0-54.0); Hemoglobin 14.8 g/dL (14.0-18.0); Immature Granulocytes Abs Auto 0.03 10^3/uL (0.00-0.03); Immature Granulocytes Pct Auto 0.4 % (0.0-0.5); Lymphocytes Absolute Auto 1.6 10^3/uL (1.2-3.8); Lymphocytes Percent Auto 22.8 % (20.5-60.0); Mean Corpuscular HGB Conc 32.6 g/dL (29.9-35.2); Mean Corpuscular Hemoglobin 26.1 pg (25.9-34.0); Mean Corpuscular Volume 79.9 fL (80.0-94.0); Mean Platelet Volume 8.3 fL (9.5-13.5); Monocytes Absolute Auto 0.7 10^3/uL (0.3-0.8); Monocytes Percent Auto 9.5 % (1.7-12.0); Neutrophils Absolute Auto 4.6 10^3/uL (1.4-6.5); Neutrophils Percent Auto 64.5 % (43.0-75.0); Platelet Count 288 10^3/uL (150-450); Red Blood Count 5.68 10^6/uL (4.70-6.10); White Blood Count 7.2 10^3/uL (4.0-11.0)
[2024-08-12 14:07] LABS: Erythrocyte Sedimentation Rate 8 mm/hr (<=20)
[2024-08-12 14:14] LABS: C Reactive Protein <0.50 mg/dL (<=0.50)
--- OUTSIDE RECORDS SUMMARY | 2024-08-17 08:27 | XMS_ITS | CCD ---
Author Organization [facility] Inform ion Partnership [facility] Care Team Providers Care Managed Care Specialist Name Role Phone NO FAMILY, PHYSICIAN Primary Care Provider Unava ilable MD Ankush Quintero II Attending Provider [phone] Ankush Quintero II Unavailable ANKUSH QUINTERO Admitting Unavailable ANKUSH QUINTERO Attending Unavailable YOMI VALDEZ Primary Care Unavailable RUDDY HECTOR Admitting Unavailable RUDDY HECTOR Attending Unavailable YOMI VALDEZ Primary Care Unavailable LA MARTINEZ Consulting Unavailable RUDYD HECTOR Consulting Unavailable DO Yony Ashton Attending Provider [phone] Unavailable Primary Care Provider UnavailAsmita Pedroza MD Primary Care Provider ASMITA CASILLAS Primary Care [...] Unavailjudit Sanders MD, Radha Solis Admitting Unavailab Tahir LEE, Radha Solis Attending UnavailYony Bower DO Consulting Chary Griffin MD, Herbert Llamas Consulting Unavailable Asmita Casillas MD Primary Care Unavailjudit Griffin MD, Herbert Llamas Attending Unavailable Hoy MD, [facility] Unavaila Herbert Joyner MD Attending Herbert Awad MD Attending Unavailable [facility]inny [facility], [facility] Unavaila forrest MATTHEWS, Yodit Rollins Attending U chiquita Casillas MD, [facility] Un[facility] Herbert Joyner MD Attending Unavailable Vinny LEE, [facility] Unavaila forrest MATTHEWS, Yodit Rollins Attending U chiquita Casillas MD, [facility] Unavaila Yony Hernandez DO Attending Unavailjet Casillas MD, [facility] Unavaila forrest Griffin MD, Herbert Llamas Attending Unavailable Herbert Griffin MD Attending Unavailable Vinny LEE, [facility] Unavaila forrest Casillas MD, [facility] Unavaila Yony Hernandez DO Attending UnavailOneil Betancourt MD Attending Provider Asmita Casillas MD Primary Care Provider [phone] NON STAFF Admitting Unavailable NON STAFF Attending Yony Morgan Admitting Unavailable Yony Ashton Attending Oneil Rojas Admitting Unavailable Oneil Alexis Attending Unavailable Asmita Casillas Primary [facility] Unavailable Allergies Allergy Classification Reported Allergen(s) Allergy Type Date of Onset Reaction(s) Facility (4 sources) Cephalexin; Translations: [Keflex] Drug Allergy 06-07-20 13 rash, Unknown (qualifier value) [facility] Repository (1 source) Penicillin V Drug Allergy rash [facility] Other (1 source) Dextroamphetamine Drug Allergy 08-21-19 17 [facility] Repository (3 sources) Penicillins Drug allergy (disorder) 06-07-20 13 rash [facility] Rep[facility] (5 sources) Cephalexin; Translations: [cephalexin] Drug Allergy 04-24-20 22 rash [facility] (2 sources) Penicillins Propensity to adverse reactions to drug 01-15-20 24 [facility] (2 sources) Penicillin; Translations: [penicillin] Drug Allergy Unknown (qualifier value) [facility] (1 source) Penicillins Drug allergy (disorder) 04-24-20 [facility] Repository Medications Current Medications Medication Drug Class(es) [...] day(s), # 14 tab(s), Refills(s) 0, Pharmacy: [facility], 179, cm, 07/12/24 9:03:00 EST, Height/Length [...] 04-17-2022 Episodic Other aftercare (1 source) Other correction (current) drug therapy; Translations: [OTH RESIDENTIAL CURRENT DRUG THERAPY] Onset: 03-25-2022 Episodic Other [...] LEFT KNEE NEC] Onset: 04-17-2022 Episodic Other screening for suspected conditions (not [...] Onset: 01-19-2024 Episodic Other non-traumatic joint disorders (1 source) Effusion, right knee; Translations: [Effusion, right knee] Onset: 03-29-2024 Episodic Results Test Name Value Interpretation Reference Range Facility MR prostate wo/w conon 08-11 MR prostate wo/w con [facility] [place] [address] MRI Report Signed Patient: Mauricio Syed MR#: [id number] : 1960 Acct:[id number] Age/Sex: 64 / M ADM Date: 08/10/24 Loc: Room: Type: [facility] Attending Dr: Oneil Alexis MD Copies to: Oneil Alexis MD Ordering Provider: Oneil Alexis MD Date of Service: 08/10/24 MR/MR prostate wo/w con: R97.20 EXAMINATION: MR prostate wo/w con HISTORY: Elevated PSA COMPARISON: NONE TECHNIQUE: Multiparametric imaging of the prostate gland was performed with IV contrast. FINDINGS: Prostate Dimensions: 5.2 x 4.4 x 5.2 cm Prostate Volume: 62 mL Peripheral Zone: Heterogenous inT2 signal suggestive of prior prostatitis. Focal area of T2 hypointensity is seen involving the medial aspect of the right peripheral zone at the level of the mid gland measuring 10 x 8 mm with associated restricted diffusion and low ADC value. No gross extracapsular extension is seen. Please see series 5 image 19, series 650 image 19 and series 600 image 19. Central/Transitional Zone: BPH changes. Seminal Vesicles: Unremarkable Neurovascular bundles: Unremarkable. Lymphadenopathy: Enlarged lymph node adjacent to the left seminal vesicle measuring 14 mm in short axis. Additional prominent to enlarged bilateral external iliac lymph nodes largest measuring 14 mm in short axis involving the right external iliac chain. Bladder: No focal lesion. Bowel: Diverticulosis. Peritoneal Cavity: No free fluid. Bones: No suspicious bony lesion. MR/MR prostate wo/w con IMPRESSION: Focal area of T2 hypointensity is seen involving the medial aspect of the right peripheral zone at the level of the mid gland measuring 10 x 8 mm with associated restricted diffusion and low ADC value. No gross extracapsular extension is seen. Please see series 5 image 19, series 650 image 19 and series 600 image 19. PI-RADS 4. Targeting of this area on biopsy is recommended. Prominent to enlarged bilateral external iliac lymph nodes as well as a lymph node adjacent to the left seminal vesicle suspicious for local metastatic disease. Impression dictated by: Fransico Cordova Jr., D.O.08/11/2024 9:39 AM Dictation Location: [facility]22 Transcribed By: [facility] 08/11/24 0939 Dictated By: Fransico Cordova Jr, DO 08/11/2431 Signed By: 08/11/2439 Normal [facility] CBC w/ Diffon 07-22-2024 Erythrocyte distribution width (RBC) [Ratio] 16.1 % High 11.6-14.8 [facility] Comment on above: Performed By: #### P TT #### [address] [address] Hematocrit (Bld) [Volume fraction] 43.8 % Normal 41.0-53.0 [facility] Comment on above: Performed By: #### P TT #### [address] [address] Hemoglobin (Bld) [Mass/Vol] 14.4 g/dL Normal 13.5-17.5 [facility] Comment on above: Performed By: #### P TT #### [address] [address] MCH (RBC) [Entitic mass] 26.1 pg Low 27.0-35.0 [facility] Comment on above: Performed By: #### P TT #### [address] [address] MCHC 32.9 % Normal 31.0-37.0 [facility] Comment on above: Performed By: #### P TT #### [address] [address] MCV (RBC) [Entitic vol] 79.2 fL Low 80.0-100.0 [facility] Comment on above: Performed By: #### P TT #### [address] [address] Platelet 351 x10*3/mcL Normal 150-450 [facility] Comment on above: Performed By: #### P TT #### [address] [address] Platelet mean volume (Bld) [Entitic vol] 7.1 fL Normal 6.7-10.6 [facility] Comment on above: Performed By: #### P TT #### [address] [address] RBC 5.53 x10*6/mcL Normal 4.30-5.80 [facility] Comment on above: Performed By: #### P TT #### [address] [address] WBC 6.2 x10*3/mcL Normal 4.5-11.0 [facility] Comment on above: Performed By: #### P TT #### [address] [address] CRPon 07-22-2024 CRP 0.41 mg/dL Normal 0.00-0.75 [facility] Comment on above: Result Comment: CRP measurement is useful for assessment of non-specific INFLAMMATORY RESPONSE to infection or injury AND is a sensitive MARKER of ACUTE INFLAMMATION including CARDIAC RISK ASSESSMENT. CARDIAC patients with elevated CRP are POTENTIALLY at a HIGHER RISK OF FUTURE CARDIAC EVENTS. Performed By: #### C RP ####[address] [address] Diff Autoon 07-22-2024 Baso Absolute 0.1 x10*3/mcL Normal 0.0-0.2 [facility] Comment on above: Performed By: #### V ANCT #### [address] [address] Basophils/100 WBC (Bld) 1.0 % Normal 0.0-1.2 [facility] Comment on above: Performed By: #### V ANCT #### [address] [address] Eos Absolute 0.1 x10*3/mcL Normal 0.0-0.4 [facility] Comment on above: Performed By: #### V ANCT #### [address] [address] Eosinophils/100 WBC (Bld) 2.2 % Normal 0.0-6.1 [facility] Comment on above: Performed By: #### V ANCT #### [address] [address] Lymph Absolute 1.6 x10*3/mcL Normal 1.0-4.8 [facility] Comment on above: Performed By: #### V ANCT #### [address] [address] Lymphocytes/100 WBC (Bld) 25.4 % Low 27.2-40.8 [facility] Comment on above: Performed By: #### V ANCT #### [address] [address] [place] Absolute 0.7 x10*3/mcL Normal 0.3-1.1 [facility] Comment on above: Performed By: #### V ANCT #### [address] [address] Monocytes/100 WBC (Bld) 10.6 % Normal 4.7-13.9 [facility] Comment on above: Performed By: #### V ANCT #### [address] [address] Neutro Absolute 3.7 x10*3/mcL Normal 1.8-7.7 [facility] Comment on above: Performed By: #### V ANCT #### [address] [address] Neutro Auto 60.8 % Normal 47.2-70.8 [facility] Comment on above: Performed By: #### V ANCT #### [address] [address] ESRon 07-22-2024 Sed Rate 3 mm/hr Normal 0-23 [facility] Comment on above: Performed By: #### . Body Fluid Differential #### [place] [id number] Infectious Disease Office/Cl inic Noteon 07-22-2024 Infectious [...] EDT [1] Infectious Disease Office Visit Note; Herbert Griffin MD. 06/17/2024 14:37 EST Electronically signed by Herbert Griffin MD. 07/22/24 13:43 EST Recheck labs today. Electronically signed by (more content not included)... Normal [facility] Provider Letteron 07-22-2024 Provider Letter Asmita Casillas MD [address] [place] [address] Re: Mauricio Syed Date of Visit: 07/22/[address] Casillas, Thank you for your referral to my office. Attached you will find the most recent office visit note. Please call if you have any questions or concerns. Sincerely, Herebrt Griffin MD [address] [facility], [address] [place] [address] The following document(s) were included in the letter: July 22, 2024 13:42:19 EST - (07/22/2024) Infectious Disease Office Visit Note Normal [facility] Ambulatory Visit Summaryon 0 07-12-2024 Ambulatory Visit Summary Ambulatory Visit Summary MAURICIO SYED :1960 Visit Date:07/12/2024 Ambulatory Visit Instructions Your Diagnosis Elevated PSA BPH (benign prostatic hyperplasia) Tests Performed MRI Pelvis (Soft Tissue) w/ + w/o contrast -- Results Pending -- Please visit your patient portal for your results or contact your primary care physician. Your Care Team Attending Physician - Oneil ALEXIS MD Primary Care Physician - Asmita Casillas MD Referring Physician - Asmita Casillas MD This [...] Following Appointments Follow Up with SUMI LEE, Oneil Ruiz, BETO When: Where: [facility] [address], [facility] [place] [address]- Medications What How Much When Instructions New ciprofloxacin (Cipro 500 mg Tab) 1 Tablets By Mouth 2 times a day Duration: 7 Days Start 3 days prior to procedure. Pickup at [facility] Unchanged doxycycline (doxycycline hyclate 100 mg Tab) Contact prescribing physician if questions or concerns Unchanged meloxicam 15 Milligram By Mouth Every day Contact prescribing physician if questions or concerns Unchanged tramadol 50 Milligram By Mouth Every day Contact prescribing physician if questions or concerns Unchanged trazodone (traZODONE 150 mg Tab) Contact prescribing physician if questions or concerns Pharmacy Information [facility]: [address] [place], [place] [id number] [phone] Allergies Keflex (Unknown) penicillin (Unknown) Problems Ongoing [...] near your rectum, especially while sitting. ??? [place]-colored urine due to small amounts of blood in your urine. ??? A burning feeling while urinating. ??? Blood in your stool (feces) or bleeding from your rectum. ??? Blood in your semen. Follow these instructions at home: Medicines ??? Take vony-onq-romaulk and prescription medicines only as told by [...] ??? Afte (more content not included)... Normal [facility] .eGFRon 06-17-2024 GFR/1.73 sq M.predicted MDRD (S/P/Bld) [Vol rate/Area] mL/min/{1.73_m2} Normal >=60 [facility] Comment on above: Result Comment: [facility] Laboratories have implemented the eGFR calculation [...] years Performed By: #### C BC #### [facility] [address] [place] [address] Basic Metabolic Profileon Anion gap [Moles/Vol] 7 mmol/L Normal -12 [facility] Comment on above: Performed By: #### P TT #### [facility] [address] [place] [address] Calcium [Mass/Vol] 9.5 mg/dL Normal 8.5-10.3 [facility] Comment on above: Performed By: #### P TT #### [facility] [address] [place] [address] Chloride [Moles/Vol] 106 mmol/L Normal 98-110 [facility] Comment on above: Performed By: #### P TT #### [facility] [address] [place] [address] CO2 [Moles/Vol] 25 mmol/L Normal 22-32 [facility] Comment on above: Performed By: #### P TT #### [address] [address] Creatinine [Mass/Vol] 1.15 mg/dL Normal 0.61-1.24 [facility] Comment on above: Performed By: #### P TT #### [address] [address] Glucose [Mass/Vol] 91 mg/dL Normal 70-99 [facility] Comment on above: Performed By: #### P TT #### [address] [address] Potassium [Moles/Vol] 4.2 mmol/L Normal 3.4-4.8 [facility] Comment on above: Performed By: #### P TT #### [address] [address] Sodium [Moles/Vol] 138 mmol/L Normal 133-142 [facility] Comment on above: Performed By: #### P TT #### [address] [address] Urea nitrogen [Mass/Vol] 22 mg/dL Normal 8-26 [facility] Comment on above: Performed By: #### P TT #### [address] [address] Urea nitrogen/Creatinine [Mass ratio] 19.1 mg/mg Normal 10.0-20.0 [facility] Comment on above: Performed By: #### P TT #### [address] [address] CBC w/ Diffon 06-17-2024 Erythrocyte distribution width (RBC) [Ratio] 16.5 % High 11.6-14.8 [facility] Comment on above: Performed By: #### C BC #### [address] [address] Hematocrit (Bld) [Volume fraction] 41.1 % Normal 41.0-53.0 [facility] Comment on above: Performed By: #### C BC #### [address] [address] Hemoglobin (Bld) [Mass/Vol] 13.3 g/dL Low 13.5-17.5 [facility] Comment on above: Performed By: #### C BC #### [address] [address] MCH (RBC) [Entitic mass] 26.2 pg Low 27.0-35.0 [facility] Comment on above: Performed By: #### C BC #### [address] [address] MCHC 32.4 % Normal 31.0-37.0 [facility] Comment on above: Performed By: #### C BC #### [address] [address] MCV (RBC) [Entitic vol] 80.8 fL Normal 80.0-100.0 [facility] Comment on above: Performed By: #### C BC #### [address] [address] Platelet 364 x10*3/mcL Normal 150-450 [facility] Comment on above: Performed By: #### C BC #### [address] [address] Platelet mean volume (Bld) [Entitic vol] 6.9 fL Normal 6.7-10.6 [facility] Comment on above: Performed By: #### C BC #### [address] [address] RBC 5.09 x10*6/mcL Normal 4.30-5.80 [facility] Comment on above: Performed By: #### C BC #### [address] [address] WBC 7.9 x10*3/mcL Normal 4.5-11.0 [facility] Comment on above: Performed By: #### C BC #### [address] [address] CRPon 06-17-2024 CRP 0.77 mg/dL High 0.00-0.75 [facility] Comment on above: Result Comment: CRP measurement is useful for assessment of non-specific INFLAMMATORY RESPONSE to infection or injury AND is a sensitive MARKER of ACUTE INFLAMMATION including CARDIAC RISK ASSESSMENT. CARDIAC patients with elevated CRP are POTENTIALLY at a HIGHER RISK OF FUTURE CARDIAC EVENTS. Performed By: #### C BC #### [address] [address] Diff Autoon 06-17-2024 Baso Absolute 0.1 x10*3/mcL Normal 0.0-0.2 [facility] Comment on above: Performed By: #### V ANCT #### [address] [address] Basophils/100 WBC (Bld) 0.9 % Normal 0.0-1.2 [facility] Comment on above: Performed By: #### V ANCT #### [address] [address] Eos Absolute 0.3 x10*3/mcL Normal 0.0-0.4 [facility] Comment on above: Performed By: #### V ANCT #### [address] [address] Eosinophils/100 WBC (Bld) 3.4 % Normal 0.0-6.1 [facility] Comment on above: Performed By: #### V ANCT #### [address] [address] Lymph Absolute 2.0 x10*3/mcL Normal 1.0-4.8 [facility] Comment on above: Performed By: #### V ANCT #### [address] [address] Lymphocytes/100 WBC (Bld) 25.8 % Low 27.2-40.8 [facility] Comment on above: Performed By: #### V ANCT #### [address] [address] [place] Absolute 0.8 x10*3/mcL Normal 0.3-1.1 [facility] Comment on above: Performed By: #### V ANCT #### [address] [address] Monocytes/100 WBC (Bld) 10.0 % Normal 4.7-13.9 [facility] Comment on above: Performed By: #### V ANCT #### [address] [address] Neutro Absolute 4.7 x10*3/mcL Normal 1.8-7.7 [facility] Comment on above: Performed By: #### V ANCT #### [address] [address] Neutro Auto 59.9 % Normal 47.2-70.8 [facility] Comment on above: Performed By: #### V ANCT #### [address] [address] ESRon 06-17-2024 Sed Rate 10 mm/hr Normal 0-23 [facility] Comment on above: Performed By: #### . Body Fluid Differential #### [address] [address] Infectious Disease Office/Cl inic Noteon 06-17-2024 Infectious [...] Sed rate (more content not included)... Normal [facility] Provider Letteron 06-17-2024 Provider Letter Asmita Casillas MD [address] [place] [address] Re: Mauricio Syed Date of Visit: 06/17/[address] Casillas, Thank you for your referral to my office. Attached you will find the most recent office visit note. Please call if you have any questions or concerns. Sincerely, Herbert Griffin MD [address] [facility], [address] [place] [address] The following document(s) were included in the letter: June 17, 2024 14:37:54 EST - (06/17/2024) Infectious Disease Office Visit Note Normal [facility] Infectious Disease Office/Cl inic Noteon 05-24-2024 Infectious Disease Office/Clinic Note Assessment/Plan 1. 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 [...] caps, 0 Refill(s), 06/21/24 13:50:00 EST, Pharmacy: [facility]/pharmacy #[id number] Chief Complaint 2 week follow-up right prosthetic [...] has not liked the food at the custodial and has been eating food from home. [...] in the 90-1 10 range at the custodial. No acute distress. Skin color looks okay. [...] BNT-162b2 vax (more content not included)... Normal [facility] Provider Letteron 05-24-2024 Provider Letter Asmita Casillas MD [address] [place] [address] Re: Mauricio Syed Date of Visit: 05/24/[address] Casillas, Thank you for your referral to my office. Attached you will find the most recent office visit note. Please call if you have any questions or concerns. Sincerely, Herbert Griffin MD [address] [facility], [address] [place] [address] The following document(s) were included in the letter: May 24, 2024 13:53:00 EST - (05/24/2024) Infectious Disease Office Visit Note Normal [facility] Infectious Disease Office/Cl inic Noteon 05-17-2024 Infectious [...] Exercise Home/Env (more content not included)... Normal [facility] XR KNEE RIGHT (1-2 VIEWS)on 05-10-2024 XR KNEE RIGHT (1-2 VIEWS) EXAM: XR KNEE RIGHT (1-2 VIEWS). HISTORY: Infection of total right knee replacement, subsequent encounter. COMPARISON: 04/26/2024 IMPRESSION: FINDINGS/IMPRESSION: 1. Tibial spacer in anatomic alignment. 2. Femoral component unchanged. 3. No acute change. Interpreted by: Miguel Angel Iqbal Jr., MD Signed by: Miguel Angel Iqbal Jr., MD 05/10/24 Final result Normal [facility] XR Knee - right 1 or 2 Views on 05-10-2024 FINDINGS/IMPRESSION: 1. Tibial spacer in anatomic alignment. 2. Femoral component unchanged. 3. No acute change. [facility] EXAM: XR KNEE RIGHT (1-2 VIEWS). HISTORY: Infection of total right knee replacement, subsequent encounter. COMPARISON: 04/26/2024 [facility] Miguel Angel Iqbal Jr., MD - 05/10/2024 EXAM: XR KNEE RIGHT (1-2 VIEWS). HISTORY: Infection of total right knee replacement, subsequent encounter. COMPARISON: 04/26/2024 IMPRESSION: FINDINGS/IMPRESSION: 1. Tibial spacer in anatomic alignment. 2. Femoral component unchanged. 3. No acute change. [facility] [employer] Radiology Study observation (narrative) [facility] XR Knee - right 1 or 2 Views Ordered By: Miguel Angel Iqbal on 05-10-2024 [employer] Work Phone: C Fungalon 05-06-2024 C Fungal ------- Final No growth at 4 weeks. Normal [facility] Comment on above: Performed By: #### P TT #### [place] [address] Performed By: #### E SR #### [place] [address] Performed By: #### C BC #### [place] [id number] Infectious Disease Office/ fannie Noteon 05-03-2024 Infectious Disease Office/Clinic Note Assessment/Plan [...] by Yodit Mancia 05/03/24 16:03 EDT Normal [facility] XR KNEE RIGHT (1-2 VIEWS)on 04-26-2024 XR [...] Angel Iqbal Jr., MD 04/26/24 Final result [facility] Jonathon RAMIREZon 04-24-2024 C JAMES ------- Final No anaerobic organisms isolated at 2 weeks [facility] Comment on above: Performed By: #### E SR #### [place] [address] C JAMES ------- Final No anaerobic organisms isolated at 2 weeks [facility] Comment on above: Performed By: #### E SR #### [place] [address] C JAMES ------- Final No anaerobic organisms isolated at 2 weeks [facility] Comment on above: Performed By: #### A NAC ####[place] [id number] Jonathon RAMIREZ ------- Final No anaerobic organisms isolated at 2 weeks Normal [facility] Comment on above: Performed By: #### C BC #### [address] [place] [address] C ANAon 04-23-2024 C JAMES ------- Final No anaerobic organisms isolated at 2 weeks Normal [facility] Comment on above: Performed By: #### P TT #### [address] [address] C JAMES ------- Final No anaerobic organisms isolated at 2 weeks Normal [facility] Comment on above: Performed By: #### E SR #### [address] [address] C Sterile BSon 04-23-2024 C Sterile BS ------- Final No growth at 2 weeks. Normal [facility] Comment on above: Performed By: #### C BC #### [address] [place] [address] C Sterile BS ------- Final No growth at 2 weeks. [facility] Comment on above: Performed By: #### E SR #### [address] [address] C Sterile BS ------- Final No growth at 2 weeks. [facility] Comment on above: Performed By: #### E SR #### [address] [address] C Sterile BS ------- Final No growth at 2 weeks. [facility] Comment on above: Performed By: #### E SR #### [address] [address] [address] C Sterile BS ------- Final No growth at 2 weeks. [facility] Comment on above: Performed By: #### E SR #### [address] [address] CRPon 04-15-2024 CRP 11.42 mg/dL High 0.00-0.75 [facility] Comment on above: Result Comment: CRP measurement is useful for assessment of non-specific INFLAMMATORY RESPONSE to infection or injury AND is a sensitive MARKER of ACUTE INFLAMMATION including CARDIAC RISK ASSESSMENT. CARDIAC patients with elevated CRP are POTENTIALLY at a HIGHER RISK OF FUTURE CARDIAC EVENTS. Performed By: #### C RP ####[facility] [place] [address] Inpatient Clinical Summaryon 04-15-2024 Inpatient Clinical Summary [facility] [address] [place] [address] [address] Clinical Summary Person Information Name: Mauricio Syed Age: 64 Years : 1960 Sex: Male PCP: Asmita Casillas MD Marital Status: Phone: PCP: Race: White Ethnicity: Not or Language: Rw[place]an Visit Id: Visit Reason: Knee pain-swelling; R Knee Pain Speciality: Acuity: Enc Type: Inpatient Med Service: Emergency Medicine Arrival: 04/08/2024 10:28:57 Discharge: Dispo Type: Address: [address] [place] [id number] Diagnosis: 1:Infection of prosthetic right knee joint; [...] range between ( 27.2 and 40.8 ) [place] Auto: 12.6 % -- Normal range between [...] range between ( 41.0 and 53.0 ) [place] Absolute: 1.0 x10 MCH: 28.7 pg -- [...] Sources 04/08/2024 4:54 PM Fluid RBC Count: 876414 /mcL Body Fluid Cell Cnt Type: Synovial Fluid WBC Count: 62757 /mcL -- Normal range between ( 0 [...] Views Right (more content not included)... Normal [facility] Orthopedic Progress Noteon 1 Orthopedic Progress Note Subjective Patient seen evaluated. Overall doing well today. Placement obtained for fdc facility. Review of Systems Denies fever, chills, [...] mg= 1 mL, IV Push, q2min, PRN [place] 5 mg-325 mg oral tablet, 1 tabs, [...] plain a milligrams Depo-Medrol. Electronically signed by Yony Ashton DO 04/15/24 13:29 EDT Normal [facility] .eGFRon 04-14-2024 GFR/1.73 sq M.predicted MDRD (S/P/Bld) [Vol rate/Area] mL/min/{1.73_m2} Normal >=60 [facility] Comment on above: Result Comment: [facility] Laboratories have implemented the eGFR calculation [...] years Performed By: #### V ANCT #### [address] [address] GFR/1.73 sq M.predicted MDRD (S/P/Bld) [Vol rate/Area] mL/min/{1.73_m2} Normal >=60 [facility] Comment on above: Result Comment: [facility] Laboratories have implemented the eGFR calculation [...] Performed By: #### . Automated Diff #### [address] [address] Basic Metabolic Profileon Anion gap [Moles/Vol] 9 mmol/L Normal 4-12 [facility] Comment on above: Performed By: #### . Body Fluid Differential #### [address] [address] Calcium [Mass/Vol] 8.7 mg/dL Normal 8.5-10.3 [facility] Comment on above: Performed By: #### . Body Fluid Differential #### [address] [address] Chloride [Moles/Vol] 103 mmol/L Normal 98-110 [facility] Comment on above: Performed By: #### . Body Fluid Differential #### [address] [address] CO2 [Moles/Vol] 23 mmol/L Normal 22-32 [facility] Comment on above: Performed By: #### . Body Fluid Differential #### [address] [address] Creatinine [Mass/Vol] 1.21 mg/dL Normal 0.61-1.24 [facility] Comment on above: Performed By: #### . Body Fluid Differential #### [address] [address] Glucose [Mass/Vol] 99 mg/dL Normal 70-99 [facility] Comment on above: Performed By: #### . Body Fluid Differential #### [address] [address] Potassium [Moles/Vol] 4.2 mmol/L Normal 3.4-4.8 [facility] Comment on above: Performed By: #### . Body Fluid Differential #### [address] [address] Sodium [Moles/Vol] 135 mmol/L Normal 133-142 [facility] Comment on above: Performed By: #### . Body Fluid Differential #### [address] [address] Urea nitrogen [Mass/Vol] 18 mg/dL Normal 8-26 [facility] Comment on above: Performed By: #### . Body Fluid Differential #### [address] [address] Urea nitrogen/Creatinine [Mass ratio] 14.9 mg/mg Normal 10.0-20.0 [facility] Comment on above: Performed By: #### . Body Fluid Differential #### [address] [address] Anion gap [Moles/Vol] 9 mmol/L Normal 4-12 [facility] Comment on above: Performed By: #### . Automated Diff #### [address] [address] Calcium [Mass/Vol] 8.4 mg/dL Low 8.5-10.3 [facility] Comment on above: Performed By: #### . Automated Diff #### [address] [address] Chloride [Moles/Vol] 102 mmol/L Normal 98-110 [facility] Comment on above: Performed By: #### . Automated Diff #### [address] [address] CO2 [Moles/Vol] 24 mmol/L Normal 22-32 [facility] Comment on above: Performed By: #### . Automated Diff #### [address] [address] Creatinine [Mass/Vol] 1.24 mg/dL Normal 0.61-1.24 [facility] Comment on above: Performed By: #### . Automated Diff #### [address] [address] Glucose [Mass/Vol] 100 mg/dL High 70-99 [facility] Comment on above: Performed By: #### . Automated Diff #### [address] [address] Potassium [Moles/Vol] 3.5 mmol/L Normal 3.4-4.8 [facility] Comment on above: Performed By: #### . Automated Diff #### [address] [address] Sodium [Moles/Vol] 135 mmol/L Normal 133-142 [facility] Comment on above: Performed By: #### . Automated Diff #### [address] [address] Urea nitrogen [Mass/Vol] 18 mg/dL Normal 8-26 [facility] Comment on above: Performed By: #### . Automated Diff #### [address] [address] Urea nitrogen/Creatinine [Mass ratio] 14.5 mg/mg Normal 10.0-20.0 [facility] Comment on above: Performed By: #### . Automated Diff #### [facility] [address] [place] [address] CBC w/ Diffon 04-14-2024 Erythrocyte distribution width (RBC) [Ratio] 14.1 % Normal 11.6-14.8 [facility] Comment on above: Order Comment: Nurse draw per [facility] 04/14/2024 14:20 ALSNotified Donna that we still haven't rec'd blood on this patient. She will let the nurse know. 04/14/2024 17:24 ALS Performed By: #### C BC ####[address] [address] Hematocrit (Bld) [Volume fraction] 29.0 % Low 41.0-53.0 [facility] Comment on above: Order Comment: Nurse draw per [facility] 04/14/2024 14:20 ALSNotified Donna that we still haven't rec'd blood on this patient. She will let the nurse know. 04/14/2024 17:24 ALS Performed By: #### C BC ####[address] [place] [address] Hemoglobin (Bld) [Mass/Vol] 9.7 g/dL Low 13.5-17.5 [facility] Comment on above: Order Comment: Nurse draw per [facility] 04/14/2024 14:20 ALSNotified Donna that we still haven't rec'd blood on this patient. She will let the nurse know. 04/14/2024 17:24 ALS Performed By: #### C BC ####[address] [address] MCH (RBC) [Entitic mass] 28.7 pg Normal 27.0-35.0 [facility] Comment on above: Order Comment: Nurse draw per [facility] 04/14/2024 14:20 ALSNotified Donna that we still haven't rec'd blood on this patient. She will let the nurse know. 04/14/2024 17:24 ALS Performed By: #### C BC ####[address] [address] MCHC 33.5 % Normal 31.0-37.0 [facility] Comment on above: Order Comment: Nurse draw per [facility] 04/14/2024 14:20 ALSNotified Donna that we still haven't rec'd blood on this patient. She will let the nurse know. 04/14/2024 17:24 ALS Performed By: #### C BC ####[address] [address] MCV (RBC) [Entitic vol] 85.5 fL Normal 80.0-100.0 [facility] Comment on above: Order Comment: Nurse draw per [facility] 04/14/2024 14:20 ALSNotified Donna that we still haven't rec'd blood on this patient. She will let the nurse know. 04/14/2024 17:24 ALS Performed By: #### C BC ####[address] [address] Platelet 361 x10*3/mcL Normal 150-450 [facility] Comment on above: Order Comment: Nurse draw per [facility] 04/14/2024 14:20 ALSNotified Donna that we still haven't rec'd blood on this patient. She will let the nurse know. 04/14/2024 17:24 ALS Performed By: #### C BC ####[address] [address] Platelet mean volume (Bld) [Entitic vol] 6.2 fL Low 6.7-10.6 [facility] Comment on above: Order Comment: Nurse draw per [facility] 04/14/2024 14:20 ALSNotified Donna that we still haven't rec'd blood on this patient. She will let the nurse know. 04/14/2024 17:24 ALS Performed By: #### C BC ####[address] [address] RBC 3.39 x10*6/mcL Low 4.30-5.80 [facility] Comment on above: Order Comment: Nurse draw per [facility] 04/14/2024 14:20 ALSNotified Donna that we still haven't rec'd blood on this patient. She will let the nurse know. 04/14/2024 17:24 ALS Performed By: #### C BC ####[address] [address] WBC 7.8 x10*3/mcL Normal 4.5-11.0 [facility] Comment on above: Order Comment: Nurse draw per [facility] 04/14/2024 14:20 ALSNotified Donna that we still haven't rec'd blood on this patient. She will let the nurse know. 04/14/2024 17:24 ALS Performed By: #### C BC ####[address] [address] Erythrocyte distribution width (RBC) [Ratio] 14.0 % Normal 11.6-14.8 [facility] Comment on above: Performed By: #### C BC #### [address] [address] Hematocrit (Bld) [Volume fraction] 27.3 % Low 41.0-53.0 [facility] Comment on above: Performed By: #### C BC #### [address] [address] Hemoglobin (Bld) [Mass/Vol] 9.2 g/dL Low 13.5-17.5 [facility] Comment on above: Performed By: #### C BC #### [address] [address] MCH (RBC) [Entitic mass] 28.8 pg Normal 27.0-35.0 [facility] Comment on above: Performed By: #### C BC #### [address] [address] MCHC 33.5 % Normal 31.0-37.0 [facility] Comment on above: Performed By: #### C BC #### [address] [address] MCV (RBC) [Entitic vol] 85.9 fL Normal 80.0-100.0 [facility] Comment on above: Performed By: #### C BC #### [address] [address] Platelet 283 x10*3/mcL Normal 150-450 [facility] Comment on above: Performed By: #### C BC #### [address] [address] Platelet mean volume (Bld) [Entitic vol] 6.2 fL Low 6.7-10.6 [facility] Comment on above: Performed By: #### C BC #### [address] [address] RBC 3.18 x10*6/mcL Low 4.30-5.80 [facility] Comment on above: Performed By: #### C BC #### [address] [address] WBC 5.5 x10*3/mcL Normal 4.5-11.0 [facility] Comment on above: Performed By: #### C BC #### [address] [address] CRPon 04-14-2024 CRP 8.75 mg/dL High 0.00-0.75 [facility] Comment on above: Result Comment: CRP measurement is useful for assessment of non-specific INFLAMMATORY RESPONSE to infection or injury AND is a sensitive MARKER of ACUTE INFLAMMATION including CARDIAC RISK ASSESSMENT. CARDIAC patients with elevated CRP are POTENTIALLY at a HIGHER RISK OF FUTURE CARDIAC EVENTS. Performed By: #### C RP ####[address] [address] Diff Autoon 04-14-2024 Baso Absolute 0.0 x10*3/mcL Normal 0.0-0.2 [facility] Comment on above: Performed By: #### . Automated Diff #### [address] [address] Basophils/100 WBC (Bld) 0.1 % Normal 0.0-1.2 [facility] Comment on above: Performed By: #### . Automated Diff #### [address] [address] Eos Absolute 0.2 x10*3/mcL Normal 0.0-0.4 [facility] Comment on above: Performed By: #### . Automated Diff #### [address] [address] Eosinophils/100 WBC (Bld) 2.1 % Normal 0.0-6.1 [facility] Comment on above: Performed By: #### . Automated Diff #### [address] [address] Lymph Absolute 1.4 x10*3/mcL Normal 1.0-4.8 [facility] Comment on above: Performed By: #### . Automated Diff #### [address] [address] Lymphocytes/100 WBC (Bld) 17.5 % Low 27.2-40.8 [facility] Comment on above: Performed By: #### . Automated Diff #### [address] [address] [place] Absolute 1.0 x10*3/mcL Normal 0.3-1.1 [facility] Comment on above: Performed By: #### . Automated Diff #### [address] [address] Monocytes/100 WBC (Bld) 12.6 % Normal 4.7-13.9 [facility] Comment on above: Performed By: #### . Automated Diff #### [address] [address] Neutro Absolute 5.3 x10*3/mcL Normal 1.8-7.7 [facility] Comment on above: Performed By: #### . Automated Diff #### [address] [address] Neutro Auto 67.7 % Normal 47.2-70.8 [facility] Comment on above: Performed By: #### . Automated Diff #### [address] [address] Baso Absolute 0.1 x10*3/mcL Normal 0.0-0.2 [facility] Comment on above: Performed By: #### . Automated Diff #### [address] [address] Basophils/100 WBC (Bld) 1.1 % Normal 0.0-1.2 [facility] Comment on above: Performed By: #### . Automated Diff #### [address] [address] Eos Absolute 0.2 x10*3/mcL Normal 0.0-0.4 [facility] Comment on above: Performed By: #### . Automated Diff #### [address] [address] Eosinophils/100 WBC (Bld) 3.5 % Normal 0.0-6.1 [facility] Comment on above: Performed By: #### . Automated Diff #### [address] [address] Lymph Absolute 1.5 x10*3/mcL Normal 1.0-4.8 [facility] Comment on above: Performed By: #### . Automated Diff #### [address] [address] Lymphocytes/100 WBC (Bld) 26.7 % Low 27.2-40.8 [facility] Comment on above: Performed By: #### . Automated Diff #### [address] [address] [place] Absolute 0.8 x10*3/mcL Normal 0.3-1.1 [facility] Comment on above: Performed By: #### . Automated Diff #### [address] [address] Monocytes/100 WBC (Bld) 15.4 % High 4.7-13.9 [facility] Comment on above: Performed By: #### . Automated Diff #### [address] [address] Neutro Absolute 2.9 x10*3/mcL Normal 1.8-7.7 [facility] Comment on above: Performed By: #### . Automated Diff #### [address] [address] Neutro Auto 53.3 % Normal 47.2-70.8 [facility] Comment on above: Performed By: #### . Automated Diff #### [address] [address] Magnesiumon 04-14-2024 Magnesium [Mass/Vol] 2.0 mg/dL Normal 1.7-2.4 [facility] Comment on above: Performed By: #### P TT #### [place] [address] Orthopedic Progress Noteon 1 Orthopedic Progress Note [...] Yony Ashton DO 04/14/24 19:14 EDT Normal [facility] .eGFRon 04-13-2024 GFR/1.73 sq M.predicted MDRD (S/P/Bld) [Vol rate/Area] mL/min/{1.73_m2} Normal >=60 [facility] Comment on above: Result Comment: [facility] Laboratories have implemented the eGFR calculation [...] years Performed By: #### V ANCT #### [facility] [address] [place] [address] Basic Metabolic Profileon Anion gap [Moles/Vol] 10 mmol/L Normal 4-12 [facility] Comment on above: Performed By: #### . Automated Diff #### [facility] [address] [place] [address] Calcium [Mass/Vol] 8.5 mg/dL Normal 8.5-10.3 [facility] Comment on above: Performed By: #### . Automated Diff #### [address] [address] Chloride [Moles/Vol] 102 mmol/L Normal 98-110 [facility] Comment on above: Performed By: #### . Automated Diff #### [address] [address] CO2 [Moles/Vol] 25 mmol/L Normal 22-32 [facility] Comment on above: Performed By: #### . Automated Diff #### [address] [address] Creatinine [Mass/Vol] 1.32 mg/dL High 0.61-1.24 [facility] Comment on above: Performed By: #### . Automated Diff #### [address] [address] Glucose [Mass/Vol] 99 mg/dL Normal 70-99 [facility] Comment on above: Performed By: #### . Automated Diff #### [address] [address] Potassium [Moles/Vol] 3.9 mmol/L Normal 3.4-4.8 [facility] Comment on above: Performed By: #### . Automated Diff #### [address] [address] Sodium [Moles/Vol] 137 mmol/L Normal 133-142 [facility] Comment on above: Performed By: #### . Automated Diff #### [address] [address] Urea nitrogen [Mass/Vol] 13 mg/dL Normal 8-26 [facility] Comment on above: Performed By: #### . Automated Diff #### [address] [address] Urea nitrogen/Creatinine [Mass ratio] 9.8 mg/mg Low 10.0-20.0 [facility] Comment on above: Performed By: #### . Automated Diff #### [address] [address] CBC w/ Diffon 10-08-2024 Erythrocyte distribution width (RBC) [Ratio] 13.8 % Normal 11.6-14.8 [facility] Comment on above: Performed By: #### . Automated Diff #### [address] [address] Hematocrit (Bld) [Volume fraction] 26.4 % Low 41.0-53.0 [facility] Comment on above: Performed By: #### . Automated Diff #### [address] [address] Hemoglobin (Bld) [Mass/Vol] 9.0 g/dL Low 13.5-17.5 [facility] Comment on above: Performed By: #### . Automated Diff #### [address] [address] MCH (RBC) [Entitic mass] 29.5 pg Normal 27.0-35.0 [facility] Comment on above: Performed By: #### . Automated Diff #### [address] [address] MCHC 34.2 % Normal 31.0-37.0 [facility] Comment on above: Performed By: #### . Automated Diff #### [address] [address] MCV (RBC) [Entitic vol] 86.3 fL Normal 80.0-100.0 [facility] Comment on above: Performed By: #### . Automated Diff #### [address] [address] Platelet 248 x10*3/mcL Normal 150-450 [facility] Comment on above: Performed By: #### . Automated Diff #### [address] [address] Platelet mean volume (Bld) [Entitic vol] 6.1 fL Low 6.7-10.6 [facility] Comment on above: Performed By: #### . Automated Diff #### [address] [address] RBC 3.07 x10*6/mcL Low 4.30-5.80 [facility] Comment on above: Performed By: #### . Automated Diff #### [address] [place] [address] WBC 6.2 x10*3/mcL Normal 4.5-11.0 [facility] Comment on above: Performed By: #### . Automated Diff #### [id number] Dietary Consultationon 04-13 Dietary Consultation Patient admitted [...] Funmi Torres RD 04/13/24 14:26 EDT Normal [facility] Diff Autoon 04-13-2024 Baso Absolute 0.0 x10*3/mcL Normal 0.0-0.2 [facility] Comment on above: Performed By: #### . Automated Diff ####[address] [address] Basophils/100 WBC (Bld) 0.3 % Normal 0.0-1.2 [facility] Comment on above: Performed By: #### . Automated Diff ####[address] Eos Absolute 0.2 x10*3/mcL Normal 0.0-0.4 [facility] Comment on above: Performed By: #### . Automated Diff ####[address] [address] Eosinophils/100 WBC (Bld) 3.0 % Normal 0.0-6.1 [facility] Comment on above: Performed By: #### . Automated Diff ####[address] [address] Lymph Absolute 1.2 x10*3/mcL Normal 1.0-4.8 [facility] Comment on above: Performed By: #### . Automated Diff ####[address] [address] Lymphocytes/100 WBC (Bld) 19.2 % Low 27.2-40.8 [facility] Comment on above: Performed By: #### . Automated Diff ####[address] [address] [place] Absolute 0.9 x10*3/mcL Normal 0.3-1.1 [facility] Comment on above: Performed By: #### . Automated Diff ####[address] [address] Monocytes/100 WBC (Bld) 14.1 % High 4.7-13.9 [facility] Comment on above: Performed By: #### . Automated Diff ####[address] [address] Neutro Absolute 3.9 x10*3/mcL Normal 1.8-7.7 [facility] Comment on above: Performed By: #### . Automated Diff ####[address] [address] Neutro Auto 63.4 % Normal 47.2-70.8 [facility] Comment on above: Performed By: #### . Automated Diff ####[address] [address] Orthopedic Progress Noteon 1 0-08-2024 Orthopedic Progress Note Subjective Patient seen evaluated [...] Yony Ashton DO 04/13/24 18:25 EDT Normal [facility] .eGFRon 04-12-2024 GFR/1.73 sq M.predicted MDRD (S/P/Bld) [Vol rate/Area] mL/min/{1.73_m2} Normal >=60 [facility] Comment on above: Result Comment: [facility] Laboratories have implemented the eGFR calculation [...] = years Performed By: #### E GFR ####[address] [address] Basic Metabolic Profileon Creatinine [Mass/Vol] 1.19 mg/dL Normal 0.61-1.24 [facility] Comment on above: Performed By: #### C [id number] ####[address] [address] Urea nitrogen [Mass/Vol] 12 mg/dL Normal 8-26 [facility] Comment on above: Performed By: #### C [id number] ####[address] [address] Urea nitrogen/Creatinine [Mass ratio] 10.1 mg/mg Normal 10.0-20.0 [facility] Comment on above: Performed By: #### C [id number] ####[address] [address] Anion gap [Moles/Vol] 7 mmol/L Normal 4-12 [facility] Comment on above: Performed By: #### C [id number] ####[address] [address] Calcium [Mass/Vol] 8.4 mg/dL Low 8.5-10.3 [facility] Comment on above: Performed By: #### C [id number] ####[address] [address] Chloride [Moles/Vol] 105 mmol/L Normal 98-110 [facility] Comment on above: Performed By: #### C [id number] ####[address] [address] CO2 [Moles/Vol] 23 mmol/L Normal 22-32 [facility] Comment on above: Performed By: #### C [id number] ####[address] [address] Glucose [Mass/Vol] 91 mg/dL Normal 70-99 [facility] Comment on above: Performed By: #### C [id number] ####[address] [address] Potassium [Moles/Vol] 3.8 mmol/L Normal 3.4-4.8 [facility] Comment on above: Performed By: #### C [id number] ####[address] [address] Sodium [Moles/Vol] 135 mmol/L Normal 133-142 [facility] Comment on above: Performed By: #### C [id number] ####[address] [address] CBC w/ Diffon 04-12-2024 Erythrocyte distribution width (RBC) [Ratio] 14.2 % Normal 11.6-14.8 [facility] Comment on above: Performed By: #### C BC #### [address] [address] Hematocrit (Bld) [Volume fraction] 25.3 % Low 41.0-53.0 [facility] Comment on above: Performed By: #### C BC #### [address] [address] Hemoglobin (Bld) [Mass/Vol] 8.9 g/dL Low 13.5-17.5 [facility] Comment on above: Performed By: #### C BC #### [address] [address] MCH (RBC) [Entitic mass] 30.2 pg Normal 27.0-35.0 [facility] Comment on above: Performed By: #### C BC #### [address] [address] MCHC 35.0 % Normal 31.0-37.0 [facility] Comment on above: Performed By: #### C BC #### [address] [address] MCV (RBC) [Entitic vol] 86.2 fL Normal 80.0-100.0 [facility] Comment on above: Performed By: #### C BC #### [id number] Platelet 226 x10*3/mcL Normal 150-450 [facility] Comment on above: Performed By: #### C BC #### [address] [address] Platelet mean volume (Bld) [Entitic vol] 6.3 fL Low 6.7-10.6 [facility] Comment on above: Performed By: #### C BC #### [id number] RBC 2.94 x10*6/mcL Low 4.30-5.80 [facility] Comment on above: Performed By: #### C BC #### [address] WBC 4.9 x10*3/mcL Normal 4.5-11.0 [facility] Comment on above: Performed By: #### C BC #### [id number] Diff Autoon 04-12-2024 Baso Absolute 0.0 x10*3/mcL Normal 0.0-0.2 [facility] Comment on above: Performed By: #### . Automated Diff #### [address] [address] Basophils/100 WBC (Bld) 0.9 % Normal 0.0-1.2 [facility] Comment on above: Performed By: #### . Automated Diff #### [address] [address] Eos Absolute 0.2 x10*3/mcL Normal 0.0-0.4 [facility] [facility] Comment on above: Performed By: #### . Automated Diff #### [address] [address] Eosinophils/100 WBC (Bld) 4.2 % Normal 0.0-6.1 [facility] Comment on above: Performed By: #### . Automated Diff #### [address] [address] Lymph Absolute 1.2 x10*3/mcL Normal 1.0-4.8 [facility] Comment on above: Performed By: #### . Automated Diff #### [address] [address] Lymphocytes/100 WBC (Bld) 24.8 % Low 27.2-40.8 [facility] Comment on above: Performed By: #### . Automated Diff #### [address] [address] [place] Absolute 0.7 x10*3/mcL Normal 0.3-1.1 [facility] Comment on above: Performed By: #### . Automated Diff #### [address] [address] Monocytes/100 WBC (Bld) 15.1 % High 4.7-13.9 [facility] Comment on above: Performed By: #### . Automated Diff #### [address] [address] Neutro Absolute 2.7 x10*3/mcL Normal 1.8-7.7 [facility] Comment on above: Performed By: #### . Automated Diff #### [address] [address] Neutro Auto 55.0 % Normal 47.2-70.8 [facility] Comment on above: Performed By: #### . Automated Diff #### [facility] [address] [place] [address] Infectious Disease Progress Noteon 04-12-2024 Infectious Disease [...] mg/dL 04/08/2024 11:13 EDT Fluid WBC Count 79534 /mcL (High) 04/08/2024 16:54 EDT Fluid Polynuclear [...] by Yodit Mancia 04/12/24 17:28 EDT Normal [facility] Orthopedic Progress Noteon 1 Orthopedic Progress Note [...] home. May need SNF placement. They prefer [facility] in [place]. Electronically signed by Yony Ashton DO 04/12/24 11:11 EDT Normal [facility] Progress Note-Nurseon 2023 Progress Note-Nurse 4F Single Lumen Power PICC Solo inserted under seldinger method in the Right Basilic on 04.12.24. Sterile field maintained. No complications noted. Pt tolerated well. Arm. Circ. 33cm. Cut Length 48cm. External Length 0cm. XR tip confirmation in Distal SVC. Tip location confirmed per Dr. Alvarado. LOT# [id number] Electronically signed by Flavia Butler 04/12/24 11:19 EDT Normal [facility] Vanco Troughon 04-12-2024 Vanco Trough 11.4 mcg/mL Normal 10.0-15.0 [facility] Comment on above: Performed By: #### V ANCT #### [address] [address] .eGFRon 04-11-2024 GFR/1.73 sq M.predicted MDRD (S/P/Bld) [Vol rate/Area] mL/min/{1.73_m2} Normal >=60 [facility] Comment on above: Result Comment: [facility] Laboratories have implemented the eGFR calculation [...] years Performed By: #### V ANCT #### [address] [address] Basic Metabolic Profileon Anion gap [Moles/Vol] 8 mmol/L Normal 4-12 [facility] Comment on above: Performed By: #### V ANCT #### [address] [address] Calcium [Mass/Vol] 8.4 mg/dL Low 8.5-10.3 [facility] Comment on above: Performed By: #### V ANCT #### [address] [address] Chloride [Moles/Vol] 105 mmol/L Normal 98-110 [facility] Comment on above: Performed By: #### V ANCT #### [address] [address] CO2 [Moles/Vol] 23 mmol/L Normal 22-32 [facility] Comment on above: Performed By: #### V ANCT #### [address] [address] Creatinine [Mass/Vol] 1.21 mg/dL Normal 0.61-1.24 [facility] Comment on above: Performed By: #### V ANCT #### [address] [address] Glucose [Mass/Vol] 95 mg/dL Normal 70-99 [facility] Comment on above: Performed By: #### V ANCT #### [address] [address] Potassium [Moles/Vol] 4.0 mmol/L Normal 3.4-4.8 [facility] Comment on above: Performed By: #### V ANCT #### [address] [address] Sodium [Moles/Vol] 136 mmol/L Normal 133-142 [facility] Comment on above: Performed By: #### V ANCT #### [address] [address] Urea nitrogen [Mass/Vol] 12 mg/dL Normal 8-26 [facility] Comment on above: Performed By: #### V ANCT #### [address] [address] Urea nitrogen/Creatinine [Mass ratio] 9.9 mg/mg Low 10.0-20.0 [facility] Comment on above: Performed By: #### V ANCT #### [address] [address] CBC w/ Diffon 04-11-2024 Erythrocyte distribution width (RBC) [Ratio] 14.4 % Normal 11.6-14.8 [facility] Comment on above: Performed By: #### . Body Fluid Differential #### [address] [address] Hematocrit (Bld) [Volume fraction] 27.7 % Low 41.0-53.0 [facility] Comment on above: Performed By: #### . Body Fluid Differential #### [place] [id number] Hemoglobin (Bld) [Mass/Vol] 9.5 g/dL Low 13.5-17.5 [facility] Comment on above: Performed By: #### . Body Fluid Differential #### [place] [id number] MCH (RBC) [Entitic mass] 30.0 pg Normal 27.0-35.0 [facility] Comment on above: Performed By: #### . Body Fluid Differential #### [place] [address] MCHC 34.2 % Normal 31.0-37.0 [facility] Comment on above: Performed By: #### . Body Fluid Differential #### [place] [id number] MCV (RBC) [Entitic vol] 87.6 fL Normal 80.0-100.0 [facility] Comment on above: Performed By: #### . Body Fluid Differential #### [address] [address] Platelet 213 x10*3/mcL Normal 150-450 [facility] Comment on above: Performed By: #### . Body Fluid Differential #### [address] [address] Platelet mean volume (Bld) [Entitic vol] 6.4 fL Low 6.7-10.6 [facility] Comment on above: Performed By: #### . Body Fluid Differential #### [address] [address] RBC 3.16 x10*6/mcL Low 4.30-5.80 [facility] Comment on above: Performed By: #### . Body Fluid Differential #### [address] [address] WBC 5.3 x10*3/mcL Normal 4.5-11.0 [facility] Comment on above: Performed By: #### . Body Fluid Differential #### [address] [address] Diff Autoon 04-11-2024 Baso Absolute 0.0 x10*3/mcL Normal 0.0-0.2 [facility] Comment on above: Performed By: #### V ANCT #### [address] [address] Basophils/100 WBC (Bld) 0.6 % Normal 0.0-1.2 [facility] Comment on above: Performed By: #### V ANCT #### [address] [address] Eos Absolute 0.2 x10*3/mcL Normal 0.0-0.4 [facility] Comment on above: Performed By: #### V ANCT #### [address] [address] Eosinophils/100 WBC (Bld) 3.5 % Normal 0.0-6.1 [facility] Comment on above: Performed By: #### V ANCT #### [address] [address] Lymph Absolute 1.2 x10*3/mcL Normal 1.0-4.8 [facility] Comment on above: Performed By: #### V ANCT #### [address] [address] Lymphocytes/100 WBC (Bld) 22.8 % Low 27.2-40.8 [facility] Comment on above: Performed By: #### V ANCT #### [address] [address] [place] Absolute 0.9 x10*3/mcL Normal 0.3-1.1 [facility] Comment on above: Performed By: #### V ANCT #### [address] [address] Monocytes/100 WBC (Bld) 16.7 % High 4.7-13.9 [facility] Comment on above: Performed By: #### V ANCT #### [facility] [address] [place] [address] Neutro Absolute 3.0 x10*3/mcL Normal 1.8-7.7 [facility] Comment on above: Performed By: #### V ANCT #### [facility] [address] [place] [address] Neutro Auto 56.4 % Normal 47.2-70.8 [facility] Comment on above: Performed By: #### V ANCT #### [facility] [address] [place] [address] Orthopedic Progress Noteon 1 Orthopedic Progress Note [...] Yony Ashton DO 04/11/24 12:15 EDT Normal [facility] .eGFRon 04-10-2024 Estimated GFR 60 mL/min/1.73m? Normal >=60 [facility] Comment on above: Result Comment: [facility] Laboratories have implemented the eGFR calculation [...] By: #### . Body Fluid Differential #### [address] [address] Basic Metabolic Profileon Anion gap [Moles/Vol] 8 mmol/L Normal 4-12 [facility] Comment on above: Performed By: #### . Body Fluid Differential #### [address] [address] Calcium [Mass/Vol] 8.3 mg/dL Low 8.5-10.3 [facility] Comment on above: Performed By: #### . Body Fluid Differential #### [address] [address] Chloride [Moles/Vol] 103 mmol/L Normal 98-110 [facility] Comment on above: Performed By: #### . Body Fluid Differential #### [address] [address] CO2 [Moles/Vol] 23 mmol/L Normal 22-32 [facility] Comment on above: Performed By: #### . Body Fluid Differential #### [address] [address] Creatinine [Mass/Vol] 1.33 mg/dL High 0.61-1.24 [facility] Comment on above: Performed By: #### . Body Fluid Differential #### [address] [address] Glucose [Mass/Vol] 104 mg/dL High 70-99 [facility] Comment on above: Performed By: #### . Body Fluid Differential #### [address] [address] Potassium [Moles/Vol] 4.0 mmol/L Normal 3.4-4.8 [facility] Comment on above: Performed By: #### . Body Fluid Differential #### [address] [address] Sodium [Moles/Vol] 134 mmol/L Normal 133-142 [facility] Comment on above: Performed By: #### . Body Fluid Differential #### [address] [address] Urea nitrogen [Mass/Vol] 15 mg/dL Normal 8-26 [facility] Comment on above: Performed By: #### . Body Fluid Differential #### [address] [address] Urea nitrogen/Creatinine [Mass ratio] 11.3 mg/mg Normal 10.0-20.0 [facility] Comment on above: Performed By: #### . Body Fluid Differential #### [address] [address] CBC w/ Diffon 04-10-2024 Erythrocyte distribution width (RBC) [Ratio] 13.9 % Normal 11.6-14.8 [facility] Comment on above: Performed By: #### . Automated Diff #### [place] [id number] Hematocrit (Bld) [Volume fraction] 28.8 % Low 41.0-53.0 [facility] Comment on above: Performed By: #### . Automated Diff #### [place] [id number] Hemoglobin (Bld) [Mass/Vol] 9.5 g/dL Low 13.5-17.5 [facility] Comment on above: Performed By: #### . Automated Diff #### [place] [id number] MCH (RBC) [Entitic mass] 29.1 pg Normal 27.0-35.0 [facility] Comment on above: Performed By: #### . Automated Diff #### [place] [address] MCHC 33.1 % Normal 31.0-37.0 [facility] Comment on above: Performed By: #### . Automated Diff #### [place] [id number] MCV (RBC) [Entitic vol] 87.8 fL Normal 80.0-100.0 [facility] Comment on above: Performed By: #### . Automated Diff #### [place] [id number] Platelet 207 x10*3/mcL Normal 150-450 [facility] Comment on above: Performed By: #### . Automated Diff #### [address] [address] Platelet mean volume (Bld) [Entitic vol] 6.5 fL Low 6.7-10.6 [facility] Comment on above: Performed By: #### . Automated Diff #### [place] [id number] RBC 3.28 x10*6/mcL Low 4.30-5.80 [facility] Comment on above: Performed By: #### . Automated Diff #### [address] [address] WBC 5.3 x10*3/mcL Normal 4.5-11.0 [facility] Comment on above: Performed By: #### . Automated Diff #### [address] [address] Diff Autoon 04-10-2024 Baso Absolute 0.0 x10*3/mcL Normal 0.0-0.2 [facility] Comment on above: Performed By: #### V ANCT #### [address] [address] Basophils/100 WBC (Bld) 0.8 % Normal 0.0-1.2 [facility] Comment on above: Performed By: #### V ANCT #### [address] [address] Eos Absolute 0.1 x10*3/mcL Normal 0.0-0.4 [facility] Comment on above: Performed By: #### V ANCT #### [address] [address] Eosinophils/100 WBC (Bld) 2.2 % Normal 0.0-6.1 [facility] Comment on above: Performed By: #### V ANCT #### [address] [address] Lymph Absolute 1.0 x10*3/mcL Normal 1.0-4.8 [facility] Comment on above: Performed By: #### V ANCT #### [address] [address] Lymphocytes/100 WBC (Bld) 18.1 % Low 27.2-40.8 [facility] Comment on above: Performed By: #### V ANCT #### [address] [address] [place] Absolute 0.8 x10*3/mcL Normal 0.3-1.1 [facility] Comment on above: Performed By: #### V ANCT #### [facility] [address] [place] [address] Monocytes/100 WBC (Bld) 15.4 % High 4.7-13.9 [facility] Comment on above: Performed By: #### V ANCT #### [place] [address] [place] [address] Neutro Absolute 3.4 x10*3/mcL Normal 1.8-7.7 [facility] Comment on above: Performed By: #### V ANCT #### [place] [address] [place] [address] Neutro Auto 63.5 % Normal 47.2-70.8 [facility] Comment on above: Performed By: #### V ANCT #### [place] [address] [place] [address] Infectious Disease Progress Noteon 04-10-2024 Infectious Disease Progress Note Patient seen briefly. Chart reviewed. Fever staying down. Labs okay. Cultures remain no growth. Continue Vanco Rocephin. I will not be rounding tomorrow. Please call if any concern. Electronically signed by Gaby LEE, Herbert Llamas 04/10/24 20:38 EDT Normal [facility] Orthopedic Progress Noteon 1 Orthopedic Progress Note [...] Yony Ashton DO 04/10/24 09:30 EDT Normal [facility] Vanco Troughon 04-10-2024 Vanco Trough 7.2 mcg/mL Low 10.0-15.0 [facility] Comment on above: Performed By: #### C #### [place] [id number] .eGFRon 04-09-2024 Estimated GFR 41 mL/min/1.73m? Low >=60 [facility] Comment on above: Result Comment: [facility] Laboratories have implemented the eGFR calculation [...] Performed By: #### . Automated Diff #### [address] [address] Basic Metabolic Profileon Anion gap [Moles/Vol] 7 mmol/L Normal 4-12 [facility] Comment on above: Performed By: #### V ANCT #### [address] [address] Calcium [Mass/Vol] 8.1 mg/dL Low 8.5-10.3 [facility] Comment on above: Performed By: #### V ANCT #### [address] [address] Chloride [Moles/Vol] 98 mmol/L Normal 98-110 [facility] Comment on above: Performed By: #### V ANCT #### [address] [address] CO2 [Moles/Vol] 23 mmol/L Normal 22-32 [facility] Comment on above: Performed By: #### V ANCT #### [address] [address] Creatinine [Mass/Vol] 1.84 mg/dL High 0.61-1.24 [facility] Comment on above: Performed By: #### V ANCT #### [address] [address] Glucose [Mass/Vol] 130 mg/dL High 70-99 [facility] Comment on above: Performed By: #### V ANCT #### [address] [address] Potassium [Moles/Vol] 3.5 mmol/L Normal 3.4-4.8 [facility] Comment on above: Performed By: #### V ANCT #### [address] [address] Sodium [Moles/Vol] 128 mmol/L Low 133-142 [facility] Comment on above: Performed By: #### V ANCT #### [address] [address] Urea nitrogen [Mass/Vol] 26 mg/dL Normal 8-26 [facility] Comment on above: Performed By: #### V ANCT #### [address] [address] Urea nitrogen/Creatinine [Mass ratio] 14.1 mg/mg Normal 10.0-20.0 [facility] Comment on above: Performed By: #### V ANCT #### [address] [address] CBC w/ Diffon 04-09-2024 Erythrocyte distribution width (RBC) [Ratio] 14.1 % Normal 11.6-14.8 [facility] Comment on above: Performed By: #### . Body Fluid Differential #### [address] [address] Hematocrit (Bld) [Volume fraction] 33.9 % Low 41.0-53.0 [facility] Comment on above: Performed By: #### . Body Fluid Differential #### [address] [address] Hemoglobin (Bld) [Mass/Vol] 11.2 g/dL Low 13.5-17.5 [facility] Comment on above: Result Comment: Hgb delta: MCV seems ok, Chemistry results seem ok. Performed By: #### . Body Fluid Differential #### [address] [address] MCH (RBC) [Entitic mass] 29.1 pg Normal 27.0-35.0 [facility] Comment on above: Performed By: #### . Body Fluid Differential #### [address] [address] MCHC 33.1 % Normal 31.0-37.0 [facility] Comment on above: Performed By: #### . Body Fluid Differential #### [place] [id number] MCV (RBC) [Entitic vol] 88.1 fL Normal 80.0-100.0 [facility] Comment on above: Performed By: #### . Body Fluid Differential #### [place] [id number] Platelet 292 x10*3/mcL Normal 150-450 [facility] Comment on above: Performed By: #### . Body Fluid Differential #### [place] [id number] Platelet mean volume (Bld) [Entitic vol] 6.6 fL Low 6.7-10.6 [facility] Comment on above: Performed By: #### . Body Fluid Differential #### [place] [address] RBC 3.85 x10*6/mcL Low 4.30-5.80 [facility] Comment on above: Performed By: #### . Body Fluid Differential #### [place] [address] WBC 8.6 x10*3/mcL Normal 4.5-11.0 [facility] Comment on above: Performed By: #### . Body Fluid Differential #### [place] [address] Diff Autoon 04-09-2024 Baso Absolute 0.0 x10*3/mcL Normal 0.0-0.2 [facility] Comment on above: Performed By: #### . Automated Diff ####[place] 2089140 Basophils/100 WBC (Bld) 0.4 % Normal 0.0-1.2 [facility] Comment on above: Performed By: #### . Automated Diff ####[place] [address] Eos Absolute 0.0 x10*3/mcL Normal 0.0-0.4 [facility] Comment on above: Performed By: #### . Automated Diff ####[address] [address] Eosinophils/100 WBC (Bld) 0.3 % Normal 0.0-6.1 [facility] Comment on above: Performed By: #### . Automated Diff ####[address] [address] Lymph Absolute 1.4 x10*3/mcL Normal 1.0-4.8 [facility] Comment on above: Performed By: #### . Automated Diff ####[address] [address] Lymphocytes/100 WBC (Bld) 15.9 % Low 27.2-40.8 [facility] Comment on above: Performed By: #### . Automated Diff ####[address] [address] [place] Absolute 1.0 x10*3/mcL Normal 0.3-1.1 [facility] Comment on above: Performed By: #### . Automated Diff ####[address] [address] Monocytes/100 WBC (Bld) 11.9 % Normal 4.7-13.9 [facility] Comment on above: Performed By: #### . Automated Diff ####[address] [address] Neutro Absolute 6.1 x10*3/mcL Normal 1.8-7.7 [facility] Comment on above: Performed By: #### . Automated Diff ####[address] [address] Neutro Auto 71.5 % High 47.2-70.8 [facility] Comment on above: Performed By: #### . Automated Diff ####[address] [address] Infectious Disease Consultat john 04-09-2024 Infectious Disease [...] mg= 1 mL, IV Push, q2min, PRN [place] 5 mg-325 mg oral tablet, 1 tabs, [...] week Emp (more content not included)... Normal [facility] MRSA, PCRon 04-09-2024 LAB ONLY Result Called? No Normal [facility] Comment on above: Performed By: #### V ANCT #### [place] [address] Methicillin Resistant Staph aurus(MRSA) Not detected Normal Not Detected [facility] Comment on above: Result Comment: Mut ations or polymorphisms in primer or probe binding regions may affect detection of new or unknown MRSA variants resulting in a false negative. The for; to (do) Centers Xpert MRSA Assay is a qualitative in [...] clinician. 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 PT declined straight cath and bladder scanner all night into the morning at first assessment. PT agreed to bladder scanning at 0930 04/09/2014. bladder scanner showed 354 in bladder, PT refuses straight cath. notified, awaiting orders. Electronically signed by Aga Rollins 04/09/24 09:37 EDT Normal [facility] Progress Note-Nurse upon giving pt 0900 medication, RN checked blood pressure. BP was 88/53 with a manually, 83/52 L arm and 85/50 R arm. notified. PT is not symptomatic at this time. Electronically signed by Aga Rollins 04/09/24 09:31 EDT Normal [facility] .BF Cell Cnt RBC Aon 024 Fluid RBC Count [id number] /mcL Normal [facility] Comment on above: Result Comment: Ther e are no established Reference Ranges for bronchoalveolar lavage (BAL), synovial, miscellaneous body, or dialysate fluids. Performed By: #### . Automated Diff #### [facility] [address] [place] [address] .BF Cell Cnt WBC Aon 024 Fluid WBC Count 28800 /mcL High 0-150 [facility] Comment on above: Result Comment: Ther e are no established Reference Ranges for bronchoalveolar lavage (BAL), miscellaneous body, or dialysate fluids. Performed By: #### . Body Fluid Differential #### [place] [id number] .BF Diffon 04-08-2024 Fluid Mononuclear Cells 8 % Normal 0-78 [facility] Comment on above: Result Comment: Ther e are no established Reference Ranges for bronchoalveolar lavage (BAL), miscellaneous body, or dialysate fluids. Performed By: #### . Body Fluid Differential #### [address] [address] Fluid Other Cells 2 % Normal 0-10 [facility] Comment on above: Result Comment: Ther e are no established Reference Ranges for bronchoalveolar lavage (BAL), miscellaneous body, or dialysate fluids. Performed By: #### . Body Fluid Differential #### [place] [id number] Fluid Polynuclear Cells 90 % High 0-25 [facility] Comment on above: Result Comment: Ther e are no established Reference Ranges for bronchoalveolar lavage (BAL), miscellaneous body, or dialysate fluids. Performed By: #### . Body Fluid Differential #### [address] [address] .eGFRon 04-08-2024 Estimated GFR 58 mL/min/1.73m? Low >=60 [facility] Comment on above: Result Comment: [facility] Laboratories have implemented the eGFR calculation [...] = years Performed By: #### E GFR ####[place] [id number] BF Cell Counton 04-08-2024 Body Fluid Cell Cnt Type Synovial Normal [facility] Comment on above: Performed By: #### C BC #### [address] [address] C Sterile BFon 04-08-2024 C Sterile BF ------- Final No growth at 2 weeks. ------- Gram Stain Many White Blood Cells No organisms seen. Normal [facility] Comment on above: Performed By: #### E SR #### [place] [id number] CBC w/ Diffon 04-08-2024 Erythrocyte distribution width (RBC) [Ratio] 13.9 % Normal 11.6-14.8 [facility] Comment on above: Performed By: #### C BC ####[address] [address] Hematocrit (Bld) [Volume fraction] 42.1 % Normal 41.0-53.0 [facility] Comment on above: Performed By: #### C BC ####[address] [address] Hemoglobin (Bld) [Mass/Vol] 14.2 g/dL Normal 13.5-17.5 [facility] Comment on above: Performed By: #### C BC ####[address] [address] MCH (RBC) [Entitic mass] 29.4 pg Normal 27.0-35.0 [facility] Comment on above: Performed By: #### C BC ####[address] [address] MCHC 33.8 % Normal 31.0-37.0 [facility] Comment on above: Performed By: #### C BC ####[address] [address] MCV (RBC) [Entitic vol] 87.1 fL Normal 80.0-100.0 [facility] Comment on above: Performed By: #### C BC ####[address] [address] Platelet 329 x10*3/mcL Normal 150-450 [facility] Comment on above: Performed By: #### C BC ####[address] [address] Platelet mean volume (Bld) [Entitic vol] 6.5 fL Low 6.7-10.6 [facility] Comment on above: Performed By: #### C BC ####[address] [address] RBC 4.83 x10*6/mcL Normal 4.30-5.80 [facility] Comment on above: Performed By: #### C BC ####[address] [address] WBC 6.7 x10*3/mcL Normal 4.5-11.0 [facility] Comment on above: Performed By: #### C BC ####[address] [address] CMPon 04-08-2024 Albumin [Mass/Vol] 4.3 g/dL Normal 3.2-4.9 [facility] Comment on above: Performed By: #### . Body Fluid Differential #### [address] [address] Albumin/Globulin [Mass ratio] 1.2 {ratio} Normal 1.1-2.2 [facility] Comment on above: Performed By: #### . Body Fluid Differential #### [address] [address] Alk Phos 60 IU/L Normal 32-91 [facility] Comment on above: Performed By: #### . Body Fluid Differential #### [address] [address] ALT [Catalytic activity/Vol] 24 U/L Normal 17-63 [facility] Comment on above: Performed By: #### . Body Fluid Differential #### [address] [address] AST [Catalytic activity/Vol] 21 U/L Normal 15-41 [facility] Comment on above: Performed By: #### . Body Fluid Differential #### [address] [address] Bili Total 1.4 mg/dL High 0.3-1.2 [facility] Comment on above: Performed By: #### . Body Fluid Differential #### [address] [address] Creatinine [Mass/Vol] 1.37 mg/dL High 0.61-1.24 [facility] Comment on above: Performed By: #### . Body Fluid Differential #### [address] [address] Protein [Mass/Vol] 7.9 g/dL Normal 6.5-8.1 [facility] Comment on above: Performed By: #### . Body Fluid Differential #### [address] [address] Urea nitrogen [Mass/Vol] 24 mg/dL Normal 8-26 [facility] Comment on above: Performed By: #### . Body Fluid Differential #### [address] [address] Urea nitrogen/Creatinine [Mass ratio] 17.5 mg/mg Normal 10.0-20.0 [facility] Comment on above: Performed By: #### . Body Fluid Differential #### [address] [address] Anion gap [Moles/Vol] 11 mmol/L Normal 4-12 [facility] Comment on above: Performed By: #### . Body Fluid Differential #### [address] [address] Calcium [Mass/Vol] 9.4 mg/dL Normal 8.5-10.3 [facility] Comment on above: Performed By: #### . Body Fluid Differential #### [address] [address] Chloride [Moles/Vol] 101 mmol/L Normal 98-110 [facility] Comment on above: Performed By: #### . Body Fluid Differential #### [address] [address] CO2 [Moles/Vol] 23 mmol/L Normal 22-32 [facility] Comment on above: Performed By: #### . Body Fluid Differential #### [address] [address] Glucose [Mass/Vol] 102 mg/dL High 70-99 [facility] Comment on above: Performed By: #### . Body Fluid Differential #### [address] [address] Potassium [Moles/Vol] 4.4 mmol/L Normal 3.4-4.8 [facility] Comment on above: Performed By: #### . Body Fluid Differential #### [address] [address] Sodium [Moles/Vol] 135 mmol/L Normal 133-142 [facility] Comment on above: Performed By: #### . Body Fluid Differential #### [address] [address] CRPon 10-03-2024 CRP 0.54 mg/dL Normal 0.00-0.75 [facility] Comment on above: Result Comment: CRP measurement is useful for assessment of non-specific INFLAMMATORY RESPONSE to infection or injury AND is a sensitive MARKER of ACUTE INFLAMMATION including CARDIAC RISK ASSESSMENT. CARDIAC patients with elevated CRP are POTENTIALLY at a HIGHER RISK OF FUTURE CARDIAC EVENTS. Performed By: #### C BC #### [address] [address] Diff Autoon 04-08-2024 Baso Absolute 0.1 x10*3/mcL Normal 0.0-0.2 [facility] Comment on above: Performed By: #### . Body Fluid Differential #### [address] [address] Basophils/100 WBC (Bld) 1.0 % Normal 0.0-1.2 [facility] Comment on above: Performed By: #### . Body Fluid Differential #### [address] [address] Eos Absolute 0.1 x10*3/mcL Normal 0.0-0.4 [facility] Comment on above: Performed By: #### . Body Fluid Differential #### [address] [address] Eosinophils/100 WBC (Bld) 1.5 % Normal 0.0-6.1 [facility] Comment on above: Performed By: #### . Body Fluid Differential #### [address] [address] Lymph Absolute 1.6 x10*3/mcL Normal 1.0-4.8 [facility] Comment on above: Performed By: #### . Body Fluid Differential #### [address] [address] Lymphocytes/100 WBC (Bld) 23.6 % Low 27.2-40.8 [facility] Comment on above: Performed By: #### . Body Fluid Differential #### [address] [address] [place] Absolute 0.8 x10*3/mcL Normal 0.3-1.1 [facility] Comment on above: Performed By: #### . Body Fluid Differential #### [address] [address] Monocytes/100 WBC (Bld) 11.3 % Normal 4.7-13.9 [facility] Comment on above: Performed By: #### . Body Fluid Differential #### [address] [address] Neutro Absolute 4.2 x10*3/mcL Normal 1.8-7.7 [facility] Comment on above: Performed By: #### . Body Fluid Differential #### [address] [address] Neutro Auto 62.6 % Normal 47.2-70.8 [facility] Comment on above: Performed By: #### . Body Fluid Differential #### [address] [address] ED Clinical Summaryon 2023 ED Clinical Summary [address] [id number] ED Clinical Summary Person [facility] Age[facility] 64 Years : 1960 Sex: Male PCP: Asmita Casillas MD Marital Status: Phone: Race: White Ethnicity: Not or Language: Rwandan [facility]: [id number] Visit Reason: Knee pain-swelling; R Knee Pain Acuity: 3 Enc Type: Observation Med Service: Emergency Medicine Arrival: 04/08/2024 10:28:57 Discharge: LOS: 000 05:38 Checkin: 04/08/2024 10:28:57 Checkout: 04/08/2024 16:06:50 Dispo Type: Address: [facility] [id number] Provider Notes: History of Present Illness Patient is a 63 years old male who presented emergency with right knee pain with plan to admission and have a knee replacement. ?Patient had earlier this year he replacement ligament repair. ?Reports some redness and?possible infection. ?[facility] doctor[facility] Dr. Lawrence who recommended that the patient?come [...] range between ( 27.2 and 40.8 ) [place] Auto: 11.3 % -- Normal range between [...] range between ( 41.0 and 53.0 ) [place] Absolute: 0.8 x10 MCH: 29.4 pg -- [...] between ( (more content not included)... Normal [facility] ED Note-Nursingon 04-08-2024 ED Note-Nursing per pt and family, pt was sent to the ED for his infected right knee and planned surgery today with dr lawrence from [facility]. Electronically signed by Quang Vargas 04/08/24 10:39 EDT Normal [facility] ED Note-Physicianon 04-08-20 ED Note-Physician Chief Complaint [...] infection. Seen [facility] doctor [facility] Dr. Lawrence who recommended that the [...] _ ? NEXUS C-spine Criteria: _ ? [place] Ankle Rule: _ ? [place] Knee Rule: _ ? Wells Criteria for DVT: _ ? Wells Criteria for PE: _ Discussed with: _ Treatment and Disposition ED Course: Patient is a 64 years old male who presented emergency with the symptoms above. Exam as mentioned above. I did do lab work for the patient. Did discuss case also with Dr. Lawrence over [facility] to recommend no antibiotics for now. Admit to the hospitalist service. Patient was discussed with Dr. Sanders stated the patient for admission. NPO. Plan to go to the OR at 4 PM. Assessment/Plan 1. Knee pain, concern for infection Orders: Sodium Chloride 0.9% intravenous solution 1,000 mL, 1,000 mL, Soln-IV, IV, 100 mL/hr, Start Date: 04/08/24 11:24:00 EDT, Dispense From Location: [facility], 2.26, m2, 04/08/24 11:24:00 EDT [...] acetaminophen, 1000 mg= 100 mL, IV Piggyback, Attendant Child Activity acetaminophen, 650 mg, Oral, q6hr, PRN acetaminophen, 650 mg, Oral, q6hr, PRN Lactated Ringers Injection intravenous solution 1,000 mL, 1000 mL, IV LR 1,000 mL, 1000 mL, IV Nalcrest 5 mg-325 mg oral tablet, 1 tabs, Oral, q4hr, PRN Normal Saline Flush 0.9% injectable solution, 10 mL, IV Push, As Indicated, PRN Normal Saline Flush 0.9% injectable solution, 10 mL, IV Push, BID oxyCODONE, 5 mg, Oral, q6hr, PRN Pepcid, 20 mg= 2 mL, IV Push, Attendant Child Activity Sodium Chloride 0.9% intravenous solution 1,000 mL, 1000 mL, IV Zofran, 4 mg= 2 mL, IV Push, Attendant Child Activity Home atenolol 50 mg oral tablet, 50 [...] Still taking (more content not included)... Normal [facility] ESRon 04-08-2024 Sed Rate 17 mm/hr Normal 0-23 [facility] Comment on above: Performed By: #### E SR #### [place] [id number] [place] [id number] Operative Reporton 4 Operative Report Indication for Surgery Patient is [...] DO (Surgeon - Primary) Evan Mathew MD Rivet Driver Evan Mathew MD Anesthesia General Ambar Pope MD, Braeden Sanchez (Fixing Machine Operator) Kelsea Jose (Provider) [place] (Provider) Estimated [...] of mo (more content not included)... Normal [facility] PTon 04-08-2024 INR Coag (PPP) [Relative time] 1.0 {INR} Normal <=3.5 [facility] Comment on above: Result Comment: INR has no normal range. INR Therapeutic range is: 2.0-3.0 (AF, CVA, TIAs, DVT prophylaxis, acute DVT) 2.5-3.5 ([facility] heart valves, recurrent thrombosis/emboli) Performed By: #### . Automated Diff #### [place] [address] PT Coag (PPP) [Time] 10.7 s Normal 9.2-12.0 [facility] Comment on above: Performed By: #### . Automated Diff #### [address] [address] PTTon 04-08-2024 aPTT Coag (Bld) [Time] 18.7 s Low 19.5-28.2 [facility] Comment on above: Performed By: #### P TT #### [address] [address] XR Knee 1 or 2 Views Righton [...] Electronically Signed in Other Vendor System) Normal [facility] Aerobic Cultureon 03-29-2024 Aerobic Culture Right Knee Effusion No Growth 2 Days Right Knee Effusion No Anaerobes Isolated 3 Days Right Knee Effusion For Gram Stain results, please refer to specimen Requisition [id number]. PERFORMED BY: [place] [address] PATHOLOGIST CHEMICAL PROCESS ANALYST KIMI TAYLOR M.D. Normal [facility] Comment on above: Performed By: #### A ERC, FL CLAYTON, GS, FLCCDIFF #### [facility] [address] [place] [address] Body fluid crystal identific ation by light microscopyOrdered By: Yony Ashton on 03-29-2024 Crystals LM Nom (Body fld) None seen [facility] Body fluid differential cell countOrdered By: Yony Ashton on 03-29-2024 Differential panel (Body fld) 6 % [facility] Comment on above: The reference interv al and other method performance specifications have not been established for this body fluid. The test result must be integrated into the clinical context for interpretation. Cell Count/Diff, Fluidon Appearance, Fluid Turbid Normal [facility] Comment on above: [...] A ERC, FL CLAYTON, GS, FLCCDIFF #### [facility] [address] [place] [address] Color, Fluid [place] Normal [facility] Comment on above: Order Comment: [...] A ERC, FL CLAYTON, GS, FLCCDIFF #### [address] Color, Fluid Supernatant Cook Normal [facility] Comment on above: Order Comment: [...] A ERC, FL CLAYTON, GS, FLCCDIFF #### [address] Eosinophils, Fluid 0 /100{WBC} Normal 0-3 [facility] Comment on above: Order Comment: EFFUS ION, RIGHT KNEE Body Fluid Source: Other (Name in the Site) Body Fluid Site: R. KNEE Result Comment: PERF ORMED BY: [place] [address] PATHOLOGIST CHEMICAL PROCESS ANALYST KIMI TAYLOR M.D. Performed By: #### A ERC, FL CLAYTON, GS, FLCCDIFF #### [address] Lymphocytes, Fluid 4 % Normal The [facility] Comment on above: Order [...] A ERC, FL CLAYTON, GS, FLCCDIFF #### [address] Monocytes/Macrophages , Fluid 6 % Normal [facility] Comment on above: Order Comment: [...] A ERC, FL CLAYTON, GS, FLCCDIFF #### [facility] [address] [place] [address] [facility] Neutrophil, Fluid 90 % Normal [facility] Comment on above: [...] A ERC, FL CLAYTON, GS, FLCCDIFF #### [facility] [address] [place] [address] [facility] RBC, Fluid [address] Normal [facility] Comment on above: Order Comment: [...] A ERC, FL CLAYTON, GS, FLCCDIFF #### [facility] [address] [place] [address] [facility] TNC, Body Fluid [address] Normal [facility] Comment on above: Order Comment: [...] A ERC, FL CLAYTON, GS, FLCCDIFF #### [facility] [address] [place] [id number] [facility] Cells Counted Total [#] in B fritz fluidOrdered By: Yony Ashton on 03-29-2024 Cells Counted Total (Body fld) [#] [address] mm^3 [facility] Comment on above: The reference interv al and other method performance specifications have not been established for this body fluid. The test result must be integrated into the clinical context for interpretation. Color of Spun Body fluidOrde red By: Yony Ashton on 03-29-2024 Color (Spun body fld) Cook [facility] Comment on above: The reference interv al and other method performance specifications have not been established for this body fluid. The test result must be integrated into the clinical context for interpretation. Crystals, Fluidon 03-29-2024 Crystals, Fluid None Seen Normal [facility] Comment on above: Order Comment: Body Fluid Source: Other (Name in the Site) Body Fluid Site: R. KNEE Result Comment: PERF ORMED BY: [place] [address] PATHOLOGIST CHEMICAL PROCESS ANALYST KIMI TAYLOR M.D. Performed By: #### A ERC, FL CLAYTON, GS, FLCCDIFF #### [address] Determination of appearance of body fluidOrdered By: Yony Ashton on 03-29-2024 Appearance (Body fld) Turbid [facility] Comment on above: The reference interv al and other method performance specifications have not been established for this body fluid. The test result must be integrated into the clinical context for interpretation. Erythrocytes [#/volume] in B fritz fluid by Automated countOrdered By: Yony Ashton on 03-29-2024 RBC Auto (Body fld) [#/Vol] 17150 mm^3 [facility] Comment on above: The reference interv al and other method performance specifications have not been established for this body fluid. The test result must be integrated into the clinical context for interpretation. Evaluation of color of body fluidOrdered By: Yony Ashton on 03-29-2024 Color (Body fld) [place] [facility] Comment on above: The reference interv al and other method performance specifications have not been established for this body fluid. The test result must be integrated into the clinical context for interpretation. Gram Stainon 03-29-2024 Microscopic observation Gram stain Nom (Unsp spec) Gram Stain Result No Bacteria Seen PERFORMED BY: [place] [address] PATHOLOGIST CHEMICAL PROCESS ANALYST KIMI TAYLOR M.D. Normal [facility] Comment on above: Performed By: #### A ERC, FL CLAYTON, GS, FLCCDIFF #### [place] [id number] [facility] Gram stain for investigation of transfusion reactionOrdered By: Yony Ashton on 03-29-2024 Microscopic observation Gram stain Nom (Unsp spec) [facility] Manual body fluid eosinophil s/100 leukocytesOrdered By: Yony Ashton on 03-29-2024 Eosinophils/100 WBC Manual cnt (Body fld) 0 /100{WBC} 0-3 [facility] Manual body fluid lymphocyte s/100 leukocytesOrdered By: Yony Ashton on 03-29-2024 Lymphocytes/100 WBC Manual cnt (Body fld) 4 % [facility] Comment on above: The reference interv al and other method performance specifications have not been established for this body fluid. The test result must be integrated into the clinical context for interpretation. Neutrophils/100 WBC Manual c nt (Body fld)Ordered By: Yony Ashton on 03-29-2024 Neutrophils/100 WBC (Body fld) 90 % [facility] Comment on above: The reference interv al and other method performance specifications have not been established for this body fluid. The test result must be integrated into the clinical context for interpretation. Sidney 11-17-2023 L Specimen: [id number] Received: 11/19/23 Status: CASANDRA Zuleta Num: [id number] Spec Type: Surgical Subm Dr: ALVIN STAFF Tissues: A Joint/Knee (RT KNEE BONE) Procedures: HE, Gross/Micro L4, Decalcification Age/ Patient Sex Location Account Attending Physician Mauricio Syed 63/M [facility] [id number] NON STAFF SPEC NUM: [id number] RECD: 11/19/23 STATUS: CASANDRA ZULETA NUM: [id number] MARIAN: 11/17/[address]: NON STAFF ENTERED: 11/19/[address]: Faviola,Lab SPEC TYPE: Surgical DEPT: LOLI [...] Serial sectioning shows yellow spongy bone matrix. Communications Executive sections are submitted in A1. Clinical history: Primary OA right knee CPT Codes 02410 BONE AND TISSUE Specimen: [id number] Received: 11/19/23 Status: CASANDRA Zuleta Num: [id number] Spec Type: Surgical Subm Dr: NON STAFF Tissues: A Joint/Knee (RT KNEE BONE) Procedures: NITISH, Gross/Micro L4, Decalcification Patient: Mauricio Syed [id number] (Continued) Signed (signature on file) Audrey Grubbs MD 11/20/23 1501 Normal [facility] XR KNEE LT 4V or [...] LA MARTINEZ Date: 2022-03-23 19:23 Normal The [facility] Vital Signs Date Time Vital Sign Value Performing Clinician Facility 08-10-2024 08:38-0500 Body height 177.8 cm Asmita Casillas MD Work Phone: [facility] 08-10-2024 08:38-0500 Body weight 104.32 kg Asmita Casillas MD Work Phone: [facility] 07-12-2024 08:50-0500 Blood Pressure Location Oneil ALEXIS [facility] 07-12-2024 08:50-0500 Body temperature 98.6 [degF] Oneil ALEXIS [facility] 07-12-2024 08:50-0500 Diastolic blood pressure 86 mm[Hg] Oneil ALEXIS [facility] 07-12-2024 08:50-0500 Heart rate 100 /min Oneil ALEXIS [facility] 07-12-2024 08:50-0500 Respiratory rate 18 /min Oneil ALEXIS [facility] 07-12-2024 08:50-0500 Systolic blood pressure 139 mm[Hg] Oneil ALEXIS [facility] 04-24-2022 09:45-0400 Body height 177.8 cm [facility] Other [facility] Other 04-24-2022 09:45-0400 Body mass index (BMI) [Ratio] 34.15 kg/m2 [facility] [facility] Other 04-24-2022 09:45-0400 Body weight 107.96 kg [facility] Other [facility] [facility] Other Encounters Encounter Date Encounter Type Care Provider Facility Start: 08-10-2024 End: 08-10-2024 Patient encounter procedure Asmita Casillas MD Work Phone: [facility] [place] Work Phone: Start: 08-10-2024 End: 08-10-2024 ambulatory Asmita Casillas MD Work Phone: [facility] Work Phone: Start: 07-22-2024 End: 07-22-2024 ambulatory Asmita Casillas MD Facility:[facility] Start: 07-12-2024 End: 07-12-2024 ambulatory Oneil ALEXIS Facility:[facility] Start: 07-12-2024 End: 07-12-2024 Patient encounter procedure Oneil ALEXIS [facility] [place] Start: 07-05-2024 ambulatory Oneil ALEXIS Facility :[facility] Start: 06-17-2024 End: 06-17-2024 ambulatory Herbert Griffin MD Facility:[facility] Start: 05-24-2024 End: 05-24-2024 ambulatory Asmita Casillas MD Facility:[facility] Start: 05-17-2024 End: 05-17-2024 ambulatory Yodit Tovar APRN-PLASTIC OUTFITTER Facility:[facility] Start: 05-10-2024 End: 05-12-2024 [facility] Start: 05-10-2024 End: 05-12-2024 Subsequent hospital visit by physician [facility] Additional Xray [facility] Comment on above: 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, subsequent encounter Start: 05-03-2024 End: 05-03-2024 ambulatory Yodit Tovar INFORMATION TECHNOLOGY PROGRAM MANAGER-PLASTIC OUTFITTER Facility:[facility] Start: 04-26-2024 End: 04-28-2024 ambulatory YONY ASHTON [facility] Start: 04-18-2024 End: 04-18-2024 Telephone encounter Rosa Vaughan QUAL FIELD MANAGER Work Phone: [facility] Start: 04-08-2024 ambulatory Asmita Casillas MD Facility:[facility] Start: 04-08-2024 End: 04-15-2024 Evaluation and management of inpatient Asmita Casillas MD Facility:[facility] Start: 04-06-2024 ambulatory Yony Ashton DO Fa cility:[facility] Start: 03-29-2024 End: 03-29-2024 ambulatory Yony Ashton [facility] Work Phone: Start: 03-29-2024 End: 03-29-2024 Departed Referred DO Yony Ashton Work Phone: [facility] [place] Work Phone: Start: 01-19-2024 End: 01-19-2024 ambulatory [facility] Start: 11-17-2023 End: 11-17-2023 ambulatory NON STAFF Facility:[facility] Start: 04-24-2022 End: 04-24-2022 ambulatory Ankush Quintero HARRY Other [employer] Other Start: 04-24-2022 Office outpatient visit 15 minutes Ankush Ricco II [facility] Start: 03-29-2022 End: 04-23-2022 ambulatory ANKUSH QUINTERO Facility:[facility] Start: 03-27-2022 End: 03-27-2022 Patient encounter procedure PHYSICIAN NO FAMILY [facility] Start: 03-23-2022 End: 03-23-2022 [...] MR Prostate WO and W contrast IV [facility] Start: 08-10-2024 MR prostate wo/w con MR prostate wo/ w con [facility] Start: 03-29-2024 Microbial culture, b fritz fluid [facility] Start: 03-29-2024 Microscopic observat ion [Identifier] in Unspecified specimen by Gram stain [facility] Start: 03-07-2024 COVID-19 Vaccine ( season) COVID-19 Vaccine ( season) [facility] Start: 02-05-2024 Influenza vaccination Flu vaccine (# 1) [facility] Start: 2021 Respiratory Syncytia l Virus (RSV) or age 60 yrs+ (1 - 1-dose 60+ series) Respiratory Syncytial Virus (RSV) or age 60 yrs+ (1 - 1-dose 60+ series) [facility] Start: 2006 Screening for malign ant neoplasm of colon [facility] Start: 2001 Lipid panel Lipids [facility] Start: 01-14-1996 Diabetes screen Diabetes screen [facility] Start: 01-14-1980 DTaP/Tdap/Td vaccine (1 - Tdap) DTaP/Tdap/Td vaccine (1 - Tdap) [facility] Start: 1979 Hepatitis C screening Hepatitis C sc reen [facility] Start: 01-14-1976 HIV screening HIV screen [facility] Start: 1973 Depression Screen Depression Screen [facility] Bacteria identified in Unspecified specimen by Aerobe culture [facility] Bacteria identified in Unspecified specimen by Anaerobe culture [facility] Immunizations Immunization Date Immunization Notes Care Provider Maxi palacios 04-17-2023 influenza virus vaccine, unspecified formulation Oneil ALEXIS [facility] 08-17-2021 zoster vaccine recombinant Oneil [email or web address] [facility] 05-30-2021 zoster vaccine recombinant Oneil ALEXIS [facility] 05-23-2021 SARS-CoV-2 (COVID-19 ) mRNA BNT-162b2 vax Oneil [employer]it [facility] Comment on above: Result Comment: 2024: [id number] 05-07-2021 influenza, unspecifi ed formulation Oneil ALEXIS [facility] 10-12-2020 SARS-CoV-2 (COVID-19 ) mRNA BNT-162b2 vax Oneil [facility]play[employer] [facility] Comment on above: Result Comment: 2024: TPV50 09-20-2020 SARS-CoV-2 (COVID-19 ) mRNA BNT-162b2 vax Oneil ALEXIS [facility] Comment on above: Result Comment: 2024: TPV50 04-08-2020 influenza virus vaccine, unspecified formulation Oneil SUMI [facility] 05-26-2019 influenza, unspecifi ed formulation Oneil AELXIS [facility] Payers Date Payer Category Payer Unknown 2023 Self-pay [id number] 2023 Unknown [id number] .[id number] 1961 Unknown [id number] 2.16.840.1.017003.3.579.2.593 1961 Unknown [id number] 2.16.840.1.702583.3.579.2.593 1961 Unknown [id number] 2.16.840.1.080640.3.579.2.174 1961 Unknown [id number] 2.16.840.1.904779.3.579.2.174 1961 Unknown [id number] 2.16.840.1.012239.3.579.2.174 1961 Unknown [id number] 2.16.840.1.294104.3.579.2.174 1961 Unknown [id number] 2.16.840.1.175085.3.579.2.174 1961 Unknown [id number] 2.16.840.1.465932.3.579.2.727 1961 Unknown [id number] 2.16.840.1.643128.3.579.2.196 1961 Unknown [id number] 2.16.840.1.005159.3.579.2.196 1961 Unknown [id number] 2.16.840.1.647995.3.579.2.196 1961 Unknown [id number] 2.16.840.1.512336.3.579.2.196 1961 Unknown [id number] 2.16.840.1.475230.3.579.2. 1961 Unknown [id number] 2.16.840.1.024192.3.579.2. 1961 Unknown [id number] 2.16.840.1.631215.3.579.2.196 1961 Unknown [id number] 2.16.840.1.898966.3.579.2.196 1961 Unknown [id number] 2.16.840.1.802957.3.579.2.196 1961 Unknown [id number] 2.16.840.1.201630.3.579.2.196 1959 Unknown [id number] 2.16.8 40.1.398912.19 Unknown [id number] Unknown [id number] 2.16.840.1.580064.3.579.2.531 Unknown [id number] 2.16.840.1.922342.3.579.2.531 Unknown [id number] 2.16.840.1.476098.3.579.2.531 Worker'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 [employer] [facility] [id number] Social History Date Type Detail Facility Tobacco smoking status NHIS Unknown if ever smoked [facility] Work Phone: Start: 1960 Sex Assigned At Male [facility] Start: 01-19-2024 Sex Assigned At [facility] [employer] Other Tobacco smoking status NHIS Tobacco smoking consumption unknown [facility] Start: 1960 Sex assigned at Not on file [facility] Start: 01-15-2024 Tobacco smoking status NHIS Never smoked tobacco [facility] Start: 01-15-2024 Tobacco use and exposure Smokeless tobacco non-user [employer] Start: 01-20-2024 Alcoholic beverage intake Current drinker of alcohol (finding) [facility] Start: 01-19-2024 End: 01-20-2024 Alcoholic beverage intake [facility] Physical abuse Denies [facility] Start: 07-12-2024 Tobacco smoking status Ex-smoker (finding) [facility] Start: 08-11-2024 Sex Patient sex un known (finding) [facility] NEGATED: Highlighted rowStart: NINF History of tobacco use Passive smoker [facility] Functional Status Date Assessment Result Facility 07-12-2024 Functional Status N/A [facility] Clinical Notes 04-24-2022 to 07-12-2024 Telephone Encounter [...] discomfort near your rectum, especially while sitting. Bondurant-colored urine due to small amounts of blood in your urine. A burning feeling while urinating. Blood in your stool (feces) or bleeding from your rectum. Blood in your semen. Follow these instructions at home: Medicines Take kgsl-gal-vhsckpg and prescription medicines only as told by [...] provider. Document Revised: 12/17/2021 Document Reviewed: 12/17/2021 [email or web address] Patient Education 2023 [employer]. 07/12/2024 09:28:13 Transrectal Ultrasound-Guided Prostate Biopsy Transrectal [...] including vitamins, herbs, eye drops, creams, and uasm-csj-josoehs medicines. Any problems you or family members [...] provider tells you to take them. Taking cken-elg-jeasasl medicines, vitamins, herbs, and supplements. General instructions [...] provider. Document Revised: 12/17/2021 Document Reviewed: 12/17/2021 [email or web address] Patient Education 2023 [employer]. Follow Up Care 07/05/2024 15:21:45 With:SUMI LEE, Oneil Ruiz, URL Address: [facility] [address] [place] [address]- When: Unknown [facility] 07-12-2024 Note Urology Office/Clini c Note Chief Complaint referral HPI Staff 64yr old male pt referred by Dr. Casillas for elevated PSA. Pt unable to give urine sample at this time. PSA: 06/25/24 - 64.08 06/28/24 - 61.1 Dysuria: denies Incomplete bladder emptying: denies Hematuria: [...] no prior PSAs on clinisync 06/25/24 - 64.08 06/28/24 - 61.1 & 13.6% Pt unable to provide urine [...] URL [facility] [address] [place] [address]- Additional Instructions: Schedule prostate MRI and TRUS/bx (possible fusion) Patient Education Transrectal Ultrasound-Guided Prostate Biopsy, Care After Transrectal Ultrasound-Guided Prostate Biopsy Laisha Cisneros, personally scribed for Dr. Alexis on 07/12/2024 09:58:12. . Documentation recorded by the scribe, Laisha Gamez, accurately reflects the services(s) I performed and [...] BNT-162b2 vax 10/12/2020 (more content not included)... [facility] Comment on above: Result Comment: Elec tronically [...] near your rectum, especially while sitting. ??? Bondurant-colored urine due to small amounts of blood in your urine. ??? A burning feeling while urinating. ??? Blood in your stool (feces) or bleeding from your rectum. ??? Blood in your semen. Follow these instructions at home: Medicines ??? Take ivvz-bdq-fehjcic and prescription medicines only as told by [...] provider. Document Revised: 12/17/2021 Document Reviewed: 12/17/2021 [employer] Patient Education ? 2023 [employer]. Transrectal Ultrasound-Guided Prostate Biopsy A transrectal ultrasound-guided [...] including vitamins, herbs, eye drops, creams, and pfwd-dyd-yeekktg medicines. ??? Any problems you or family [...] This is especial (more content not included)... [facility] 04-18-2024 Telephone encounter Note Rx for tramadol is sent for this [facility] patient today, #90 [facility] 04-18-2024 Miscellaneous Notes Rx for tramadol is sent for this [facility] patient today, #90 documented in this encounter [facility] 04-15-2024 Note Admission Informatio n Patient: Mauricio [...] 2 months ago. He was seen at [facility], he started having persistent knee redness [...] (Right) (04/08/2024) Electroni (more content not included)... [facility] 04-12-2024 Note Procedure: Portable AP chest radiograph following peripherally inserted central catheter (PICC) insertion. Inserted by: Flavia Butler RN. PICC type: 4 Hebrew single lumen Power PICC Solo. Puncture site: [...] Signed, Electronically Signed in Other Vendor System) [facility] 04-08-2024 Note Chief Complaint patient had knee [...] 2 months ago. He was seen at [facility], he started having persistent knee redness [...] acetaminophen, 1000 mg= 100 mL, IV Piggyback, Attendant Child Activity acetaminophen, 650 mg, Oral, q6hr, PRN acetaminophen, [...] mg= 1 mL, IV Push, q2min, PRN Nalcrest 5 mg-325 mg oral tablet, 1 tabs, Oral, q4hr, PRN Nalcrest 5 mg-325 mg oral tablet, 1 tabs, Oral, q6hr, PRN Normal Saline Flush 0.9% injectable solution, 10 mL, IV Push, As Indicated, PRN Normal Saline Flush 0.9% injectable solution, 10 mL, IV Push, BID Normal Saline Flush 0.9% injectab (more content not included)... [facility] 04-24-2022 Evaluation note Encounter Date Diagnosis Assessment [...] begin doing his own therapy at home. [employer] Other Evaluation + Plan note No data available for this section [facility] evaluation noteNo assessment information available [facility] Work Phone: Evaluation note* Diagnosis Pain- Primary Generalized pain [facility] Diagnosis Infection of total right knee replacement, subsequent encounter documented in this encounter Reji Ellis [facility] general Narrative - Reported* Type Description Date Medical History hypertension Surgical History vasectomy [facility] [employer] Other Progress note No data available for this section [facility] Advance Directives No Advanced Directives Records Found Advance Directive Response Recorded Date/ Time Advance Directives No February 10, 2 019 1:39pm Date Activated Date Inactivated Comments 01/19/2024 7:07 AM 01/19/2024 1:01 PM Advance Directive Response Recorded Date/ Time Advance Directives No February 10, 2 019 12:39pm Summary Purpose Family History No Family History [...] March 29, 2024 End: March 29, 2024 Managed Care Specialist Relationship Specialty Start Date End Date Asmita Casillas MD [address] [place] [address] PCP - General Family Medicine 01/19/24 Managed Care Specialist Relationship Specialty Start Date End Date Asmita Casillas MD [address] [phone] PCP - General Family Medicine 01/19/24 Team [...] content) DATE CREATED AUTHOR 05/11/2022 [facility] DATE CREATED AUTHOR AUTHOR'S ORGANIZ ATION 05/14/2024 Maryann mar DATE CREATED AUTHOR AUTHOR'S ORGANIZ ATION 07/17/2024 [facility] DATE CREATED AUTHOR AUTHOR'S ORGANIZ ATION 07/25/2024 [facility] DATE CREATED AUTHOR AUTHOR'S ORGANIZ ATION 08/13/2024 [facility] FOR RECORDS PERTAINING TO PATIENTS [...] BE BASED ON THE PRIMARY CLINICAL RECORDS. [facility] [employer] [facility]. provides no warranty or guarantee of the accuracy or completeness of information in this document.
== END 2024-08-17 08:23 | disposition home or self-care (01) ==
PROVIDERS: PCP Family Medicine; Visit Provider Student in an Organized Health Care Education/Training Program
DX: T84.53XD Infection and inflammatory reaction due to internal right knee prosthesis, subsequent encounter (principal)
CPT/HCPCS: 36415; 85025; 85652; 86140

== ENCOUNTER 2024-08-27 12:20 | Outpatient (OUT) | payer OTHER, SELFPAY ==
--- OUTSIDE RECORDS SUMMARY | 2024-08-27 12:34 | XMS_ITS | CCD ---
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 ) Name Role Phone NO FAMILY, PHYSICIAN Primary Care Provider Unava ilable MD Ankush Quintero II Attending Provider Ankush Quintero II Unavailable ANKUSH QUINTERO Admitting Unavailable ANKUSH QUINTERO Attending Unavailable YOMI VALDEZ Primary Care Unavailable RUDDY HECTOR Admitting Unavailable RUDDY HECTOR Attending Unavailable YOMI VALDEZ Primary Care Unavailable LA MARTINEZ Consulting Unavailable RUDDY HECTOR Consulting Unavailable DO Yony Ashton Attending Provider [phone] Unavailable Primary Care Provider UnavailAsmita Pedroza MD Primary Care Provider [phone] ASMITA CASILLAS Primary Care Unavailable YONY ASHTON Referring Unavailable ASMITA CASILLAS Primary Care Unavailable YONY ASHTON Admitting Unavailable YONY ASHTON Attending Unavailable YONY ASHTON Referring Unavailable ASMITA CASILLAS Primary Care Unavailable YONY ASHTON Referring Unavailable ASMITA CASILLAS Primary Care Unavailable YONY ASHTON Referring Unavailable ASMITA CASILLAS Primary Care Unavailable Asmita Casillas Primary Care Physician Asmita Casillas MD Primary Care Unavailjudit Sanders MD, Radha Solis Admitting Unavailab Tahir LEE, Radha Solis Attending UnavailYony Bower DO Consulting Unavailjet Griffin MD, Herbert Llamas Consulting Unavailable Asmita Casillas MD Primary Care UnavailHerbert Goodman MD Attending Unavailable Asmita Casillas MD Primary Care Unavailjudit Griffin MD, Herbert Llamas Attending Unavailable Herbert Griffin MD Attending Unavailable Vinny LEE, [facility] Unavaila forrest MATTHEWS, Yodit Rollins Attending U chiquita Casillas MD, [facility] Unavaila Herbert Joyner MD Attending Unavailable Vinny LEE, [facility] Unavaila forrest MATTHEWS, Yodit Rollins Attending U chiquita Casillas MD, [facility] Unavaila Yony Heranndez DO Attending Unavailjet Casillas MD, [facility] Unavaila forrest Griffin MD, Herbert Llamas Attending Unavailable Herbert Griffin MD Attending Unavailable Vinny LEE, [facility] Unavaila forrest Casillas MD, [facility] UnavailYony Lopez DO Attending UnavailOneil Betancourt MD Attending Provider Asmita Casillas MD Primary Care Provider [phone] NON STAFF Attending Unavailable NON STAFF Admitting Unavailable Oneil Alexis Attending Unavailable Oneil Alexis Admitting Unavailable Asmita Casillas Primary Care Unavailable Yony Ashton Attending Unavailable Yony Ashton Admitting Unavailable Oneil ALEXIS Attending Unavailable Oneil ALEXIS Attending Unavailable Asmita Casillas Patrick R Attending Unavailable Allergies Allergy Classification Reported Allergen(s) Allergy Type Date of Onset Reaction(s) Facility (5 sources) Cephalexin; Translations: [Keflex] Drug Allergy 06-07-20 13 rash, Unknown (qualifier value) [facility] Repository (1 source) Penicillin V Drug Allergy rash Bitrockr Other (1 source) Dextroamphetamine Drug Allergy 08-21-19 17 [facility] Repository (3 sources) Penicillins Drug allergy (disorder) 06-07-20 13 rash [facility] Repository (5 sources) Cephalexin; Translations: [cephalexin] Drug Allergy 04-24-20 22 rash [facility] (2 sources) Penicillins Propensity to adverse reactions to drug 01-15-20 24 [facility] (3 sources) Penicillin; Translations: [penicillin] Drug Allergy Unknown (qualifier value) [facility] (1 source) Penicillins Drug allergy (disorder) 04-24-20 [facility] Repository Medications Current Medications Medication Drug [...] day(s), # 14 tab(s), Refills(s) 0, Pharmacy: [id number], 179, cm, 07/12/24 9:03:00 EST, Height/Length [...] Other correction (current) drug therapy; Translations: [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 Impression dictated by: Fransico Cordova Jr. D.OMirtha08/11/2024 9:39 AM Dictation Location: [place] [address] Transcribed By: [facility] [id number] Dictated By: Fransico Cordova Jr, DO 08/11/24930 Signed By: 08/11/24938 Normal [facility] CBC w/ Diffon 07-22-2024 Erythrocyte distribution width (RBC) [Ratio] 16.1 % High 11.6-14.8 [facility] Comment on above: Performed By: #### P TT #### [address] [address] Hematocrit (Bld) [Volume fraction] 43.8 % Normal 41.0-53.0 [facility] Comment on above: Performed By: #### P TT #### [address] [address] Hemoglobin (Bld) [Mass/Vol] 14.4 g/dL Normal 13.5-17.5 [facility] Comment on above: Performed By: #### P TT #### [address] [address] MCH (RBC) [Entitic mass] 26.1 pg Low 27.0-35.0 [facility] Comment on above: Performed By: #### P TT #### [address] [address] MCHC 32.9 % Normal 31.0-37.0 [facility] Comment on above: Performed By: #### P TT #### [address] [address] MCV (RBC) [Entitic vol] 79.2 fL Low 80.0-100.0 [facility] Comment on above: Performed By: #### P TT #### [address] [address] Platelet 351 x10*3/mcL Normal 150-450 [facility] Comment on above: Performed By: #### P TT #### [address] [address] Platelet mean volume (Bld) [Entitic vol] 7.1 fL Normal 6.7-10.6 [facility] Comment on above: Performed By: #### P TT #### [facility] [address] [place] [address] RBC 5.53 x10*6/mcL Normal 4.30-5.80 [facility] Comment on above: Performed By: #### P TT #### [address] [address] WBC 6.2 x10*3/mcL Normal 4.5-11.0 [facility] Comment on above: Performed By: #### P TT #### [address] [address] CRPon 07-22-2024 CRP 0.41 mg/dL Normal 0.00-0.75 [facility] Comment on above: Result Comment: CRP measurement is useful for assessment of non-specific INFLAMMATORY RESPONSE to infection or injury AND is a sensitive MARKER of ACUTE INFLAMMATION including CARDIAC RISK ASSESSMENT. CARDIAC patients with elevated CRP are POTENTIALLY at a HIGHER RISK OF FUTURE CARDIAC EVENTS. Performed By: #### C RP ####[address] [address] Diff Autoon 07-22-2024 Baso Absolute 0.1 x10*3/mcL Normal 0.0-0.2 [facility] Comment on above: Performed By: #### V ANCT #### [address] [address] Basophils/100 WBC (Bld) 1.0 % Normal 0.0-1.2 [facility] Comment on above: Performed By: #### V ANCT #### [address] [address] Eos Absolute 0.1 x10*3/mcL Normal 0.0-0.4 [facility] Comment on above: Performed By: #### V ANCT #### [address] [address] Eosinophils/100 WBC (Bld) 2.2 % Normal 0.0-6.1 [facility] Comment on above: Performed By: #### V ANCT #### [address] [address] Lymph Absolute 1.6 x10*3/mcL Normal 1.0-4.8 [facility] Comment on above: Performed By: #### V ANCT #### [address] [address] Lymphocytes/100 WBC (Bld) 25.4 % Low 27.2-40.8 [facility] Comment on above: Performed By: #### V ANCT #### [address] [address] [place] Absolute 0.7 x10*3/mcL Normal 0.3-1.1 [facility] Comment on above: Performed By: #### V ANCT #### [address] [address] Monocytes/100 WBC (Bld) 10.6 % Normal 4.7-13.9 [facility] Comment on above: Performed By: #### V ANCT #### [address] [address] Neutro Absolute 3.7 x10*3/mcL Normal 1.8-7.7 [facility] Comment on above: Performed By: #### V ANCT #### [address] [address] Neutro Auto 60.8 % Normal 47.2-70.8 [facility] Comment on above: Performed By: #### V ANCT #### [address] [address] ESRon 07-22-2024 Sed Rate 3 mm/hr Normal 0-23 [facility] Comment on above: Performed By: #### . Body Fluid Differential #### [address] [address] Infectious Disease Office/Cl inic Noteon 07-22-2024 Infectious [...] Infectious Disease Office Visit Note; Herbert Griffin MD 06/17/2024 14:37 EST Electronically signed by Herbert Griffin MD 07/22/24 13:43 EST Recheck labs today. Electronically signed by (more content not included)... Normal [facility] Provider Letteron 07-22-2024 Provider Letter Asmita Casillas MD [address] [place] [address] Re: Mauricio Syed Date of Visit: 07/22/[address] Casillas, Thank you for your referral to my office. Attached you will find the most recent office visit note. Please call if you have any questions or concerns. Sincerely, Herbert Griffin MD [address] [facility], [address] [place] [address] The following document(s) were included in the letter: July 22, 2024 13:42:19 EST - (07/22/2024) Infectious Disease Office Visit Note Normal [facility] Ambulatory Visit Summaryon 0 07-12-2024 Ambulatory [...] Schedule the Following Appointments Follow Up with Oneil ALEXIS MD, BETO When: Where: [facility] [address] , [facility] [place] [address]- Medications What How Much When Instructions New ciprofloxacin (Cipro 500 mg Tab) 1 Tablets By Mouth 2 times a day Duration: 7 Days Start 3 days prior to procedure. Pickup at [facility] Unchanged doxycycline (doxycycline hyclate 100 mg Tab) Contact prescribing physician if questions or concerns Unchanged meloxicam 15 Milligram By Mouth Every day Contact prescribing physician if questions or concerns Unchanged tramadol 50 Milligram By Mouth Every day Contact prescribing physician if questions or concerns Unchanged trazodone (traZODONE 150 mg Tab) Contact prescribing physician if questions or concerns Pharmacy Information [facility]: [address] [place], [place] [id number] [phone] Allergies Keflex (Unknown) penicillin (Unknown) Problems Ongoing [...] near your rectum, especially while sitting. ??? [place]-colored urine due to small amounts of blood in your urine. ??? A burning feeling while urinating. ??? Blood in your stool (feces) or bleeding from your rectum. ??? Blood in your semen. Follow these instructions at home: Medicines ??? Take slhy-flz-yfdcvmr and prescription medicines only as told by [...] ??? Afte (more content not included)... Normal [facility] .eGFRon 12-12-2024 GFR/1.73 sq M.predicted MDRD (S/P/Bld) [Vol rate/Area] mL/min/{1.73_m2} Normal >=60 [facility] Comment on above: Result Comment: [facility] Laboratories have implemented the eGFR calculation approach [...] years Performed By: #### C BC #### [facility] [address] [place] [address] Basic Metabolic Profileon Anion gap [Moles/Vol] 7 mmol/L Normal 4-12 [facility] Comment on above: Performed By: #### P TT #### [facility] [address] [place] [address] Calcium [Mass/Vol] 9.5 mg/dL Normal 8.5-10.3 [facility] Comment on above: Performed By: #### P TT #### [facility] [address] [place] [address] Chloride [Moles/Vol] 106 mmol/L Normal 98-110 [facility] Comment on above: Performed By: #### P TT #### [facility] [address] [place] [address] CO2 [Moles/Vol] 25 mmol/L Normal 22-32 [facility] Comment on above: Performed By: #### P TT #### [address] [address] Creatinine [Mass/Vol] 1.15 mg/dL Normal 0.61-1.24 [facility] Comment on above: Performed By: #### P TT #### [address] [address] Glucose [Mass/Vol] 91 mg/dL Normal 70-99 [facility] Comment on above: Performed By: #### P TT #### [address] [address] Potassium [Moles/Vol] 4.2 mmol/L Normal 3.4-4.8 [facility] Comment on above: Performed By: #### P TT #### [address] [address] Sodium [Moles/Vol] 138 mmol/L Normal 133-142 [facility] Comment on above: Performed By: #### P TT #### [address] [address] Urea nitrogen [Mass/Vol] 22 mg/dL Normal 8-26 [facility] Comment on above: Performed By: #### P TT #### [address] [address] Urea nitrogen/Creatinine [Mass ratio] 19.1 mg/mg Normal 10.0-20.0 [facility] Comment on above: Performed By: #### P TT #### [address] [address] CBC w/ Diffon 06-17-2024 Erythrocyte distribution width (RBC) [Ratio] 16.5 % High 11.6-14.8 [facility] Comment on above: Performed By: #### C BC #### [address] [address] Hematocrit (Bld) [Volume fraction] 41.1 % Normal 41.0-53.0 [facility] Comment on above: Performed By: #### C BC #### [address] [address] Hemoglobin (Bld) [Mass/Vol] 13.3 g/dL Low 13.5-17.5 [facility] Comment on above: Performed By: #### C BC #### [address] [address] MCH (RBC) [Entitic mass] 26.2 pg Low 27.0-35.0 [facility] Comment on above: Performed By: #### C BC #### [address] [address] MCHC 32.4 % Normal 31.0-37.0 [facility] Comment on above: Performed By: #### C BC #### [address] [address] MCV (RBC) [Entitic vol] 80.8 fL Normal 80.0-100.0 [facility] Comment on above: Performed By: #### C BC #### [address] [address] Platelet 364 x10*3/mcL Normal 150-450 [facility] Comment on above: Performed By: #### C BC #### [address] [address] Platelet mean volume (Bld) [Entitic vol] 6.9 fL Normal 6.7-10.6 [facility] Comment on above: Performed By: #### C BC #### [address] [address] RBC 5.09 x10*6/mcL Normal 4.30-5.80 [facility] Comment on above: Performed By: #### C BC #### [address] [address] WBC 7.9 x10*3/mcL Normal 4.5-11.0 [facility] Comment on above: Performed By: #### C BC #### [address] [address] CRPon 06-17-2024 CRP 0.77 mg/dL High 0.00-0.75 [facility] Comment on above: Result Comment: CRP measurement is useful for assessment of non-specific INFLAMMATORY RESPONSE to infection or injury AND is a sensitive MARKER of ACUTE INFLAMMATION including CARDIAC RISK ASSESSMENT. CARDIAC patients with elevated CRP are POTENTIALLY at a HIGHER RISK OF FUTURE CARDIAC EVENTS. Performed By: #### C BC #### [address] [address] Diff Autoon 06-17-2024 Baso Absolute 0.1 x10*3/mcL Normal 0.0-0.2 [facility] Comment on above: Performed By: #### V ANCT #### [address] [address] Basophils/100 WBC (Bld) 0.9 % Normal 0.0-1.2 [facility] Comment on above: Performed By: #### V ANCT #### [address] [address] Eos Absolute 0.3 x10*3/mcL Normal 0.0-0.4 [facility] Comment on above: Performed By: #### V ANCT #### [address] [address] Eosinophils/100 WBC (Bld) 3.4 % Normal 0.0-6.1 [facility] Comment on above: Performed By: #### V ANCT #### [address] [address] Lymph Absolute 2.0 x10*3/mcL Normal 1.0-4.8 [facility] Comment on above: Performed By: #### V ANCT #### [address] [address] Lymphocytes/100 WBC (Bld) 25.8 % Low 27.2-40.8 [facility] Comment on above: Performed By: #### V ANCT #### [address] [address] [place] Absolute 0.8 x10*3/mcL Normal 0.3-1.1 [facility] Comment on above: Performed By: #### V ANCT #### [address] [address] Monocytes/100 WBC (Bld) 10.0 % Normal 4.7-13.9 [facility] Comment on above: Performed By: #### V ANCT #### [address] [address] Neutro Absolute 4.7 x10*3/mcL Normal 1.8-7.7 [facility] Comment on above: Performed By: #### V ANCT #### [address] [address] Neutro Auto 59.9 % Normal 47.2-70.8 [facility] Comment on above: Performed By: #### V ANCT #### [address] [address] ESRon 06-17-2024 Sed Rate 10 mm/hr Normal 0-23 [facility] Comment on above: Performed By: #### . Body Fluid Differential #### [place] [id number] Infectious Disease Office/Cl inic Noteon 06-17-2024 Infectious [...] Sed rate (more content not included)... Normal [facility] Provider Letteron 06-17-2024 Provider Letter Asmita Casillas MD [address] [place] [address] Re: Mauricio Syed Date of Visit: 06/17/[address] Casillas, Thank you for your referral to my office. Attached you will find the most recent office visit note. Please call if you have any questions or concerns. Sincerely, Herbert Griffin MD [address] [facility], [address] [place] [address] The following document(s) were included in the letter: June 17, 2024 14:37:54 EST - (06/17/2024) Infectious Disease Office Visit Note Normal [facility] Infectious Disease Office/Cl inic Noteon 05-24-2024 Infectious Disease Office/Clinic Note Assessment/Plan 1. Infection of prosthetic right knee joint With PICC line removed and IV antibiotic complete, will label remover to doxycycline for a month or so. [...] caps, 0 Refill(s), 06/21/24 13:50:00 EST, Pharmacy: [facility]/pharmacy #[id number] Chief Complaint 2 week follow-up right prosthetic [...] has not liked the food at the detention and has been eating food from home. [...] in the 90-1 10 range at the detention. No acute distress. Skin color looks okay. [...] BNT-162b2 vax (more content not included)... Normal [facility] Provider Letteron 05-24-2024 Provider Letter Asmita Casillas MD [address] [place] [address] Re: Mauricio Syed Date of Visit: 05/24/[address] Casillas, Thank you for your referral to my office. Attached you will find the most recent office visit note. Please call if you have any questions or concerns. Sincerely, Herbert Griffin MD [address] [facility], [address] [place] [address] The following document(s) were included in the letter: May 24, 2024 13:53:00 EST - (05/24/2024) Infectious Disease Office Visit Note Normal [facility] Infectious Disease Office/Cl inic Noteon 05-17-2024 [...] Exercise Home/Env (more content not included)... Normal [facility] XR KNEE RIGHT (1-2 VIEWS)on 05-10-2024 XR KNEE RIGHT (1-2 VIEWS) EXAM: XR KNEE RIGHT (1-2 VIEWS). HISTORY: Infection of total right knee replacement, subsequent encounter. COMPARISON: 04/26/2024 IMPRESSION: FINDINGS/IMPRESSION: 1. Tibial spacer in anatomic alignment. 2. Femoral component unchanged. 3. No acute change. Interpreted by: Miguel Angel Iqbal Jr., MD Signed by: Miguel Angel Iqbal Jr., MD 05/10/24 Final result Normal [facility] XR Knee - right 1 or 2 Views on 05-10-2024 FINDINGS/IMPRESSION: 1. Tibial spacer in anatomic alignment. 2. Femoral component unchanged. 3. No acute change. [facility] EXAM: XR KNEE RIGHT (1-2 VIEWS). HISTORY: Infection of total right knee replacement, subsequent encounter. COMPARISON: 04/26/2024 [facility] Miguel Angel Iqbal Jr., MD - 05/10/2024 EXAM: XR KNEE RIGHT (1-2 VIEWS). HISTORY: Infection of total right knee replacement, subsequent encounter. COMPARISON: 04/26/2024 IMPRESSION: FINDINGS/IMPRESSION: 1. Tibial spacer in anatomic alignment. 2. Femoral component unchanged. 3. No acute change. [facility] Study observation (narrative) [facility] XR Knee - right 1 or 2 Views Ordered By: Miguel Angel Iqbal on 05-10-2024 [facility] Work Phone: C Fungalon 05-06-2024 C Fungal ------- Final No growth at 4 weeks. Normal [facility] Comment on above: Performed By: #### P TT #### [place] [address] Performed By: #### E SR #### [place] [address] Performed By: #### C BC #### [place] [id number] Infectious Disease Office/ in Noteon 05-03-2024 Infectious Disease Office/Clinic Note Assessment/Plan [...] by Yodit Mancia 05/03/24 16:03 EDT Normal [facility] XR KNEE RIGHT (1-2 VIEWS)on 04-26-2024 [...] Angel Iqbal Jr., MD 04/26/24 Final result [facility] Jonathon Haines 04-24-2024 C JAMES ------- Final No anaerobic organisms isolated at 2 weeks [facility] Comment on above: Performed By: #### E SR #### [place] [address] C JAMES ------- Final No anaerobic organisms isolated at 2 weeks [facility] Comment on above: Performed By: #### E SR #### [place] [address] C JAMES ------- Final No anaerobic organisms isolated at 2 weeks [facility] Comment on above: Performed By: #### A NAC ####[place] [address] C JAMES ------- Final No anaerobic organisms isolated at 2 weeks Normal [facility] Comment on above: Performed By: #### Jon[place] BC #### [place] [address] [facility] [place] [address] C ANAon 04-23-2024 C JAMES ------- Final No anaerobic organisms isolated at 2 weeks [facility] Comment on above: Performed By: #### P TT #### [address] [place] [address] C JAMES ------- Final No anaerobic organisms isolated at 2 weeks [facility] Comment on above: Performed By: #### E SR #### [facility] [address] [place] [address], [place] [address] C Sterile BSon 04-23-2024 C Sterile BS ------- Final No growth at 2 weeks. [facility] Comment on above: Performed By: #### C BC #### [facility] [address] [facility] [place] [address] C Sterile BS ------- Final No growth at 2 weeks. [facility] Comment on above: Performed By: #### E SR #### [address] [address] C Sterile BS ------- Final No growth at 2 weeks. [facility] Comment on above: Performed By: #### E SR #### [address] [address] C Sterile BS ------- Final No growth at 2 weeks. [facility] Comment on above: Performed By: #### E SR #### [address] [address] C Sterile BS ------- Final No growth at 2 weeks. [facility] Comment on above: Performed By: #### E SR #### [address] [address] CRPon 04-15-2024 CRP 11.42 mg/dL High 0.00-0.75 [facility] Comment on above: Result Comment: CRP measurement is useful for assessment of non-specific INFLAMMATORY RESPONSE to infection or injury AND is a sensitive MARKER of ACUTE INFLAMMATION including CARDIAC RISK ASSESSMENT. CARDIAC patients with elevated CRP are POTENTIALLY at a HIGHER RISK OF FUTURE CARDIAC EVENTS. Performed By: #### C RP ####[facility] [place] [address] Inpatient Clinical Summaryon 04-15-2024 Inpatient Clinical Summary [facility] [address] [place] [address] [address] Clinical Summary Person Information Name: Mauricio Syed Age: 64 Years : 1960 Sex: Male PCP: Asmita Casillas MD Marital Status: Phone: PCP: Race: White Ethnicity: Not or Language: [place]ankan Visit Id: Visit Reason: Knee pain-swelling; R Knee Pain Speciality: Acuity: Enc Type: Inpatient Med Service: Emergency Medicine Arrival: 04/08/2024 10:28:57 Discharge: Dispo Type: Address: [address] [place] [id number] Diagnosis: 1:Infection of prosthetic right knee joint; [...] range between ( 27.2 and 40.8 ) [place] Auto: 12.6 % -- Normal range between [...] range between ( 41.0 and 53.0 ) [place] Absolute: 1.0 x10 MCH: 28.7 pg -- [...] Sources 04/08/2024 4:54 PM Fluid RBC Count: 157251 /mcL Body Fluid Cell Cnt Type: Synovial Fluid WBC Count: 04709 /mcL -- Normal range between ( 0 [...] Views Right (more content not included)... Normal [facility] Orthopedic Progress Noteon 1 Orthopedic Progress Note Subjective Patient seen evaluated. Overall doing well today. Placement obtained for [facility] facility. Review of Systems Denies fever, chills, [...] mg= 1 mL, IV Push, q2min, PRN [place] 5 mg-325 mg oral tablet, 1 tabs, [...] Yony Ashton DO 04/15/24 13:29 EDT Normal [facility] .eGFRon 04-14-2024 GFR/1.73 sq M.predicted MDRD (S/P/Bld) [Vol rate/Area] mL/min/{1.73_m2} Normal >=60 [facility] Comment on above: Result Comment: [facility] Laboratories have implemented the eGFR calculation approach [...] years Performed By: #### V ANCT #### [facility] [address] [place] [address] GFR/1.73 sq M.predicted MDRD (S/P/Bld) [Vol rate/Area] mL/min/{1.73_m2} Normal >=60 [facility] Comment on above: Result Comment: [facility] Laboratories have implemented the eGFR calculation approach [...] Performed By: #### . Automated Diff #### [facility] [address] [place] [address] Basic Metabolic Profileon Anion gap [Moles/Vol] 9 mmol/L Normal 4-12 [facility] Comment on above: Performed By: #### . Body Fluid Differential #### [facility] [address] [place] [address] Calcium [Mass/Vol] 8.7 mg/dL Normal 8.5-10.3 [facility] Comment on above: Performed By: #### . Body Fluid Differential #### [facility] [address] [place] [address] Chloride [Moles/Vol] 103 mmol/L Normal 98-110 [facility] Comment on above: Performed By: #### . Body Fluid Differential #### [address] [address] CO2 [Moles/Vol] 23 mmol/L Normal 22-32 [facility] Comment on above: Performed By: #### . Body Fluid Differential #### [address] [address] Creatinine [Mass/Vol] 1.21 mg/dL Normal 0.61-1.24 [facility] Comment on above: Performed By: #### . Body Fluid Differential #### [address] [address] Glucose [Mass/Vol] 99 mg/dL Normal 70-99 [facility] Comment on above: Performed By: #### . Body Fluid Differential #### [address] [address] Potassium [Moles/Vol] 4.2 mmol/L Normal 3.4-4.8 [facility] Comment on above: Performed By: #### . Body Fluid Differential #### [address] [address] Sodium [Moles/Vol] 135 mmol/L Normal 133-142 [facility] Comment on above: Performed By: #### . Body Fluid Differential #### [address] [address] Urea nitrogen [Mass/Vol] 18 mg/dL Normal 8-26 [facility] Comment on above: Performed By: #### . Body Fluid Differential #### [address] [address] Urea nitrogen/Creatinine [Mass ratio] 14.9 mg/mg Normal 10.0-20.0 [facility] Comment on above: Performed By: #### . Body Fluid Differential #### [address] [address] Anion gap [Moles/Vol] 9 mmol/L Normal 4-12 [facility] Comment on above: Performed By: #### . Automated Diff #### [address] [address] Calcium [Mass/Vol] 8.4 mg/dL Low 8.5-10.3 [facility] Comment on above: Performed By: #### . Automated Diff #### [address] [address] Chloride [Moles/Vol] 102 mmol/L Normal 98-110 [facility] Comment on above: Performed By: #### . Automated Diff #### [address] [address] CO2 [Moles/Vol] 24 mmol/L Normal 22-32 [facility] Comment on above: Performed By: #### . Automated Diff #### [address] [address] Creatinine [Mass/Vol] 1.24 mg/dL Normal 0.61-1.24 [facility] Comment on above: Performed By: #### . Automated Diff #### [address] [address] Glucose [Mass/Vol] 100 mg/dL High 70-99 [facility] Comment on above: Performed By: #### . Automated Diff #### [address] [address] Potassium [Moles/Vol] 3.5 mmol/L Normal 3.4-4.8 [facility] Comment on above: Performed By: #### . Automated Diff #### [address] [address] Sodium [Moles/Vol] 135 mmol/L Normal 133-142 [facility] Comment on above: Performed By: #### . Automated Diff #### [address] [address] Urea nitrogen [Mass/Vol] 18 mg/dL Normal 8-26 [facility] Comment on above: Performed By: #### . Automated Diff #### [address] [address] Urea nitrogen/Creatinine [Mass ratio] 14.5 mg/mg Normal 10.0-20.0 [facility] Comment on above: Performed By: #### . Automated Diff #### [facility] [address] [place] [address] CBC w/ Diffon 04-14-2024 Erythrocyte distribution width (RBC) [Ratio] 14.1 % Normal 11.6-14.8 [facility] Comment on above: Order Comment: Nurse draw per [facility] 04/14/2024 14:20 ALSNotified Donna that we still haven't rec'd blood on this patient. She will let the nurse know. 04/14/2024 17:24 ALS Performed By: #### C BC ####[address] [address] Hematocrit (Bld) [Volume fraction] 29.0 % Low 41.0-53.0 [facility] Comment on above: Order Comment: Nurse draw per [facility] 04/14/2024 14:20 ALSNotified Donna that we still haven't rec'd blood on this patient. She will let the nurse know. 04/14/2024 17:24 ALS Performed By: #### C BC ####[address] [address] Hemoglobin (Bld) [Mass/Vol] 9.7 g/dL Low 13.5-17.5 [facility] Comment on above: Order Comment: Nurse draw per [facility] 04/14/2024 14:20 ALSNotified Donna that we still haven't rec'd blood on this patient. She will let the nurse know. 04/14/2024 17:24 ALS Performed By: #### C BC ####[address] [address] MCH (RBC) [Entitic mass] 28.7 pg Normal 27.0-35.0 [facility] Comment on above: Order Comment: Nurse draw per [facility] 04/14/2024 14:20 ALSNotified Donna that we still haven't rec'd blood on this patient. She will let the nurse know. 04/14/2024 17:24 ALS Performed By: #### C BC ####[address] [address] MCHC 33.5 % Normal 31.0-37.0 [facility] Comment on above: Order Comment: Nurse draw per [facility] 04/14/2024 14:20 ALSNotified Donna that we still haven't rec'd blood on this patient. She will let the nurse know. 04/14/2024 17:24 ALS Performed By: #### C BC ####[address] [address] MCV (RBC) [Entitic vol] 85.5 fL Normal 80.0-100.0 [facility] Comment on above: Order Comment: Nurse draw per [facility] 04/14/2024 14:20 ALSNotified Donna that we still haven't rec'd blood on this patient. She will let the nurse know. 04/14/2024 17:24 ALS Performed By: #### C BC ####[address] [address] Platelet 361 x10*3/mcL Normal 150-450 [facility] Comment on above: Order Comment: Nurse draw per [facility] 04/14/2024 14:20 ALSNotified Donna that we still haven't rec'd blood on this patient. She will let the nurse know. 04/14/2024 17:24 ALS Performed By: #### C BC ####[address] [address] Platelet mean volume (Bld) [Entitic vol] 6.2 fL Low 6.7-10.6 [facility] Comment on above: Order Comment: Nurse draw per [facility] 04/14/2024 14:20 ALSNotified Donna that we still haven't rec'd blood on this patient. She will let the nurse know. 04/14/2024 17:24 ALS Performed By: #### C BC ####[address] [address] RBC 3.39 x10*6/mcL Low 4.30-5.80 [facility] Comment on above: Order Comment: Nurse draw per [facility] 04/14/2024 14:20 ALSNotified Dnona that we still haven't rec'd blood on this patient. She will let the nurse know. 04/14/2024 17:24 ALS Performed By: #### C BC ####[address] [address] WBC 7.8 x10*3/mcL Normal 4.5-11.0 [facility] Comment on above: Order Comment: Nurse draw per [facility] 04/14/2024 14:20 ALSNotified Donna that we still haven't rec'd blood on this patient. She will let the nurse know. 04/14/2024 17:24 ALS Performed By: #### C BC ####[address] [address] Erythrocyte distribution width (RBC) [Ratio] 14.0 % Normal 11.6-14.8 [facility] Comment on above: Performed By: #### C BC #### [address] [address] Hematocrit (Bld) [Volume fraction] 27.3 % Low 41.0-53.0 [facility] Comment on above: Performed By: #### C BC #### [address] [address] Hemoglobin (Bld) [Mass/Vol] 9.2 g/dL Low 13.5-17.5 [facility] Comment on above: Performed By: #### C BC #### [address] [address] MCH (RBC) [Entitic mass] 28.8 pg Normal 27.0-35.0 [facility] Comment on above: Performed By: #### C BC #### [address] [address] MCHC 33.5 % Normal 31.0-37.0 [facility] Comment on above: Performed By: #### C BC #### [address] [address] MCV (RBC) [Entitic vol] 85.9 fL Normal 80.0-100.0 [facility] Comment on above: Performed By: #### C BC #### [address] [address] Platelet 283 x10*3/mcL Normal 150-450 [facility] Comment on above: Performed By: #### C BC #### [address] [address] Platelet mean volume (Bld) [Entitic vol] 6.2 fL Low 6.7-10.6 [facility] Comment on above: Performed By: #### C BC #### [address] [address] RBC 3.18 x10*6/mcL Low 4.30-5.80 [facility] Comment on above: Performed By: #### C BC #### [address] [address] WBC 5.5 x10*3/mcL Normal 4.5-11.0 [facility] Comment on above: Performed By: #### C BC #### [address] [address] CRPon 04-14-2024 CRP 8.75 mg/dL High 0.00-0.75 [facility] Comment on above: Result Comment: CRP measurement is useful for assessment of non-specific INFLAMMATORY RESPONSE to infection or injury AND is a sensitive MARKER of ACUTE INFLAMMATION including CARDIAC RISK ASSESSMENT. CARDIAC patients with elevated CRP are POTENTIALLY at a HIGHER RISK OF FUTURE CARDIAC EVENTS. Performed By: #### C RP ####[address] [address] Diff Autoon 04-14-2024 Baso Absolute 0.0 x10*3/mcL Normal 0.0-0.2 [facility] Comment on above: Performed By: #### . Automated Diff #### [address] [address] Basophils/100 WBC (Bld) 0.1 % Normal 0.0-1.2 [facility] Comment on above: Performed By: #### . Automated Diff #### [address] [address] Eos Absolute 0.2 x10*3/mcL Normal 0.0-0.4 [facility] Comment on above: Performed By: #### . Automated Diff #### [address] [address] Eosinophils/100 WBC (Bld) 2.1 % Normal 0.0-6.1 [facility] Comment on above: Performed By: #### . Automated Diff #### [address] [address] Lymph Absolute 1.4 x10*3/mcL Normal 1.0-4.8 [facility] Comment on above: Performed By: #### . Automated Diff #### [address] [address] Lymphocytes/100 WBC (Bld) 17.5 % Low 27.2-40.8 [facility] Comment on above: Performed By: #### . Automated Diff #### [address] [address] [place] Absolute 1.0 x10*3/mcL Normal 0.3-1.1 [facility] Comment on above: Performed By: #### . Automated Diff #### [address] [address] Monocytes/100 WBC (Bld) 12.6 % Normal 4.7-13.9 [facility] Comment on above: Performed By: #### . Automated Diff #### [address] [address] Neutro Absolute 5.3 x10*3/mcL Normal 1.8-7.7 [facility] Comment on above: Performed By: #### . Automated Diff #### [address] [address] Neutro Auto 67.7 % Normal 47.2-70.8 [facility] Comment on above: Performed By: #### . Automated Diff #### [address] [address] Baso Absolute 0.1 x10*3/mcL Normal 0.0-0.2 [facility] Comment on above: Performed By: #### . Automated Diff #### [address] [address] Basophils/100 WBC (Bld) 1.1 % Normal 0.0-1.2 [facility] Comment on above: Performed By: #### . Automated Diff #### [address] [address] Eos Absolute 0.2 x10*3/mcL Normal 0.0-0.4 [facility] Comment on above: Performed By: #### . Automated Diff #### [address] [address] Eosinophils/100 WBC (Bld) 3.5 % Normal 0.0-6.1 [facility] Comment on above: Performed By: #### . Automated Diff #### [address] [address] Lymph Absolute 1.5 x10*3/mcL Normal 1.0-4.8 [facility] Comment on above: Performed By: #### . Automated Diff #### [address] [address] Lymphocytes/100 WBC (Bld) 26.7 % Low 27.2-40.8 [facility] Comment on above: Performed By: #### . Automated Diff #### [address] [address] [place] Absolute 0.8 x10*3/mcL Normal 0.3-1.1 [facility] Comment on above: Performed By: #### . Automated Diff #### [address] [address] Monocytes/100 WBC (Bld) 15.4 % High 4.7-13.9 [facility] Comment on above: Performed By: #### . Automated Diff #### [address] [address] Neutro Absolute 2.9 x10*3/mcL Normal 1.8-7.7 [facility] Comment on above: Performed By: #### . Automated Diff #### [address] [address] Neutro Auto 53.3 % Normal 47.2-70.8 [facility] Comment on above: Performed By: #### . Automated Diff #### [address] [address] Magnesiumon 04-14-2024 Magnesium [Mass/Vol] 2.0 mg/dL Normal 1.7-2.4 [facility] Comment on above: Performed By: #### P TT #### [place] [id number] Orthopedic Progress Noteon 1 Orthopedic Progress Note [...] Yony Ashton DO 04/14/24 19:14 EDT Normal [facility] .eGFRon 04-13-2024 GFR/1.73 sq M.predicted MDRD (S/P/Bld) [Vol rate/Area] mL/min/{1.73_m2} Normal >=60 [facility] Comment on above: Result Comment: [facility] Laboratories have implemented the eGFR calculation approach [...] years Performed By: #### V ANCT #### [facility] [address] [place] [address] Basic Metabolic Profileon Anion gap [Moles/Vol] 10 mmol/L Normal 4-12 [facility] Comment on above: Performed By: #### . Automated Diff #### [facility] [address] [place] [address] Calcium [Mass/Vol] 8.5 mg/dL Normal 8.5-10.3 [facility] Comment on above: Performed By: #### . Automated Diff #### [address] [address] Chloride [Moles/Vol] 102 mmol/L Normal 98-110 [facility] Comment on above: Performed By: #### . Automated Diff #### [address] [address] CO2 [Moles/Vol] 25 mmol/L Normal 22-32 [facility] Comment on above: Performed By: #### . Automated Diff #### [address] [address] Creatinine [Mass/Vol] 1.32 mg/dL High 0.61-1.24 [facility] Comment on above: Performed By: #### . Automated Diff #### [address] [address] Glucose [Mass/Vol] 99 mg/dL Normal 70-99 [facility] Comment on above: Performed By: #### . Automated Diff #### [address] [address] Potassium [Moles/Vol] 3.9 mmol/L Normal 3.4-4.8 [facility] Comment on above: Performed By: #### . Automated Diff #### [address] [address] Sodium [Moles/Vol] 137 mmol/L Normal 133-142 [facility] Comment on above: Performed By: #### . Automated Diff #### [address] [address] Urea nitrogen [Mass/Vol] 13 mg/dL Normal 8-26 [facility] Comment on above: Performed By: #### . Automated Diff #### [address] [address] Urea nitrogen/Creatinine [Mass ratio] 9.8 mg/mg Low 10.0-20.0 [facility] Comment on above: Performed By: #### . Automated Diff #### [address] [address] CBC w/ Diffon 04-13-2024 Erythrocyte distribution width (RBC) [Ratio] 13.8 % Normal 11.6-14.8 [facility] Comment on above: Performed By: #### . Automated Diff #### [address] [address] Hematocrit (Bld) [Volume fraction] 26.4 % Low 41.0-53.0 [facility] Comment on above: Performed By: #### . Automated Diff #### [address] [address] Hemoglobin (Bld) [Mass/Vol] 9.0 g/dL Low 13.5-17.5 [facility] Comment on above: Performed By: #### . Automated Diff #### [address] [address] MCH (RBC) [Entitic mass] 29.5 pg Normal 27.0-35.0 [facility] Comment on above: Performed By: #### . Automated Diff #### [address] [address] MCHC 34.2 % Normal 31.0-37.0 [facility] Comment on above: Performed By: #### . Automated Diff #### [address] [address] MCV (RBC) [Entitic vol] 86.3 fL Normal 80.0-100.0 [facility] Comment on above: Performed By: #### . Automated Diff #### [address] [address] Platelet 248 x10*3/mcL Normal 150-450 [facility] Comment on above: Performed By: #### . Automated Diff #### [address] [address] Platelet mean volume (Bld) [Entitic vol] 6.1 fL Low 6.7-10.6 [facility] Comment on above: Performed By: #### . Automated Diff #### [place] [address] [place] [address] RBC 3.07 x10*6/mcL Low 4.30-5.80 [facility] Comment on above: Performed By: #### . Automated Diff #### [place] [address] [place] [address] WBC 6.2 x10*3/mcL Normal 4.5-11.0 [facility] Comment on above: Performed By: #### . Automated Diff #### [address] [address] Dietary Consultationon 04-13 Dietary Consultation Patient admitted [...] Funmi Torres RD 04/13/24 14:26 EDT Normal [facility] Diff Autoon 04-13-2024 Baso Absolute 0.0 x10*3/mcL Normal 0.0-0.2 [facility] Comment on above: Performed By: #### . Automated Diff ####[address] [address] Basophils/100 WBC (Bld) 0.3 % Normal 0.0-1.2 [facility] Comment on above: Performed By: #### . Automated Diff ####[address] [address] Eos Absolute 0.2 x10*3/mcL Normal 0.0-0.4 [facility] Comment on above: Performed By: #### . Automated Diff ####[address] [address] Eosinophils/100 WBC (Bld) 3.0 % Normal 0.0-6.1 [facility] Comment on above: Performed By: #### . Automated Diff ####[address] [address] Lymph Absolute 1.2 x10*3/mcL Normal 1.0-4.8 [facility] Comment on above: Performed By: #### . Automated Diff ####[address] [address] Lymphocytes/100 WBC (Bld) 19.2 % Low 27.2-40.8 [facility] Comment on above: Performed By: #### . Automated Diff ####[address] [address] [place] Absolute 0.9 x10*3/mcL Normal 0.3-1.1 [facility] Comment on above: Performed By: #### . Automated Diff ####[address] [address] Monocytes/100 WBC (Bld) 14.1 % High 4.7-13.9 [facility] Comment on above: Performed By: #### . Automated Diff ####[address] [address] Neutro Absolute 3.9 x10*3/mcL Normal 1.8-7.7 [facility] Comment on above: Performed By: #### . Automated Diff ####[address] [address] Neutro Auto 63.4 % Normal 47.2-70.8 [facility] Comment on above: Performed By: #### . Automated Diff ####[address] [address] Orthopedic Progress Noteon 1 0-08-2024 Orthopedic Progress [...] Yony Ashton DO 04/13/24 18:25 EDT Normal [facility] .eGFRon 04-12-2024 GFR/1.73 sq M.predicted MDRD (S/P/Bld) [Vol rate/Area] mL/min/{1.73_m2} Normal >=60 [facility] Comment on above: Result Comment: [facility] Laboratories have implemented the eGFR calculation approach [...] = years Performed By: #### E GFR ####[address] [address] Basic Metabolic Profileon Creatinine [Mass/Vol] 1.19 mg/dL Normal 0.61-1.24 [facility] Comment on above: Performed By: #### C [id number] ####[address] [address] Urea nitrogen [Mass/Vol] 12 mg/dL Normal 8-26 [facility] Comment on above: Performed By: #### C [id number] ####[address] [address] Urea nitrogen/Creatinine [Mass ratio] 10.1 mg/mg Normal 10.0-20.0 [facility] Comment on above: Performed By: #### C [id number] ####[address] [address] Anion gap [Moles/Vol] 7 mmol/L Normal 4-12 [facility] Comment on above: Performed By: #### C [id number] ####[address] [address] Calcium [Mass/Vol] 8.4 mg/dL Low 8.5-10.3 [facility] Comment on above: Performed By: #### C [id number] ####[address] [address] Chloride [Moles/Vol] 105 mmol/L Normal 98-110 [facility] Comment on above: Performed By: #### C [id number] ####[address] [address] CO2 [Moles/Vol] 23 mmol/L Normal 22-32 [facility] Comment on above: Performed By: #### C [id number] ####[address] [address] Glucose [Mass/Vol] 91 mg/dL Normal 70-99 [facility] Comment on above: Performed By: #### C [id number] ####[address] [address] Potassium [Moles/Vol] 3.8 mmol/L Normal 3.4-4.8 [facility] Comment on above: Performed By: #### C [id number] ####[address] [address] Sodium [Moles/Vol] 135 mmol/L Normal 133-142 [facility] Comment on above: Performed By: #### C [id number] ####[address] [address] CBC w/ Diffon 04-12-2024 Erythrocyte distribution width (RBC) [Ratio] 14.2 % Normal 11.6-14.8 [facility] Comment on above: Performed By: #### C BC #### [address] [address] Hematocrit (Bld) [Volume fraction] 25.3 % Low 41.0-53.0 [facility] Comment on above: Performed By: #### C BC #### [address] [address] Hemoglobin (Bld) [Mass/Vol] 8.9 g/dL Low 13.5-17.5 [facility] Comment on above: Performed By: #### C BC #### [address] [address] MCH (RBC) [Entitic mass] 30.2 pg Normal 27.0-35.0 [facility] Comment on above: Performed By: #### C BC #### [address] [address] MCHC 35.0 % Normal 31.0-37.0 [facility] Comment on above: Performed By: #### C BC #### [address] [address] MCV (RBC) [Entitic vol] 86.2 fL Normal 80.0-100.0 [facility] Comment on above: Performed By: #### C BC #### [address] [address] Platelet 226 x10*3/mcL Normal 150-450 [facility] Comment on above: Performed By: #### C BC #### [address] [address] Platelet mean volume (Bld) [Entitic vol] 6.3 fL Low 6.7-10.6 [facility] Comment on above: Performed By: #### C BC #### [address] [address] RBC 2.94 x10*6/mcL Low 4.30-5.80 [facility] Comment on above: Performed By: #### C BC #### [address] [address] WBC 4.9 x10*3/mcL Normal 4.5-11.0 [facility] Comment on above: Performed By: #### C BC #### [address] [address] Diff Autoon 04-12-2024 Baso Absolute 0.0 x10*3/mcL Normal 0.0-0.2 [facility] Comment on above: Performed By: #### . Automated Diff #### [address] [place] [address] Basophils/100 WBC (Bld) 0.9 % Normal 0.0-1.2 [facility] Comment on above: Performed By: #### . Automated Diff #### [address] [address] Eos Absolute 0.2 x10*3/mcL Normal 0.0-0.4 [facility] Comment on above: Performed By: #### . Automated Diff #### [address] [address] Eosinophils/100 WBC (Bld) 4.2 % Normal 0.0-6.1 [facility] Comment on above: Performed By: #### . Automated Diff #### [address] [address] Lymph Absolute 1.2 x10*3/mcL Normal 1.0-4.8 [facility] Comment on above: Performed By: #### . Automated Diff #### [address] [address] Lymphocytes/100 WBC (Bld) 24.8 % Low 27.2-40.8 [facility] Comment on above: Performed By: #### . Automated Diff #### [address] [address] [place] Absolute 0.7 x10*3/mcL Normal 0.3-1.1 [facility] Comment on above: Performed By: #### . Automated Diff #### [address] [address] Monocytes/100 WBC (Bld) 15.1 % High 4.7-13.9 [facility] Comment on above: Performed By: #### . Automated Diff #### [address] [address] Neutro Absolute 2.7 x10*3/mcL Normal 1.8-7.7 [facility] Comment on above: Performed By: #### . Automated Diff #### [address] [address] Neutro Auto 55.0 % Normal 47.2-70.8 [facility] Comment on above: Performed By: #### . Automated Diff #### [facility] [address] [place] [address] Infectious Disease Progress Noteon 04-12-2024 Infectious Disease [...] mg/dL 04/08/2024 11:13 EDT Fluid WBC Count [id number] /mcL (High) 04/08/2024 16:54 EDT Fluid Polynuclear [...] by Yodit Mancia 04/12/24 17:28 EDT Normal [facility] Orthopedic Progress Noteon 1 Orthopedic Progress [...] home. May need SNF placement. They prefer [facility] in [place]. Electronically signed by Yony Ashton DO 04/12/24 11:11 EDT Normal [facility] Progress Note-Nurseon 2023 Progress Note-Nurse 4F Single Lumen Power PICC Solo inserted under seldinger method in the Right Basilic on 04.12.24. Sterile field maintained. No complications noted. Pt tolerated well. Arm. Circ. 33cm. Cut Length 48cm. External Length 0cm. XR tip confirmation in Distal SVC. Tip location confirmed per Dr. Alvarado. LOT# [id number] Electronically signed by Flavia Butler 04/12/24 11:19 EDT Normal [facility] Vanco Troughon 04-12-2024 Vanco Trough 11.4 mcg/mL Normal 10.0-15.0 [facility] Comment on above: Performed By: #### V ANCT #### [address] [address] .eGFRon 04-11-2024 GFR/1.73 sq M.predicted MDRD (S/P/Bld) [Vol rate/Area] mL/min/{1.73_m2} Normal >=60 [facility] Comment on above: Result Comment: [facility] Laboratories have implemented the eGFR calculation approach [...] years Performed By: #### V ANCT #### [address] [address] Basic Metabolic Profileon Anion gap [Moles/Vol] 8 mmol/L Normal 4-12 [facility] Comment on above: Performed By: #### V ANCT #### [address] [address] Calcium [Mass/Vol] 8.4 mg/dL Low 8.5-10.3 [facility] Comment on above: Performed By: #### V ANCT #### [address] [address] Chloride [Moles/Vol] 105 mmol/L Normal 98-110 [facility] Comment on above: Performed By: #### V ANCT #### [address] [address] CO2 [Moles/Vol] 23 mmol/L Normal 22-32 [facility] Comment on above: Performed By: #### V ANCT #### [address] [address] Creatinine [Mass/Vol] 1.21 mg/dL Normal 0.61-1.24 [facility] Comment on above: Performed By: #### V ANCT #### [address] [address] Glucose [Mass/Vol] 95 mg/dL Normal 70-99 [facility] Comment on above: Performed By: #### V ANCT #### [address] [address] Potassium [Moles/Vol] 4.0 mmol/L Normal 3.4-4.8 [facility] Comment on above: Performed By: #### V ANCT #### [address] [address] Sodium [Moles/Vol] 136 mmol/L Normal 133-142 [facility] Comment on above: Performed By: #### V ANCT #### [address] [address] Urea nitrogen [Mass/Vol] 12 mg/dL Normal 8-26 [facility] Comment on above: Performed By: #### V ANCT #### [address] [address] Urea nitrogen/Creatinine [Mass ratio] 9.9 mg/mg Low 10.0-20.0 [facility] Comment on above: Performed By: #### V ANCT #### [address] [address] CBC w/ Diffon 04-11-2024 Erythrocyte distribution width (RBC) [Ratio] 14.4 % Normal 11.6-14.8 [facility] Comment on above: Performed By: #### . Body Fluid Differential #### [address] [address] Hematocrit (Bld) [Volume fraction] 27.7 % Low 41.0-53.0 [facility] Comment on above: Performed By: #### . Body Fluid Differential #### [place] [id number] Hemoglobin (Bld) [Mass/Vol] 9.5 g/dL Low 13.5-17.5 [facility] Comment on above: Performed By: #### . Body Fluid Differential #### [place] [id number] MCH (RBC) [Entitic mass] 30.0 pg Normal 27.0-35.0 [facility] Comment on above: Performed By: #### . Body Fluid Differential #### [place] [address] MCHC 34.2 % Normal 31.0-37.0 [facility] Comment on above: Performed By: #### . Body Fluid Differential #### [place] [id number] MCV (RBC) [Entitic vol] 87.6 fL Normal 80.0-100.0 [facility] Comment on above: Performed By: #### . Body Fluid Differential #### [place] [id number] Platelet 213 x10*3/mcL Normal 150-450 [facility] Comment on above: Performed By: #### . Body Fluid Differential #### [address] [address] Platelet mean volume (Bld) [Entitic vol] 6.4 fL Low 6.7-10.6 [facility] Comment on above: Performed By: #### . Body Fluid Differential #### [place] [id number] RBC 3.16 x10*6/mcL Low 4.30-5.80 [facility] Comment on above: Performed By: #### . Body Fluid Differential #### [place] [id number] WBC 5.3 x10*3/mcL Normal 4.5-11.0 [facility] Comment on above: Performed By: #### . Body Fluid Differential #### [address] [address] Diff Autoon 04-11-2024 Baso Absolute 0.0 x10*3/mcL Normal 0.0-0.2 [facility] Comment on above: Performed By: #### V ANCT #### [address] [address] Basophils/100 WBC (Bld) 0.6 % Normal 0.0-1.2 [facility] Comment on above: Performed By: #### V ANCT #### [address] [address] Eos Absolute 0.2 x10*3/mcL Normal 0.0-0.4 [facility] Comment on above: Performed By: #### V ANCT #### [address] [address] Eosinophils/100 WBC (Bld) 3.5 % Normal 0.0-6.1 [facility] Comment on above: Performed By: #### V ANCT #### [address] [address] Lymph Absolute 1.2 x10*3/mcL Normal 1.0-4.8 [facility] Comment on above: Performed By: #### V ANCT #### [address] [address] Lymphocytes/100 WBC (Bld) 22.8 % Low 27.2-40.8 [facility] Comment on above: Performed By: #### V ANCT #### [address] [address] [place] Absolute 0.9 x10*3/mcL Normal 0.3-1.1 [facility] Comment on above: Performed By: #### V ANCT #### [address] [address] Monocytes/100 WBC (Bld) 16.7 % High 4.7-13.9 [facility] Comment on above: Performed By: #### V ANCT #### [facility] [address] [place] [address] Neutro Absolute 3.0 x10*3/mcL Normal 1.8-7.7 [facility] Comment on above: Performed By: #### V ANCT #### [place] [address] [place] [address] Neutro Auto 56.4 % Normal 47.2-70.8 [facility] Comment on above: Performed By: #### V ANCT #### [address] [place] [address] Orthopedic Progress Noteon 1 Orthopedic Progress Note [...] Yony Ashton DO 04/11/24 12:15 EDT Normal [facility] .eGFRon 04-10-2024 Estimated GFR 60 mL/min/1.73m? Normal >=60 [facility] Comment on above: Result Comment: [facility] Laboratories have implemented the eGFR calculation approach [...] By: #### . Body Fluid Differential #### [address] [address] Basic Metabolic Profileon Anion gap [Moles/Vol] 8 mmol/L Normal 4-12 [facility] Comment on above: Performed By: #### . Body Fluid Differential #### [address] [address] Calcium [Mass/Vol] 8.3 mg/dL Low 8.5-10.3 [facility] Comment on above: Performed By: #### . Body Fluid Differential #### [address] [address] Chloride [Moles/Vol] 103 mmol/L Normal 98-110 [facility] Comment on above: Performed By: #### . Body Fluid Differential #### [address] [address] CO2 [Moles/Vol] 23 mmol/L Normal 22-32 [facility] Comment on above: Performed By: #### . Body Fluid Differential #### [address] [address] Creatinine [Mass/Vol] 1.33 mg/dL High 0.61-1.24 [facility] Comment on above: Performed By: #### . Body Fluid Differential #### [address] [address] Glucose [Mass/Vol] 104 mg/dL High 70-99 [facility] Comment on above: Performed By: #### . Body Fluid Differential #### [address] [address] Potassium [Moles/Vol] 4.0 mmol/L Normal 3.4-4.8 [facility] Comment on above: Performed By: #### . Body Fluid Differential #### [address] [address] Sodium [Moles/Vol] 134 mmol/L Normal 133-142 [facility] Comment on above: Performed By: #### . Body Fluid Differential #### [address] [address] Urea nitrogen [Mass/Vol] 15 mg/dL Normal 8-26 [facility] Comment on above: Performed By: #### . Body Fluid Differential #### [address] [address] Urea nitrogen/Creatinine [Mass ratio] 11.3 mg/mg Normal 10.0-20.0 [facility] Comment on above: Performed By: #### . Body Fluid Differential #### [address] [address] CBC w/ Diffon 04-10-2024 Erythrocyte distribution width (RBC) [Ratio] 13.9 % Normal 11.6-14.8 [facility] Comment on above: Performed By: #### . Automated Diff #### [address] [address] Hematocrit (Bld) [Volume fraction] 28.8 % Low 41.0-53.0 [facility] Comment on above: Performed By: #### . Automated Diff #### [place] [id number] Hemoglobin (Bld) [Mass/Vol] 9.5 g/dL Low 13.5-17.5 [facility] Comment on above: Performed By: #### . Automated Diff #### [address] [address] MCH (RBC) [Entitic mass] 29.1 pg Normal 27.0-35.0 [facility] Comment on above: Performed By: #### . Automated Diff #### [address] [address] MCHC 33.1 % Normal 31.0-37.0 [facility] Comment on above: Performed By: #### . Automated Diff #### [address] [address] MCV (RBC) [Entitic vol] 87.8 fL Normal 80.0-100.0 [facility] Comment on above: Performed By: #### . Automated Diff #### [address] [address] Platelet 207 x10*3/mcL Normal 150-450 [facility] Comment on above: Performed By: #### . Automated Diff #### [address] [address] Platelet mean volume (Bld) [Entitic vol] 6.5 fL Low 6.7-10.6 [facility] Comment on above: Performed By: #### . Automated Diff #### [address] [address] RBC 3.28 x10*6/mcL Low 4.30-5.80 [facility] Comment on above: Performed By: #### . Automated Diff #### [address] [address] WBC 5.3 x10*3/mcL Normal 4.5-11.0 [facility] Comment on above: Performed By: #### . Automated Diff #### [address] [address] Diff Autoon 04-10-2024 Baso Absolute 0.0 x10*3/mcL Normal 0.0-0.2 [facility] Comment on above: Performed By: #### V ANCT #### [address] [address] Basophils/100 WBC (Bld) 0.8 % Normal 0.0-1.2 [facility] Comment on above: Performed By: #### V ANCT #### [address] [address] Eos Absolute 0.1 x10*3/mcL Normal 0.0-0.4 [facility] Comment on above: Performed By: #### V ANCT #### [address] [address] Eosinophils/100 WBC (Bld) 2.2 % Normal 0.0-6.1 [facility] Comment on above: Performed By: #### V ANCT #### [address] [address] Lymph Absolute 1.0 x10*3/mcL Normal 1.0-4.8 [facility] Comment on above: Performed By: #### V ANCT #### [address] [address] Lymphocytes/100 WBC (Bld) 18.1 % Low 27.2-40.8 [facility] Comment on above: Performed By: #### V ANCT #### [address] [address] [place] Absolute 0.8 x10*3/mcL Normal 0.3-1.1 [facility] Comment on above: Performed By: #### V ANCT #### [place] [place] [address] Monocytes/100 WBC (Bld) 15.4 % High 4.7-13.9 [facility] Comment on above: Performed By: #### V ANCT #### [address] [place] [address] Neutro Absolute 3.4 x10*3/mcL Normal 1.8-7.7 [facility] Comment on above: Performed By: #### V ANCT #### [address] [address] Neutro Auto 63.5 % Normal 47.2-70.8 [facility] Comment on above: Performed By: #### V ANCT #### [address] [address] Infectious Disease Progress Noteon 04-10-2024 Infectious Disease Progress Note Patient seen briefly. Chart reviewed. Fever staying down. Labs okay. Cultures remain no growth. Continue Vanco Rocephin. I will not be rounding tomorrow. Please call if any concern. Electronically signed by Herbert Griffin MD 04/10/24 20:38 EDT Normal [facility] Orthopedic Progress Noteon 1 Orthopedic Progress [...] Yony Ashton DO 04/10/24 09:30 EDT Normal [facility] Vanco Troughon 04-10-2024 Vanco Trough 7.2 mcg/mL Low 10.0-15.0 [facility] Comment on above: Performed By: #### C #### [place] [address] .eGFRon 04-09-2024 Estimated GFR 41 mL/min/1.73m? Low >=60 [facility] Comment on above: Result Comment: [facility] Laboratories have implemented the eGFR calculation approach [...] Performed By: #### . Automated Diff #### [address] [address] Basic Metabolic Profileon Anion gap [Moles/Vol] 7 mmol/L Normal 4-12 [facility] Comment on above: Performed By: #### V ANCT #### [address] [address] Calcium [Mass/Vol] 8.1 mg/dL Low 8.5-10.3 [facility] Comment on above: Performed By: #### V ANCT #### [address] [address] Chloride [Moles/Vol] 98 mmol/L Normal 98-110 [facility] Comment on above: Performed By: #### V ANCT #### [address] [address] CO2 [Moles/Vol] 23 mmol/L Normal 22-32 [facility] Comment on above: Performed By: #### V ANCT #### [address] [address] Creatinine [Mass/Vol] 1.84 mg/dL High 0.61-1.24 [facility] Comment on above: Performed By: #### V ANCT #### [address] [address] Glucose [Mass/Vol] 130 mg/dL High 70-99 [facility] Comment on above: Performed By: #### V ANCT #### [address] [address] Potassium [Moles/Vol] 3.5 mmol/L Normal 3.4-4.8 [facility] Comment on above: Performed By: #### V ANCT #### [address] [address] Sodium [Moles/Vol] 128 mmol/L Low 133-142 [facility] Comment on above: Performed By: #### V ANCT #### [address] [address] Urea nitrogen [Mass/Vol] 26 mg/dL Normal 8-26 [facility] Comment on above: Performed By: #### V ANCT #### [address] [address] Urea nitrogen/Creatinine [Mass ratio] 14.1 mg/mg Normal 10.0-20.0 [facility] Comment on above: Performed By: #### V ANCT #### [address] [address] CBC w/ Diffon 04-09-2024 Erythrocyte distribution width (RBC) [Ratio] 14.1 % Normal 11.6-14.8 [facility] Comment on above: Performed By: #### . Body Fluid Differential #### [address] [address] Hematocrit (Bld) [Volume fraction] 33.9 % Low 41.0-53.0 [facility] Comment on above: Performed By: #### . Body Fluid Differential #### [address] [address] Hemoglobin (Bld) [Mass/Vol] 11.2 g/dL Low 13.5-17.5 [facility] Comment on above: Result Comment: Hgb delta: MCV seems ok, Chemistry results seem ok. Performed By: #### . Body Fluid Differential #### [address] [address] MCH (RBC) [Entitic mass] 29.1 pg Normal 27.0-35.0 [facility] Comment on above: Performed By: #### . Body Fluid Differential #### [address] [address] MCHC 33.1 % Normal 31.0-37.0 [facility] Comment on above: Performed By: #### . Body Fluid Differential #### [address] [address] MCV (RBC) [Entitic vol] 88.1 fL Normal 80.0-100.0 [facility] Comment on above: Performed By: #### . Body Fluid Differential #### [place] [id number] Platelet 292 x10*3/mcL Normal 150-450 [facility] Comment on above: Performed By: #### . Body Fluid Differential #### [place] [id number] Platelet mean volume (Bld) [Entitic vol] 6.6 fL Low 6.7-10.6 [facility] Comment on above: Performed By: #### . Body Fluid Differential #### [place] [id number] RBC 3.85 x10*6/mcL Low 4.30-5.80 [facility] Comment on above: Performed By: #### . Body Fluid Differential #### [place] [address] WBC 8.6 x10*3/mcL Normal 4.5-11.0 [facility] Comment on above: Performed By: #### . Body Fluid Differential #### [place] [address] Diff Autoon 04-09-2024 Baso Absolute 0.0 x10*3/mcL Normal 0.0-0.2 [facility] Comment on above: Performed By: #### . Automated Diff ####[address] [address] Basophils/100 WBC (Bld) 0.4 % Normal 0.0-1.2 [facility] Comment on above: Performed By: #### . Automated Diff ####[address] [address] Eos Absolute 0.0 x10*3/mcL Normal 0.0-0.4 [facility] Comment on above: Performed By: #### . Automated Diff ####[address] [address] Eosinophils/100 WBC (Bld) 0.3 % Normal 0.0-6.1 [facility] Comment on above: Performed By: #### . Automated Diff ####[address] [address] Lymph Absolute 1.4 x10*3/mcL Normal 1.0-4.8 [facility] Comment on above: Performed By: #### . Automated Diff ####[place] [id number] Lymphocytes/100 WBC (Bld) 15.9 % Low 27.2-40.8 [facility] Comment on above: Performed By: #### . Automated Diff ####[place] [id number] [place] Absolute 1.0 x10*3/mcL Normal 0.3-1.1 [facility] Comment on above: Performed By: #### . Automated Diff ####[address] [address] Monocytes/100 WBC (Bld) 11.9 % Normal 4.7-13.9 [facility] Comment on above: Performed By: #### . Automated Diff ####[address] [address] Neutro Absolute 6.1 x10*3/mcL Normal 1.8-7.7 [facility] Comment on above: Performed By: #### . Automated Diff ####[address] [address] Neutro Auto 71.5 % High 47.2-70.8 [facility] Comment on above: Performed By: #### . Automated Diff ####[address] [address] Infectious Disease Consultat ion 04-09-2024 Infectious Disease Consultation Chief Complaint patient [...] mg= 1 mL, IV Push, q2min, PRN [place] 5 mg-325 mg oral tablet, 1 tabs, [...] week Emp (more content not included)... Normal [facility] MRSA, PCRon 04-09-2024 LAB ONLY Result Called? No Normal [facility] Comment on above: Performed By: #### V ANCT #### [place] [id number] Methicillin Resistant Staph aurus(MRSA) Not detected Normal Not Detected [facility] Comment on above: Result Comment: Mut ations or polymorphisms in primer or probe binding regions may affect detection of new or unknown MRSA variants resulting in a false negative. The [employer] Xpert MRSA Assay is a qualitative in [...] clinician. Performed By: #### V ANCT #### [address] [address] Magnesiumon 04-09-2024 Magnesium [Mass/Vol] 1.6 mg/dL Low 1.7-2.4 [facility] Comment on above: Performed By: #### P TT #### [address] [address] Orthopedic Progress Noteon 1 Orthopedic Progress Note [...] Yony Ashton DO 04/09/24 16:22 EDT Normal [facility] Progress Note-Nurseon 2023 Progress Note-Nurse PT [...] by Aga Rollins 04/09/24 09:37 EDT Normal [facility] Progress Note-Nurse upon giving pt 0900 medication, RN checked blood pressure. BP was 88/53 with a manually, 83/52 L arm and 85/50 R arm. notified. PT is not symptomatic at this time. Electronically signed by Aga Rollins 04/09/24 09:31 EDT Normal [facility] .BF Cell Cnt RBC Aon 024 Fluid RBC Count [id number] /mcL Normal [facility] Comment on above: Result Comment: Ther e are no established Reference Ranges for bronchoalveolar lavage (BAL), synovial, miscellaneous body, or dialysate fluids. Performed By: #### . Automated Diff #### [facility] [address] [place] [address] .BF Cell Cnt WBC Aon 024 Fluid WBC Count [id number] /mcL High 0-150 [facility] Comment on above: Result Comment: Ther e are no established Reference Ranges for bronchoalveolar lavage (BAL), miscellaneous body, or dialysate fluids. Performed By: #### . Body Fluid Differential #### [address] [address] .BF Diffon 04-08-2024 Fluid Mononuclear Cells 8 % Normal 0-78 [facility] Comment on above: Result Comment: Ther e are no established Reference Ranges for bronchoalveolar lavage (BAL), miscellaneous body, or dialysate fluids. Performed By: #### . Body Fluid Differential #### [address] [address] Fluid Other Cells 2 % Normal 0-10 [facility] Comment on above: Result Comment: Ther e are no established Reference Ranges for bronchoalveolar lavage (BAL), miscellaneous body, or dialysate fluids. Performed By: #### . Body Fluid Differential #### [address] [address] Fluid Polynuclear Cells 90 % High 0-25 [facility] Comment on above: Result Comment: Ther e are no established Reference Ranges for bronchoalveolar lavage (BAL), miscellaneous body, or dialysate fluids. Performed By: #### . Body Fluid Differential #### [address] [address] .eGFRon 04-08-2024 Estimated GFR 58 mL/min/1.73m? Low >=60 [facility] Comment on above: Result Comment: [facility] Laboratories have implemented the eGFR calculation approach [...] = years Performed By: #### E GFR ####[place] [address] BF Cell Counton 04-08-2024 Body Fluid Cell Cnt Type Synovial Normal [facility] Comment on above: Performed By: #### C BC #### [place] [address] C Sterile BFon 04-08-2024 C Sterile BF ------- Final No growth at 2 weeks. ------- Gram Stain Many White Blood Cells No organisms seen. Normal [facility] Comment on above: Performed By: #### E SR #### [place] [address] CBC w/ Diffon 04-08-2024 Erythrocyte distribution width (RBC) [Ratio] 13.9 % Normal 11.6-14.8 [facility] Comment on above: Performed By: #### C BC ####[place] [id number] Hematocrit (Bld) [Volume fraction] 42.1 % Normal 41.0-53.0 [facility] Comment on above: Performed By: #### C BC ####[place] [id number] Hemoglobin (Bld) [Mass/Vol] 14.2 g/dL Normal 13.5-17.5 [facility] Comment on above: Performed By: #### C BC ####[address] [address] MCH (RBC) [Entitic mass] 29.4 pg Normal 27.0-35.0 [facility] Comment on above: Performed By: #### C BC ####[address] [address] MCHC 33.8 % Normal 31.0-37.0 [facility] Comment on above: Performed By: #### C BC ####[address] [address] MCV (RBC) [Entitic vol] 87.1 fL Normal 80.0-100.0 [facility] Comment on above: Performed By: #### C BC ####[address] [address] Platelet 329 x10*3/mcL Normal 150-450 [facility] Comment on above: Performed By: #### C BC ####[address] [address] Platelet mean volume (Bld) [Entitic vol] 6.5 fL Low 6.7-10.6 [facility] Comment on above: Performed By: #### C BC ####[address] [address] RBC 4.83 x10*6/mcL Normal 4.30-5.80 [facility] Comment on above: Performed By: #### C BC ####[address] [address] WBC 6.7 x10*3/mcL Normal 4.5-11.0 [facility] Comment on above: Performed By: #### C BC ####[address] [address] CMPon 04-08-2024 Albumin [Mass/Vol] 4.3 g/dL Normal 3.2-4.9 [facility] Comment on above: Performed By: #### . Body Fluid Differential #### [address] [address] Albumin/Globulin [Mass ratio] 1.2 {ratio} Normal 1.1-2.2 [facility] Comment on above: Performed By: #### . Body Fluid Differential #### [address] [address] Alk Phos 60 IU/L Normal 32-91 [facility] Comment on above: Performed By: #### . Body Fluid Differential #### [address] [address] ALT [Catalytic activity/Vol] 24 U/L Normal 17-63 [facility] Comment on above: Performed By: #### . Body Fluid Differential #### [address] [address] AST [Catalytic activity/Vol] 21 U/L Normal 15-41 [facility] Comment on above: Performed By: #### . Body Fluid Differential #### [address] [address] [address] Bili Total 1.4 mg/dL High 0.3-1.2 [facility] Comment on above: Performed By: #### . Body Fluid Differential #### [address] [address] Creatinine [Mass/Vol] 1.37 mg/dL High 0.61-1.24 [facility] Comment on above: Performed By: #### . Body Fluid Differential #### [address] [address] Protein [Mass/Vol] 7.9 g/dL Normal 6.5-8.1 [facility] Comment on above: Performed By: #### . Body Fluid Differential #### [address] [address] Urea nitrogen [Mass/Vol] 24 mg/dL Normal 8-26 [facility] Comment on above: Performed By: #### . Body Fluid Differential #### [address] [address] Urea nitrogen/Creatinine [Mass ratio] 17.5 mg/mg Normal 10.0-20.0 [facility] Comment on above: Performed By: #### . Body Fluid Differential #### [address] [address] Anion gap [Moles/Vol] 11 mmol/L Normal 4-12 [facility] Comment on above: Performed By: #### . Body Fluid Differential #### [address] [address] Calcium [Mass/Vol] 9.4 mg/dL Normal 8.5-10.3 [facility] Comment on above: Performed By: #### . Body Fluid Differential #### [address] [address] Chloride [Moles/Vol] 101 mmol/L Normal 98-110 [facility] Comment on above: Performed By: #### . Body Fluid Differential #### [address] [address] CO2 [Moles/Vol] 23 mmol/L Normal 22-32 [facility] Comment on above: Performed By: #### . Body Fluid Differential #### [address] [address] Glucose [Mass/Vol] 102 mg/dL High 70-99 [facility] Comment on above: Performed By: #### . Body Fluid Differential #### [address] [address] Potassium [Moles/Vol] 4.4 mmol/L Normal 3.4-4.8 [facility] Comment on above: Performed By: #### . Body Fluid Differential #### [address] [address] Sodium [Moles/Vol] 135 mmol/L Normal 133-142 [facility] Comment on above: Performed By: #### . Body Fluid Differential #### [address] [address] CRPon 04-08-2024 CRP 0.54 mg/dL Normal 0.00-0.75 [facility] Comment on above: Result Comment: CRP measurement is useful for assessment of non-specific INFLAMMATORY RESPONSE to infection or injury AND is a sensitive MARKER of ACUTE INFLAMMATION including CARDIAC RISK ASSESSMENT. CARDIAC patients with elevated CRP are POTENTIALLY at a HIGHER RISK OF FUTURE CARDIAC EVENTS. Performed By: #### C BC #### [address] [address] Diff Autoon 04-08-2024 Baso Absolute 0.1 x10*3/mcL Normal 0.0-0.2 [facility] Comment on above: Performed By: #### . Body Fluid Differential #### [address] [address] Basophils/100 WBC (Bld) 1.0 % Normal 0.0-1.2 [facility] Comment on above: Performed By: #### . Body Fluid Differential #### [address] [address] Eos Absolute 0.1 x10*3/mcL Normal 0.0-0.4 [facility] Comment on above: Performed By: #### . Body Fluid Differential #### [address] [address] Eosinophils/100 WBC (Bld) 1.5 % Normal 0.0-6.1 [facility] Comment on above: Performed By: #### . Body Fluid Differential #### [address] [address] Lymph Absolute 1.6 x10*3/mcL Normal 1.0-4.8 [facility] Comment on above: Performed By: #### . Body Fluid Differential #### [address] [address] Lymphocytes/100 WBC (Bld) 23.6 % Low 27.2-40.8 [facility] Comment on above: Performed By: #### . Body Fluid Differential #### [address] [place] [address] [place] Absolute 0.8 x10*3/mcL Normal 0.3-1.1 [facility] Comment on above: Performed By: #### . Body Fluid Differential #### [address] [address] Monocytes/100 WBC (Bld) 11.3 % Normal 4.7-13.9 [facility] Comment on above: Performed By: #### . Body Fluid Differential #### [address] [address] Neutro Absolute 4.2 x10*3/mcL Normal 1.8-7.7 [facility] Comment on above: Performed By: #### . Body Fluid Differential #### [address] [address] Neutro Auto 62.6 % Normal 47.2-70.8 [facility] Comment on above: Performed By: #### . Body Fluid Differential #### [address] [address] ED Clinical Summaryon 2023 ED Clinical Summary [address] [address] ED Clinical Summary Person Information Name: Mauircio Syed/[facility] Age: 64 Years : 1960 Sex: Male PCP: Asmita Casillas MD Marital Status: Phone: Race: White Ethnicity: Not or Language: Sri Lankan Visit Reason: Knee pain-swelling; R Knee Pain Acuity: 3 Enc Type: Observation Med Service: Emergency Medicine Arrival: 04/08/2024 10:28:57 Discharge: LOS: 000 05:38 Checkin: 04/08/2024 10:28:57 Checkout: 04/08/2024 16:06:50 Dispo Type: Address: [phone] Provider Notes: History of Present Illness Patient is a 63 years old male who presented emergency with right knee pain with plan to admission and have a knee replacement. ?Patient had earlier this year he replacement ligament repair. ?Reports some redness and?possible infection. ?[facility] doctor[facility] Dr. Lawrence who recommended that [...] range between ( 27.2 and 40.8 ) [place] Auto: 11.3 % -- Normal range between [...] range between ( 41.0 and 53.0 ) [place] Absolute: 0.8 x10 MCH: 29.4 pg -- [...] between ( (more content not included)... Normal [facility] ED Note-Nursingon 04-08-2024 ED Note-Nursing per pt and family, pt was sent to the ED for his infected right knee and planned surgery today with dr lawrence from [facility]. Electronically signed by Quang Vargas 04/08/24 10:39 EDT Normal [facility] ED Note-Physicianon 04-08-20 ED Note-Physician Chief [...] infection. Seen [facility] doctor [facility] Dr. Lawrence who recommended that [...] _ ? NEXUS C-spine Criteria: _ ? [place] Ankle Rule: _ ? [place] Knee Rule: _ ? Wells Criteria for DVT: _ ? Wells Criteria for PE: _ Discussed with: _ Treatment and Disposition ED Course: Patient is a 64 years old male who presented emergency with the symptoms above. Exam as mentioned above. I did do lab work for the patient. Did discuss case also with Dr. Lawrence over Arnaldo dorantes to recommend no antibiotics for now. Admit to the hospitalist service. Patient was discussed with Dr. Sanders stated the patient for admission. NPO. Plan to go to the OR at 4 PM. Assessment/Plan 1. Knee pain, concern for infection Orders: Sodium Chloride 0.9% intravenous solution 1,000 mL, 1,000 mL, Soln-IV, IV, 100 mL/hr, Start Date: 04/08/24 11:24:00 EDT, Dispense From Location: [facility], 2.26, m2, 04/08/24 11:24:00 EDT Consult to [...] acetaminophen, 1000 mg= 100 mL, IV Piggyback, Journeyman Sheet Metal Worker acetaminophen, 650 mg, Oral, q6hr, PRN acetaminophen, 650 mg, Oral, q6hr, PRN Lactated Ringers Injection intravenous solution 1,000 mL, 1000 mL, IV LR 1,000 mL, 1000 mL, IV [place] 5 mg-325 mg oral tablet, 1 tabs, Oral, q4hr, PRN Normal Saline Flush 0.9% injectable solution, 10 mL, IV Push, As Indicated, PRN Normal Saline Flush 0.9% injectable solution, 10 mL, IV Push, BID oxyCODONE, 5 mg, Oral, q6hr, PRN Pepcid, 20 mg= 2 mL, IV Push, Journeyman Sheet Metal Worker Sodium Chloride 0.9% intravenous solution 1,000 mL, 1000 mL, IV Zofran, 4 mg= 2 mL, IV Push, Journeyman Sheet Metal Worker Home atenolol 50 mg oral tablet, 50 [...] Still taking (more content not included)... Normal [facility] ESRon 04-08-2024 Sed Rate 17 mm/hr Normal 0-23 [facility] Comment on above: Performed By: #### E SR #### [facility] [address] [place] [address] Operative Reporton 4 Operative Report Indication for [...] DO (Surgeon - Primary) Evan Mathew MD Mixing Plant Dumper Evan Mathew MD Anesthesia General Ambar Pope MD, Braeden Sanchez (Retail Service Technician) Kelsea Jose (Provider) [place] (Provider) Estimated [...] of mo (more content not included)... Normal [facility] PTon 04-08-2024 INR Coag (PPP) [Relative time] 1.0 {INR} Normal <=3.5 [facility] Comment on above: Result Comment: INR has no normal range. INR Therapeutic range is: 2.0-3.0 (AF, CVA, TIAs, DVT prophylaxis, acute DVT) 2.5-3.5 ([facility] heart valves, recurrent thrombosis/emboli) Performed By: #### . Automated Diff #### [place] [id number] PT Coag (PPP) [Time] 10.7 s Normal 9.2-12.0 [facility] Comment on above: Performed By: #### . Automated Diff #### [address] [address] PTTon 04-08-2024 aPTT Coag (Bld) [Time] 18.7 s Low 19.5-28.2 [facility] Comment on above: Performed By: #### P TT #### [place] [id number] XR Knee 1 or 2 Views Righton [...] Electronically Signed in Other Vendor System) Normal [facility] Aerobic Cultureon 03-29-2024 Aerobic Culture Right Knee Effusion No Growth 2 Days Right Knee Effusion No Anaerobes Isolated 3 Days Right Knee Effusion For Gram Stain results, please refer to specimen Requisition [id number]. PERFORMED BY: [place] [address] PATHOLOGIST CREATIVE SERVICES PRODUCER KIMI TAYLOR M.D. Normal [facility] Comment on above: Performed By: #### F L CLAYTON, FLCCDIFF, GS, AERC #### [facility] [address] [place] [address] Body fluid crystal identific ation by light microscopyOrdered By: Yony Ashton on 03-29-2024 Crystals LM Nom (Body fld) None seen [facility] Body fluid differential cell countOrdered By: Yony Ashton on 03-29-2024 Differential panel (Body fld) 6 % [facility] Comment on above: The reference interv al and other method performance specifications have not been established for this body fluid. The test result must be integrated into the clinical context for interpretation. Cell Count/Diff, Fluidon Appearance, Fluid Turbid Normal [facility] Comment on above: Order Comment: EFFUS ION, RIGHT KNEE Body Fluid Source: Other (Name in the Site) Body Fluid Site: R. KNEE Result Comment: The reference interval and other method performance specifications have not been established for this body fluid. The test result must be integrated into the clinical context for interpretation. Performed By: #### F L CLAYTON, FLCCDIFF, GS, AERC #### [facility] [address] [place] [address] Color, Fluid [place] Normal [facility] Comment on above: Order Comment: EFFUS ION, RIGHT KNEE Body Fluid Source: Other (Name in the Site) Body Fluid Site: R. KNEE Result Comment: The reference interval and other method performance specifications have not been established for this body fluid. The test result must be integrated into the clinical context for interpretation. Performed By: #### F L CLAYTON, FLCCDIFF, GS, AERC #### [address] Color, Fluid Supernatant [place] Normal [facility] Comment on above: Order Comment: EFFUS ION, RIGHT KNEE Body Fluid Source: Other (Name in the Site) Body Fluid Site: R. KNEE Result Comment: The reference interval and other method performance specifications have not been established for this body fluid. The test result must be integrated into the clinical context for interpretation. Performed By: #### F L CLAYTON, FLCCDIFF, GS, AERC #### [address] Eosinophils, Fluid 0 /100{WBC} Normal 0-3 [facility] Comment on above: Order Comment: EFFUS ION, RIGHT KNEE Body Fluid Source: Other (Name in the Site) Body Fluid Site: R. KNEE Result Comment: PERF ORMED BY: [place] [address] PATHOLOGIST CREATIVE SERVICES PRODUCER KIMI TAYLOR M.D. Performed By: #### F L CLAYTON, FLCCDIFF, GS, AERC #### [address] Lymphocytes, Fluid 4 % Normal [facility] Comment on above: Order Comment: EFFUS ION, RIGHT KNEE Body Fluid Source: Other (Name in the Site) Body Fluid Site: R. KNEE Result Comment: The reference interval and other method performance specifications have not been established for this body fluid. The test result must be integrated into the clinical context for interpretation. Performed By: #### F L CLAYTON, FLCCDIFF, GS, AERC #### [address] Monocytes/Macrophages , Fluid 6 % Normal [facility] Comment on above: Order Comment: EFFUS ION, RIGHT KNEE Body Fluid Source: Other (Name in the Site) Body Fluid Site: R. KNEE Result Comment: The reference interval and other method performance specifications have not been established for this body fluid. The test result must be integrated into the clinical context for interpretation. Performed By: #### F L CLAYTON, FLCCDIFF, GS, AERC #### [facility] [address] [place] [phone] [facility] Neutrophil, Fluid 90 % Normal [facility] Comment on above: Order Comment: EFFUS ION, RIGHT KNEE Body Fluid Source: Other (Name in the Site) Body Fluid Site: R. KNEE Result Comment: The reference interval and other method performance specifications have not been established for this body fluid. The test result must be integrated into the clinical context for interpretation. Performed By: #### F L CLAYTON, FLCCDIFF, GS, AERC #### [facility] [address] RBC, Fluid [address] Normal [facility] Comment on above: Order Comment: EFFUS ION, RIGHT KNEE Body Fluid Source: Other (Name in the Site) Body Fluid Site: R. KNEE Result Comment: The reference interval and other method performance specifications have not been established for this body fluid. The test result must be integrated into the clinical context for interpretation. Performed By: #### F L CLAYTON, FLCCDIFF, GS, AERC #### [facility] [address] [place] [id number] [facility] TNC, Body Fluid [address] Normal [facility] Comment on above: Order Comment: EFFUS ION, RIGHT KNEE Body Fluid Source: Other (Name in the Site) Body Fluid Site: R. KNEE Result Comment: The reference interval and other method performance specifications have not been established for this body fluid. The test result must be integrated into the clinical context for interpretation. Performed By: #### F L CLAYTON, FLCCDIFF, GS, AERC #### [facility] [address] [place] [phone] [facility] Cells Counted Total [#] in B fritz fluidOrdered By: Yony Ashton on 03-29-2024 Cells Counted Total (Body fld) [#] [address] mm^3 [facility] Comment on above: The reference interv al and other method performance specifications have not been established for this body fluid. The test result must be integrated into the clinical context for interpretation. Color of Spun Body fluidOrde red By: Yony Ashton on 03-29-2024 Color (Spun body fld) Cook [facility] Comment on above: The reference interv al and other method performance specifications have not been established for this body fluid. The test result must be integrated into the clinical context for interpretation. Crystals, Fluidon 03-29-2024 Crystals, Fluid None Seen Normal [facility] Comment on above: Order Comment: Body Fluid Source: Other (Name in the Site) Body Fluid Site: R. KNEE Result Comment: PERF ORMED BY: [place] [address] PATHOLOGIST CREATIVE SERVICES PRODUCER KIMI TAYLOR M.D. Performed By: #### F L CLAYTON, FLCCDIFF, GS, AERC #### [address] Determination of appearance of body fluidOrdered By: Yony Ashton on 03-29-2024 Appearance (Body fld) Turbid [facility] Comment on above: The reference interv al and other method performance specifications have not been established for this body fluid. The test result must be integrated into the clinical context for interpretation. Erythrocytes [#/volume] in B fritz fluid by Automated countOrdered By: oYny Ashton on 03-29-2024 RBC Auto (Body fld) [#/Vol] [address] mm^3 [facility] Comment on above: The reference interv al and other method performance specifications have not been established for this body fluid. The test result must be integrated into the clinical context for interpretation. Evaluation of color of body fluidOrdered By: Yony Ashton on 03-29-2024 Color (Body fld) [place] [facility] Comment on above: The reference interv al and other method performance specifications have not been established for this body fluid. The test result must be integrated into the clinical context for interpretation. Gram Stainon 03-29-2024 Microscopic observation Gram stain Nom (Unsp spec) Gram Stain Result No Bacteria Seen PERFORMED BY: [place] [address] PATHOLOGIST CREATIVE SERVICES PRODUCER KIMI TAYLOR M.D. Normal [facility] Comment on above: Performed By: #### F L CLAYTON, FLCCDIFF, GS, AERC #### [facility] [address] Gram stain for investigation of transfusion reactionOrdered By: Yony Ashton on 03-29-2024 Microscopic observation Gram stain Nom (Unsp spec) [facility] Manual body fluid eosinophil s/100 leukocytesOrdered By: Yony Ashton on 03-29-2024 Eosinophils/100 WBC Manual cnt (Body fld) 0 /100{WBC} 0-3 [facility] Manual body fluid lymphocyte s/100 leukocytesOrdered By: Yony Ashton on 03-29-2024 Lymphocytes/100 WBC Manual cnt (Body fld) 4 % [facility] Comment on above: The reference interv al and other method performance specifications have not been established for this body fluid. The test result must be integrated into the clinical context for interpretation. Neutrophils/100 WBC Manual c nt (Body fld)Ordered By: Yony Ashton on 03-29-2024 Neutrophils/100 WBC (Body fld) 90 % [facility] Comment on above: The reference interv al and other method performance specifications have not been established for this body fluid. The test result must be integrated into the clinical context for interpretation. Sidney 11-17-2023 L Specimen: [id number] Received: 11/19/23 Status: SOULeona Req Num: [id number] Spec Type: Surgical Subm Dr: NON STAFF Tissues: A Joint/Knee (RT KNEE BONE) Procedures: HE, Gross/Micro L4, Decalcification Age/ Patient Sex Location Account Attending Physician Mauricio Syed 63/M LABELL [id number] NON STAFF SPEC NUM: [id number] RECD: 11/19/23 STATUS: SOUT REQ NUM: [id number] MARIAN: 11/17/[address]: NON STAFF ENTERED: 11/19/[address]: Doc Salmeron SPEC TYPE: Surgical DEPT: LOLI BEAULIEU ORDERED: [...] Serial sectioning shows yellow spongy bone matrix. Accounting Systems Manager sections are submitted in A1. Clinical history: Primary OA right knee CPT Codes 31297 BONE AND TISSUE Specimen: [id number] Received: 11/19/23 Status: CASANDRA Zuleta Num: [id number] Spec Type: Surgical Subm Dr: NON STAFF Tissues: A Joint/Knee (RT KNEE BONE) Procedures: NITISH, Gross/Micro L4, Decalcification Patient: Mauricio Syed Gosia [id number] (Continued) Signed (signature on file) Audrey Grubbs MD 11/20/23 1501 Normal [facility] XR KNEE LT 4V or [...] by: LA MARTINEZ Date: 2022-03-23 19:23 Normal [facility] Vital Signs Date Time Vital Sign Value Performing Clinician Facility 08-10-2024 08:38-0500 Body height 177.8 cm Asmita Casillas MD Work Phone: [facility] 08-10-2024 08:38-0500 Body weight 104.32 kg Asmita Casillas MD Work Phone: [facility] 07-12-2024 08:50-0500 Blood Pressure Location Oneil ALEXIS [facility] 07-12-2024 08:50-0500 Body temperature 98.6 [degF] Oneil ALEXIS [facility] 07-12-2024 08:50-0500 Diastolic blood pressure 86 mm[Hg] Oneil ALEXIS [facility] 07-12-2024 08:50-0500 Heart rate 100 /min Oneil ALEXIS [facility] 07-12-2024 08:50-0500 Respiratory rate 18 /min Oneil ALEXIS [facility] 07-12-2024 08:50-0500 Systolic blood pressure 139 mm[Hg] Oneil ALEXIS [facility] 04-24-2022 09:45-0400 Body height 177.8 cm [employer] Other [facility] Other 04-24-2022 09:45-0400 Body mass index (BMI) [Ratio] 34.15 kg/m2 [employer] Other [facility] Other 04-24-2022 09:45-0400 Body weight 107.96 kg [employer] Other [facility] Other Encounters Encounter Date Encounter Type Care Provider Facility Start: 09-20-2024 ambulatory Oneil Alemani ty:[facility] Start: 09-07-2024 ambulatory Oneil ALEXIS Facili ty:[id number] Start: 08-10-2024 End: 08-10-2024 Patient encounter procedure Asmita Casillas MD Work Phone: [facility] [place] Work Phone: Start: 08-10-2024 End: 08-10-2024 ambulatory Asmita Casillas MD Work Phone: [facility] Work Phone: Start: 07-22-2024 End: 07-22-2024 ambulatory Asmita Casillas MD Facility:[facility] Start: 07-12-2024 End: 07-12-2024 ambulatory Oneil ALEXIS [facility] Start: 07-12-2024 End: 07-12-2024 Patient encounter procedure Oneil ALEXIS [facility] Start: 07-05-2024 ambulatory Oneilstella ALEXIS Facility :[facility] Start: 06-17-2024 End: 06-17-2024 ambulatory Herbert Griffin MD Facility:[facility] Start: 05-24-2024 End: 05-24-2024 ambulatory Asmita Casillas MD Facility:[facility] Start: 05-17-2024 End: 05-17-2024 ambulatory Yodit Tovar RECREATION THERAPIST-THEATRICAL AGENT Facility:[facility] Start: 05-10-2024 End: 05-12-2024 [facility] Start: 05-10-2024 End: 05-12-2024 Subsequent hospital visit by physician [facility] Additional Xray At [facility] Comment on above: 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, subsequent encounter Start: 05-03-2024 End: 05-03-2024 ambulatory Yodit Tovar RECREATION THERAPIST-THEATRICAL AGENT Facility:[facility] Start: 04-26-2024 End: 04-28-2024 [facility] Start: 04-18-2024 End: 04-18-2024 Telephone encounter Rosa Vaughan NP Work Phone: [facility] Start: 04-08-2024 ambulatory Asmita Casillas MD Facility:[facility] Start: 04-08-2024 End: 04-15-2024 Evaluation and management of inpatient Asmita Casillas MD Facility:[facility] Start: 04-06-2024 ambulatory Yony Ashton DO Fa cility:[facility] Start: 03-29-2024 End: 03-29-2024 ambulatory Yony Ashton [facility] Work Phone: Start: 03-29-2024 End: 03-29-2024 Departed Referred DO Yony Ashton Work Phone: [facility] [place] Work Phone: Start: 01-19-2024 End: 01-19-2024 ambulatory [facility] Start: 11-17-2023 End: 11-17-2023 ambulatory NON STAFF Facility:[facility] Start: 04-24-2022 End: 04-24-2022 ambulatory Ankush Quintero II Other [employer] Other Start: 04-24-2022 Office outpatient visit 15 minutes Ankush Quintero II [facility] Start: 03-29-2022 End: 04-23-2022 ambulatory ANKUSH QUINTERO Facility:[facility] Start: 03-27-2022 End: 03-27-2022 Patient encounter procedure PHYSICIAN NO FAMILY [facility] Start: 03-23-2022 End: 03-23-2022 ambulatory RUDDY [...] MR Prostate WO and W contrast IV [facility] Start: 08-10-2024 MR prostate wo/w con MR prostate wo/ w con [facility] Start: 03-29-2024 Microbial culture, b fritz fluid [facility] Start: 03-29-2024 Microscopic observat ion [Identifier] in Unspecified specimen by Gram stain [facility] Start: 03-07-2024 COVID-19 Vaccine ( season) COVID-19 Vaccine ( season) [facility] Start: 02-05-2024 Influenza vaccination Flu vaccine (# 1) [facility] Start: 2021 Respiratory Syncytia l Virus (RSV) or age 60 yrs+ (1 - 1-dose 60+ series) Respiratory Syncytial Virus (RSV) or age 60 yrs+ (1 - 1-dose 60+ series) [facility] Start: 2006 Screening for malign ant neoplasm of colon [facility] Start: 2001 Lipid panel Lipids [facility] Start: 01-14-1996 Diabetes screen Diabetes screen [facility] Start: 01-14-1980 DTaP/Tdap/Td vaccine (1 - Tdap) DTaP/Tdap/Td vaccine (1 - Tdap) [facility] Start: 1979 Hepatitis C screening Hepatitis C sc reen [facility] Start: 01-14-1976 HIV screening HIV screen [facility] Start: 1973 Depression Screen Depression Screen [facility] Bacteria identified in Unspecified specimen by Aerobe culture [facility] Bacteria identified in Unspecified specimen by Anaerobe culture [facility] Immunizations Immunization Date Immunization Notes Care Provider Maxi palacios 04-17-2023 influenza virus vaccine, unspecified formulation Oneil ALEXIS [facility] 08-17-2021 zoster vaccine recombinant Oneil ALEXIS [facility] 05-30-2021 zoster vaccine recombinant Oneil ALEXIS [facility] 05-23-2021 SARS-CoV-2 (COVID-19 ) mRNA BNT-162b2 vax Oneil ALEXIS [facility] Comment on above: Result Comment: 2024: TPV60 11-01-2021 influenza, unspecifi ed formulation Oneil ALEXIS [facility] 10-12-2020 SARS-CoV-2 (COVID-19 ) mRNA BNT-162b2 vax Oneil ALEXIS [facility] Comment on above: Result Comment: 2024: [id number] 09-20-2020 SARS-CoV-2 (COVID-19 ) mRNA BNT-162b2 vax Oneil ALEXIS [facility] Comment on above: Result Comment: 2024: [id number] 04-08-2020 influenza virus vaccine, unspecified formulation Oneil ALEXIS [facility] 05-26-2019 influenza, unspecifi ed formulation Oneilstella ALEXIS [facility] Payers Date Payer Category Payer Unknown 2023 Self-pay [id number] 2023 Unknown [id number] .[id number] 1961 Unknown [id number] 2.16.840.1.422425.3.579.2.593 1961 Unknown [id number] 2.16.840.1.082376.3.579.2.593 1961 Unknown [id number] 2.16.840.1.062123.3.579.2.174 1961 Unknown [id number] 2.16.840.1.303567.3.579.2.174 1961 Unknown [id number] 2.16.840.1.929753.3.579.2.174 1961 Unknown [id number] 2.16.840.1.769537.3.579.2.174 1961 Unknown [id number] 2.16.840.1.379395.3.579.2.174 1961 Unknown [id number] 2.16.840.1.271653.3.579.2.196 1961 Unknown [id number] 2.16.840.1.529325.3.579.2.196 1961 Unknown [id number] 2.16.840.1.470887.3.579.2.196 1961 Unknown [id number] 2.16.840.1.155933.3.579.2.196 1961 Unknown [id number] 2.16.840.1.669862.3.579.2.196 1961 Unknown [id number] 2.16.840.1.776127.3.579.2.196 1961 Unknown [id number] 2.16.840.1.962204.3.579.2.196 1961 Unknown [id number] 2.16.840.1.533015.3.579.2.196 1961 Unknown [id number] 2.16.840.1.414516.3.579.2.196 1961 Unknown [id number] 2.16.840.1.642680.3.579.2.196 1961 Unknown [id number] 2.16.840.1.818491.3.579.2.727 1961 Unknown [id number] 2.16.840.1.405004.3.579.2.727 1959 Unknown [id number] 2.16.8 40.1.496735.19 Unknown [id number] 2.16.840.1.239682.3.579.2.531 Unknown [id number] 2.16.840.1.629685.3.579.2.531 Unknown [id number] 2.16.840.1.651747.3.579.2.531 Unknown [id number] Worker'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 Care Works [facility] [id number] Social History Date Type Detail Facility Tobacco smoking status NHIS Unknown if ever smoked [facility] Work Phone: Start: 1960 Sex Assigned At Male [facility] Start: 01-19-2024 Sex Assigned At [facility] Other Tobacco smoking status NHIS Tobacco smoking consumption unknown [facility] Start: 1960 Sex assigned at Not on file [facility] Start: 01-15-2024 Tobacco smoking status NHIS Never smoked tobacco [facility] Start: 01-15-2024 Tobacco use and exposure Smokeless tobacco non-user [facility] Start: 01-20-2024 Alcoholic beverage intake Current drinker of alcohol (finding) [facility] Start: 01-19-2024 End: 01-20-2024 Alcoholic beverage intake [facility] [facility] Physical abuse Denies [facility] Start: 07-12-2024 Tobacco smoking status Ex-smoker (finding) [facility] Start: 08-11-2024 Sex Patient sex un known (finding) [facility] NEGATED: Highlighted rowStart: NINF History of tobacco use Passive smoker [employer] [facility] Functional Status Date Assessment Result Facility 07-12-2024 Functional Status N/A [facility] Clinical Notes 04-24-2022 to 07-12-2024 Telephone Encounter [...] discomfort near your rectum, especially while sitting. [place]-colored urine due to small amounts of blood in your urine. A burning feeling while urinating. Blood in your stool (feces) or bleeding from your rectum. Blood in your semen. Follow these instructions at home: Medicines Take iqgq-ucp-zscrbev and prescription medicines only as told by [...] provider. Document Revised: 12/17/2021 Document Reviewed: 12/17/2021 [employer] Patient Education 2023 [employer]. 07/12/2024 09:28:13 Transrectal Ultrasound-Guided Prostate Biopsy Transrectal [...] including vitamins, herbs, eye drops, creams, and aeub-hnu-ccaqyyk medicines. Any problems you or family members [...] provider tells you to take them. Taking dmrw-ssh-dbytenk medicines, vitamins, herbs, and supplements. General instructions [...] provider. Document Revised: 12/17/2021 Document Reviewed: 12/17/2021 [employer] Patient Education 2023 [employer]. Follow Up Care 07/05/2024 15:21:45 With:SUMI LEE, Oneil Ruiz, URL Address: [facility] [address], [place] [address]- When: Unknown [facility] 07-12-2024 Note Urology Office/Clini c Note Chief [...] [facility] [address], [place] [address]- Additional Instructions: Schedule prostate MRI and TRUS/bx (possible fusion) Patient Education Transrectal Ultrasound-Guided Prostate Biopsy, Care After Transrectal Ultrasound-Guided Prostate Biopsy I, Laisha Gamez, personally scribed for Dr. Alexis on 07/12/2024 [...] BNT-162b2 vax 10/12/2020 (more content not included)... [facility] Comment on above: Result Comment: Elec [...] near your rectum, especially while sitting. ??? [place]-colored urine due to small amounts of blood in your urine. ??? A burning feeling while urinating. ??? Blood in your stool (feces) or bleeding from your rectum. ??? Blood in your semen. Follow these instructions at home: Medicines ??? Take zgnl-koo-jusdkle and prescription medicines only as told by [...] provider. Document Revised: 12/17/2021 Document Reviewed: 12/17/2021 [employer] Patient Education ? 2023 [employer]. Transrectal Ultrasound-Guided Prostate Biopsy A transrectal ultrasound-guided [...] including vitamins, herbs, eye drops, creams, and zido-dup-lpddrtu medicines. ??? Any problems you or family [...] This is especial (more content not included)... [facility] 04-18-2024 Telephone encounter Note Rx for tramadol is sent for this [facility] patient today, #90 [facility] 04-18-2024 Miscellaneous Notes Rx for tramadol is sent for this [facility] patient today, #90 documented in this encounter [facility] 04-15-2024 Note Admission Informatio n Patient: Mauricio [...] 2 months ago. He was seen at [facility], he started having persistent knee redness [...] (Right) (04/08/2024) Electroni (more content not included)... [facility] 04-12-2024 Note Procedure: Portable AP chest radiograph following peripherally inserted central catheter (PICC) insertion. Inserted by: Flavia Butler RN. PICC type: 4 Russian single lumen Power PICC Solo. Puncture site: [...] Signed, Electronically Signed in Other Vendor System) [facility] 04-08-2024 Note Chief Complaint patient had [...] 2 months ago. He was seen at [facility], he started having persistent knee redness [...] 2 months ago. He was seen at 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 [facility] 04-24-2022 Evaluation note Encounter Date Diagnosis [...] begin doing his own therapy at home. [facility] Other Evaluation + Plan note No data available for this section [facility] evaluation noteNo assessment information available [facility] Work Phone: Evaluation note* Diagnosis Pain- Primary Generalized pain [facility] Infection of total right knee replacement, subsequent encounter documented in this encounter [facility] general Narrative - Reported* Type Description Date Medical History hypertension Surgical History vasectomy [facility] Other Progress note No data available for this section [facility] Advance Directives No Advanced Directives Records Found Advance Directive Response Recorded Date/ Time Advance Directives No February 10 1:39pm Date Activated Date Inactivated Comments 01/19/2024 7:07 AM 01/19/2024 1:01 PM Advance Directive Response Recorded Date/ Time Advance Directives No February 10 12:39pm Summary Purpose Family History No Family [...] March 29, 2024 End: March 29, 2024 [employer]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 ) Relationship Specialty Start Date End Date Asmita Casillas MD [address] [place] [address] PCP - General Family Medicine 01/19/24 Team [...] DATE CREATED AUTHOR AUTHOR'S ORGANIZ ATION 05/14/2024 [facility] Manfred mar DATE CREATED AUTHOR AUTHOR'S ORGANIZ ATION 07/25/2024 [facility] DATE CREATED AUTHOR AUTHOR'S ORGANIZ ATION 08/21/2024 [facility] DATE CREATED AUTHOR AUTHOR'S ORGANIZ ATION 08/24/2024 [facility] FOR RECORDS PERTAINING TO PATIENTS WHO [...] BE BASED ON THE PRIMARY CLINICAL RECORDS. [employer] [facility]. provides no warranty or guarantee of the accuracy or completeness of information in this document.
[2024-08-27 13:12] LABS: C Reactive Protein <0.50 mg/dL (<=0.50)
== END 2024-08-27 12:21 | disposition home or self-care (01) ==
LOC: LAB 12:21
PROVIDERS: PCP Family Medicine; Visit Provider Student in an Organized Health Care Education/Training Program
DX: T84.53XD Infection and inflammatory reaction due to internal right knee prosthesis, subsequent encounter (principal)
CPT/HCPCS: 36415; 86140